=== PATIENT | male | born 1970 | race Two or more races ===

== ENCOUNTER → 2021-06-22 | Outpatient (CLI) | payer MEDICAID | END | disposition home or self-care (01) | LOC: Rad HDHVI 12:58 | PROVIDERS: ATTEND Internal Medicine Cardiovascular Disease | DX: I34.0 Nonrheumatic mitral (valve) insufficiency (principal); I35.0 Nonrheumatic aortic (valve) stenosis | CPT/HCPCS: 93306 ==

== ENCOUNTER 2025-01-25 11:35 | Inpatient (IN) | payer MEDICAID ==
[~2025-01-25] VITALS: Ht 172.7 cm; Wt 103.3 kg
--- NOTE | 2025-01-25 11:53 | ED.PDOC ---
History of Present Illness HPI Comments 54 year old male with a Hx of PVD, High Lipids, DM, HTN, and CKF was BIBA for the c/c of Generalized Weakness. Per EMS pts has been experiencing mechanical falls since missing his last 2 dialysis appointments. Pt notes that his last Dialysis treatment was this past Tuesday. Per EMS Pts Blood sugar ran 230. No other associated symptoms, modifiers, recent injuries or sick contacts present at this time. Chief Complaint: General Weakness Time Seen by MD: 11:49 Reviewed Notes: Nurses Notes, Residential Youth Counselor Notes, Medications, Allergies Information Source: Patient, Emergency Med Personnel Mode of Arrival: EMS Severity: Moderate Timing: Days Duration: Since onset, Days Prehospital treatment: None Past Medical History PAST MEDICAL HISTORY: CKF, DM, High Lipids, HTN Surgical History: Unknown Family History Family History: Unknown Social History Smoker: Non-Smoker Alcohol: Denies ETOH Use Drugs: Denies Drug Use Lives In: Home Constitutional: denies: chills, diaphoresis, fatigue, fever, malaise, sweats, weakness, others EENTM: denies: blurred vision, double vision, ear bleeding, ear discharge, ear drainage, ear pain, ear ringing, eye pain, eye redness, hearing loss, mouth pain, mouth swelling, nasal discharge, nose bleeding, nose congestion, nose pain, photophobia, tearing, throat pain, throat swelling, voice changes, others Respiratory: denies: cough, hemoptysis, orthopnea, SOB at rest, shortness of breath, SOB with excertion, stridor, wheezing, others Cardiovascular: denies: chest pain, dizzy spells, diaphoresis, Dyspnea on exertion, edema, irregular heart beat, left arm pain, lightheadedness, palpitations, PND, syncope, others Gastrointestinal: denies: abdomen distended, abdominal pain, blood streaked bowels, constipated, diarrhea, dysphagia, difficulty swallowing, hematemesis, melena, nausea, poor appetite, poor fluid intake, rectal bleeding, rectal pain, vomiting, others Genitourinary: denies: burning, dysuria, flank pain, frequency, hematuria, incontinence, penile discharge, penile sore, pain, testicle pain, testicle swelling, urgency, others Neurological: reports: weakness; denies: dizziness, fainting, headache, left sided numbness, left sided weakness, numbness, paresthesia, pre-existing deficit, right sided numbness, right sided weakness, seizure, speech problems, tingling, tremors, others Musculoskeletal: denies: back pain, gout, joint pain, joint swelling, muscle pain, muscle stiffness, neck pain, others Integumetry: denies: bruises, change in color, change in hair/nails, dryness, laceration, lesions, lumps, rash, wounds, others Allergic/Immunocompromised: denies: Difficulty Healing, Frequent Infections, Hives, Itching, others Hematologic/Lymphatic: denies: anemia, blood clots, easy bleeding, easy bruising, swollen glands, others Endocrine: denies: excessive hunger, excessive sweating, excessive thirst, excessive urination, flushing, intolerance to cold, intolerance to heat, unexplained weight gain, unexplained weight loss, others Psychiatric: denies: anxiety, bipolar disorder, depression, hopeless, panic disorder, schizophrenia, sleepless, suicidal, others All Other Systems: Reviewed and Negative Physical Exam General Appearance: Moderate Distress, Obese HEENT: Normal ENT Inspection, Pharynx Normal, TMs Normal Neck: Full Range of Motion, Non-Tender, Normal, Normal Inspection Respiratory: Chest Non-Tender, Lungs Clear, No Accessory Muscle Use, No Respiratory Distress, Normal Breath Sounds Cardiovascular: No Edema, No JVD, No Murmur, No Gallop, Normal Peripheral Pulses, Regular Rate/Rhythm Breast Exam: Deferred Gastrointestinal: No Organomegaly, Non Tender, No Pulsatile Mass, Normal Bowel Sounds, Soft Genitalia: Deferred Pelvic: Deferred Rectal: Deferred Extremities: No calf tenderness, Normal capillary refill, Non-tender, No pedal edema Musculoskeletal : Apperance: Normal Neurologic: Alert, flooring installer II-XII nml as Tested, No Motor Deficits, Normal Affect, Normal Mood, No Sensory Deficits Cerebellar Function: NOT DONE Reflexes: NOT DONE Skin: Dry, Normal Color, Warm, Wounds (Bilateral lower extremity) Peripheral Pulses: 3+ Radial (R), 3+ Radial (L) Lymphatic: No Adenopathy Was a procedure done? Was a procedure done?: No Differential Dx Considerations may include: Chronic kidney disease Electrolyte imbalance X-Ray, Labs, Meds, VS Vital Signs Date Time Temp Pulse Resp B/P (MAP) Pulse Ox O2 Delivery O2 Flow Rate FiO2 01/25/25 14:00 98.4 63 20 175/64 (101) 95 98.4 01/25/25 12:16 98.4 64 20 184/84 (117) 95 98.4 01/25/25 12:15 63 20 94 Room Air* 0 21 01/25/25 11:47 98.1 70 16 192/107 (135) 96 98.1 01/25/25 11:38 64 Lab Test 01/25/25 13:52 01/25/25 12:00 Range/Units Sodium Level 134 L 136-145 mmol/L Potassium Level 7.3 *H 3.5-5.1 mmol/L Chloride Level 97 L 98-107 mmol/L Carbon Dioxide Level 20 20-31 mmol/L Anion Gap 17 H 5-15 Blood Urea Nitrogen 99 *H 9-23 mg/dL Creatinine 13.60 *H 0.700-1.30 mg/dL Glomerular Filtration Rate Calc 4 >90 mL/min BUN/Creatinine Ratio 7.3 L 10.0-20.0 Serum Glucose 140 H 74-106 mg/dL Calcium Level 7.9 L 8.7-10.4 mg/dL Total Bilirubin 0.2 0.2-1.0 mg/dL Aspartate Amino Transferase (AST) 13 13-40 U/L Alanine Aminotransferase (ALT) < 9 7-40 U/L Alkaline Phosphatase 62 46-116 U/L Total Protein 6.7 5.7-8.2 g/dL Albumin 3.7 3.2-4.8 g/dL Hepatitis B Surface Antigen Pending Hepatitis B Surface Antibody Pending White Blood Count 9.4 4.4-10.8 10^3/uL Red Blood Count 3.34 L 4.5-5.90 10^6/uL Hemoglobin 9.7 L 13.5-17.5 g/dL Hematocrit 30.0 L 41.0-53.0 % Mean Corpuscular Volume 89.9 80.0-100.0 fL Mean Corpuscular Hemoglobin 28.9 28.0-32.0 pg Mean Corpuscular Hemoglobin Concent 32.2 32.0-36.0 g/dL Red Cell Distribution Width 15.2 H 11.8-14.3 % Platelet Count 225 140-450 10^3/uL Mean Platelet Volume 7.3 6.9-10.8 fL Neutrophils (%) (Auto) 80.1 H 37.0-80.0 % Lymphocytes (%) (Auto) 8.7 L 10.0-50.0 % Monocytes (%) (Auto) 8.1 0.0-12.0 % Eosinophils (%) (Auto) 2.7 0.0-7.0 % Basophils (%) (Auto) 0.4 0.0-2.0 % Neutrophils # (Auto) 7.5 1.6-8.6 10 ^3/uL Lymphocytes # (Auto) 0.8 0.4-5.4 10 ^3/uL Monocytes # (Auto) 0.8 0-1.3 10 ^3/uL Eosinophils # (Auto) 0.3 0-0.8 10 ^3/uL Basophils # (Auto) 0 0-0.2 10 ^3/uL Nucleated Red Blood Cells 0.1 % Lactic Acid Level 0.8 0.4-2.0 mmol/L PATIENT: NAYAN ARMSTRONG ACCT: [id number] UNIT: [id number] : 1970 LOC: ER ROOM / BED: / AGE / SEX: 54 / M ADM STATUS: REG ER SERVICE 1149 ORDERING PHYSICIAN: ANITA WEBB MD PROCEDURE(s): CXRP - CHEST PORTABLE REASON: sob ORDER NUMBER(s): [id number], ACCESSION NUMBER(s): [id number] EXAM: XY CHEST PORTABLE HISTORY: sob COMPARISON: None TECHNIQUE: Portable upright AP view of the chest was performed. FINDINGS: No no pneumothorax or consolidative infiltrates. There is interstitial prominence, greater centrally. The heart is enlarged. The aortic arch is calcific. The central pulmonary arteries may be ectatic. IMPRESSION: 1. Cardiomegaly with interstitial prominence suggestive of CHF. 2. Atherosclerotic vascular disease and possible pulmonary arterial hypertension. Patient alert. Chronic kidney disease. Bilateral lower extremity wounds. Blood pressure elevated. Potassium elevated. Hyperkalemia treatment. Nephrology consultation. He will need dialysis. Chest x-ray does show fluid. Gap elevated. Possible sepsis. Possible DKA. Explained to the patient. Continue to monitor. Time of 1ST Reevaluation: 12:20 Reevaluation 1ST: Unchanged Patient Education/Counseling: Diagnosis, Treatment, Need For Follow Up Family Education/Counseling: No Family Present SEPSIS Sepsis Screen Physician Orders Chest Portable (01/25/25 11:49) Sodium Chloride 0.9% (01/25/25 12:00) Blood Culture (01/25/25 11:49) *[facility] (01/25/25 11:50) Electrocardigram (01/25/25 11:38) Hepatitis B Surface Antibody (01/25/25 13:51) Hepatitis B Surface Antigen (01/25/25 13:51) Insulin R 10units Iv X One (01/25/25 14:30) Dextrose 50% 1amp=50ml (01/25/25 14:30) Albuterol 20mg Medneb X One (01/25/25 14:30) Sod Bicarb 50ml=1amp (01/25/25 14:30) Lasix 20mg Iv X One (01/25/25 14:30) Calcium Gluc 1 Amp Ivpb (01/25/25 14:30) Lokelma 10gm Po Tid X 48hrs (01/25/25 22:00) Vital Signs Date Time Temp Pulse Resp B/P (MAP) Pulse Ox O2 Delivery O2 Flow Rate FiO2 01/25/25 14:00 98.4 63 20 175/64 (101) 95 98.4 01/25/25 12:16 98.4 64 20 184/84 (117) 95 98.4 01/25/25 12:15 63 20 94 Room Air* 0 21 01/25/25 11:47 98.1 70 16 192/107 (135) 96 98.1 01/25/25 11:38 64 Laboratory Tests Test 01/25/25 12:00 Lactic Acid Level 0.8 mmol/L (0.4-2.0) White Blood Count 9.4 10^3/uL (4.4-10.8) Departure 1 Departure Time of Disposition: 14:22 Impression: Primary Impression: Hyperkalemia Additional Impressions: End stage renal disease on dialysis Uncontrolled diabetes mellitus Qualified Codes: E08.65 - Diabetes mellitus due to underlying condition with hyperglycemia Disposition: ADMITTED INPATIENT Admit to: Med Surg Condition: Guarded Critical Care Note Critical Care Time?: Yes (90 min-critical care time only) Critical care comment: Hyperkalemia nephrology consultation continue monitor Stability Stability form required: No Heart Score Heart Score: Heart Score Response (Comments) Value History N/A 0 EKG N/A 0 Age N/A 0 Risk Factors N/A 0 Troponin N/A 0 Total 0 I personally scribed for ANITA WEBB MD ([email or web address]) on 01/25/25 at 11:53. Electronically submitted by Lacho Montana ([email or web address]). I personally scribed for ANITA WEBB MD ([email or web address]) on 01/25/25 at 12:30. Electronically submitted by Lacho Montana ([email or web address]). ANITA WEBB MD Jan 25, 2025 11:53
[2025-01-25] MEDS: AZITHROMYCIN 500MG/ 250ML 250 ML IV ONE (12:00)
[2025-01-25] MEDS: PIPERACILLIN-TAZOB 3.375GM 100 ML IV ONE (12:00)
[2025-01-25] MEDS: SODIUM CHLORIDE 0.9% 1,000 ML IV ONE ×2 (12:00)
[2025-01-25 12:15] VITALS: PULSE 63; RESP 20; O2SAT 94
--- NOTE | 2025-01-25 12:17 | DVH ---
EXAM: XY CHEST PORTABLE HISTORY: sob COMPARISON: None TECHNIQUE: Portable upright AP view of the chest was performed. FINDINGS: No no pneumothorax or consolidative infiltrates. There is interstitial prominence, greater centrally . The heart is enlarged. The aortic arch is calcific. The central pulmonary arteries may be ectatic . IMPRESSION: 1. Cardiomegaly with interstitial prominence suggestive of CHF. 2. Atherosclerotic vascular disease and possible pulmonary arterial hypertension.
[2025-01-25 12:18] LABS: Hematocrit 30.0 % (41.0-53.0); Hemoglobin 9.7 g/dL (13.5-17.5); Mean Corpuscular Hemoglobin 28.9 pg (28.0-32.0); Mean Corpuscular Volume 89.9 fL (80.0-100.0); Nucleated Red Blood Cells % 0.1 %
[2025-01-25 14:11] LABS: Anion Gap 17 (5-15); BUN/Creatinine Ratio 7.3 (10.0-20.0)
[2025-01-25 14:15] LABS: Alanine Aminotransferase < 9 U/L (7-40); Albumin 3.7 g/dL (3.2-4.8); Alkaline Phosphatase 62 U/L (46-116); Bilirubin, Total 0.2 mg/dL (0.2-1.0); Calcium 7.9 mg/dL (8.7-10.4); Carbon Dioxide 20 mmol/L (20-31); Chloride 97 mmol/L (98-107); Glucose 140 mg/dL (74-106); Sodium 134 mmol/L (136-145); Total Protein 6.7 g/dL (5.7-8.2)
[2025-01-25 14:17] LABS: Blood Urea Nitrogen 99 mg/dL (9-23); Potassium 7.3 mmol/L (3.5-5.1)
[2025-01-25] MEDS: InsuLIN REG 1unit/0.01ml Soln (100units/ml) IV ONE (14:39)
[2025-01-25] MEDS: CALCIUM GLUC 1,000mg/50ml-NS 50 ML IV ONE (14:41)
[2025-01-25] MEDS: FUROSEMIDE 20 MG/2 ML VIAL IV ONE (14:41)
[2025-01-25] MEDS: ALBUTEROL SULF 2.5 MG/0.5ML(0.5%) NEB SOLN NEB ONE (14:47)
[2025-01-25 14:48] LABS: Hepatitis B Surface Antigen Negative (Negative)
--- NOTE | 2025-01-25 14:51 | DVHINCON2 ---
Date of service: Jan 25, [address] De León Reason for Consultation End-stage kidney disease, hyperkalemia History of Present Illness This is a 54-year-old male with history of end-stage kidney disease on hemodialysis secondary to diabetic nephropathy, hypotension presenting to the emergency room because of shortness of breath and generalized weakness. As per the history obtained from the patient his last dialysis was on Tuesday. He missed his dialysis on Tuesday and . Today morning he felt extremely weak and hence presented to the emergency room where he was noted to have a potassium of 7.3. Nephrology has been consulted for the same. Patient is extremely noncompliant with his dialysis treatments. Has excessive interdialytic weight gain. Patient seen and examined at bedside. Complaining of shortness of breath. He says he feels as though he is drowning. Past Medical History End-stage kidney disease Type 2 diabetes with its complications Hypertension Past Surgical History Dialysis access Social History Denies any active history of smoking, alcohol or drug abuse Allergies: Coded Allergies: NO KNOWN ALLERGIES (Unverified , 01/25/25) Current Medications Current Medications Medications (Trade) Dose Ordered Sig/Duane Route PRN Reason Start Time Stop Time Status Last Admin Zirconium Oxide (Lokelma) 10 gm TID PO 01/25/25 22:00 01/27/25 14:01 UNV Review of Systems 12 point review of system negative except as stated in the HPI Vital Signs Vital Signs Date Time Temp Pulse Resp B/P (MAP) Pulse Ox O2 Delivery O2 Flow Rate FiO2 01/25/25 14:00 98.4 63 20 175/64 (101) 95 98.4 01/25/25 12:15 Room Air* 0 21 Physical Exam Awake alert oriented x3 HEENT: Normocephalic Lungs: Diminished breath sounds at bases CVS: S1, S2 regular rate rhythm Abdomen: Soft, bowel sounds present 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 Extremities: Chronic skin changes to bilateral lower extremities Labs/Diagnostic Data Labs Test 01/25/25 13:52 01/25/25 12:00 Range/Units Sodium Level 134 L 136-145 mmol/L Potassium Level 7.3 *H 3.5-5.1 mmol/L Chloride Level 97 L 98-107 mmol/L Carbon Dioxide Level 20 20-31 mmol/L Anion Gap 17 H 5-15 Blood Urea Nitrogen 99 *H 9-23 mg/dL Creatinine 13.60 *H 0.700-1.30 mg/dL Glomerular Filtration Rate Calc 4 >90 mL/min BUN/Creatinine Ratio 7.3 L 10.0-20.0 Serum Glucose 140 H 74-106 mg/dL Calcium Level 7.9 L 8.7-10.4 mg/dL Total Bilirubin 0.2 0.2-1.0 mg/dL Aspartate Amino Transferase (AST) 13 13-40 U/L Alanine Aminotransferase (ALT) < 9 7-40 U/L Alkaline Phosphatase 62 46-116 U/L Total Protein 6.7 5.7-8.2 g/dL Albumin 3.7 3.2-4.8 g/dL White Blood Count 9.4 4.4-10.8 10^3/uL Red Blood Count 3.34 L 4.5-5.90 10^6/uL Hemoglobin 9.7 L 13.5-17.5 g/dL Hematocrit 30.0 L 41.0-53.0 % Mean Corpuscular Volume 89.9 80.0-100.0 fL Mean Corpuscular Hemoglobin 28.9 28.0-32.0 pg Mean Corpuscular Hemoglobin Concent 32.2 32.0-36.0 g/dL Red Cell Distribution Width 15.2 H 11.8-14.3 % Platelet Count 225 140-450 10^3/uL Mean Platelet Volume 7.3 6.9-10.8 fL Neutrophils (%) (Auto) 80.1 H 37.0-80.0 % Lymphocytes (%) (Auto) 8.7 L 10.0-50.0 % Monocytes (%) (Auto) 8.1 0.0-12.0 % Eosinophils (%) (Auto) 2.7 0.0-7.0 % Basophils (%) (Auto) 0.4 0.0-2.0 % Neutrophils # (Auto) 7.5 1.6-8.6 10 ^3/uL Lymphocytes # (Auto) 0.8 0.4-5.4 10 ^3/uL Monocytes # (Auto) 0.8 0-1.3 10 ^3/uL Eosinophils # (Auto) 0.3 0-0.8 10 ^3/uL Basophils # (Auto) 0 0-0.2 10 ^3/uL Nucleated Red Blood Cells 0.1 % Lactic Acid Level 0.8 0.4-2.0 mmol/L Assessment End-stage kidney disease on hemodialysis Hyperkalemia Noncompliance Anemia in Chronic kidney disease Hypertension Type 2 diabetes Plan/Recommendation Hemodialysis today with a one K bath Ultrafiltration of up to 4 L as tolerated Discussed with patient regarding compliance with outpatient dialysis treatments. Plan discussed with: Patient JOHNATHAN JOSEPH MD Jan 25, 2025 14:51
[2025-01-25] MEDS: DEXTROSE (50%) 50ML SYRG IV ONE (14:59)
[2025-01-25] MEDS: SODIUM BICARB 8.4% 50Meq/50ml SYR INJ IV ONE (14:59)
[2025-01-25] MEDS ORDERED: HYDROcodone-ACET 5/325MG TAB PO PRN (17:15)
[2025-01-25] MEDS ORDERED: NITROGLYCERIN 0.4 MG SL TAB SL PRN (17:15)
[2025-01-25] MEDS ORDERED: MORPHINE SULFATE INJ 2 MG/ml SYRG IV PRN (17:15)
[2025-01-25] MEDS ORDERED: ONDANSETRON HCL 4 MG/2 ML VIAL IV PRN (17:15)
[2025-01-25] MEDS ORDERED: DOCUSATE SOD 100 MG CAP PO PRN (17:15)
[2025-01-25] MEDS ORDERED: ACETAMINOPHEN 325 MG TAB PO PRN (17:15)
[2025-01-25] MEDS ORDERED: HYDR-4924 PO (17:19)
[2025-01-25] MEDS ORDERED: FURO40TA4 PO (17:19)
[2025-01-25] MEDS ORDERED: INSU1INJ19 SC (17:19)
[2025-01-25] MEDS ORDERED: METO-158 PO (17:19)
[2025-01-25] MEDS ORDERED: LAMO25TA27 PO (17:19)
[2025-01-25] MEDS ORDERED: FENO145T27 PO (17:19)
[2025-01-25] MEDS ORDERED: FAMO40TA7 PO (17:19)
--- NOTE | 2025-01-25 17:41 | DVHHP2 ---
History of Present Illness Reason for Visit: Generalized weakness History of Present Illness Ahsan Melchor is a 54-year-old male with past medical history of hypertension, ESRD on HD, anxiety, diabetes, and peripheral vascular disease, who came to the hospital for generalized weakness. Patient states he missed dialysis last week on Tuesday and . He became weak where his legs would not work today and he fell twice. He states the first time he fell he called EMS for help, but refused to go to the hospital. The second time he fell today he came to the hospital. While in the ER he was found to be hyperkalemic, nephrology was consulted, and dialysis started. Cardiovascular: HTN, hyperipidemia, Other (peripheral vascular disease) Psych: Anxiety Renal/: Chronic renal failure (on HD) Endocrine: Diabetes Past Surgical History: Cholecystectomy, Other Smoke: No ALCOHOL: none Drugs: None Lives: with Family Review of Systems Constitutional: No: Fever, Chills, Sweats, Weakness, Malaise, Other Eyes: No: Pain, Vision change, Conjunctivae inflammation, Eyelid inflammation, Other, Redness ENT: No: Ear pain, Ear discharge, Nose pain, Nose discharge, Nose congestion, Mouth pain, Mouth swelling, Throat pain, Throat swelling, Other Respiratory: No: Cough, Dry, Shortness of breath, SOB with excertion, Wheezing, Hemoptysis, Pleuritic Pain, Sputum, Wheezing, Other Cardiovascular: No: Chest Pain, Palpitations, Orthopnea, Paroxysmal Noc. Dyspnea, Edema, Lt Headedness, Other Gastrointestinal: No: Nausea, Vomiting, Abdominal Pain, Diarrhea, Constipation, Melena, Hematochezia, Other Genitourinary: No Dysuria, No Frequency, No Incontinence, No Hematuria, No Retention, No Other Musculoskeletal: No: other, neck pain, shoulder pain, arm pain, back pain, hand pain, leg pain, foot pain Skin: No: Rash, Lesions, Jaundice, Bruising, Other Neurological: No: Weakness, Numbness, Incoordination, Change in speech, Confusion, Seizures, Other Allergies: Coded Allergies: NO KNOWN ALLERGIES (Unverified , 01/25/25) Medications Current Medications Medications Dose Ordered Sig/Duane Route Start Time Stop Time Status Last Admin Dose Admin Sodium Chloride 10 ml Q8HR IV 01/25/25 22:00 UNV Acetaminophen/ Hydrocodone Bitart 1 tab Q4HP PRN PO 01/25/25 17:15 UNV Ondansetron HCl 4 mg Q4HP PRN IV 01/25/25 17:15 UNV Docusate Sodium 100 mg BIDPRN PRN PO 01/25/25 17:15 UNV Acetaminophen 650 mg Q6HP PRN PO 01/25/25 17:15 UNV Nitroglycerin 0.4 mg Q5MINP PRN SL 01/25/25 17:15 UNV Morphine Sulfate 2 mg Q30M PRN IV 01/25/25 17:15 UNV Clindamycin Phosphate 50 ml @ 50 mls/hr Q8HR IV 01/25/25 22:00 UNV Exam Vital Signs Vital Signs Date Time Temp Pulse Resp B/P (MAP) Pulse Ox O2 Delivery O2 Flow Rate FiO2 01/25/25 17:00 89 20 187/93 (124) 95 01/25/25 14:47 Room Air* 0 21 01/25/25 14:00 98.4 98.4 General Appearance: Alert, Oriented X3, Cooperative, mild distress HEENT: Atraumatic, PERRLA, Mucous membr. moist/pink Respiratory: Clear to auscultation, Normal air movement Cardiovascular: Regular rate, Normal S1, Normal S2 Abdominal: Normal bowel sounds, Soft, No tenderness Extremities: No clubbing, No cyanosis, No edema, Normal pulses Skin: No rashes, No breakdown, No significant lesion Neuro: Normal gait, Normal speech, Strength at 5/5 X4 ext Psych/Mental Status: Mental status NL, Mood NL Labs/Xrays Labs Test 01/25/25 13:52 01/25/25 12:00 Range/Units Sodium Level 134 L 136-145 mmol/L Potassium Level 7.3 *H 3.5-5.1 mmol/L Chloride Level 97 L 98-107 mmol/L Carbon Dioxide Level 20 20-31 mmol/L Anion Gap 17 H 5-15 Blood Urea Nitrogen 99 *H 9-23 mg/dL Creatinine 13.60 *H 0.700-1.30 mg/dL Glomerular Filtration Rate Calc 4 >90 mL/min BUN/Creatinine Ratio 7.3 L 10.0-20.0 Serum Glucose 140 H 74-106 mg/dL Calcium Level 7.9 L 8.7-10.4 mg/dL Total Bilirubin 0.2 0.2-1.0 mg/dL Aspartate Amino Transferase (AST) 13 13-40 U/L Alanine Aminotransferase (ALT) < 9 7-40 U/L Alkaline Phosphatase 62 46-116 U/L Total Protein 6.7 5.7-8.2 g/dL Albumin 3.7 3.2-4.8 g/dL Hepatitis B Surface Antigen Negative Negative Hepatitis B Surface Antibody Negative Negative White Blood Count 9.4 4.4-10.8 10^3/uL Red Blood Count 3.34 L 4.5-5.90 10^6/uL Hemoglobin 9.7 L 13.5-17.5 g/dL Hematocrit 30.0 L 41.0-53.0 % Mean Corpuscular Volume 89.9 80.0-100.0 fL Mean Corpuscular Hemoglobin 28.9 28.0-32.0 pg Mean Corpuscular Hemoglobin Concent 32.2 32.0-36.0 g/dL Red Cell Distribution Width 15.2 H 11.8-14.3 % Platelet Count 225 140-450 10^3/uL Mean Platelet Volume 7.3 6.9-10.8 fL Neutrophils (%) (Auto) 80.1 H 37.0-80.0 % Lymphocytes (%) (Auto) 8.7 L 10.0-50.0 % Monocytes (%) (Auto) 8.1 0.0-12.0 % Eosinophils (%) (Auto) 2.7 0.0-7.0 % Basophils (%) (Auto) 0.4 0.0-2.0 % Neutrophils # (Auto) 7.5 1.6-8.6 10 ^3/uL Lymphocytes # (Auto) 0.8 0.4-5.4 10 ^3/uL Monocytes # (Auto) 0.8 0-1.3 10 ^3/uL Eosinophils # (Auto) 0.3 0-0.8 10 ^3/uL Basophils # (Auto) 0 0-0.2 10 ^3/uL Nucleated Red Blood Cells 0.1 % Lactic Acid Level 0.8 0.4-2.0 mmol/L EXAM: XY CHEST PORTABLE FINDINGS: No no pneumothorax or consolidative infiltrates. There is interstitial prominence, greater centrally. The heart is enlarged. The aortic arch is calcific. The central pulmonary arteries may be ectatic. IMPRESSION: 1. Cardiomegaly with interstitial prominence suggestive of CHF. 2. Atherosclerotic vascular disease and possible pulmonary arterial hypertension. Assessment/Plan Assessment/Plan Assessment: Hyperkalemia, ESRD on HD, Cellulitis, Peripheral vascular disease, Hypertension, Diabetes, Hyperlipidemia, Plan: Admit to Tele, Nephrology consult, Manage/Monitor electrolytes closely, Wound care consult, Wound culture, IV antibiotics, Home medications reconciled, Plan discussed with: Patient My Orders Orders - SIM MANCILLA SKID WRAPPER Procedure Category Date Status Time *Dr. Delfina Boston -Octavio CONS 01/25/25 Transmitted Stacie 14:44 Admit ADMIT 01/25/25 Transmitted 17:03 Code Status CODE 01/25/25 Transmitted 17:03 Renal DIET 01/25/25 Transmitted Standard(2gna,3gk,Lopho) Dinner Sodium Chloride Lock PHA 01/25/25 Logged (Saline Lock Ns) 22:00 Hydrocodone-Acet PHA 01/25/25 Logged 5/325mg Tab (Pony 17:15 Ondansetron Hcl PHA 01/25/25 Logged (Zofran) 17:15 Docusate Sodium PHA 01/25/25 Logged Capsule (Colace 17:15 Fall Risk Precautions CANDI 01/25/[address] 17:03 Complete Blood Count LAB 01/26/25 Verified 04:00 Comprehensive LAB 01/26/25 Verified Metabolic Panel 04:00 Condition: Serious CANDI 01/25/25 In Process 17:03 Acetaminophen Tablet PHA 01/25/25 Logged (Tylenol Tablet) 17:15 Nitroglycerin PHA 01/25/25 Logged Sublingual (Ntrostat 17:15 Morphine Sulfate PHA 01/25/25 Logged Injection 17:15 Stat Ekg For Chest CANDI 01/25/25 In Process Pain 17:03 Notify Md Of Changes CANDI 01/25/25 In Process From Base 17:03 Torpedoman'S Mate For CANDI 01/25/25 In Process 24 Hours 17:03 Emergency Dysrhythmia CANDI 01/25/25 In Process Protocol 17:03 Rhythm Strips Once CANDI 01/25/25 In Process Every Shift 17:03 Oxygen By Nasal RT 01/25/25 Transmitted Cannula 17:03 * Wound Consult CONS 01/25/25 Transmitted Clindamycin 600mg Iv PHA 01/25/25 Logged (Cleocin Iv) 22:00 Wound Culture W/ Gs ZITA 01/25/25 Logged 17:03 Furosemide Tablet PHA 01/25/25 Transmitted (Lasix Tablet) 18:00 Metoprolol Tartrate PHA 01/25/25 Transmitted Tablet (Lopressor Ta 22:00 (Nf) Famotidine PHA 01/25/25 Transmitted 17:15 (Nf) Fenofibrate PHA 01/26/25 Transmitted 10:00 (Nf) Hydroxyzine Hcl PHA 01/25/25 Transmitted (Hydroxyzine Hydroc 17:15 (Nf) Insulin Glargine PHA 01/26/25 Transmitted (Basaglar Kwikpen) 10:00 (Nf) Lamotrigine PHA 01/26/25 Transmitted 10:00 Date of Service: Jan 25, 2025 Billing Provider: SIM MANCILLA Common Visit Codes: [id number] INP/OBS CARE (MOD) SIM MANCILLA Jan 25, 2025 17:41
[2025-01-25] MEDS ORDERED: FAMOTIDINE 20 MG TAB PO PRN (18:30)
[2025-01-25] MEDS ORDERED: hydrOXYzine 25 MG TAB or CAP PO PRN (18:30)
[2025-01-25] MEDS: FUROSEMIDE 40 MG TAB PO SCH (19:07)
[2025-01-25] MEDS: LABETALOL HCL 20 MG/4 ML VL IV ONE (19:11)
[2025-01-25 19:27] VITALS: PULSE 88; RESP 18; O2SAT 98
[2025-01-25 20:58] LABS: Chloride 99 mmol/L (98-107); Potassium 4.4 mmol/L (3.5-5.1); Sodium 139 mmol/L (136-145)
[2025-01-25 20:59] LABS: Anion Gap 13 (5-15); Carbon Dioxide 27 mmol/L (20-31)
[2025-01-25 21:01] LABS: Calcium 8.4 mg/dL (8.7-10.4)
[2025-01-25 21:04] LABS: BUN/Creatinine Ratio 6.0 (10.0-20.0)
[2025-01-25 21:08] LABS: Blood Urea Nitrogen 50 mg/dL (9-23); Glucose 136 mg/dL (74-106)
[2025-01-25] MEDS: CLINDAMYCIN 600MG IV 50 ML IV SCH (21:31)
[2025-01-25] MEDS: SODIUM CHLOR 0.9% PF (SALINE LOCK) 10ML VIAL/SYR IV SCH (21:32)
[2025-01-25] MEDS: METOPROLOL TARTRATE 50 MG TAB PO SCH (21:33)
[2025-01-25] MEDS ORDERED: SODIUM ZIRCONIUM CYCL 10 GM PAK PO SCH (22:00)
[2025-01-26] VITALS (9 sets, daily range): BP systolic 128–193; BP diastolic 57–95; PULSE 65–79; RESP 14–19; TEMP 97.2–98; O2SAT 90–99
[2025-01-26] MEDS: hydrALAZINE HCL 20 MG/ML VL IV PRN ×2 (01:30→23:12)
[2025-01-26] MEDS ORDERED: LOPE2CAP16 PO (04:08)
[2025-01-26 04:41] LABS: Hematocrit 28.0 % (41.0-53.0); Hemoglobin 9.3 g/dL (13.5-17.5); Mean Corpuscular Hemoglobin 29.2 pg (28.0-32.0); Mean Corpuscular Volume 87.8 fL (80.0-100.0); Nucleated Red Blood Cells % 0.0 %
[2025-01-26 04:48] LABS: Albumin 3.6 g/dL (3.2-4.8); Alkaline Phosphatase 55 U/L (46-116); Anion Gap 13 (5-15); BUN/Creatinine Ratio 5.8 (10.0-20.0); Carbon Dioxide 27 mmol/L (20-31); Chloride 99 mmol/L (98-107); Sodium 139 mmol/L (136-145); Total Protein 6.5 g/dL (5.7-8.2)
[2025-01-26 04:49] LABS: Bilirubin, Total 0.3 mg/dL (0.2-1.0)
[2025-01-26 04:50] LABS: Alanine Aminotransferase < 9 U/L (7-40); Blood Urea Nitrogen 55 mg/dL (9-23); Calcium 8.3 mg/dL (8.7-10.4); Glucose 147 mg/dL (74-106); Potassium 5.4 mmol/L (3.5-5.1)
[2025-01-26] MEDS: SODIUM CHL 0.9% 1000 ML BAG XX ONE (07:38)
[2025-01-26] MEDS ORDERED: VANCOMYCIN PER PHARMACY 0 MG IV SCH (08:00)
[2025-01-26] MEDS ORDERED: SODIUM CHL 0.9% 1000 ML BAG XX ONE (09:45)
--- NOTE | 2025-01-26 09:45 | DVHPN2 ---
Progress Note - Dictate Date Seen: Jan 26, 2025 Medical Necessity Reason Pt with a Central, PICC or Fol: No Subjective No acute issues overnight. Patient was dialyzed yesterday with ultrafiltration of 4.5 L Scheduled for dialysis again today. vital signs Vital Sign Date Time Temp Pulse Resp B/P (MAP) Pulse Ox O2 Delivery O2 Flow Rate FiO2 01/26/25 08:00 69 17 99 Nasal Cannula* 2 28 01/26/25 08:00 98.6 148/71 (96) 98.6 Total Intake and Output 01/25/25 01/25/25 01/26/25 15:00 23:00 07:00 Intake Total 50 ml Balance 50 ml medications Current Medications Medications Dose Ordered Sig/Duane Route Start Time Stop Time Status Last Admin Dose Admin Sodium Chloride 10 ml Q8HR IV 01/25/25 22:00 01/26/25 05:41 10 ML Acetaminophen/ Hydrocodone Bitart 1 tab Q4HP PRN PO 01/25/25 17:15 Ondansetron HCl 4 mg Q4HP PRN IV 01/25/25 17:15 Acetaminophen 650 mg Q6HP PRN PO 01/25/25 17:15 Clindamycin Phosphate 50 ml @ 50 mls/hr Q8HR IV 01/25/25 22:00 01/26/25 05:41 50 MLS/HR Furosemide 40 mg QID PO 01/25/25 18:00 01/26/25 05:40 40 MG Metoprolol Tartrate 50 mg BID PO 01/25/25 22:00 01/25/25 21:33 50 MG Patient Own Medication 1 tab DAILY PO 01/26/25 10:00 Hydroxyzine Pamoate 25 mg BIDP PRN PO 01/25/25 18:30 Insulin Glargine 17 units DAILY SC 01/26/25 10:00 Lamotrigine 100 mg DAILY PO 01/26/25 10:00 Vancomycin HCl 0 ml @ 0 mls/hr UD IV 01/26/25 08:00 UNV objective Awake alert oriented x3 HEENT: Normocephalic Lungs: Diminished breath sounds at bases CVS: S1, S2 regular rate rhythm Abdomen: Soft, bowel sounds present FOSTER PARENT: No focal deficits Extremities: Chronic skin changes to bilateral lower extremities laboratory and microbiology Laboratory Tests 01/26/25 03:42 Test 01/26/25 03:42 Range/Units Serum Glucose 147 H 74-106 mg/dL Problem List End-stage kidney disease on hemodialysis Hyperkalemia Noncompliance Anemia in Chronic kidney disease Hypertension Type 2 diabetes Assessment/Plan Hemodialysis today. Blood pressure has been more stable. Again discussed with the patient regarding compliance with outpatient dialysis treatments Plan discussed with: Patient JOHNATHAN JOSEPH MD Jan 26, 2025 09:45
[2025-01-26] MEDS ORDERED: INSULIN LANTUS (GLARGINE) 1 /0.01ml (100units/ml) SC SCH (10:00)
[2025-01-26] MEDS: FENOFIBRATE 145 MG PO SCH (10:00)
[2025-01-26] MEDS: lamoTRIgine 100 MG TAB PO SCH (10:00)
[2025-01-26] MEDS: VANCOMYCIN 1.5GM/300ML 300 ML IV ONE (10:15)
--- NOTE | 2025-01-26 12:51 | DVHPNRES ---
Progress Note Date Seen: Jan 26, 2025 Resident Creating Document: PARK KRAUS RESIDENT Medical Necessity Reason Pt with a Central, PICC or Fol: No Subjective Review of Systems This is a 54-year-old male with past medical history of hypertension, ESRD on hemodialysis, anxiety, type 2 diabetes mellitus, peripheral vascular disease presented to the ED with a chief complaint of generalized weakness. He states he missed dialysis last week on Tuesday and for last few days he felt weeks not able to walk properly and he fell twice without loss of consciousness or any trauma to the head or the back. in the BD patient was found to be hyperkalemic, nephrology was consulted, dialysis done with removal of 4.5 L ultrafiltration. Patient was seen and examined on the bedside. He is alert oriented x3. Complaint of bilateral leg swelling and discharges since last six-month. No other active complaint. Patient is scheduled for hemodialysis today. Constitutional: Weakness, No: Fever, Chills, Sweats, Malaise, Other Eyes: No: Pain, Vision change, Conjunctivae inflammation, Eyelid inflammation, Other, Redness ENT: No: Ear pain, Ear discharge, Nose pain, Nose discharge, Nose congestion, Mouth pain, Mouth swelling, Throat pain, Throat swelling, Other Respiratory: Shortness of breath, improving No: Cough, Dry,Wheezing, Hemoptysis, Pleuritic Pain, Sputum, Wheezing, Other Cardiovascular: No: Chest Pain, Palpitations, Orthopnea, Paroxysmal Noc. Dyspnea, Edema, Lt Headedness, Other Gastrointestinal: No: Nausea, Vomiting, Abdominal Pain, Diarrhea, Constipation, Melena, Hematochezia, Other Musculoskeletal: bilateral leg ulcer, No: other, neck pain, shoulder pain, arm pain, back pain, hand pain, leg pain, foot pain Neurological:; No: Weakness, Numbness, Incoordination, Change in speech, Confusion, Seizures Objective vital signs Vital Sign Date Time Temp Pulse Resp B/P (MAP) Pulse Ox O2 Delivery O2 Flow Rate FiO2 01/26/25 09:25 97.5 71 18 134/62 (86) 93 97.5 01/26/25 08:00 Nasal Cannula* 2 28 Total Intake and Output 01/25/25 01/25/25 01/26/25 15:00 23:00 07:00 Intake Total 50 ml Balance 50 ml medications Current Medications Medications Dose Ordered Sig/Duane Route Start Time Stop Time Status Last Admin Dose Admin Sodium Chloride 10 ml Q8HR IV 01/25/25 22:00 01/26/25 05:41 10 ML Acetaminophen/ Hydrocodone Bitart 1 tab Q4HP PRN PO 01/25/25 17:15 Ondansetron HCl 4 mg Q4HP PRN IV 01/25/25 17:15 Acetaminophen 650 mg Q6HP PRN PO 01/25/25 17:15 Clindamycin Phosphate 50 ml @ 50 mls/hr Q8HR IV 01/25/25 22:00 01/26/25 05:41 50 MLS/HR Furosemide 40 mg QID PO 01/25/25 18:00 01/26/25 05:40 40 MG Metoprolol Tartrate 50 mg BID PO 01/25/25 22:00 01/25/25 21:33 50 MG Patient Own Medication 1 tab DAILY PO 01/26/25 10:00 Hydroxyzine Pamoate 25 mg BIDP PRN PO 01/25/25 18:30 Insulin Glargine 17 units DAILY SC 01/26/25 10:00 Lamotrigine 100 mg DAILY PO 01/26/25 10:00 Vancomycin HCl 0 ml @ 0 mls/hr UD IV 01/26/25 08:00 Examination Physical examination: General Appearance: Alert, Oriented X3, Cooperative, No acute distress HEENT: Atraumatic, PERRLA, EOMI, Mucous membrane moist/pink Respiratory: Clear to auscultation, Normal air movement Cardiovascular: Regular rate, Normal S1, Normal S2, No murmurs, no chest wall tenderness Abdominal: Normal bowel sounds, Soft, No tenderness, No hepatospenomegaly, No masses Extremities: Bilateral reduced pulsation in both posterior tibial and dorsalis pedis artery, No clubbing, No cyanosis, No edema, No tenderness/swelling Skin: bilateral status dermatitis with superimposed infection in legs, No rashes, No significant lesion Neuro: Rt eye blindness due to diabetic nephropathy, Normal gait, Normal speech, Strength at 5/5 X4 ext, Normal tone, Sensation intact, Cranial nerves 3- 12 NL, Reflexes 2+ Psych/Mental Status: Mental status NL, Mood NL laboratory and microbiology Laboratory Tests 01/26/25 03:42 Test 01/26/25 03:42 Range/Units Serum Glucose 147 H 74-106 mg/dL Microbiology Date/Time Source Procedure Growth Status 01/25/25 12:00 Blood Blood Culture - Preliminary Resulted Labs and/or images reviewed: Labs reviewed by me, Image(s) reviewed by me Problem List/Assessment/Plan Problem List/Assessment/Plan Assessment and plan: # ESRD on hemodialysis 3 times a week # Patient is noncompliant with dialysis, missed 2 sessions of dialysis # Hyperkalemia due to missed dialysis # chronic normocytic anemia likely due to ESRD - Nephrology on board - Had 1 session of dialysis yesterday and 4.5L ultrafiltration removed - Epoetin rayna - EPBX 4000 units per protocol # Bilateral stasis dermatitis with superimposed cellulitis # Bacteremia likely due to cellulitis # Possible peripheral arterial disease # Diabetic polyneuropathy # Rule out DVT - Preliminary blood culture demonstrated Gram-positive cocci in chain, pairs and clusters - IV vancomycin as per pharmacy and IV clindamycin 600 mg Q 8 hours - ordered Doppler scan of the lower limb # Type 2 diabetes mellitus # Right eye blindness secondary to diabetic retinopathy - Mild sliding scale of insulin # Rule out CHF # Hypertensive heart disease - Echo on 2020 showed EF 45% - Continue Lasix 40 mg p.o. daily, metoprolol tartrate 50 mg p.o. b.i.d. - ordered echo # DVT prophylaxis - Heparin 5000 units b.i.d. Goal of care discussed with the patient for more than 25 minutes full code Plan discussed with Dr. Fraire Plan discussed with: Patient, Other My Orders My Orders Orders - PARK KRAUS RESIDENT Procedure Category Date Status Time Vancomycin Per PHA 01/26/25 In Process Pharmacy 08:00 Covid19 Antigen [facility] 01/26/25 Logged Rapid Influenza A&B LAB 01/26/25 Logged 07:46 Mrsa Screen [facility]ITA 01/26/25 Uncollected 07:46 Echo 2d Mode Cardiac US 01/26/25 Logged DOP 07:46 Bilat Lower Dvt US 01/26/25 Taken 10:33 Date of Service: Jan 26, 2025 Billing Provider: RON FRAIRE MD Common Visit Codes: [id number] INP/OBS CARE(HIGH) PARK KRAUS RESIDENT Jan 26, 2025 12:51 RON FRAIRE MD Jan 26, 2025 16:59
--- NOTE | 2025-01-26 13:34 | DVH ---
BILATERAL LOWER EXTREMITY VENOUS DOPPLER ULTRASOUND CLINICAL HISTORY: Swelling. Rule out DVT. TECHNIQUE: Grayscale ultrasound with compression, color Doppler flow imaging with pulsed duplex sonog blu of the bilateral lower extremity deep venous system from the common femoral veins through the p opliteal veins is performed. COMPARISON: None FINDINGS: Right common femoral vein: Negative. Right greater saphenous vein: Negative. Right deep femoral vein: Negative. Right femoral vein: Negative. Right popliteal vein: Negative. Left common femoral vein: Negative. Left greater saphenous vein: Negative. Left deep femoral vein: Negative. Left femoral vein: Negative. Left popliteal vein: Negative. Other: Visualized bilateral popliteal trifurcation and posterior tibial veins demonstrate color flow. Subcutaneous edema noted bilaterally. IMPRESSION: No sonographic evidence of deep venous thrombosis in either lower extremity at this time. Subcutaneous edema noted bilaterally. HS:Y
[2025-01-26] MEDS ORDERED: DEXTROSE (50%) 50ML SYRG IV PRN (13:45)
[2025-01-26] MEDS: ACCU-CHEK COMFORT CURVE STRIP VI SCH (17:00)
[2025-01-26] MEDS: InsuLIN REG 1unit/0.01ml Soln (100units/ml) SC SCH (17:00)
[2025-01-26] MEDS: EPOETIN ALFA-EPBX 4,000 UNIT/ML VIAL SC ONE (21:37)
[2025-01-26 22:27] LABS: COVID19 ANTIGEN SOFIA FIA NEGATIVE (NEGATIVE)
[2025-01-27] VITALS (8 sets, daily range): BP systolic 116–165; BP diastolic 51–91; PULSE 58–83; RESP 16–19; TEMP 97.3–99; O2SAT 90–100
[2025-01-27 05:59] LABS: Hematocrit 30.6 % (41.0-53.0); Hemoglobin 10.2 g/dL (13.5-17.5); Mean Corpuscular Hemoglobin 29.5 pg (28.0-32.0); Mean Corpuscular Volume 88.3 fL (80.0-100.0); Nucleated Red Blood Cells % 0.0 %
[2025-01-27 06:20] LABS: Anion Gap 13 (5-15); Carbon Dioxide 28 mmol/L (20-31); Sodium 139 mmol/L (136-145)
[2025-01-27 06:21] LABS: Calcium 8.8 mg/dL (8.7-10.4)
[2025-01-27 06:23] LABS: Chloride 98 mmol/L (98-107); Potassium 5.2 mmol/L (3.5-5.1)
[2025-01-27 06:26] LABS: BUN/Creatinine Ratio 5.2 (10.0-20.0)
[2025-01-27 06:27] LABS: Blood Urea Nitrogen 40 mg/dL (9-23); Glucose 135 mg/dL (74-106)
--- NOTE | 2025-01-27 09:52 | DVHPNRES ---
Progress Note Date Seen: Jan 27, 2025 Resident Creating Document: CHRISTA CARCAMO RESIDENT Has the PT tested + for MRSA If YES, has PT been informed?: No Medical Necessity Reason Pt with a Central, PICC or Fol: No Subjective Review of Systems This is a 54-year-old male with past medical history of hypertension, ESRD on hemodialysis, anxiety, type 2 diabetes mellitus, peripheral vascular disease presented to the ED with a chief complaint of generalized weakness. He states he missed dialysis last week on Tuesday and for last few days he felt weeks not able to walk properly and he fell twice without loss of consciousness or any trauma to the head or the back. in the ED patient was found to be hyperkalemic, nephrology was consulted, dialysis done with removal of 4.5 L ultrafiltration. Patient seen at bedside. He appears comfortable and alert*3, he states that he feels better than yesterday. He underwent hemodialysis yesterday. He has bilateral leg swelling, which was warm to touch, hyperpigmented. Objective vital signs Vital Sign Date Time Temp Pulse Resp B/P (MAP) Pulse Ox O2 Delivery O2 Flow Rate FiO2 01/27/25 09:00 98.6 73 16 165/75 (105) 99 98.6 01/26/25 20:00 Nasal Cannula* 2 28 Total Intake and Output 01/26/25 01/26/25 01/27/25 15:00 23:00 07:00 Intake Total 150 ml 650 ml Output Total 0 ml Balance 150 ml 650 ml medications Current Medications Medications Dose Ordered Sig/Duane Route Start Time Stop Time Status Last Admin Dose Admin Sodium Chloride 10 ml Q8HR IV 01/25/25 22:00 01/27/25 05:06 10 ML Acetaminophen/ Hydrocodone Bitart 1 tab Q4HP PRN PO 01/25/25 17:15 Ondansetron HCl 4 mg Q4HP PRN IV 01/25/25 17:15 Acetaminophen 650 mg Q6HP PRN PO 01/25/25 17:15 Clindamycin Phosphate 50 ml @ 50 mls/hr Q8HR IV 01/25/25 22:00 01/27/25 05:06 50 MLS/HR Furosemide 40 mg QID PO 01/25/25 18:00 01/27/25 05:37 40 MG Metoprolol Tartrate 50 mg BID PO 01/25/25 22:00 01/27/25 08:59 50 MG Patient Own Medication 1 tab DAILY PO 01/26/25 10:00 Hydroxyzine Pamoate 25 mg BIDP PRN PO 01/25/25 18:30 Lamotrigine 100 mg DAILY PO 01/26/25 10:00 01/27/25 08:59 100 MG Vancomycin HCl 0 ml @ 0 mls/hr UD IV 01/26/25 08:00 Diagnostic Test (Pha) 1 strip ACHS 01/26/25 17:00 01/27/25 06:02 1 STRIP Insulin Human Regular ACHS SC 01/26/25 17:00 Dextrose 50 ml UD PRN IV 01/26/25 13:45 Hydralazine HCl 10 mg Q6HP PRN IV 01/26/25 23:00 01/26/25 23:12 10 MG Examination General: Patient alert and oriented in person, place and time. Patient following commands. HEENT: Normocephalic, atraumatic, moist mucous membranes Respiratory/pulmonary: Clear lungs bilaterally, vesicular murmurs present in almost all lung de jesus, no associated crackles or wheezes. Cardiovascular: Normal heart sounds S1 and S2 with no associated murmurs Abdomen: Abdomen nondistended, there is no pain to palpation in any of the abdominal quadrants, no palpable masses. Extremities: There is bilateral edema, hyperpigmentation and warm to touch, no present discharge. Peripheral Pulses: 3+ Radial (R). 3+ Radial (L). 3+ Dorsalis pedis (R). 3+ Dorsalis pedis(L) Skin: No rashes or pruritus, there is no sacral edema present at this time. Neurological: Intact cranial nerves with no focal neurologic deficits laboratory and microbiology Laboratory Tests 01/27/25 05:15 Test 01/27/25 05:15 Range/Units Serum Glucose 135 H 74-106 mg/dL Microbiology Date/Time Source Procedure Growth Status 01/25/25 12:00 Blood Blood Culture - Preliminary Resulted 01/25/25 00:00 Leg Gram Stain - Final Resulted 01/25/25 00:00 Leg Wound Culture Pending Resulted Problem List/Assessment/Plan Problem List/Assessment/Plan # ESRD on hemodialysis 3 times a week # Patient is noncompliant with dialysis, missed 2 sessions of dialysis # Hyperkalemia due to missed dialysis # chronic normocytic anemia likely due to ESRD - Nephrology on board - Had 2 session of dialysisin 2 days - Epoetin rayna - EPBX 4000 units per protocol # Bilateral stasis dermatitis with superimposed cellulitis # Bacteremia likely due to cellulitis # Possible peripheral arterial disease # Diabetic polyneuropathy # Rule out DVT - Preliminary blood culture demonstrated Staph. Aureas - IV vancomycin as per pharmacy and IV clindamycin 600 mg Q 8 hours - ordered Doppler scan of the lower limb # Type 2 diabetes mellitus # Right eye blindness secondary to diabetic retinopathy - Mild sliding scale of insulin # Rule out CHF # Hypertensive heart disease - Echo on 2020 showed EF 45% - Continue Lasix 40 mg p.o. daily, metoprolol tartrate 50 mg p.o. b.i.d. - ordered echo # DVT prophylaxis - Heparin 5000 units b.i.d. Plan discussed with: Patient Dietary Evaluation Review Recommendations by RD: Dietary education by RD Comments: 1) Change diet from renal standard to 60g CCHO renal diet d/t uncontrolled HbA1c 2) Encourage optimal PO intake 3) Initiate Nephro-Reena @ 1 tb qd 4) Refer to outpatient RD/CD[facility] for diabetes education and weight management 5) Follow-up with nephrology 6) Continue to monitor I&O, labs, and skin integrity Expected Outcomes/Goals: 1) appetite and labs to improve 2) wound to improve 3) f/u in 3-5 days Date of Service: Jan 27, 2025 Billing Provider: RON FRAIRE MD Common Visit Codes: [id number] INP/OBS CARE(HIGH) CHRISTA CARCAMO RESIDENT Jan 27, 2025 09:51 RON FRAIRE MD Jan 27, 2025 21:18
--- NOTE | 2025-01-27 09:57 | DVHSR ---
APPROVED REPORT EXAM: Two-dimensional and M-mode echocardiogram with Doppler and color Doppler. Blood Pressure: 159/71 mmHg INDICATION CHF RISK FACTORS Obesity: Height: 5' 8", Weight: 231 DIMENSIONS LVDd4.8 (3.8-5.7cm)LA (2D)5.1 (1.9-4.0cm)Aortic Root3.3 (2.0-3.7cm) LVDs3.5 (2.5-4.0cm)LA (MM) (1.9-4.0cm)Aortic Cusp Exc1.8 (1.5-2.0cm) EF (%) 55.0 (55-70%)Rt. Atrium5.0 (1.9-4.0cm)Asc. Aorta cm IVSd1.4 (0.7-1.1cm)RV (D) (1.8-2.4cm) PWd1.3 (0.7-1.1cm) Mitral Valve MitralMitral Stenosis E wave0.90m/sMV Mean GR.mmHg A wave0.80m/sMV Peak GR.mmHg E/A ratio1.12D MVAcm2 Aortic Valve Aortic ValveAortic Stenosis V10.90m/Anthony Mean GR.5mmHg V21.50m/Anthony Peak GR.9mmHg LVOT Diameter2.2 (1.8-2.4cm)Doppler AVA2.28cm2 Pulmonic Valve V20.50m/s Tricuspid Valve TR Velocity3.20m/s [id number] Conclusion lvef 50-55% severe lvh aortic sclerosis mild to moderate tricuspid regurg limited study
[2025-01-27] MEDS ORDERED: GABA-1250 PO (10:15)
[2025-01-27] MEDS: GABAPENTIN 300 MG CAP PO SCH (14:47)
[2025-01-27] MEDS: VANCOMYCIN 1.5GM/300ML 300 ML IV ONE (16:52)
--- NOTE | 2025-01-27 20:08 | DVHPN2 ---
Progress Note - Dictate Date Seen: Jan 27, 2025 Has the PT tested + for MRSA If YES, has PT been informed?: No Medical Necessity Reason Pt with a Central, PICC or Fol: No Subjective No acute issues overnight. Underwent dialysis on Tuesday and Tuesday. Blood cultures with staph aureus. vital signs Vital Sign Date Time Temp Pulse Resp B/P (MAP) Pulse Ox O2 Delivery O2 Flow Rate FiO2 01/27/25 17:56 139/91 01/27/25 17:00 97.6 58 18 100 97.6 01/27/25 08:05 Nasal Cannula* 2 28 Total Intake and Output 01/26/25 01/26/25 01/27/25 15:00 23:00 07:00 Intake Total 150 ml 650 ml Output Total 0 ml Balance 150 ml 650 ml medications Current Medications Medications Dose Ordered Sig/Duane Route Start Time Stop Time Status Last Admin Dose Admin Sodium Chloride 10 ml Q8HR IV 01/25/25 22:00 01/27/25 14:47 10 ML Acetaminophen/ Hydrocodone Bitart 1 tab Q4HP PRN PO 01/25/25 17:15 Ondansetron HCl 4 mg Q4HP PRN IV 01/25/25 17:15 Acetaminophen 650 mg Q6HP PRN PO 01/25/25 17:15 Clindamycin Phosphate 50 ml @ 50 mls/hr Q8HR IV 01/25/25 22:00 01/27/25 14:47 50 MLS/HR Furosemide 40 mg QID PO 01/25/25 18:00 01/27/25 17:56 40 MG Metoprolol Tartrate 50 mg BID PO 01/25/25 22:00 01/27/25 08:59 50 MG Patient Own Medication 1 tab DAILY PO 01/26/25 10:00 Hydroxyzine Pamoate 25 mg BIDP PRN PO 01/25/25 18:30 Lamotrigine 100 mg DAILY PO 01/26/25 10:00 01/27/25 08:59 100 MG Vancomycin HCl 0 ml @ 0 mls/hr UD IV 01/26/25 08:00 Diagnostic Test (Pha) 1 strip ACHS 01/26/25 17:00 01/27/25 17:00 1 STRIP Insulin Human Regular ACHS SC 01/26/25 17:00 01/27/25 11:08 3 UNITS Dextrose 50 ml UD PRN IV 01/26/25 13:45 Hydralazine HCl 10 mg Q6HP PRN IV 01/26/25 23:00 01/26/25 23:12 10 MG Gabapentin 300 mg 5XD PO 01/27/25 14:00 01/27/25 17:56 300 MG objective Awake alert oriented x3 HEENT: Normocephalic Lungs: Diminished breath sounds at bases CVS: S1, S2 regular rate rhythm Abdomen: Soft, bowel sounds present [employer]: No focal deficits Extremities: Chronic skin changes to bilateral lower extremities laboratory and microbiology Laboratory Tests 01/27/25 05:15 Test 01/27/25 05:15 Range/Units Serum Glucose 135 H 74-106 mg/dL Problem List End-stage kidney disease on hemodialysis Bacteremia with Staph aureus Cellulitis bilateral lower extremity Hyperkalemia Noncompliance Anemia in Chronic kidney disease Hypertension Type 2 diabetes Assessment/Plan Hemodialysis on TTS schedule Blood pressure has been more stable. Again discussed with the patient regarding compliance with outpatient dialysis treatments On vancomycin and clindamycin Dietary Evaluation Review Recommendations by RD: Dietary education by RD Comments: 1) Change diet from renal standard to 60g CCHO renal diet d/t uncontrolled HbA1c 2) Encourage optimal PO intake 3) Initiate Nephro-Reena @ 1 tb qd 4) Refer to outpatient RD/[facility] for diabetes education and weight management 5) Follow-up with nephrology 6) Continue to monitor I&O, labs, and skin integrity Expected Outcomes/Goals: 1) appetite and labs to improve 2) wound to improve 3) f/u in 3-5 days Plan discussed with: Patient JOHNATHAN JOSEPH MD Jan 27, 2025 20:08
[2025-01-27] MEDS: SODIUM ZIRCONIUM CYCL 10 GM PAK PO ONE (21:35)
[2025-01-28] VITALS (9 sets, daily range): BP systolic 122–173; BP diastolic 65–92; PULSE 63–87; RESP 16–20; TEMP 97.4–98.7; O2SAT 91–100
[2025-01-28] MEDS ORDERED: VANCOMYCIN PER PHARMACY 0 MG IV SCH (06:45)
[2025-01-28 08:52] LABS: Hematocrit 30.1 % (41.0-53.0); Hemoglobin 10.0 g/dL (13.5-17.5); Mean Corpuscular Hemoglobin 29.5 pg (28.0-32.0); Mean Corpuscular Volume 88.8 fL (80.0-100.0); Nucleated Red Blood Cells % 0.0 %
[2025-01-28 09:04] LABS: Anion Gap 13 (5-15); Carbon Dioxide 25 mmol/L (20-31)
[2025-01-28 09:09] LABS: BUN/Creatinine Ratio 5.4 (10.0-20.0)
[2025-01-28 09:16] LABS: Blood Urea Nitrogen 50 mg/dL (9-23); Calcium 8.7 mg/dL (8.7-10.4); Chloride 96 mmol/L (98-107); Glucose 166 mg/dL (74-106); Potassium 5.2 mmol/L (3.5-5.1); Sodium 134 mmol/L (136-145)
[2025-01-28] MEDS: CARVEDILOL 3.125 MG TAB PO SCH (09:58)
--- NOTE | 2025-01-28 11:47 | ECG ---
[facility] Test Date: 2025-01-25 Test Time: 11:38:56 Pat Name: NAYAN ARMSTRONG Department: ED Room: 0215T A Gender: M Gluer And Wedger: maribel : 1970 Requested By: ANITA WEBB Order Number: [id number] Reading MD: Rafal Dickinson Measurements Intervals [place] Rate: 64 P: 34 OK: 153 QRS: 31 QRSD: 138 T: 66 QT: 466 QTc: 481 Interpretive Statements Sinus rhythm Nonspecific intraventricular conduction delay Electronically Signed On 01-31-2025 18:13:53 PDT by Rafal Dickinson Please click the below link to view image of tracing.
--- NOTE | 2025-01-28 15:13 | DVHPN2 ---
Progress Note - Dictate Date Seen: Jan 28, 2025 Has the PT tested + for MRSA If YES, has PT been informed?: No Medical Necessity Reason Pt with a Central, PICC or Fol: No Subjective Patient feels better vital signs Vital Sign Date Time Temp Pulse Resp B/P (MAP) Pulse Ox O2 Delivery O2 Flow Rate FiO2 01/28/25 13:59 150/85 01/28/25 13:00 97.4 66 20 95 97.4 01/28/25 08:20 Room Air* 0 21 Total Intake and Output 01/27/25 01/27/25 01/28/25 15:00 23:00 07:00 Intake Total 1090 ml 290 ml Output Total 50 ml Balance 1040 ml 290 ml medications Current Medications Medications Dose Ordered Sig/Duane Route Start Time Stop Time Status Last Admin Dose Admin Sodium Chloride 10 ml Q8HR IV 01/25/25 22:00 01/28/25 13:59 10 ML Acetaminophen/ Hydrocodone Bitart 1 tab Q4HP PRN PO 01/25/25 17:15 Ondansetron HCl 4 mg Q4HP PRN IV 01/25/25 17:15 Acetaminophen 650 mg Q6HP PRN PO 01/25/25 17:15 Clindamycin Phosphate 50 ml @ 50 mls/hr Q8HR IV 01/25/25 22:00 01/28/25 13:54 50 MLS/HR Furosemide 40 mg QID PO 01/25/25 18:00 01/28/25 12:13 40 MG Patient Own Medication 1 tab DAILY PO 01/26/25 10:00 Hydroxyzine Pamoate 25 mg BIDP PRN PO 01/25/25 18:30 Lamotrigine 100 mg DAILY PO 01/26/25 10:00 01/28/25 09:56 100 MG Vancomycin HCl 0 ml @ 0 mls/hr UD IV 01/26/25 08:00 Diagnostic Test (Pha) 1 strip ACHS 01/26/25 17:00 01/28/25 11:51 1 STRIP Insulin Human Regular ACHS SC 01/26/25 17:00 01/28/25 06:19 2 UNITS Dextrose 50 ml UD PRN IV 01/26/25 13:45 Gabapentin 300 mg 5XD PO 01/27/25 14:00 01/28/25 13:54 300 MG Hydralazine HCl 25 mg Q8HR PO 01/28/25 14:00 01/28/25 13:59 25 MG Carvedilol 6.25 mg Q12HR PO 01/28/25 10:00 01/28/25 09:58 6.25 MG objective HEENT: No evidence of JVD, no oral ulcers. Pulmonary: Lungs are clear on auscultation bilaterally Cardiovascular S1-S2, no S3 or S4 Abdomen: Bowel sounds positive, soft no rebound tenderness Skin: Chronic stasis in the lower extremity with multiple areas of excoriation of the skin Neurological: Alert, oriented, no focal weakness Dialysis access seems uncomplicated. laboratory and microbiology Laboratory Tests 01/28/25 13:34 01/28/25 08:33 Test 01/28/25 08:33 Range/Units Serum Glucose 166 H 74-106 mg/dL Assessment/Plan Assessment End-stage kidney disease on hemodialysis Bacteremia with Staph aureus Cellulitis bilateral lower extremity Hyperkalemia Noncompliance Anemia in Chronic kidney disease Hypertension Type 2 diabetes Assessment/Plan Hemodialysis on TTS schedule 2D echo does not mention any evidence of vegetation. If persistent blood cultures consider [facility] Consider Infectious Disease consultation Blood pressure has been more stable. Again discussed with the patient regarding compliance with outpatient dialysis treatments On vancomycin and clindamycin Patient could be provided vancomycin with dialysis He was advised about the importance of compliance with dialysis treatment, diet to prevent deterioration, disability, discomfort or even resulting from noncompliance Dietary Evaluation Review Recommendations by RD: Dietary education by RD Comments: 1) Change diet from renal standard to 60g CCHO renal diet d/t uncontrolled HbA1c 2) Encourage optimal PO intake 3) Initiate Nephro-Reena @ 1 tb qd 4) Refer to outpatient RD/CD[facility] for diabetes education and weight management 5) Follow-up with nephrology 6) Continue to monitor I&O, labs, and skin integrity Expected Outcomes/Goals: 1) appetite and labs to improve 2) wound to improve 3) f/u in 3-5 days Plan discussed with: Patient REINIER JACQUES MD Jan 28, 2025 15:13
[2025-01-28] MEDS: SODIUM ZIRCONIUM CYCL 10 GM PAK PO ONE (16:00)
--- NOTE | 2025-01-28 18:21 | DVHPNRES ---
Progress Note Date Seen: Jan 28, 2025 Resident Creating Document: PARK KRAUS RESIDENT Has the PT tested + for MRSA If YES, has PT been informed?: No Medical Necessity Reason Pt with a Central, PICC or Fol: No Subjective Review of Systems Patient was seen and examined on the bedside. He is alert oriented x3. mentioned feeling better and no other active complaint this time. Patient is scheduled for hemodialysis today. Objective vital signs Vital Sign Date Time Temp Pulse Resp B/P (MAP) Pulse Ox O2 Delivery O2 Flow Rate FiO2 01/28/25 18:06 140/72 01/28/25 16:57 98.7 87 16 91 98.7 01/28/25 08:20 Room Air* 0 21 Total Intake and Output 01/27/25 01/27/25 01/28/25 15:00 23:00 07:00 Intake Total 1090 ml 290 ml Output Total 50 ml Balance 1040 ml 290 ml medications Current Medications Medications Dose Ordered Sig/Duane Route Start Time Stop Time Status Last Admin Dose Admin Sodium Chloride 10 ml Q8HR IV 01/25/25 22:00 01/28/25 13:59 10 ML Acetaminophen/ Hydrocodone Bitart 1 tab Q4HP PRN PO 01/25/25 17:15 Ondansetron HCl 4 mg Q4HP PRN IV 01/25/25 17:15 Acetaminophen 650 mg Q6HP PRN PO 01/25/25 17:15 Clindamycin Phosphate 50 ml @ 50 mls/hr Q8HR IV 01/25/25 22:00 01/28/25 13:54 50 MLS/HR Furosemide 40 mg QID PO 01/25/25 18:00 01/28/25 18:06 40 MG Patient Own Medication 1 tab DAILY PO 01/26/25 10:00 Hydroxyzine Pamoate 25 mg BIDP PRN PO 01/25/25 18:30 Lamotrigine 100 mg DAILY PO 01/26/25 10:00 01/28/25 09:56 100 MG Vancomycin HCl 0 ml @ 0 mls/hr UD IV 01/26/25 08:00 Diagnostic Test (Pha) 1 strip ACHS 01/26/25 17:00 01/28/25 17:00 1 STRIP Insulin Human Regular ACHS SC 01/26/25 17:00 01/28/25 18:15 3 UNITS Dextrose 50 ml UD PRN IV 01/26/25 13:45 Gabapentin 300 mg 5XD PO 01/27/25 14:00 01/28/25 18:02 300 MG Hydralazine HCl 25 mg Q8HR PO 01/28/25 14:00 01/28/25 13:59 25 MG Carvedilol 6.25 mg Q12HR PO 01/28/25 10:00 01/28/25 09:58 6.25 MG Examination Physical examination: General Appearance: Alert, Oriented X3, Cooperative, No acute distress HEENT: Atraumatic, PERRLA, EOMI, Mucous membrane moist/pink Respiratory: Clear to auscultation, Normal air movement Cardiovascular: Regular rate, Normal S1, Normal S2, No murmurs, no chest wall tenderness Abdominal: Normal bowel sounds, Soft, No tenderness, No hepatospenomegaly, No masses Extremities: Bilateral reduced pulsation in both posterior tibial and dorsalis pedis artery, No clubbing, No cyanosis, No edema, No tenderness/swelling Skin: bilateral status dermatitis with superimposed infection in legs, No rashes, No significant lesion Neuro: Rt eye blindness due to diabetic nephropathy, Normal gait, Normal speech, Strength at 5/5 X4 ext, Normal tone, Sensation intact, Cranial nerves 3- 12 NL, Reflexes 2+ Psych/Mental Status: Mental status NL, Mood NL laboratory and microbiology Laboratory Tests 01/28/25 13:34 01/28/25 08:33 Test 01/28/25 08:33 Range/Units Serum Glucose 166 H 74-106 mg/dL Microbiology Date/Time Source Procedure Growth Status 01/27/25 16:14 Blood Blood Culture - Preliminary NO GROWTH AFTER 24 HOURS OF INCUBATION. Resulted 01/26/25 21:40 Nose MRSA Screen - Final Complete Labs and/or images reviewed: Labs reviewed by me, Image(s) reviewed by me Problem List/Assessment/Plan Problem List/Assessment/Plan Assessment and plan: # ESRD on hemodialysis 3 times a week # Patient is noncompliant with dialysis, missed 2 sessions of dialysis # Hyperkalemia due to missed dialysis # chronic normocytic anemia likely due to ESRD - Nephrology on board - Patient is scheduled for another hemodialysis today. - Epoetin rayna - EPBX 4000 units per protocol # Bilateral stasis dermatitis with superimposed cellulitis # Bacteremia likely due to cellulitis # Possible peripheral arterial disease # Diabetic polyneuropathy # Ruled out DVT - Preliminary blood culture demonstrated Gram-positive cocci in chain, pairs and clusters - New blood culture on 01/28/25 demonstrated no growth in 24 hours of incubation. - IV vancomycin as per pharmacy and IV clindamycin 600 mg Q 8 hours - Doppler scan of the lower limb excluded DvT # Type 2 diabetes mellitus # Right eye blindness secondary to diabetic retinopathy - Mild sliding scale of insulin # Rule out CHF # Hypertensive heart disease # Possible pulmonary hypertension - Echo on 2020 showed EF 45% - Continue Lasix 40 mg p.o. daily, metoprolol tartrate 50 mg p.o. b.i.d. - Echo showed lvef 50-55%, severe lvh, aortic sclerosis and mild to moderate tricuspid regurg and RVSP 50 mm hg # DVT prophylaxis - Heparin 5000 units b.i.d. Goal of care discussed with the patient for more than 25 minutes full code Plan discussed with Dr. Fraire Plan discussed with: Patient, Other My Orders My Orders Orders - PARK KRAUS Procedure Category Date Status Time Hydralazine Hcl PHA 01/28/25 In Process Tablet (Apresoline 14:00 Carvedilol Tablet PHA 01/28/25 In Process (Coreg Tablet) 10:00 Vancomycin,Random LAB 01/29/25 Verified 04:00 Creatinine LAB 01/29/25 Verified 04:00 Dietary Evaluation Review Recommendations by RD: Dietary education by RD Comments: 1) Change diet from renal standard to 60g [facility] renal diet d/t uncontrolled HbA1c 2) Encourage optimal PO intake 3) Initiate Nephro-Reena @ 1 tb qd 4) Refer to outpatient RD/[facility] for diabetes education and weight management 5) Follow-up with nephrology 6) Continue to monitor I&O, labs, and skin integrity Expected Outcomes/Goals: 1) appetite and labs to improve 2) wound to improve 3) f/u in 3-5 days Date of Service: Jan 28, 2025 Billing Provider: RON FRAIRE MD Common Visit Codes: 33633-[id number] INP/OBS CARE(HIGH) PARK KRAUS Jan 28, 2025 18:20 RON FRAIRE MD Jan 29, 2025 20:25
[2025-01-28] MEDS: HEPARIN SODIUM (PORCINE) 5000 UNITS/ML 1ML VIAL SC SCH (21:19)
[2025-01-29 01:00] VITALS: BP 169/79; PULSE 70; RESP 20; TEMP 98; O2SAT 96
[2025-01-29] MEDS: hydrALAZINE HCL 20 MG/ML VL IV ONE (01:50)
[2025-01-29 05:00] VITALS: BP 161/73; PULSE 72; RESP 19; TEMP 98.1; O2SAT 95
[2025-01-29 06:07] LABS: Hematocrit 28.8 % (41.0-53.0); Hemoglobin 9.5 g/dL (13.5-17.5); Mean Corpuscular Hemoglobin 29.6 pg (28.0-32.0); Mean Corpuscular Volume 89.8 fL (80.0-100.0); Nucleated Red Blood Cells % 0.0 %
[2025-01-29 06:21] LABS: Anion Gap 15 (5-15); Carbon Dioxide 22 mmol/L (20-31); Potassium 5.1 mmol/L (3.5-5.1)
[2025-01-29 06:25] LABS: Calcium 7.9 mg/dL (8.7-10.4); Chloride 95 mmol/L (98-107); Sodium 132 mmol/L (136-145)
[2025-01-29 06:27] LABS: BUN/Creatinine Ratio 5.0 (10.0-20.0); Blood Urea Nitrogen 53 mg/dL (9-23); Glucose 130 mg/dL (74-106)
[2025-01-29] MEDS ORDERED: SODIUM CHL 0.9% 1000 ML BAG XX ONE (07:00)
[2025-01-29 08:00] VITALS: PULSE 65
[2025-01-29 08:40] VITALS: BP 157/74; PULSE 68; RESP 20; TEMP 98; O2SAT 95
[2025-01-29 12:52] VITALS: BP 147/63; PULSE 76; RESP 20; TEMP 98; O2SAT 95
[2025-01-29 12:55] VITALS: BP 147/63; PULSE 76; RESP 20; TEMP 97.7; O2SAT 95
[2025-01-29] MEDS ORDERED: CARV3.1240 PO (13:49)
[2025-01-29] MEDS ORDERED: NIFE1TAB30 PO (13:49)
[2025-01-29] MEDS ORDERED: HYDR25TA87 PO (13:49)
--- NOTE | 2025-01-29 15:53 | DVHDSRES ---
Discharge Summary Date of Admission Resident Creating Document: PARK KRAUS RESIDENT Jan 25, 2025 at 17:03 Date of Discharge: Jan 29, 2025 Admitting Diagnosis Hyperkalemia secondary to ESRD Wounds: Bilaterally stasis dermatitis of a superficial wound infection Labs/Diagnostic Data: Laboratory Results Test 01/29/25 05:21 01/29/25 05:19 01/28/25 13:34 01/26/25 21:40 White Blood Count 7.3 10^3/uL (4.4-10.8) Red Blood Count 3.21 10^6/uL (4.5-5.90) Hemoglobin 9.5 g/dL (13.5-17.5) Hematocrit 28.8 % (41.0-53.0) Mean Corpuscular Volume 89.8 fL (80.0-100.0) Mean Corpuscular Hemoglobin 29.6 pg (28.0-32.0) Mean Corpuscular Hemoglobin Concent 33.0 g/dL (32.0-36.0) Red Cell Distribution Width 14.8 % (11.8-14.3) Platelet Count 211 10^3/uL (140-450) Mean Platelet Volume 6.7 fL (6.9-10.8) Neutrophils (%) (Auto) 79.7 % (37.0-80.0) Lymphocytes (%) (Auto) 7.0 % (10.0-50.0) Monocytes (%) (Auto) 7.8 % (0.0-12.0) Eosinophils (%) (Auto) 5.1 % (0.0-7.0) Basophils (%) (Auto) 0.4 % (0.0-2.0) Neutrophils # (Auto) 5.8 10 ^3/uL (1.6-8.6) Lymphocytes # (Auto) 0.5 10 ^3/uL (0.4-5.4) Monocytes # (Auto) 0.6 10 ^3/uL (0-1.3) Eosinophils # (Auto) 0.4 10 ^3/uL (0-0.8) Basophils # (Auto) 0 10 ^3/uL (0-0.2) Nucleated Red Blood Cells 0.0 % Sodium Level 132 mmol/L (136-145) Potassium Level 5.1 mmol/L (3.5-5.1) Chloride Level 95 mmol/L (98-107) Carbon Dioxide Level 22 mmol/L (20-31) Anion Gap 15 (5-15) Blood Urea Nitrogen 53 mg/dL (9-23) Creatinine 10.68 mg/dL (0.700-1.30) Glomerular Filtration Rate Calc 5 mL/min (>90) BUN/Creatinine Ratio 5.0 (10.0-20.0) Serum Glucose 130 mg/dL (74-106) Calcium Level 7.9 mg/dL (8.7-10.4) Random Vancomycin Level 18.7 ug/mL (5-10) POC Glucose 140 mg/dl (70-106) Influenza Type A Antigen Negative (Negative) Influenza Type B Antigen Negative (Negative) SARS-CoV-2 Antigen (Rapid) Negative (NEGATIVE) Test 01/26/25 03:42 01/25/25 13:52 01/25/25 12:00 Hemoglobin A1c 9.7 % A1C (<5.7) Total Bilirubin 0.3 mg/dL (0.2-1.0) Aspartate Amino Transferase (AST) 16 U/L (13-40) Alanine Aminotransferase (ALT) < 9 U/L (7-40) Alkaline Phosphatase 55 U/L (46-116) Total Protein 6.5 g/dL (5.7-8.2) Albumin 3.6 g/dL (3.2-4.8) Hepatitis B Surface Antigen Negative (Negative) Hepatitis B Surface Antibody Negative (Negative) Lactic Acid Level 0.8 mmol/L (0.4-2.0) Other Laboratory Tests 01/29/25 05:21 Brief Hx & Hospital Course: This is a 54-year-old male with past medical history of hypertension, ESRD on hemodialysis, anxiety, type 2 diabetes mellitus, peripheral vascular disease presented to the ED with a chief complaint of generalized weakness. He stated that he missed dialysis last week on Tuesday and and for last few days he felt weeks not able to walk properly and he fell twice without loss of consciousness or any trauma to the head or the back. In the ED patient was found to be hyperkalemic, nephrology was consulted, dialysis done with removal of 4.5 L ultrafiltration. Hospital course: Initially patient was presented with hyperkalemia with symptoms of volume overload and underwent dialysis with removal of 4.5 L. patient was also complaining of bilateral leg swelling with superficial wound infection and discharges for last few months. Blood culture demonstrated Staphylococcus aureus and Enterococcus faecalis and wound culture showed Staphylococcus aureus. Patient was treated with IV vancomycin as per pharmacy and IV clindamycin 600 mg Q 8 hours. Follow up blood culture was negative for any growth in 24 hours of incubation. Echo on 01/27/2025 showed EF 50-55%, severe LVH, [id number] tricuspid regurgitation and RVSP 50 mm Hg. Patient had few sessions of inpatient dialysis during the hospital stay. Nephrology was on board. Blood pressure was controlled with hydralazine 25 mg Q 8 hours, carvedilol 6.25 mg b.i.d. and nifedipine 60 mg p.o. daily. plan was discussed with the patient and questions were answered. Patient is being discharged to home with hydralazine 25 mg Q 8 hours, nifedipine 60 mg p.o. daily, carvedilol 6.25 mg b.i.d. and also recommended IV vancomycin as per pharmacy during dialysis for 10 days. Physical examination: General Appearance: Alert, Oriented X3, Cooperative, No acute distress HEENT: Atraumatic, PERRLA, EOMI, Mucous membrane moist/pink Respiratory: Clear to auscultation, Normal air movement Cardiovascular: Regular rate, Normal S1, Normal S2, No murmurs, no chest wall tenderness Abdominal: Normal bowel sounds, Soft, No tenderness, No hepatospenomegaly, No masses Extremities: Bilateral reduced pulsation in both posterior tibial and dorsalis pedis artery, No clubbing, No cyanosis, No edema, No tenderness/swelling Skin: bilateral status dermatitis with superimposed infection in legs, No rashes, No significant lesion Neuro: Rt eye blindness due to diabetic nephropathy, Normal gait, Normal speech, Strength at 5/5 X4 ext, Normal tone, Sensation intact, Cranial nerves 3- 12 NL, Reflexes 2+ Psych/Mental Status: Mental status NL, Mood NL Consults/Reason for consult Nephrology was consulted CVD Operations or Procedures BILATERAL LOWER EXTREMITY VENOUS DOPPLER ULTRASOUND CLINICAL HISTORY: Swelling. Rule out DVT. TECHNIQUE: Grayscale ultrasound with compression, color Doppler flow imaging with pulsed duplex sonography of the bilateral lower extremity deep venous system from the common femoral veins through the popliteal veins is performed. COMPARISON: None FINDINGS: Right common femoral vein: Negative. Right greater saphenous vein: Negative. Right deep femoral vein: Negative. Right femoral vein: Negative. Right popliteal vein: Negative. Left common femoral vein: Negative. Left greater saphenous vein: Negative. Left deep femoral vein: Negative. Left femoral vein: Negative. Left popliteal vein: Negative. Other: Visualized bilateral popliteal trifurcation and posterior tibial veins demonstrate color flow. Subcutaneous edema noted bilaterally. IMPRESSION: No sonographic evidence of deep venous thrombosis in either lower extremity at this time. Subcutaneous edema noted bilaterally. EXAM: XY CHEST PORTABLE HISTORY: sob COMPARISON: None TECHNIQUE: Portable upright AP view of the chest was performed. FINDINGS: No no pneumothorax or consolidative infiltrates. There is interstitial prominence, greater centrally. The heart is enlarged. The aortic arch is calcific. The central pulmonary arteries may be ectatic. IMPRESSION: 1. Cardiomegaly with interstitial prominence suggestive of CHF. 2. Atherosclerotic vascular disease and possible pulmonary arterial hypertension. EXAM: Two-dimensional and M-mode echocardiogram with Doppler and color Doppler. Blood Pressure: 159/71 mmHg INDICATION CHF RISK FACTORS Obesity: Height: 5' 8", Weight: 231 DIMENSIONS LVDd 4.8 (3.8-5.7cm) LA (2D) 5.1 (1.9-4.0cm) Aortic Root 3.3 (2.0- 3.7cm) LVDs 3.5 (2.5-4.0cm) LA (MM) (1.9-4.0cm) Aortic Cusp Exc 1.8 (1.5- 2.0cm) EF (%) 55.0 (55-70%) Rt. Atrium 5.0 (1.9-4.0cm) Asc. Aorta cm IVSd 1.4 (0.7-1.1cm) RV (D) (1.8-2.4cm) PWd 1.3 (0.7-1.1cm) Mitral Valve Mitral Mitral Stenosis E wave 0.90m/s MV Mean GR. mmHg A wave 0.80m/s MV Peak GR. mmHg E/A ratio 1.1 2D MVA cm2 Aortic Valve Aortic Valve Aortic Stenosis V1 0.90m/s AO Mean GR. 5mmHg V2 1.50m/s AO Peak GR. 9mmHg LVOT Diameter 2.2 (1.8-2.4cm) Doppler [place] 2.28cm2 Pulmonic Valve V2 0.50m/s Tricuspid Valve TR Velocity 3.20m/s RVSP 50mmHg Conclusion lvef 50-55% severe lvh aortic sclerosis mild to moderate tricuspid regurg limited study Condition at Discharge: Guarded Final Diagnosis/Problems List # ESRD on hemodialysis 3 times a week # Patient is noncompliant with dialysis, missed 2 sessions of dialysis # Hyperkalemia due to missed dialysis # chronic normocytic anemia likely due to ESRD # Bilateral stasis dermatitis with superimposed cellulitis # Bacteremia likely due to cellulitis # Possible peripheral arterial disease # Diabetic polyneuropathy # Ruled out DVT # Type 2 diabetes mellitus # Right eye blindness secondary to diabetic retinopathy # Possible chronic diastolic heart failure # Hypertensive heart disease # Possible pulmonary hypertension Discharge Disposition: Home Discharge Instruct/Medications Diet: Consistent carbohydrate, Renal Activity: No Restrictions, As Tolerated Follow Up/Referral: Follow up with DC clinic in 1 to 2 weeks Follow up with Nephrology in 1 to 2 weeks Continue hemodialysis as scheduled. Medications: As per EMR. Scheduled Carvedilol (Carvedilol), 1 TAB PO BID Fenofibrate (Fenofibrate), 1 TAB PO DAILY, (Reported) Furosemide (Furosemide), 1 TAB PO QID, (Reported) Gabapentin (Gabapentin), 300 MG PO 5XD, (Reported) Hydralazine HCl (Hydralazine HCl), 25 MG PO TID Insulin Glargine (Basaglar Kwikpen), 17 UNIT SC DAILY, (Reported) Lamotrigine (Lamotrigine), 100 MG PO DAILY, (Reported) Loperamide Hcl (Imodium), 2 MG PO PRN, (Reported) Metoprolol Tartrate (Metoprolol Tartrate), 50 MG PO BID, (Reported) Nifedipine (Nifedipine Er), 1 TAB PO DAILY Scheduled PRN Famotidine (Famotidine), 40 MG PO DAILYPRN PRN, (Reported) Hydroxyzine HCl (Hydroxyzine Hydrochloride), 25 MG PO BIDP PRN, (Reported) Discharge Statement: "Patient was advised to return to the ER or call 911 if any headaches, dizziness, shortness of breath, chest pain, abdominal pain, bleeding, fevers, or worsening of medical condition. Patient was counseled about treatment plan, medications, possible side effects, patientverbalized understanding. All questions were answered to the best of my ability. This discharge took greater then 30 minutes in planning, reviewing documentation, counseling the patient, and discussing with other team members." ASSESSMENT ASSESSMENT Assessment # ESRD on hemodialysis 3 times a week # Bacterimia likely due to cellulitis Date of Service: Jan 29, 2025 Billing Provider: RON FRAIRE MD Common Visit Codes: 83757-QIO/OBS DISCH DAY >30min PARK KRAUS RESIDENT Jan 29, 2025 15:53 RON FRAIRE MD Jan 29, 2025 20:29
[2025-01-29] MEDS ORDERED: EPOETIN ALFA-EPBX 4,000 UNIT/ML VIAL SC ONE (21:00)
== END 2025-01-29 14:50 | disposition home or self-care (01) | DRG 425 ==
LOC: EDSEX 11:35 → ER 11:35 → EDBD 11:35 → OVERFLOW 17:03 → TELE-CENTR 01-26 09:25 → CENTRAL 01-26 11:20 → TELE-CENTR 01-26 11:35
PROVIDERS: ADMIT Student in an Organized Health Care Education/Training Program; ATTEND Emergency Medicine
PROC: 5A1D70Z Performance of Urinary Filtration, Intermittent, Less than 6 Hours Per Day (ICD-10-PCS; principal; 2025-01-25)
PROC: 5A1D70Z Performance of Urinary Filtration, Intermittent, Less than 6 Hours Per Day (ICD-10-PCS; 2025-01-26)
PROC: 5A1D70Z Performance of Urinary Filtration, Intermittent, Less than 6 Hours Per Day (ICD-10-PCS; 2025-01-29)
DX: E87.5 Hyperkalemia (principal); I13.2 Hypertensive heart and chronic kidney disease with heart failure and with stage 5 chronic kidney disease, or end stage renal disease; I27.20 Pulmonary hypertension, unspecified; R78.81 Bacteremia; D63.1 Anemia in chronic kidney disease; E11.319 Type 2 diabetes mellitus with unspecified diabetic retinopathy without macular edema; N18.6 End stage renal disease; L03.115 Cellulitis of right lower limb; L03.116 Cellulitis of left lower limb; Z20.822 Contact with and (suspected) exposure to COVID-19; E11.22 Type 2 diabetes mellitus with diabetic chronic kidney disease; E11.42 Type 2 diabetes mellitus with diabetic polyneuropathy; I50.32 Chronic diastolic (congestive) heart failure; E11.51 Type 2 diabetes mellitus with diabetic peripheral angiopathy without gangrene; Z99.2 Dependence on renal dialysis; I07.1 Rheumatic tricuspid insufficiency; Z91.158 Patient's noncompliance with renal dialysis for other reason; E78.5 Hyperlipidemia, unspecified; I87.2 Venous insufficiency (chronic) (peripheral); F41.9 Anxiety disorder, unspecified; B95.7 Other staphylococcus as the cause of diseases classified elsewhere; H54.61 Unqualified visual loss, right eye, normal vision left eye; Z90.49 Acquired absence of other specified parts of digestive tract
CPT/HCPCS: 36415; 71045; 80048; 80053; 80202; 82565; 82962; 83036; 83605; 85025; 86706; 87040; 87077; 87081; 87186; 87205; 87340; 87426; 87804; 90935; 93005; 93306; 93970; 94640; 96365; 96375; 99291; G0378; J1642; J1815; J3490

== ENCOUNTER 2025-04-09 12:53 | Inpatient (IN) | payer MEDICAID ==
[~2025-04-09] VITALS: Ht 167.6 cm; Wt 94.7 kg
[~2025-04-09 12:53] MED LIST: CARV3.1240 PO; FAMO40TA7 PO; FENO145T27 PO; FURO40TA4 PO; GABA-1250 PO; HYDR-4924 PO; HYDR25TA87 PO; INSU1INJ19 SC; LAMO25TA27 PO; LOPE2CAP16 PO; METO-158 PO; NIFE1TAB30 PO
[2025-04-09 13:17] VITALS: PULSE 64; RESP 20; O2SAT 92
[2025-04-09 13:54] LABS: Hematocrit 28.9 % (41.0-53.0); Hemoglobin 9.5 g/dL (13.5-17.5); Mean Corpuscular Hemoglobin 28.6 pg (28.0-32.0); Mean Corpuscular Volume 87.0 fL (80.0-100.0); Nucleated Red Blood Cells % 0.1 %
[2025-04-09] MEDS: CLINDAMYCIN 600MG IV 50 ML IV ONE (13:55)
[2025-04-09 14:03] LABS: Chloride 99 mmol/L (98-107)
[2025-04-09 14:04] LABS: Anion Gap 14 (5-15); Carbon Dioxide 21 mmol/L (20-31)
[2025-04-09 14:09] VITALS: PULSE 64; RESP 20; O2SAT 92
[2025-04-09 14:09] LABS: BUN/Creatinine Ratio 5.7 (10.0-20.0)
[2025-04-09 14:11] LABS: Blood Urea Nitrogen 68 mg/dL (9-23); Calcium 7.6 mg/dL (8.7-10.4); Glucose 137 mg/dL (74-106); Sodium 134 mmol/L (136-145)
[2025-04-09 14:14] LABS: Potassium 7.6 mmol/L (3.5-5.1)
--- NOTE | 2025-04-09 14:20 | DVH ---
CHEST RADIOGRAPH Indication: weakness Technique: Single frontal view of the chest was obtained Comparison: XY CHEST PORTABLE on DOS: 01/25/25, XR CHEST 1 VIEW on DOS: 04/26/23 FINDINGS: Lines and Tubes: Internal jugular catheter in place at the cavoatrial junction. Lungs: No bilateral increased interstitial prominence suggesting congestive failure focal consolidati on. Pleura: No effusion. No pneumothorax. Cardiomediastinal contours: Mild cardiomegaly Bones: No acute osseous abnormality. IMPRESSION: 1. Findings consistent with congestive failure.
--- NOTE | 2025-04-09 14:55 | ED.PDOC ---
History of Present Illness HPI Comments 55-year-old male comes in with chief complaint of leg redness this morning. The patient states that he has been having some generalized weakness. He was supposed to have dialysis at approximately 4:00 a.m. this morning but states that he was too weak to go. The patient then rescheduled with states that he w as still 2 weeks we called 911 and the patient was transferred to our facility. The patient denies any chest pain or shortness a breath. There has been no nausea, vomiting but there has been some diarrhea. Upon arrival, the patient's blood pressure was 197/99. The patient does have a history of hypertension and states that typically it is under control. He has some redness to the bilateral legs that seem to be somewhat infected. Chief Complaint: General Weakness Time Seen by MD: 12:59 Reviewed Notes: Nurses Notes, Diesel Machinist Notes, Medications, Allergies (No aller gies to medications) Allergies: Coded Allergies: NO KNOWN ALLERGIES (Unverified , 01/25/25) Home Meds Active Scripts Carvedilol (Carvedilol) 3.125 Mg Tab, 1 TAB PO BID for 30 Days, #60 TAB 3 Refills Prov:PARK KRAUS RESIDENT 01/29/25 Nifedipine (Nifedipine Er) 60 Mg Tab, 1 TAB PO DAILY for 30 Days, #30 TAB 2 Refills Prov:PARK KRAUS RESIDENT 01/29/25 Hydralazine HCl (Hydralazine HCl) 25 Mg Tab, 25 MG PO TID for 30 Days, #90 TAB 2 Refills Prov:PARK KRAUS RESIDENT 01/29/25 Reported Medications Gabapentin (Gabapentin) 300 Mg Cap, 300 MG PO 5XD, #75 CAP 01/27/25 Loperamide Hcl (Imodium) 2 Mg Cp, 2 MG PO PRN, CAP 01/26/25 Hydroxyzine HCl (Hydroxyzine Hydrochloride) 25 Mg Tab, 25 MG PO BIDP PRN, TAB 01/25/25 Famotidine (Famotidine) 40 Mg Tab, 40 MG PO DAILYPRN PRN, TAB 01/25/25 Insulin Glargine (Basaglar Kwikpen) 100 Unit/Ml Inj, 17 UNIT SC DAILY, INJ 01/25/25 Metoprolol Tartrate (Metoprolol Tartrate) 50 Mg Tab, 50 MG PO BID, TAB 01/25/25 Lamotrigine (Lamotrigine) 25 Mg Tab, 100 MG PO DAILY, TAB 01/25/25 Furosemide (Furosemide) 40 Mg Tab, 1 TAB PO QID, #30 TAB 5 Refills 01/25/25 Fenofibrate (FENOFIBRATE) 145 Mg Tab, 1 TAB PO DAILY, #30 TAB 5 Refills 01/25/25 Information Source: Patient, Emergency Med Personnel Mode of Arrival: EMS Severity: Moderate Timing: Hours (Symptoms started this morning) Duration: Since onset Prehospital treatment: Accucheck, Lead Assembler, IVF Associated signs and symptoms Generalized weakness with redness to the legs and diarrhea Past Medical History PAST MEDICAL HISTORY: CKF, DM, High Lipids, HTN Past Medical History (Other): Right eye deficit Surgical History: Cholecystectomy Surgical History (Other): Left arm dialysis fistula Family History Family History: Family hx of DM, Family hx of Cancer, Family hx of heart yaniv, Family hx of HTN Social History Smoker: Quit Greater Than 1 Year Alcohol: Denies ETOH Use Drugs: Denies Drug Use Lives In: Home Constitutional: reports: weakness; denies: chills, diaphoresis, fatigue, fever, malaise, sweats, others EENTM: denies: blurred vision, double vision, ear bleeding, ear discharge, ear drainage, ear pain, ear ringing, eye pain, eye redness, hearing loss, mouth pain, mouth swelling, nasal discharge, nose bleeding, nose congestion, nose pain, photophobia, tearing, throat pain, throat swelling, voice changes, others Respiratory: denies: cough, hemoptysis, orthopnea, SOB at rest, shortness of breath, SOB with excertion, stridor, wheezing, others Cardiovascular: denies: chest pain, dizzy spells, diaphoresis, Dyspnea on exertion, edema, irregular heart beat, left arm pain, lightheadedness, palpitations, PND, syncope, others Gastrointestinal: reports: diarrhea; denies: abdomen distended, abdominal pain, blood streaked bowels, constipated, dysphagia, difficulty swallowing, hematemesis, melena, nausea, poor appetite, poor fluid intake, rectal bleeding, rectal pain, vomiting, others Genitourinary: denies: burning, dysuria, flank pain, frequency, hematuria, incontinence, penile discharge, penile sore, pain, testicle pain, testicle swelling, urgency, others Neurological: denies: dizziness, fainting, headache, left sided numbness, left sided weakness, numbness, paresthesia, pre-existing deficit, right sided numbness, right sided weakness, seizure, speech problems, tingling, tremors, weakness, others Musculoskeletal: denies: back pain, gout, joint pain, joint swelling, muscle pain, muscle stiffness, neck pain, others Integumetry: reports: others (Bilateral leg redness); denies: bruises, change in color, change in hair/nails, dryness, laceration, lesions, lumps, rash, wounds Allergic/Immunocompromised: denies: Difficulty Healing, Frequent Infections, Hives, Itching, others Hematologic/Lymphatic: denies: anemia, blood clots, easy bleeding, easy bruising, swollen glands, others Endocrine: denies: excessive hunger, excessive sweating, excessive thirst, excessive urination, flushing, intolerance to cold, intolerance to heat, unexplained weight gain, unexplained weight loss, others Psychiatric: denies: anxiety, bipolar disorder, depression, hopeless, panic disorder, schizophrenia, sleepless, suicidal, others Physical Exam General Appearance: Obese HEENT: Pale Conjuntivae (L), Pale Conjuntivae (R), Pharynx Normal, TMs Normal Neck: Full Range of Motion, Non-Tender, Normal, Normal Inspection Respiratory: Chest Non-Tender, Lungs Clear, No Accessory Muscle Use, No Respiratory Distress, Normal Breath Sounds Cardiovascular: No Edema, No JVD, No Murmur, No Gallop, Normal Peripheral Pulses, Regular Rate/Rhythm, Other (Tanner catheter to the right chest) Breast Exam: Deferred Gastrointestinal: No Organomegaly, Non Tender, No Pulsatile Mass, Normal Bowel Sounds, Soft Genitalia: Deferred Pelvic: Deferred Rectal: Deferred Extremities: Decreased range of motion, Inflammation, Normal capillary refill, Pedal edema Musculoskeletal : Apperance: Normal Neurologic: Alert, research asst II-XII nml as Tested, No Motor Deficits, Normal Affect, Normal Mood, No Sensory Deficits Cerebellar Function: Normal Reflexes: Normal Skin: Dry, Pallor, Warm Lymphatic: No Adenopathy Was a procedure done? Was a procedure done?: No EKG EKG : Pulse Rate (adult): 63 Hallett: Normal Cardiac Rhythm: NSR Block: None ST: Nonsp Differential Dx Considerations may include: Generalized weakness, hyperkalemia, metabolic acidosis, electrolyte imbalance, volume overload, congestive heart failure X-Ray, Labs, Meds, VS Vital Signs Date Time Temp Pulse Resp B/P (MAP) Pulse Ox O2 Delivery O2 Flow Rate FiO2 04/09/25 15:24 16 98 Nasal Cannula* 2 28 04/09/25 14:55 63 04/09/25 13:17 98.1 64 20 197/99 (131) 98 98.1 04/09/25 13:17 64 20 92 Room Air* 0 21 04/09/25 13:07 98.0 63 20 177/88 96 98.0 04/09/25 12:53 63 Lab Test 04/09/25 15:12 04/09/25 13:42 04/09/25 13:31 Range/Units POC Glucose 128 H 135 H 70-106 mg/dl White Blood Count 6.4 4.4-10.8 10^3/uL Red Blood Count 3.32 L 4.5-5.90 10^6/uL Hemoglobin 9.5 L 13.5-17.5 g/dL Hematocrit 28.9 L 41.0-53.0 % Mean Corpuscular Volume 87.0 80.0-100.0 fL Mean Corpuscular Hemoglobin 28.6 28.0-32.0 pg Mean Corpuscular Hemoglobin Concent 32.9 32.0-36.0 g/dL Red Cell Distribution Width 15.8 H 11.8-14.3 % Platelet Count 192 140-450 10^3/uL Mean Platelet Volume 6.9 6.9-10.8 fL Neutrophils (%) (Auto) 79.3 37.0-80.0 % Lymphocytes (%) (Auto) 9.4 L 10.0-50.0 % Monocytes (%) (Auto) 6.7 0.0-12.0 % Eosinophils (%) (Auto) 4.0 0.0-7.0 % Basophils (%) (Auto) 0.6 0.0-2.0 % Neutrophils # (Auto) 5.1 1.6-8.6 10 ^3/uL Lymphocytes # (Auto) 0.6 0.4-5.4 10 ^3/uL Monocytes # (Auto) 0.4 0-1.3 10 ^3/uL Eosinophils # (Auto) 0.3 0-0.8 10 ^3/uL Basophils # (Auto) 0 0-0.2 10 ^3/uL Nucleated Red Blood Cells 0.1 % Erythrocyte Sedimentation Rate 48 H 0-20 mm/hr Sodium Level 134 L 136-145 mmol/L Potassium Level 7.6 *H 3.5-5.1 mmol/L Chloride Level 99 98-107 mmol/L Carbon Dioxide Level 21 20-31 mmol/L Anion Gap 14 5-15 Blood Urea Nitrogen 68 H 9-23 mg/dL Creatinine 11.98 *H 0.700-1.30 mg/dL Glomerular Filtration Rate Calc 4 >90 mL/min BUN/Creatinine Ratio 5.7 L 10.0-20.0 Serum Glucose 137 H 74-106 mg/dL Calcium Level 7.6 L 8.7-10.4 mg/dL Current Medications Medications (Trade) Dose Ordered Sig/Duane Route Start Time Stop Time Status Last Admin Clindamycin Phosphate 50 ml @ 50 mls/hr ONCE ONCE IV 04/09/25 13:30 04/09/25 14:29 DC 04/09/25 13:55 Calcium Gluconate/ Sodium Chloride 50 ml @ 100 mls/hr ONCE ONCE IV 04/09/25 14:45 04/09/25 15:14 DC 04/09/25 15:16 Sodium Bicarbonate 50 ml ONCE ONCE IV 04/09/25 14:45 04/09/25 14:46 DC 04/09/25 15:16 Dextrose 50 ml ONCE ONCE IV 04/09/25 14:45 04/09/25 14:46 DC 04/09/25 15:17 Insulin Human Regular (InsuLIN R) 5 units ONCE ONCE IV 04/09/25 14:45 04/09/25 14:46 DC 04/09/25 15:18 Zirconium Oxide (Lokelma) 10 gm ONCE ONCE PO 04/09/25 15:15 04/09/25 15:32 DC 04/09/25 16:06 Carvedilol (Coreg Tablet) 3.125 mg ONCE ONCE PO 04/09/25 15:30 04/09/25 15:33 DC 04/09/25 16:04 PROCEDURE(s): CXRP - CHEST PORTABLE IMPRESSION: 1. Findings consistent with congestive failure. IV Hep-Lock was established. The patient's potassium came back at 7.6 We immediately consult with Nephrology. The patient was given sodium bicarbonate as well as insulin, dextrose and calcium chloride The patient's BUN is 68 and the creatinine is 11.98 The rest of the chemistry panel shows hyponatremia and an elevated ESR The patient is being admitted to the hospitalist at this time The patient understands and agrees with the management. Images Reviewed?: Images reviewed and evaluated by me Time of 1ST Reevaluation: 13:30 Reevaluation 1ST: Unchanged Time of 2ND Reevaluation: 16:27 Reevaluation 2ND: Improved Patient Education/Counseling: Diagnosis, Treatment, Prognosis Family Education/Counseling: No Family Present SEPSIS Sepsis Screen Date sepsis recognized/suspect: Apr 09, 2025 Time Sepsis recognized/suspect: 1316 Recent Procedure: No On Antibiotic Therapy: No Respiratory Rate >20: No Heart Rate >90: No Temp<36 C (96.8 F) or >38.3 C: No SBP <90 or MAP <65 mmHG: No New Acute Mental Status Change: No Is the patient on CPAP, BIPAP,: No Physician Orders Electrocardigram (04/09/25 12:56) Urinalysis (04/09/25 13:25) Heplock Iv (04/09/25 13:25) Lead Assembler (04/09/25 13:25) Blood Pressure (04/09/25 13:25) Pulse Oximetry (04/09/25 13:25) Chest Portable (04/09/25 13:25) Potassium (04/09/25 19:06) *Dr. Delfina Quinones (04/09/25 15:09) Vital Signs Date Time Temp Pulse Resp B/P (MAP) Pulse Ox O2 Delivery O2 Flow Rate FiO2 04/09/25 15:24 16 98 Nasal Cannula* 2 28 04/09/25 14:55 63 04/09/25 13:17 98.1 64 20 197/99 (131) 98 98.1 04/09/25 13:17 64 20 92 Room Air* 0 21 04/09/25 13:07 98.0 63 20 177/88 96 98.0 04/09/25 12:53 63 Laboratory Tests Test 04/09/25 13:42 White Blood Count 6.4 10^3/uL (4.4-10.8) Medications Medications Dose Ordered Sig/Duane Route Start Time Stop Time Status Last Admin Dose Admin Albuterol 20 mg STK-MED ONCE .ROUTE 04/09/25 15:20 04/09/25 15:16 DC 04/09/25 15:20 Calcium Gluconate/ Sodium Chloride 50 ml @ 100 mls/hr ONCE ONCE IV 04/09/25 14:45 04/09/25 15:14 DC 04/09/25 15:16 Carvedilol 3.125 mg ONCE ONCE PO 04/09/25 15:30 04/09/25 15:33 DC 04/09/25 16:04 Clindamycin Phosphate 50 ml @ 50 mls/hr ONCE ONCE IV 04/09/25 13:30 04/09/25 14:29 DC 04/09/25 13:55 Dextrose 50 ml ONCE ONCE IV 04/09/25 14:45 04/09/25 14:46 DC 04/09/25 15:17 Insulin Human Regular 5 units ONCE ONCE IV 04/09/25 14:45 04/09/25 14:46 DC 04/09/25 15:18 Sodium Bicarbonate 50 ml ONCE ONCE IV 04/09/25 14:45 04/09/25 14:46 DC 04/09/25 15:16 Zirconium Oxide 10 gm ONCE ONCE PO 04/09/25 15:15 04/09/25 15:32 DC 04/09/25 16:06 Departure 1 Departure Time of Disposition: 16:26 Impression: Primary Impression: End stage renal disease on dialysis Additional Impressions: Hyperkalemia Uncontrolled diabetes mellitus Qualified Codes: E13.65 - Other specified diabetes mellitus with hyperglycemia Disposition: ADMITTED INPATIENT Admit to: Tele Condition: Fair Critical Care Note Critical Care Time?: Yes (45 min-critical care time only) Stability Stability form required: Yes Unstable for transfer: Telemetry monitoring (Telemetry monitoring required), ED Physician Assesment (Clinical assesment) Heart Score Heart Score: Heart Score Response (Comments) Value History N/A 0 EKG N/A 0 Age N/A 0 Risk Factors N/A 0 Troponin N/A 0 Total 0 I personally scribed for IBAN GOFF MD ([email or web address]) on 04/09/25 at 15:06. Electronically submitted by Terese Montenegro ([email or web address]). IBAN GOFF MD Apr 09, 2025 14:55
[2025-04-09] MEDS: CALCIUM GLUC 1,000mg/50ml-NS 50 ML IV ONE ×3 (15:16→20:59)
[2025-04-09] MEDS: SODIUM BICARB 8.4% 50Meq/50ml SYR Vial IV ONE (15:16)
[2025-04-09] MEDS: DEXTROSE (50%) 50ML SYRG IV ONE ×3 (15:17→21:00)
[2025-04-09] MEDS: InsuLIN REG 1unit/0.01ml Soln (100units/ml) IV ONE ×3 (15:18→22:43)
[2025-04-09] MEDS: ALBUTEROL SULF 2.5 MG/0.5ML(0.5%) NEB SOLN ONE (15:20)
[2025-04-09] MEDS: SODIUM BICARB 8.4% 50Meq/50ml SYR INJ IV ONE ×2 (15:48→22:16)
[2025-04-09] MEDS: FUROSEMIDE 40 MG/4 ML VIAL IV ONE ×2 (15:48→22:17)
[2025-04-09] MEDS: ALBUTEROL SULF 2.5 MG/0.5ML(0.5%) NEB SOLN NEB ONE ×2 (15:49→20:09)
[2025-04-09] MEDS: FUROSEMIDE 20 MG/2 ML VIAL IV ONE (15:57)
[2025-04-09] MEDS: CARVEDILOL 3.125 MG TAB PO ONE (16:04)
[2025-04-09] MEDS: SODIUM ZIRCONIUM CYCL 10 GM PAK PO ONE ×2 (16:06→20:00)
[2025-04-09] MEDS: NIFEdipine 10 MG CAP PO ONE (17:08)
--- NOTE | 2025-04-09 18:00 | DVHHPRES ---
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 Patient was weak to the point that he could not walk and go to dialysis today. He is noncompliant with his antihypertensive medications as well. He denies having any chest pain, shortness of breaths, abdominal pain or any other complaints today. Past surgical history: Denies Smokin pack years, quit 5 years ago Alcohol: Occasional, quit 5 years ago Drugs: Occasional marijuana, last use was more than 1 year ago Code status: Full code PCP: None Home medications: Reconciled (lamotrigine?) Allergies: No known allergies The patient was seen and examined at bedside. He reports having weakness, denies any other complaints. Review of Systems Allergies: Coded Allergies: NO KNOWN ALLERGIES (Unverified , 01/25/25) Exam Vital Signs Vital Signs Date Time Temp Pulse Resp B/P (MAP) Pulse Ox O2 Delivery O2 Flow Rate FiO2 04/09/25 17:15 74 20 199/100 (133) 97 04/09/25 15:24 Nasal Cannula* 2 28 04/09/25 13:17 98.1 98.1 Exam Pt is lying on bed General Appearance: Alert, Oriented X3, Cooperative, Mild distress HEENT: Atraumatic, Mucous membranes moist/pink, right eye blindness, right ear deafness Respiratory: Clear to auscultation, Normal air movement, No added sounds Cardiovascular: Regular rate, Normal S1, Normal S2, No murmurs, bilateral crackles were noted Abdominal/ : Active bowel sounds, Soft, no tenderness, abdomen was distended with percussion dullness and fluid thrill present Extremities: No edema, Normal pulses, No tenderness/swelling Skin: Right-sided chest wall had tunneled catheter, surrounding area was red. Bilateral lower extremities had extremely dry scaly skin, with a 2x2 cm ulcer noted on the left extremity [id number]. Neuro: Normal speech, sensorimotor deficits none Psych/Mental Status: Mental status NL, Mood NL Nurse was there as ordnance technician during examination Labs/Xrays Labs Test 04/09/25 15:12 04/09/25 13:42 Range/Units POC Glucose 128 H 70-106 mg/dl White Blood Count 6.4 4.4-10.8 10^3/uL Red Blood Count 3.32 L 4.5-5.90 10^6/uL Hemoglobin 9.5 L 13.5-17.5 g/dL Hematocrit 28.9 L 41.0-53.0 % Mean Corpuscular Volume 87.0 80.0-100.0 fL Mean Corpuscular Hemoglobin 28.6 28.0-32.0 pg Mean Corpuscular Hemoglobin Concent 32.9 32.0-36.0 g/dL Red Cell Distribution Width 15.8 H 11.8-14.3 % Platelet Count 192 140-450 10^3/uL Mean Platelet Volume 6.9 6.9-10.8 fL Neutrophils (%) (Auto) 79.3 37.0-80.0 % Lymphocytes (%) (Auto) 9.4 L 10.0-50.0 % Monocytes (%) (Auto) 6.7 0.0-12.0 % Eosinophils (%) (Auto) 4.0 0.0-7.0 % Basophils (%) (Auto) 0.6 0.0-2.0 % Neutrophils # (Auto) 5.1 1.6-8.6 10 ^3/uL Lymphocytes # (Auto) 0.6 0.4-5.4 10 ^3/uL Monocytes # (Auto) 0.4 0-1.3 10 ^3/uL Eosinophils # (Auto) 0.3 0-0.8 10 ^3/uL Basophils # (Auto) 0 0-0.2 10 ^3/uL Nucleated Red Blood Cells 0.1 % Erythrocyte Sedimentation Rate 48 H 0-20 mm/hr Sodium Level 134 L 136-145 mmol/L Potassium Level 7.6 *H 3.5-5.1 mmol/L Chloride Level 99 98-107 mmol/L Carbon Dioxide Level 21 20-31 mmol/L Anion Gap 14 5-15 Blood Urea Nitrogen 68 H 9-23 mg/dL Creatinine 11.98 *H 0.700-1.30 mg/dL Glomerular Filtration Rate Calc 4 >90 mL/min BUN/Creatinine Ratio 5.7 L 10.0-20.0 Serum Glucose 137 H 74-106 mg/dL Calcium Level 7.6 L 8.7-10.4 mg/dL SEPSIS Sepsis Screen Date sepsis recognized/suspect: Apr 09, 2025 Time Sepsis recognized/suspect: 1316 Recent Procedure: No On Antibiotic Therapy: No Respiratory Rate >20: No Heart Rate >90: No Temp<36 C (96.8 F) or >38.3 C: No SBP <90 or MAP <65 mmHG: No New Acute Mental Status Change: No Is the patient on CPAP, BIPAP,: No Physician Orders Electrocardigram (04/09/25 12:56) Urinalysis (04/09/25 13:25) Heplock Iv (04/09/25:25) Parachute Panel Joiner (04/09/25:25) Blood Pressure (04/09/25:25) Pulse Oximetry (04/09/25:25) Chest Portable (04/09/25:25) Potassium (04/09/25 19:06) *Dr. Delfina Boston -Da Stacie (04/09/25 15:09) Admit (04/09/25 15:47) Allergies (04/09/25 15:47) Code Status (04/09/25 15:47) Complete Blood Count (04/10/25 04:00) Comprehensive Metabolic Panel (04/10/25 04:00) Npo (Nothing By Mouth) Diet (04/09/25 Dinner) Echo 2d Mode Cardiac Dop (04/09/25 15:47) Datacap Developer For 24 Hours (04/09/25 15:47) Notify Of Changes From Base (04/09/25 15:47) Head Without Contrast (04/09/25 17:23) B-Type Natriuretic Peptide (04/09/25 17:25) Basic Metabolic Panel (04/10/25 04:00) Drug Screen (04/09/25:25) Folate (Folic Acid) (04/09/25 17:25) Hemoglobin A1c (04/09/25 17:25) Lactic Acid W/ Reflex Order (04/09/25 17:25) Magnesium (04/09/25 17:25) PTPTT (04/09/25 17:25) Urinalysis (04/09/25:25) Vitamin B12 (04/09/25 17:25) Vitamin D, 25-Hydroxy (04/09/25 17:25) Vital Signs Date Time Temp Pulse Resp B/P (MAP) Pulse Ox O2 Delivery O2 Flow Rate FiO2 04/09/25 17:15 74 20 199/100 (133) 97 04/09/25 17:13 74 23 199/100 (133) 99 04/09/25 17:08 74 199/104 04/09/25 17:08 199/100 04/09/25 16:15 72 20 214/94 (134) 98 04/09/25 16:04 71 214/94 04/09/25 15:24 16 98 Nasal Cannula* 2 28 04/09/25 15:15 62 21 192/98 (129) 97 04/09/25 14:55 63 04/09/25 14:15 63 22 186/94 (124) 99 04/09/25 13:17 98.1 64 20 197/99 (131) 98 98.1 04/09/25 13:17 64 20 92 Room Air* 0 21 04/09/25 13:07 98.0 63 20 177/88 96 98.0 04/09/25 12:53 63 Laboratory Tests Test 04/09/25 13:42 White Blood Count 6.4 10^3/uL (4.4-10.8) Medications Medications Dose Ordered Sig/Duane Route Start Time Stop Time Status Last Admin Dose Admin Albuterol 20 mg STK-MED ONCE .ROUTE 04/09/25 15:20 04/09/25 15:16 DC 04/09/25 15:20 20 MG Calcium Gluconate/ Sodium Chloride 50 ml @ 100 mls/hr ONCE ONCE IV 04/09/25 14:45 04/09/25 15:14 DC 04/09/25 15:16 100 MLS/HR Carvedilol 3.125 mg ONCE ONCE PO 04/09/25 15:30 04/09/25 15:33 DC 04/09/25 16:04 3.125 MG Clindamycin Phosphate 50 ml @ 50 mls/hr ONCE ONCE IV 04/09/25 13:30 04/09/25 14:29 DC 04/09/25 13:55 50 MLS/HR Dextrose 50 ml ONCE ONCE IV 04/09/25 14:45 04/09/25 14:46 DC 04/09/25 15:17 50 ML Insulin Human Regular 5 units ONCE ONCE IV 04/09/25 14:45 04/09/25 14:46 DC 04/09/25 15:18 5 UNITS Nifedipine 30 mg ONCE ONCE PO 04/09/25 15:30 04/09/25 15:33 DC 04/09/25 17:08 30 MG Sodium Bicarbonate 50 ml ONCE ONCE IV 04/09/25 14:45 04/09/25 14:46 DC 04/09/25 15:16 50 ML Zirconium Oxide 10 gm ONCE ONCE PO 04/09/25 15:15 04/09/25 15:32 DC 04/09/25 16:06 10 GM Assessment/Plan Assessment/Plan Acute hypoxic respiratory failure Acute pulmonary edema due to volume overload Oxygen by nasal cannula 2 L Chest x-ray: Features of pulmonary edema Nephrology consulted for dialysis Hypertensive urgency Nifedipine Carvedilol Hyperkalemia Managed with hyperkalemia protocol: Lokelma, insulin, dextrose, calcium gluconate Cellulitis of both lower extremities Questionable Tunneled catheter infection IV clindamycin Q 8 Diabetes mellitus Mild insulin sliding scale HbA1c ordered, pending results GI prophylaxis: Famotidine DVT prophylaxis: SCDs Diet: Renal Goals of care discussed with the patient for more than 27 minutes: Full code status Case discussed with , patient and RN Plan discussed with: Patient, Other (RN) My Orders Orders - LEA MARRERO RESIDENT Procedure Category Date Status Time Admit ADMIT 04/09/25 Transmitted 15:47 Allergies CANDI 04/09/25 In Process 15:47 Code Status CODE 04/09/25 Transmitted 15:47 Complete Blood Count LAB 04/10/25 Verified 04:00 Comprehensive LAB 04/10/25 Verified Metabolic Panel 04:00 Npo (Nothing By DIET 04/09/25 Transmitted Mouth) Diet Dinner Echo 2d Mode Cardiac US 04/09/25 Logged DOP 15:47 Datacap Developer For CANDI 04/09/25 In Process 24 Hours 15:47 Notify Of Changes CANDI 04/09/25 In Process From Base 15:[address] 04/09/25 Logged 17:23 B-Type Natriuretic LAB 04/09/25 In Process Peptide 17:25 Basic Metabolic Panel LAB 04/10/25 Verified 04:00 Drug Screen LAB 04/09/25 Logged 17:25 Folate (Folic Acid) LAB 04/09/25 In Process 17:25 Hemoglobin A1c LAB 04/09/25 In Process 17:25 Lactic Acid W/ Reflex LAB 04/09/25 Logged Order 17:25 Magnesium LAB 04/09/25 In Process 17:25 PTPTT LAB 04/09/25 In Process 17:25 Urinalysis LAB 04/09/25 Logged 17:25 Vitamin B12 LAB 04/09/25 In Process 17:25 Vitamin D, 25-Hydroxy LAB 04/09/25 In Process 17:25 Date of Service: Apr 09, 2025 Billing Provider: RON FRAIRE MD Common Visit Codes: [id number] INP/OBS CARE (HIGH) Secondary Visit Codes: [id number] CARE PLAN 30 MINUTES LEA MARRERO RESIDENT Apr 09, 2025 18:00 SAM DILLON RESIDENT Apr 12, 2025 07:05 RON FRAIRE MD Apr 16, 2025 16:28
[2025-04-09 18:15] LABS: INR 1.06 (0.9-1.15); Partial Thromboplastin Time 32.1 SEC (24.5-34.5); Prothrombin Time 11.2 sec (9.3-11.8)
--- NOTE | 2025-04-09 18:58 | DVH ---
CLINICAL HISTORY: BL leg weakness TECHNIQUE: Helical scanning was performed of the head from the skull base to the vertex. Multiplanar reconstructions were performed. This exam was performed according to our departmental dose optimizat ion program. Up-to-date CT equipment and radiation dose reduction techniques are utilized as appropri ate. CTDI 68.7 DLP 1351 COMPARISON: None FINDINGS: There is no evidence for acute intracranial hemorrhage, acute ischemic changes, mass, mass effect, or extra-axial fluid collection. There is no hydrocephalus or midline shift. There is no effacement of the cerebral sulci and basal subarachnoid cisterns. The berg-white matter differentiation is well sanna ntained. The imaged paranasal sinuses demonstrate minimal scattered mucoperiosteal thickening. There has been bilateral cataract extraction. IMPRESSION: NO ACUTE INTRACRANIAL ABNORMALITY SEEN.
[2025-04-09 19:30] VITALS: PULSE 72; RESP 18; O2SAT 92
[2025-04-09] MEDS ORDERED: DEXTROSE (50%) 50ML SYRG IV PRN (20:00)
[2025-04-09] MEDS ORDERED: hydrOXYzine 25 MG TAB or CAP PO PRN (21:30)
[2025-04-09] MEDS: CLINDAMYCIN 600MG IV 50 ML IV SCH (22:19)
[2025-04-09] MEDS: CARVEDILOL 3.125 MG TAB PO SCH (22:20)
[2025-04-09] MEDS: ACCU-CHEK COMFORT CURVE STRIP VI SCH (22:48)
[2025-04-09] MEDS: InsuLIN REG 1unit/0.01ml Soln (100units/ml) SC SCH (23:00)
[2025-04-09 23:30] VITALS: PULSE 75; RESP 14; O2SAT 98
[2025-04-10 02:48] LABS: Triglycerides 104.0 mg/dL (< 150)
[2025-04-10 02:49] LABS: Magnesium 2.5 mg/dL (1.6-2.6)
[2025-04-10 02:50] LABS: Cholesterol 112.0 mg/dL (< 200); HDL Cholesterol 29.0 mg/dL (40-59)
[2025-04-10] MEDS: FUROSEMIDE 40 MG TAB PO SCH (06:25)
[2025-04-10 06:40] LABS: Hematocrit 26.5 % (41.0-53.0); Hemoglobin 9.0 g/dL (13.5-17.5); Mean Corpuscular Hemoglobin 29.3 pg (28.0-32.0); Mean Corpuscular Volume 86.3 fL (80.0-100.0); Nucleated Red Blood Cells % 0.0 %
[2025-04-10 06:57] LABS: Albumin 3.5 g/dL (3.2-4.8); Alkaline Phosphatase 63 U/L (46-116); Anion Gap 19 (5-15); BUN/Creatinine Ratio 5.9 (10.0-20.0); Bilirubin, Total 0.3 mg/dL (0.2-1.0); Carbon Dioxide 20 mmol/L (20-31); Total Protein 6.8 g/dL (5.7-8.2)
[2025-04-10 06:58] LABS: Alanine Aminotransferase < 9 U/L (7-40); Blood Urea Nitrogen 74 mg/dL (9-23); Calcium 7.8 mg/dL (8.7-10.4); Chloride 97 mmol/L (98-107); Glucose 118 mg/dL (74-106); Sodium 136 mmol/L (136-145)
[2025-04-10 07:02] LABS: Potassium 6.6 mmol/L (3.5-5.1)
[2025-04-10 08:00] VITALS: PULSE 65; RESP 14; O2SAT 97
[2025-04-10] MEDS: GABAPENTIN 300 MG CAP PO SCH (08:42)
[2025-04-10 10:08] VITALS: PULSE 64; RESP 16; O2SAT 97
[2025-04-10] MEDS: ALBUTEROL SULF 2.5 MG/0.5ML(0.5%) NEB SOLN NEB ONE (10:08)
[2025-04-10 10:18] VITALS: PULSE 65; RESP 16; O2SAT 100
[2025-04-10] MEDS: DEXTROSE (50%) 50ML SYRG IV ONE (12:49)
[2025-04-10] MEDS: SODIUM ZIRCONIUM CYCL 10 GM PAK PO ONE (12:49)
[2025-04-10] MEDS: SODIUM BICARB 8.4% 50Meq/50ml SYR INJ IV ONE (12:49)
[2025-04-10] MEDS: InsuLIN REG 1unit/0.01ml Soln (100units/ml) IV ONE (12:50)
[2025-04-10] MEDS: CALCIUM GLUC 1,000mg/50ml-NS 50 ML IV ONE (12:52)
[2025-04-10] MEDS: FUROSEMIDE 20 MG/2 ML VIAL IV ONE (12:55)
[2025-04-10] MEDS: INSULIN LANTUS (GLARGINE) 1 /0.01ml (100units/ml) SC SCH (13:12)
--- NOTE | 2025-04-10 13:15 | DVHINCON2 ---
DATE OF CONSULTATION: 04/10/2025 CONSULTING PHYSICIAN: Dr. Mendez. REASON FOR CONSULTATION: Management of dialysis. HISTORY OF PRESENT ILLNESS: The patient is a 55-year-old gentleman who is a chronic dialysis patient who has also a history of diabetes, hypertension, and neuropathy. Apparently, he is also blind in his right eye. He is hard of hearing. He missed dialysis treatments, stating he cannot walk, so now he ended up in the hospital and his potassium is high, so he is being admitted and I being consulted to give him dialysis. REVIEW OF SYSTEMS: Otherwise unremarkable. PAST MEDICAL HISTORY: Significant for longstanding hypertension, diabetes, end-stage renal disease, anemia, hyperparathyroidism, and heart disease. SOCIAL HISTORY: He smoked cigarettes over 60 years. He denies drinking alcohol. He also occasionally uses marijuana. FAMILY HISTORY: Negative for chronic conditions. MEDICATIONS: Here in the hospital, he is on nifedipine, insulin, famotidine, furosemide, hydralazine, gabapentin, carvedilol and hydroxyzine. PHYSICAL EXAMINATION: VITAL SIGNS: Blood pressure is 123/69, heart rate 65, respirations 14, temperature 98. GENERAL: The patient is an adult gentleman who appears to be chronically ill, in no acute distress. Alert and oriented x 2. HEENT: Unremarkable. NECK: No jugular venous distention. No palpable thyroid or lymphadenopathy. LUNGS: Show diminished air entry at the bases. CARDIOVASCULAR: Shows 1/6 systolic murmur, S4 gallop. ABDOMEN: Soft, nontender, no organomegaly. EXTREMITIES: Show no clubbing, cyanosis or edema. NEUROLOGIC: Nonfocal. LABORATORY FINDINGS: Potassium 6.6, bicarbonate 20, creatinine 12, sodium 136, hemoglobin 9. ASSESSMENT AND PLAN: * End-stage renal disease. * Hyperkalemia. * Uremia due to noncompliance with dialysis. * Uncontrolled hypertension. * Anemia of renal disease. * Diabetes mellitus. The patient will have dialysis as soon as possible. I have notified the dialysis police shift commander to send a dialysis nurse to the Emergency Room and provide this patient with dialysis with a low potassium bath. In the meantime, he should receive medical treatment including potassium binders such as Lokelma or Veltassa and dextrose, insulin and albuterol nebulization. He could be discharged after dialysis. Thank you for the consult. MD KALEB Paulino/NUSRAT TID: [id number] RECEIPT: [id number]
[2025-04-10] MEDS: FAMOTIDINE 20 MG TAB PO SCH (13:28)
[2025-04-10] MEDS: lamoTRIgine 100 MG TAB PO SCH (13:33)
--- NOTE | 2025-04-10 15:53 | ECG ---
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
[2025-04-10] MEDS: SODIUM CHL 0.9% 1000 ML BAG XX ONE (18:00)
[2025-04-10 19:30] VITALS: PULSE 77; RESP 14; O2SAT 98
--- NOTE | 2025-04-10 19:40 | DVHPNRES ---
Progress Note Date Seen: Apr 10, 2025 Resident Creating Document: LEA MARRERO RESIDENT Medical Necessity Reason Pt with a Central, PICC or Fol: No Subjective Review of Systems Ahsan Melchor a 55-year-old male with past medical history of ESRD on TTS dialysis, produces no to minimal urine, diabetes mellitus with diabetic neuropathy, hypertension, right eye blindness and right ear deafness presented to the ER after two missed dialysis sessions with the chief complaints of feeling generalized weakness, especially bilateral lower extremities. Patient was weak to the point that he could not walk and go to dialysis today. He is noncompliant with his antihypertensive medications as well. He denies having any chest pain, shortness of breaths, abdominal pain or any other complaints today. Past surgical history: Denies Smokin pack years, quit 5 years ago Alcohol: Occasional liquid 5 years ago Drugs: Occasional marijuana, last use was more than 1 year ago Code status: Full code PCP: None Home medications: Reconciled (lamotrigine?) Allergies: No known allergies The patient was seen and examined at bedside. The patient reports improvement in his symptoms. Scheduled for dialysis on 04/10/2025. He denies any chest pain, shortness of breath, fever, abdominal pain or any other complaints today. Objective vital signs Vital Sign Date Time Temp Pulse Resp B/P (MAP) Pulse Ox O2 Delivery O2 Flow Rate FiO2 04/10/25 18:51 145/65 04/10/25 18:30 80 04/10/25 18:00 12 95 04/10/25 17:00 98.2 98.2 04/10/25 10:08 Nasal Cannula 4.0 04/10/25 10:08 36 Total Intake and Output 04/09/25 04/09/25 04/10/25 14:59 22:59 06:59 Intake Total 50 ml 50 ml Balance 50 ml 50 ml medications Current Medications Medications Dose Ordered Sig/Duane Route Start Time Stop Time Status Last Admin Dose Admin Carvedilol 3.125 mg BID PO 04/09/25 22:00 04/09/25 22:20 3.125 MG Furosemide 40 mg QID PO 04/10/25 06:00 04/10/25 18:51 40 MG Gabapentin 300 mg DAILY PO 04/09/25 22:00 04/10/25 13:28 300 MG Hydralazine HCl 25 mg TID PO 04/09/25 22:00 04/10/25 18:51 25 MG Famotidine 40 mg DAILY PO 04/10/25 10:00 04/10/25 13:28 40 MG Patient Own Medication 1 tab HS PO 04/10/25 22:00 Hydroxyzine Pamoate 25 mg BIDP PRN PO 04/09/25 21:30 Insulin Glargine 17 units DAILY SC 04/10/25 10:00 Lamotrigine 100 mg DAILY PO 04/10/25 10:00 04/10/25 13:33 100 MG Nifedipine 60 mg DAILY PO 04/10/25 10:00 Diagnostic Test (Pha) 1 strip ACHS 04/09/25 22:00 04/10/25 12:30 1 STRIP Insulin Human Regular ACHS SC 04/09/25 22:00 Clindamycin Phosphate 50 ml @ 50 mls/hr Q8HR IV 04/09/25 22:00 04/10/25 06:21 50 MLS/HR Examination Pt is lying on bed General Appearance: Alert, Oriented X3, Cooperative, Mild distress HEENT: Atraumatic, Mucous membranes moist/pink, right eye blindness, right ear deafness Respiratory: Clear to auscultation, Normal air movement, No added sounds Cardiovascular: Regular rate, Normal S1, Normal S2, No murmurs, bilateral crackles were noted Abdominal/ : Active bowel sounds, Soft, no tenderness, abdomen was distended with percussion dullness and fluid thrill present Extremities: No edema, Normal pulses, No tenderness/swelling Skin: Right-sided chest wall had tunneled catheter, surrounding area was red. Bilateral lower extremities had extremely dry scaly skin, with a 2x2 cm ulcer noted on the left extremity [id number]. Neuro: Normal speech, sensorimotor deficits none Psych/Mental Status: Mental status NL, Mood NL Nurse was there as horse wrangler during examination laboratory and microbiology Laboratory Tests 04/10/25 05:54 Test 04/10/25 05:54 Range/Units Serum Glucose 118 H 74-106 mg/dL Labs and/or images reviewed: Labs reviewed by me, Image(s) reviewed by me Problem List/Assessment/Plan Problem List/Assessment/Plan Acute hypoxic respiratory failure Acute pulmonary edema due to volume overload Oxygen by nasal cannula 2 L Chest x-ray: Features of pulmonary edema Nephrology consulted, advised to maintain hyperkalemia protocol as needed. Scheduled for dialysis on 04/11/2025 Hypertensive urgency Nifedipine Carvedilol Hyperkalemia Managed with hyperkalemia protocol: Lokelma, insulin, dextrose, calcium gluconate Cellulitis of both lower extremities Questionable catheter infection Infection surrounding tunneled catheter on the right side of the chest. IV clindamycin Q 8 Blood culture from the catheter sent, pending results Diabetes mellitus Mild insulin sliding scale HbA1c ordered, pending results GI prophylaxis: Famotidine DVT prophylaxis: SCDs Diet: Renal Goals of care discussed with the patient for more than 27 minutes: Full code status Case discussed with , patient and RN Plan discussed with: Patient, Other (RN) My Orders My Orders Orders - LEA MARRERO RESIDENT Procedure Category Date Status Time Clindamycin 600mg Iv PHA 04/09/25 In Process (Cleocin Iv) 22:00 Sequential CANDI 04/09/25 In Process Compression Device 21:14 Blood Culture ZITA 04/10/25 In Process 14:43 Date of Service: Apr 10, 2025 Billing Provider: RON FRAIRE MD Common Visit Codes: [id number] INP/OBS CARE(HIGH) LEA MARRERO RESIDENT Apr 10, 2025 19:40 SAM DILLON RESIDENT Apr 12, 2025 07:10 RON FRAIRE MD Apr 17, 2025 15:38
[2025-04-10 21:33] VITALS: BP 174/91; PULSE 82; RESP 16; O2SAT 96
[2025-04-11] VITALS (9 sets, daily range): BP systolic 114–161; BP diastolic 60–80; PULSE 64–89; RESP 18–20; TEMP 98–98.9; O2SAT 93–99
[2025-04-11 09:50] LABS: Hematocrit 29.5 % (41.0-53.0); Hemoglobin 9.7 g/dL (13.5-17.5); Mean Corpuscular Hemoglobin 28.8 pg (28.0-32.0); Mean Corpuscular Volume 87.3 fL (80.0-100.0); Nucleated Red Blood Cells % 0.1 %
[2025-04-11 09:59] LABS: Anion Gap 13 (5-15); Carbon Dioxide 27 mmol/L (20-31); Chloride 99 mmol/L (98-107); Sodium 139 mmol/L (136-145)
[2025-04-11 10:05] LABS: BUN/Creatinine Ratio 4.7 (10.0-20.0)
[2025-04-11 10:16] LABS: Blood Urea Nitrogen 44 mg/dL (9-23); Calcium 8.0 mg/dL (8.7-10.4); Glucose 134 mg/dL (74-106)
[2025-04-11 10:17] LABS: Potassium 5.7 mmol/L (3.5-5.1)
--- NOTE | 2025-04-11 15:46 | DVHPN2 ---
Progress Note - Dictate Date Seen: Apr 11, 2025 Medical Necessity Reason Pt with a Central, PICC or Fol: No Subjective No new complaints vital signs Vital Sign Date Time Temp Pulse Resp B/P (MAP) Pulse Ox O2 Delivery O2 Flow Rate FiO2 04/11/25 13:00 98.0 70 18 133/73 (93) 98 98.0 04/11/25 10:30 Room Air 0.0 04/11/25 10:30 21 Total Intake and Output 04/10/25 04/10/25 04/11/25 15:00 23:00 07:00 Intake Total 50 ml 220 ml Balance 50 ml 220 ml medications Current Medications Medications Dose Ordered Sig/Duane Route Start Time Stop Time Status Last Admin Dose Admin Carvedilol 3.125 mg BID PO 04/09/25 22:00 04/11/25 09:53 3.125 MG Furosemide 40 mg QID PO 04/10/25 06:00 04/11/25 12:39 40 MG Gabapentin 300 mg DAILY PO 04/09/25 22:00 04/11/25 09:53 300 MG Hydralazine HCl 25 mg TID PO 04/09/25 22:00 04/11/25 05:03 25 MG Famotidine 40 mg DAILY PO 04/10/25 10:00 04/11/25 09:54 40 MG Patient Own Medication 1 tab HS PO 04/10/25 22:00 Hydroxyzine Pamoate 25 mg BIDP PRN PO 04/09/25 21:30 Insulin Glargine 17 units DAILY SC 04/10/25 10:00 Lamotrigine 100 mg DAILY PO 04/10/25 10:00 04/11/25 09:53 100 MG Nifedipine 60 mg DAILY PO 04/10/25 10:00 04/11/25 09:54 60 MG Diagnostic Test (Pha) 1 strip ACHS 04/09/25 22:00 04/11/25 11:30 1 STRIP Insulin Human Regular ACHS SC 04/09/25 22:00 Clindamycin Phosphate 50 ml @ 50 mls/hr Q8HR IV 04/09/25 22:00 04/11/25 05:02 50 MLS/HR Zirconium Oxide 10 gm DAILY PO 04/12/25 10:00 objective GENERAL: The patient is an adult gentleman who appears to be chronically ill, in no acute distress. Alert and oriented x 2. HEENT: Unremarkable. NECK: No jugular venous distention. No palpable thyroid or lymphadenopathy. LUNGS: Show diminished air entry at the bases. CARDIOVASCULAR: Shows 1/6 systolic murmur, S4 gallop. ABDOMEN: Soft, nontender, no organomegaly. EXTREMITIES: Show no clubbing, cyanosis or edema. NEUROLOGIC: Nonfocal. laboratory and microbiology Laboratory Tests 04/11/25 09:03 Test 04/11/25 09:03 Range/Units Serum Glucose 134 H 74-106 mg/dL Assessment/Plan ASSESSMENT AND PLAN: * End-stage renal disease. * Hyperkalemia, treated medically and with dialysis * Uremia due to noncompliance with dialysis. * Uncontrolled hypertension. * Anemia of renal disease. * Diabetes mellitus. Continue HD on [facility] daily UF goal 3 L Plan discussed with: Patient KAMARI CHAPPELL MD Apr 11, 2025 15:46
--- NOTE | 2025-04-11 21:31 | DVHPNRES ---
Progress Note Date Seen: Apr 11, 2025 Resident Creating Document: LEA MARRERO RESIDENT Medical Necessity Reason Pt with a Central, PICC or Fol: No Subjective Review of Systems Ahsan Melchor a 55-year-old male with past medical history of ESRD on TTS dialysis, produces no to minimal urine, diabetes mellitus with diabetic neuropathy, hypertension, right eye blindness and right ear deafness presented to the ER after two missed dialysis sessions with the chief complaints of feeling generalized weakness, especially bilateral lower extremities. Patient was weak to the point that he could not walk and go to dialysis today. He is noncompliant with his antihypertensive medications as well. He denies having any chest pain, shortness of breaths, abdominal pain or any other complaints today. Past surgical history: Denies Smokin pack years, quit 5 years ago Alcohol: Occasional liquid 5 years ago Drugs: Occasional marijuana, last use was more than 1 year ago Code status: Full code PCP: None Home medications: Reconciled (lamotrigine?) Allergies: No known allergies The patient was seen and examined at bedside. The patient reports generalized weakness.He denies any chest pain, shortness of breath, fever, abdominal pain or any other complaints today. Objective vital signs Vital Sign Date Time Temp Pulse Resp B/P (MAP) Pulse Ox O2 Delivery O2 Flow Rate FiO2 04/11/25 21:00 98.3 72 19 114/60 (78) 99 98.3 04/11/25 10:30 Room Air 0.0 04/11/25 10:30 21 Total Intake and Output 04/10/25 04/10/25 04/11/25 15:00 23:00 07:00 Intake Total 50 ml 220 ml Balance 50 ml 220 ml medications Current Medications Medications Dose Ordered Sig/Duane Route Start Time Stop Time Status Last Admin Dose Admin Carvedilol 3.125 mg BID PO 04/09/25 22:00 04/11/25 09:53 3.125 MG Furosemide 40 mg QID PO 04/10/25 06:00 04/11/25 17:30 40 MG Gabapentin 300 mg DAILY PO 04/09/25 22:00 04/11/25 09:53 300 MG Hydralazine HCl 25 mg TID PO 04/09/25 22:00 04/11/25 16:00 25 MG Famotidine 40 mg DAILY PO 04/10/25 10:00 04/11/25 09:54 40 MG Patient Own Medication 1 tab HS PO 04/10/25 22:00 Hydroxyzine Pamoate 25 mg BIDP PRN PO 04/09/25 21:30 Insulin Glargine 17 units DAILY SC 04/10/25 10:00 Lamotrigine 100 mg DAILY PO 04/10/25 10:00 04/11/25 09:53 100 MG Nifedipine 60 mg DAILY PO 04/10/25 10:00 04/11/25 09:54 60 MG Diagnostic Test (Pha) 1 strip ACHS 04/09/25 22:00 04/11/25 16:38 1 STRIP Insulin Human Regular ACHS SC 04/09/25 22:00 Clindamycin Phosphate 50 ml @ 50 mls/hr Q8HR IV 04/09/25 22:00 04/11/25 05:02 50 MLS/HR Zirconium Oxide 10 gm DAILY PO 04/12/25 10:00 Examination Pt is lying on bed General Appearance: Alert, Oriented X3, Cooperative, Mild distress HEENT: Atraumatic, Mucous membranes moist/pink, right eye blindness, right ear deafness Respiratory: Clear to auscultation, Normal air movement, No added sounds Cardiovascular: Regular rate, Normal S1, Normal S2, No murmurs, bilateral crackles were noted Abdominal/ : Active bowel sounds, Soft, no tenderness, abdomen was distended with percussion dullness and fluid thrill present Extremities: No edema, Normal pulses, No tenderness/swelling Skin: Right-sided chest wall had tunneled catheter, surrounding area was red. Bilateral lower extremities had extremely dry scaly skin, with a 2x2 cm ulcer noted on the left extremity [id number]. 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 Resulted Problem List/Assessment/Plan Problem List/Assessment/Plan Acute hypoxic respiratory failure Acute pulmonary edema due to volume overload Oxygen by nasal cannula 2 L Chest x-ray: Features of pulmonary edema Nephrology consulted, advised to maintain hyperkalemia protocol as needed. Maintain MWF, Hypertensive urgency Nifedipine Carvedilol Hyperkalemia Managed with hyperkalemia protocol: Lokelma, insulin, dextrose, calcium gluconate Cellulitis of both lower extremities Infection surrounding tunneled catheter on the right side of the chest. IV clindamycin Q 8 Blood culture from the catheter sent, pending results Diabetes mellitus Insulin sliding scale HbA1c 11.5 GI prophylaxis: Famotidine DVT prophylaxis: SCDs Diet: Renal Goals of care discussed with the patient for more than 27 minutes: Full code status Case discussed with , patient and RN Plan discussed with: Patient, Other (RN) Plan discussed with: Patient, Other (RN) Date of Service: Apr 11, 2025 Billing Provider: RON FRAIRE MD Common Visit Codes: [id number] INP/OBS CARE(HIGH) LEA MARRERO RESIDENT Apr 11, 2025 21:31 SAM DILLON RESIDENT Apr 12, 2025 11:22 RON FRAIRE MD Apr 17, 2025 15:39
[2025-04-12] VITALS (95 sets, daily range): BP systolic 84–172; BP diastolic 39–74; PULSE 57–110; RESP 0–26; TEMP 65.3–101.5; O2SAT 83–100
[2025-04-12] MEDS ORDERED: ACCU-CHEK COMFORT CURVE STRIP VI PRN (03:00)
[2025-04-12] MEDS: ETOMIDATE (2MG/ML) 20ML VIAL IV ONE (03:04)
[2025-04-12] MEDS: ROCURONIUM 10MG/ML 10ML VIAL IV ONE (03:05)
[2025-04-12] MEDS: fentaNYL Drip 2500mCg/250mlNS 250 ML IV ONE (03:31)
[2025-04-12] MEDS: NOREPINEPHRINE 8 MG/250ML KIT 250 ML IV ONE (03:33)
[2025-04-12] MEDS: fentaNYL Drip 2500mCg/250mlNS 250 ML IV SCH (03:35)
--- NOTE | 2025-04-12 03:39 | DVH ---
CHEST RADIOGRAPH Indication: S/P CODE BLUE INTUBATION Technique: 1 view Comparison: XY CHEST PORTABLE on DOS: 04/09/25, XY CHEST PORTABLE on DOS: 01/25/25, XR CHEST 1 VIEW on D OS: 04/26/23 FINDINGS: Lines and Tubes: Endotracheal tube terminates 3.3 cm above the hayde. Unchanged tunneled right IJ ca theter. Overlying defibrillator pads. Lungs/Pleura: The left costophrenic angle is excluded. Similar degree of bilateral interstitial opaci ties and mild basilar airspace disease. No evidence of acute consolidation, or pleural abnormality. Cardiomediastinum: Unremarkable. Other: No acute osseous abnormality. IMPRESSION: 1. Adequately positioned endotracheal tube. 2. No significant change in cardiopulmonary findings from 3 days prior, compatible with heart failure .
[2025-04-12] MEDS: NOREPINEPHRINE 8 MG/250ML KIT 250 ML IV SCH (03:40)
[2025-04-12] MEDS: InsuLIN REG 1unit/0.01ml Soln (100units/ml) IV ONE (03:45)
[2025-04-12 04:00] LABS: Hematocrit 30.7 % (41.0-53.0); Hemoglobin 9.7 g/dL (13.5-17.5); Mean Corpuscular Hemoglobin 28.5 pg (28.0-32.0); Mean Corpuscular Volume 90.0 fL (80.0-100.0); Nucleated Red Blood Cells % 0.4 %
[2025-04-12] MEDS: PROPOFOL 100 ML IV SCH (04:00)
[2025-04-12 04:03] LABS: INR 1.17 (0.9-1.15); Partial Thromboplastin Time 25.4 SEC (24.5-34.5); Prothrombin Time 12.2 sec (9.3-11.8)
[2025-04-12] MEDS: ALBUTEROL SULF 2.5 MG/0.5ML(0.5%) NEB SOLN NEB ONE (04:10)
--- NOTE | 2025-04-12 04:13 | RESUS ---
ANGELA DUBON ASSESSSMENT History of Events History of Events: Pt admitted on 04/09/25 for acute pulmonary edema causing acture hypoxic respiratory failure. Staff alerted to pt being asystole on tele monitor. Upon checking on patient, no palpable pulses. Compressions started and ANGELA DUBON called. Initial Information Date: Apr 12, 2025 Time: 02:39 Location of Arrest: [place] Witnessed: No CPR started initial time: 02:40 CPR started by whom: Hospital Staff Pre-Hospital Care: Pre-Code Care (inpatient) Type of arrest: Cardiac, Respiratory, Adult, Unwitnessed Spontaneous Respirations: No Pulse Present: No Monitoring: ECG, Telemetry Crash Cart Opened and Supplies: Yes Airway Ventilation Breathing at Onset: Assisted Oxygen Delivery Method: Ambu-Bag Artificial Ventilation: Bag/Mask Intubation Time: 03:06 Intubation Size: 8.0 cuffed Intubated by: RT Magdalena Intubation Attempts: 2 Intubated orally: Yes Intubated Nasaly: No Tube secured at: 26 (cm @ lip) Cricoid pressure done: Yes CO2 indicator used: Yes Confirmation: Auscultation, Exhaled CO2, Chest X-ray Suctioning (Oral/Tracheal): Yes Comments: 1st attempt @ 0254 by RT Magdalena; color change without breath sounds; tube removed. Circulation Circulation #1: Time: 02:39 Pulse Rate (adult): 0 Blood Pressure Systolic: 0 Blood Pressure Diastolic: 0 Temperature (Fahrenheit): 94.7 (F; rectal) Circulation Comment: Asystole Circulation #2: Time: 02:41 Pulse Rate (adult): 0 Blood Pressure Systolic: 0 Blood Pressure Diastolic: 0 Circulation Comment: Asystole Circulation #3: Time: 02:43 Pulse Rate (adult): 0 Blood Pressure Systolic: 0 Blood Pressure Diastolic: 0 Circulation Comment: Asystole Circulation #4: Time: 02:45 Pulse Rate (adult): 32 Blood Pressure Systolic: 0 Blood Pressure Diastolic: 0 Circulation Comment: Weakened pulse and then pulses lost; compressions resumed. Circulation #5: Time: 02:47 Pulse Rate (adult): 82 Blood Pressure Systolic: 145 Blood Pressure Diastolic: 47 Circulation Comment: ROSC Circulation #6: Time: 03:00 Pulse Rate (adult): 52 Blood Pressure Systolic: 122 Blood Pressure Diastolic: 56 Circulation #7: Time: 03:04 Pulse Rate (adult): 0 Blood Pressure Systolic: 0 Blood Pressure Diastolic: 0 Circulation Comment: Pt heart rate in 20s and no palpable pulses; compressions resumed and CODE BLUE called Circulation #8: Time: 03:06 Pulse Rate (adult): 109 Blood Pressure Systolic: 212 Blood Pressure Diastolic: 88 Circulation Comment: Sinus tach Procedure - IV Procedure - IV : IV start time: 03:00 IV Side: Left IV Location: Wrist IV Catheter Type: Saline Lock IV Placed: In Hospital IV Placed by Isrrael Gilliland RN IV Gauge: 20 IV Line Care: Saline Flush Procedure - Intraosseous Time of intraosseous: 02:42 Site of Intraosseous: Tibia eusebia-medial (Lt proximal tibia) Intraosseous inserted by: Isrrael Gilliland RN Number of attempts for Intraos: 1 Comment: Pt's had 20g IV to RFA that would not flush; discontinued; IO needed for emergency medicine Medications & Response Medications and Responses #1: Medication Time: 02:43 ADULT Medications Given ADULT: Epinephrine 1 mg Route of Administration: IO Heart Rate: 0 EKG Rhythm: Asystole Blood Pressure Systolic: 0 Blood Pressure Diastolic: 0 Respiratory Rate: 0 Medications and Responses #2: Medication Time: 02:46 ADULT Medications Given ADULT: Sodium Bacarbinate 50 meq, Calcium Chloride 10 mL Route of Administration: IO Heart Rate: 0 EKG Rhythm: Asystole Blood Pressure Systolic: 0 Blood Pressure Diastolic: 0 Respiratory Rate: 0 Medications and Responses #3: Medication Time: 02:58 ADULT Medications Given ADULT: Atropine 1 mg Route of Administration: IO Heart Rate: 52 EKG Rhythm: Sinus Bradycardia Blood Pressure Systolic: 122 Blood Pressure Diastolic: 56 Medications and Responses #4: Medication Time: 03:04 ADULT Medications Given ADULT: Epinephrine 1 mg Route of Administration: IV Heart Rate: 0 EKG Rhythm: Asystole Blood Pressure Systolic: 0 Blood Pressure Diastolic: 0 Respiratory Rate: 0 Medications and Responses #5: Medication Time: 03:06 ADULT Medications Given ADULT: Sodium Bacarbinate 50 meq Route of Administration: IV Heart Rate: 112 Nurses Notes Edwige Coma Scale Eye Opening: None (1) [place] Coma Scale Verbal: None (1) [place] Coma Scale Motor: None (1) Glascow Total: 3 Pupil Reaction: Sluggish Bedside Blood Glucose: 134 EKG Rhythm: Atrial Fibrillation (Afib with HR 75 @ 0252) Nurses Notes - Comment: 0301 - XR at bedside 0302 - Etomidate 25 given 0303 - Freddie 100 given Time Code Ended Time Code Ended: 03:06 Post Arrest Status: Ventilated Outcome of code: Successful Family notified: Yes Attending called: Yes Code Team Present: CHRISTINA Leonard; Lucille - Resident; Kimmy Shah, RN - ICU Charge; Vickie Malhotra, MICHELLE - Firmware Manager; Saloni Gonsalez RN - [place] Charge; Rigo O, RN - ER Charge; Gabi Dinh RN; Yamilex Post RN - Primary RN; Elana Gilman, RN; Eloina Malhotra, RN; Amy Mejia, RN; Verónica Gardner, RN; Loree Gilman, RN; Emily Gardner, RT; Kaylee Meng, ERT Post Resuscitation Neurologica Pupil Size: 3 ROSC Time of ROSC: 03:06 (Initial ROSC @ 0247) Vickie Stokes Apr 12, 2025 04:13
[2025-04-12 04:17] LABS: Base Excess -2.9 mmol/L (-2.0-3.0)
[2025-04-12 04:18] LABS: Albumin 3.7 g/dL (3.2-4.8); Alkaline Phosphatase 68 U/L (46-116); Anion Gap 17 (5-15); BUN/Creatinine Ratio 3.8 (10.0-20.0); Carbon Dioxide 24 mmol/L (20-31); Chloride 99 mmol/L (98-107); Potassium 4.5 mmol/L (3.5-5.1); Sodium 140 mmol/L (136-145); Total Protein 7.2 g/dL (5.7-8.2)
[2025-04-12 04:19] LABS: Bilirubin, Total 0.5 mg/dL (0.2-1.0)
[2025-04-12 04:20] LABS: Alanine Aminotransferase 46 U/L (7-40); Blood Urea Nitrogen 39 mg/dL (9-23); Calcium 8.6 mg/dL (8.7-10.4); Glucose 138 mg/dL (74-106); Magnesium 2.6 mg/dL (1.6-2.6)
[2025-04-12] MEDS: DEXTROSE (50%) 50ML SYRG IV ONE (04:26)
[2025-04-12] MEDS: FUROSEMIDE 20 MG/2 ML VIAL IV ONE (04:27)
[2025-04-12] MEDS: SODIUM BICARB 8.4% 50Meq/50ml SYR INJ IV ONE (04:27)
[2025-04-12] MEDS: PIPERACILLIN-TAZOB 2.25GM 50 ML IV SCH (06:13)
[2025-04-12] MEDS: SODIUM CHL 0.9% 1000 ML BAG XX ONE (07:00)
--- NOTE | 2025-04-12 08:21 | ECG ---
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
[2025-04-12] MEDS: MIDAZOLAM DRIP 50 mg/50mL 50 ML IV ONE (09:40)
[2025-04-12] MEDS: MIDAZOLAM DRIP 50 mg/50mL 50 ML IV SCH (09:40)
[2025-04-12] MEDS ORDERED: SODIUM ZIRCONIUM CYCL 10 GM PAK PO SCH (10:00)
[2025-04-12] MEDS ORDERED: PIPERACILLIN-TAZOB 2.25GM 50 ML IV SCH (10:00)
--- NOTE | 2025-04-12 10:13 | DVHPNRES ---
Progress Note Date Seen: Apr 12, 2025 Resident Creating Document: SAM DILLON RESIDENT Medical Necessity Reason Pt with a Central, PICC or Fol: Yes The following are medically ne: Central Line, Araiza Catheter Subjective Review of Systems Ahsan Melchor is a 55-year-old male patient who presents to ED with chief complaint of generalized weakness especially bilateral lower limbs, which were triggered after missing two last two dialysis session ( and 09 of April). Patient also was not taking his home medication. In ER he was found to be hypertensive and hyperkalemic, prompting IV treatment in ordering urgent hemodialysis session. Denies dyspnea, chest pain or any other associated Past medical history: Hypertension, diabetes, ESRD on 3 times a week dialysis (Tuesday, and Tuesday, [facility]), HFpEF (LVEF 50-55%) with last echocardiogram on 01/2025 which also showed LVH and aortic sclerosis peripheral neuropathy, diabetic retinopathy, noncompliance with recent admission due to hyperkalemia associated with bacteremia probably secondary to cellulitis 01/2025 Past surgical history: Failed AV fistula in left forearm Family history: Noncontributory Social history: Lives in [place] with mother (next of kin). Ex tobacco abuse (60 pack years) quit five years ago. Occasional ethanol use. Occasional marijuana use. Denies current tobacco, alcohol and other drug abuse Allergies: Denies Home medications: Reconciled (lamotrigine?) The patient was seen and examined at bedside. Currently ICU status on sedation due to mechanical ventilation, on IV vasopressors, requiring hemodialysis. Patient presented cardiac arrest due to asystole with previous rhythm on telemetry which showed to high-degree AV block (second-degree AV block Mobitz two and posterior third-degree block), required emergent total of 8 minutes of CPR (two epinephrine, two bicarbonate, one atropine in one calcium gluconate), endotracheal intubation, and an IO access. Currently has right IJ central line Objective vital signs Vital Sign Date Time Temp Pulse Resp B/P (MAP) Pulse Ox O2 Delivery O2 Flow Rate FiO2 04/12/25 08:45 98.4 74 15 132/49 (76) 100 209.1 04/12/25 08:13 90 04/12/25 08:00 Mechanical Ventilator+ 2 Total Intake and Output 04/11/25 04/11/25 04/12/25 15:00 23:00 07:00 Intake Total 83.75 ml Balance 83.75 ml medications Current Medications Medications Dose Ordered Sig/Duane Route Start Time Stop Time Status Last Admin Dose Admin Carvedilol 3.125 mg BID PO 04/09/25 22:00 Hold 04/11/25 22:27 3.125 MG Gabapentin 300 mg DAILY PO 04/09/25 22:00 04/11/25 09:53 300 MG Hydralazine HCl 25 mg TID PO 04/09/25 22:00 Hold 04/11/25 22:26 25 MG Famotidine 40 mg DAILY PO 04/10/25 10:00 04/11/25 09:54 40 MG Patient Own Medication 1 tab HS PO 04/10/25 22:00 Hydroxyzine Pamoate 25 mg BIDP PRN PO 04/09/25 21:30 Insulin Glargine 17 units DAILY SC 04/10/25 10:00 Lamotrigine 100 mg DAILY PO 04/10/25 10:00 04/11/25 09:53 100 MG Nifedipine 60 mg DAILY PO 04/10/25 10:00 Hold 04/11/25 09:54 60 MG Diagnostic Test (Pha) 1 strip ACHS 04/09/25 22:00 04/12/25 06:29 1 STRIP Insulin Human Regular ACHS SC 04/09/25 22:00 04/12/25 06:29 3 UNITS Clindamycin Phosphate 50 ml @ 50 mls/hr Q8HR IV 04/09/25 22:00 04/11/25 22:24 50 MLS/HR Zirconium Oxide 10 gm DAILY PO 04/12/25 10:00 Diagnostic Test (Pha) 1 strip PERCODEBLUE PRN 04/12/25 03:00 04/13/25 02:59 Norepinephrine Bitartrate 250 ml @ 3.75 mls/hr Q24H IV 04/12/25 04:00 04/12/25 03:40 3.75 MLS/HR Propofol 100 ml @ 3.114 mls/ hr Q24H IV 04/12/25 04:00 Fentanyl Citrate 250 ml @ 2.5 mls/hr Q24H IV 04/12/25 04:00 04/12/25 03:35 2.5 MLS/HR Piperacillin Sod/ Tazobactam Sod 50 ml @ 12.5 mls/hr Q12HR IV 04/12/25 04:46 04/12/25 06:13 12.5 MLS/HR Furosemide 40 mg BIDD IV 04/12/25 18:00 UNV Examination Patient lying in bed, under sedoanalgesia due to mechanical ventilation General: RASS -1, afebrile, mucosae are moist Cardiovascular: Normal S1 and S2. No murmurs, gallops or rubs Respiratory: Mechanically assisted ventilation, equal bilateral airway entree. Clear lung sounds on auscultation Abdomen: Soft, nontender, no organomegaly, normal bowel sounds MSK/skin: Mobilization of limbs cannot be evaluated. Skin is dry and warm, bilateral lower limb erythema with non secreting ulcers ochre dermatitis. Has IO access in left tibia, non functioning, Tanner catheter in right subclavian area with mild erythema in puncture site. Neurological: Orientation cannot be assessed. No apparent motor no sensitive deficits. Pupils are isocoric and reactive laboratory and microbiology Laboratory Tests 04/12/25 03:30 Test 04/12/25 03:30 Range/Units Serum Glucose 138 H 74-106 mg/dL Microbiology Date/Time Source Procedure Growth Status 04/10/25 15:00 Blood Blood Culture - Preliminary NO GROWTH AFTER 24 HOURS OF INCUBATION. Resulted Problem List/Assessment/Plan Problem List/Assessment/Plan Cardiac arrest secondary during asystole - status post ROSC High-degree AV block (second-degree AV block Mobitz 2 and third-degree AV block) Sustained monomorphic Ventricular tachycardia (post epinephrine) NSTEMI - Rule out ACS Acute hypoxic respiratory failure Acute pulmonary edema due to volume overload Cardiorenal syndrome type 3 Acute con chronic diastolic CHF (HFpEF, LVEF 50-55%) Pulmonary hypertension (RVSP 55 mmHg) Hypertensive urgency Patient had a total down time 5 minutes (received 2 epinephrine, bicarbonate, 1 calcium and 1 atropine). He did present Vtach post epinephrine Currently patient is on sedation, due to mechanical assisted ventilation (VCV VT 550, RR 16 PEEP 8 FIO2 70%) Nephrology consulted, advised to maintain hyperkalemia protocol as needed. Currently on IV furosemide 40 mg b.i.d. Completed echocardiogram: Mild LVH, mild LV diastolic dysfunction, LVEF 65%, moderate dilated RV, RA and LA, moderate degree pulmonary hypertension (RVSP 55 mm Hg) Discontinue antihypertensive medication (Nifedipine, hydralazine hand Carvedilol) due to possible septic shock. Cardiology on board: Recommend evaluating neurological function before ruling out ischemia. Metabolic encephalopathy secondary to sepsis Sedation Rule out anoxic brain injury Pending head CT Currently on the sedation Severe Hyperkalemia - Resolved ESRD on hemodialysis 3 times a week (Tuesday, and Tuesday) Managed with hyperkalemia protocol: Lokelma, insulin, dextrose, calcium gluconate Nephrology on board: Continue with hemodialysis session. Septic shock probably secondary to cellulitis versus questionable catheter infection Cellulitis of both lower extremities Questionable catheter infection Infection surrounding tunneled catheter on the right side of the chest. Currently under empiric IV antibiotic (Zosyn and clindamycin) Blood culture from the catheter sent, pending results Patient required IV vasopressors for less than for 24 hours Diabetes mellitus -uncontrolled (hemoglobin A1c 11.8%) Diabetic retinopathy and peripheral neuropathy Hypertension Mild insulin sliding scale Discontinue home medication for antihypertensive due to requiring IV vasopressors. Noncompliance Patient does not take his antihypertensive medication and he is noncompliant with his hemodialysis session. Risk of nonadherence to treatment has been extensively discussed, including . Goals of care discussed with the patient for more than 27 minutes: Full code status Case discussed with , nan (next of kin at this time as Kimmy) and RN: Patient currently ICU status, on sedation, mechanical assisted ventilation, IV vasopressors, empiric IV antibiotic, and requiring hemodialysis session. Cardiology on board. Pending be neurological evaluation to decide whether to rule out ischemia. Patient has poor prognosis Critical care time spent including discussion with nursing and family, excluding procedures: 78 minutes Plan discussed with: Patient, Other (Cousins x2 (HILARIO Simpsony) and nurses) My Orders My Orders Orders - SAM DILLON RESIDENT Procedure Category Date Status Time Sodium Zirconium PHA 04/12/25 In Process Cyclosilicate 10:00 Code Status CODE 04/12/25 Transmitted 06:42 Blood Culture ZITA 04/12/25 In Process 08:17 Chest Xray 1 View XY 04/13/25 Logged 05:00 Chest Xray 1 View XY 04/14/25 Logged 05:00 Chest Xray 1 View XY 04/15/25 Logged 05:00 Chest Xray 1 View XY 04/16/25 Logged 05:00 Chest Xray 1 View XY 04/17/25 Logged 05:00 Chest Xray 1 View XY 04/18/25 Logged 05:00 Chest Xray 1 View XY 04/19/25 Logged 05:00 Chest Xray 1 View XY 04/20/25 Logged 05:00 Chest Xray 1 View XY 04/21/25 Logged 05:00 Chest Xray 1 View XY 04/22/25 Logged 05:00 Furosemide Injection PHA 04/12/25 Logged (Lasix Injection) 18:00 Troponin-I Hs LAB 04/12/25 Logged 09:45 Electrocardigram EKG 04/12/25 Logged 09:45 * Cardiology Consult CONS 04/12/25 Transmitted 09:49 Date of Service: Apr 12, 2025 Billing Provider: RON FRAIRE MD Common Visit Codes: [id number] CARE 30-74 MIN (crit care time 90 minutes) SAM DILLON RESIDENT Apr 12, 2025 10:13 RON FRAIRE MD Apr 17, 2025 15:40
--- NOTE | 2025-04-12 11:54 | DVHINCON2 ---
Date Seen: Apr 12, 2025 Referring Physician MD Fany resident Reason for Consultation High-degree AV block with cardiac arrest, evaluate for ischemia History of Present Illness This is a 55-year-old male patient who presents to the emergency room with chief complaint of generalized weakness. At the time of assessment, the patient is chemically sedated and mechanically ventilated. Medical history obtained from medical records as well as bedside RN. Initial twelve lead electrocardiogram done in the emergency room found in patient's hard chart and reveals normal sinus rhythm with nonspecific ST segment changes to lateral leads. No troponin levels were drawn at time of admission. Cardiology has now been consulted for high-degree AV block, cardiac arrest and status CPR. After reviewing security sales manager, the patient was noted to go into a second degree type 2, followed by complete heart block early this morning (0239am), subsequently, the patient was asystole and a code blue was called. CPR was initiated immediately, the patient was endotracheally intubated, and return of spontaneous circulation was achieved after 27 minutes (director housekeeping code she reports code began at 2:39 a.m. and ended at 3:06 a.m.). A twelve lead electrocardiogram was done by bedside RN at time of assessment (0955am on 04/12/25), and now reveals a normal sinus rhythm with a left ventricular hypertrophy and nonspecific ST segment changes to inferolateral leads. Troponin levels drawn today, initial troponin level of 26ng/L. Significant past medical history includes congestive heart failure, hypertension, end-stage renal disease on hemodialysis, type 2 diabetes mellitus, diabetic retinopathy, and medical noncompliance. It is unknown if the patient sees a patient case coordinator in the outpatient setting given that the patient is currently chemically sedated and no family is at bedside. Past Medical History Past medical history reviewed. No other significant than mentioned above. Past Surgical History Unable to obtain Family History: Diabetes mellitus grandmother Hypertension grandmother Family History Family history reviewed. Social History History of tobacco use and marijuana use per previous provider notes Unable to ask the patient as he is chemically sedated Allergies: Coded Allergies: NO KNOWN ALLERGIES (Unverified , 01/25/25) Home Meds Active Scripts Carvedilol (Carvedilol) 3.125 Mg Tab, 1 TAB PO BID for 30 Days, #60 TAB 3 Refills Prov:PARK KRAUS RESIDENT 01/29/25 Nifedipine (Nifedipine Er) 60 Mg Tab, 1 TAB PO DAILY for 30 Days, #30 TAB 2 Refills Prov:PARK KRAUS RESIDENT 01/29/25 Hydralazine HCl (Hydralazine HCl) 25 Mg Tab, 25 MG PO TID for 30 Days, #90 TAB 2 Refills Prov:PARK KRAUS RESIDENT 01/29/25 Reported Medications Gabapentin (Gabapentin) 300 Mg Cap, 300 MG PO 5XD, #75 CAP 01/27/25 Loperamide Hcl (Imodium) 2 Mg Cp, 2 MG PO PRN, CAP 01/26/25 Hydroxyzine HCl (Hydroxyzine Hydrochloride) 25 Mg Tab, 25 MG PO BIDP PRN, TAB 01/25/25 Famotidine (Famotidine) 40 Mg Tab, 40 MG PO DAILYPRN PRN, TAB 01/25/25 Insulin Glargine (Basaglar Kwikpen) 100 Unit/Ml Inj, 17 UNIT SC DAILY, INJ 01/25/25 Metoprolol Tartrate (Metoprolol Tartrate) 50 Mg Tab, 50 MG PO BID, TAB 01/25/25 Lamotrigine (Lamotrigine) 25 Mg Tab, 100 MG PO DAILY, TAB 01/25/25 Furosemide (Furosemide) 40 Mg Tab, 1 TAB PO QID, #30 TAB 5 Refills 01/25/25 Fenofibrate (FENOFIBRATE) 145 Mg Tab, 1 TAB PO DAILY, #30 TAB 5 Refills 01/25/25 Home Meds Home medications reviewed. Current Medications Current Medications Medications (Trade) Dose Ordered Sig/Duane Route PRN Reason Start Time Stop Time Status Last Admin Zirconium Oxide (Lokelma) 10 gm DAILY PO 04/12/25 10:00 Diagnostic Test (Pha) (Accu-Chek Comfort Curve T) 1 strip PERCODEBLUE PRN Code Medication 04/12/25 03:00 04/13/25 02:59 Piperacillin Sod/ Tazobactam Sod 50 ml @ 12.5 mls/hr Q12HR IV 04/12/25 10:00 04/12/25 04:38 DC Norepinephrine Bitartrate 250 ml @ 3.75 mls/hr Q24H IV 04/12/25 04:00 04/12/25 03:40 Propofol 100 ml @ 3.114 mls/ hr Q24H IV 04/12/25 04:00 Fentanyl Citrate 250 ml @ 2.5 mls/hr Q24H IV 04/12/25 04:00 04/12/25 03:35 Piperacillin Sod/ Tazobactam Sod 50 ml @ 12.5 mls/hr Q12HR IV 04/12/25 04:46 04/12/25 06:13 Furosemide (Lasix Injection) 40 mg BIDD IV 04/12/25 18:00 Midazolam HCl 50 ml @ 1 mls/hr Q24H IV 04/12/25 10:15 04/12/25 09:40 Review of Systems Constitutional: Generalized weakness Ears, Nose, & Throat: No symptom reported Eyes: No symptom reported Neurological: No symptoms reported Pulmonary/Respiratory: No symptoms reported Cardiovascular: No symptom reported Gastrointestinal: No symptom reported Genitourinary: No symptom reported Musculoskeletal: No symptom reported Skin: No symptom reported Psychiatric: No symptom reported Endocrine: No symptom reported Hematologic/Lymphatic: No symptom reported Vital Signs Vital Signs Date Time Temp Pulse Resp B/P (MAP) Pulse Ox O2 Delivery O2 Flow Rate FiO2 04/12/25 11:35 148/65 04/12/25 10:15 98.1 75 18 100 208.6 04/12/25 10:00 Mechanical Ventilator+ 90 90 04/12/25 08:00 2 Physical Exam General Appearance: Calm, relaxed Obese Pulmonary/Respiratory: Clear, bilateral breaths sounds. Mechanically ventilated Cardiovascular/Chest: Regular rate and rhythm. Peripheral Pulses: 2+ Radial (R). 2+ Radial (L). Abdominal Exam: Normal bowel sounds. Ankle Exam: Negative ankle edema Lower extremities: Negative lower extremity edema Neuro/Mental Status: Chemically sedated. Sluggish pupils bilaterally Thoughts/Psych: Deferred Appearance: No acute distress. Skin Exam: Hyperpigmentation to bilateral lower extremities, left lower extremity IO in place Labs/Diagnostic Data Labs Test 04/12/25 11:30 04/12/25 06:25 04/12/25 04:03 04/12/25 03:30 Range/Units POC Glucose 169 H 70-106 mg/dl Blood Gas Specimen Type Arterial Blood Gas Sample Site Right radial Blood Gas Patient Temperature 37.0 Arterial Blood Date Drawn [id number] Arterial Blood pH 7.347 L 7.350-7.450 Arterial Blood Partial Pressure CO2 42.1 35.0-48.0 mmHg Arterial Blood Partial Pressure O2 143.5 H 83.0-108.0 mmHg Arterial Blood HCO3 22.6 21.0-28.0 mmol/L Arterial Blood Oxygen Saturation 98.1 H 94.0-98.0 % Arterial Blood Base Excess -2.9 L -2.0-3.0 mmol/L Arterial Blood Oxyhemoglobin 97.6 94.0-98.0 % Arterial Blood Carboxyhemoglobin 0.1 L 0.5-1.5 % Arterial Blood Methemoglobin 0.4 0.0-1.5 % Husam Test Modified Blood Gas Total Hemoglobin 9.30 L 13.5-17.5 g/dL Blood Gas Set Respiration Rate 18.0 Blood Gas Modality Vent - ac FiO2 % 100.0 Blood Gas Tidal Volume 550.0 Blood Gas PEEP or CPAP 8.0 White Blood Count 6.8 4.4-10.8 10^3/uL Red Blood Count 3.41 L 4.5-5.90 10^6/uL Hemoglobin 9.7 L 13.5-17.5 g/dL Hematocrit 30.7 L 41.0-53.0 % Mean Corpuscular Volume 90.0 80.0-100.0 fL Mean Corpuscular Hemoglobin 28.5 28.0-32.0 pg Mean Corpuscular Hemoglobin Concent 31.7 L 32.0-36.0 g/dL Red Cell Distribution Width 16.0 H 11.8-14.3 % Platelet Count 204 140-450 10^3/uL Mean Platelet Volume 7.3 6.9-10.8 fL Neutrophils (%) (Auto) 78.7 37.0-80.0 % Lymphocytes (%) (Auto) 14.4 10.0-50.0 % Monocytes (%) (Auto) 5.0 0.0-12.0 % Eosinophils (%) (Auto) 1.5 0.0-7.0 % Basophils (%) (Auto) 0.4 0.0-2.0 % Neutrophils # (Auto) 5.3 1.6-8.6 10 ^3/uL Lymphocytes # (Auto) 1.0 0.4-5.4 10 ^3/uL Monocytes # (Auto) 0.3 0-1.3 10 ^3/uL Eosinophils # (Auto) 0.1 0-0.8 10 ^3/uL Basophils # (Auto) 0 0-0.2 10 ^3/uL Nucleated Red Blood Cells 0.4 % Prothrombin Time 12.2 H 9.3-11.8 sec Prothrombin Time INR 1.17 H 0.9-1.15 Activated Partial Thromboplast Time 25.4 24.5-34.5 SEC Sodium Level 140 136-145 mmol/L Potassium Level 4.5 3.5-5.1 mmol/L Chloride Level 99 98-107 mmol/L Carbon Dioxide Level 24 20-31 mmol/L Anion Gap 17 H 5-15 Blood Urea Nitrogen 39 H 9-23 mg/dL Creatinine 10.18 *H 0.700-1.30 mg/dL Glomerular Filtration Rate Calc 5 >90 mL/min BUN/Creatinine Ratio 3.8 L 10.0-20.0 Serum Glucose 138 H 74-106 mg/dL Calcium Level 8.6 L 8.7-10.4 mg/dL Magnesium Level 2.6 1.6-2.6 mg/dL Total Bilirubin 0.5 0.2-1.0 mg/dL Aspartate Amino Transferase (AST) 95 H 13-40 U/L Alanine Aminotransferase (ALT) 46 H 7-40 U/L Alkaline Phosphatase 68 46-116 U/L Total Protein 7.2 5.7-8.2 g/dL Albumin 3.7 3.2-4.8 g/dL Test 04/10/25 05:55 04/09/25 17:41 04/09/25 13:42 Range/Units Hepatitis B Surface Antigen Negative Negative Lactic Acid Level 0.8 0.4-2.0 mmol/L Vitamin B12 Level 547 211-911 pg/mL Vitamin D 25-Hydroxy 37.2 30.0-100 ng/mL Erythrocyte Sedimentation Rate 48 H 0-20 mm/hr Hemoglobin A1c 11.5 H <5.7 % A1C Phosphorus Level 13.4 H 2.4-5.1 mg/dL B-Type Natriuretic Peptide 625.00 0-100 pg/mL Triglycerides Level 104 < 150 mg/dL Cholesterol Level 112 < 200 mg/dL LDL Cholesterol 70 < 100 mg/dL HDL Cholesterol 29 L 40-59 mg/dL Folic Acid 17.58 >5.38 ng/mL Thyroid Stimulating Hormone (TSH) 2.59 0.55-4.78 uIU/mL Microbiology Date/Time Source Procedure Growth Status 9/17/25 15:00 Blood Blood Culture - Preliminary NO GROWTH AFTER 24 HOURS OF INCUBATION. Resulted Assessment Cardiopulmonary arrest status post CPR with return of spontaneous circulation High-degree atrioventricular block, complete heart block Ventricular tachycardia NSTEMI, rule out coronary artery disease Rule out structural heart disease Acute hypoxic respiratory failure Hypertension Hyperkalemia, resolved ESRD on hemodialysis Type 2 diabetes mellitus, uncontrolled (Hbg A1c 11.5%) Medical noncompliance Plan/Recommendation We will continue with the following plan/recommendations (Dr. Chase): Case discussed with . The patient went into a high-degree atrioventricular block (second degree type 2, which progressed to complete heart block), followed by asystole prompting immediate CPR. Return of spontaneous circulation has been achieved. The patient may benefit from ischemic workup. Downtime according to resuscitative document reveals approximately 27 minutes. At this time, we will need to rule out any neurological deficit. Head CT pending. In the meantime, continue with vasopressor therapy for hemodynamic sup port. We will proceed with obtaining a transthoracic echocardiogram to evaluate cardiac function. Continue with close cardiac surveillance and notify cardiology team immediately for any ECG changes. Thank you for allowing us to care for this patient. Please call with any questions or concerns. Critical care time spent: 44 minutes This medical document was created using an electronic medical record system with voice recognition software and computerized dictation system. Although this document has been carefully reviewed, there might still be some phonetic and typographical errors. Occasional wrong-word or ``sound-alike substitutions may have occurred due to the inherent limitations of voice recognition software. These areas are purely typographical due to imperfections of the software programs and do not reflect any compromise in the patient's medical care. Ple ase read the chart carefully and recognize, using context, where these substitutions have occurred. Plan discussed with: Other (Bedside RN) NYHA Physical activity limitations: NA Date of Service: Apr 12, 2025 Billing Provider: KARINA RIVAS Cardiology Common Codes: [id number] INP/OBS CARE (High) Cardiology Consultation Codes: [id number] CONSULT <45MIN KARINA RIVAS Apr 12, 2025 11:54
--- NOTE | 2025-04-12 13:24 | DVHPN2 ---
Progress Note - Dictate Date Seen: Apr 12, 2025 Has the PT tested + for MRSA If YES, has PT been informed?: No Medical Necessity Reason Pt with a Central, PICC or Fol: No Subjective Sedated On mechanical ventilation vital signs Vital Sign Date Time Temp Pulse Resp B/P (MAP) Pulse Ox O2 Delivery O2 Flow Rate FiO2 04/12/25 13:15 99.3 76 19 151/71 (97) 100 210.7 04/12/25 12:33 90 04/12/25 12:00 Mechanical Ventilator+ 04/12/25 08:00 2 Total Intake and Output 04/11/25 04/11/25 04/12/25 15:00 23:00 07:00 Intake Total 110.00 ml Balance 110.00 ml medications Current Medications Medications Dose Ordered Sig/Duane Route Start Time Stop Time Status Last Admin Dose Admin Carvedilol 3.125 mg BID PO 04/09/25 22:00 Hold 04/11/25 22:27 3.125 MG Hydralazine HCl 25 mg TID PO 04/09/25 22:00 Hold 04/11/25 22:26 25 MG Patient Own Medication 1 tab HS PO 04/10/25 22:00 Hydroxyzine Pamoate 25 mg BIDP PRN PO 04/09/25 21:30 Insulin Glargine 17 units DAILY SC 04/10/25 10:00 Nifedipine 60 mg DAILY PO 04/10/25 10:00 Hold 04/11/25 09:54 60 MG Diagnostic Test (Pha) 1 strip ACHS 04/09/25 22:00 04/12/25 11:30 1 STRIP Insulin Human Regular ACHS SC 04/09/25 22:00 04/12/25 06:29 3 UNITS Clindamycin Phosphate 50 ml @ 50 mls/hr Q8HR IV 04/09/25 22:00 04/11/25 22:24 50 MLS/HR Diagnostic Test (Pha) 1 strip PERCODEBLUE PRN 04/12/25 03:00 04/13/25 02:59 Norepinephrine Bitartrate 250 ml @ 3.75 mls/hr Q24H IV 04/12/25 04:00 04/12/25 03:40 3.75 MLS/HR Propofol 100 ml @ 3.114 mls/ hr Q24H IV 04/12/25 04:00 Fentanyl Citrate 250 ml @ 2.5 mls/hr Q24H IV 04/12/25 04:00 04/12/25 03:35 2.5 MLS/HR Piperacillin Sod/ Tazobactam Sod 50 ml @ 12.5 mls/hr Q12HR IV 04/12/25 04:46 04/12/25 06:13 12.5 MLS/HR Furosemide 40 mg BIDD IV 04/12/25 18:00 Midazolam HCl 50 ml @ 1 mls/hr Q24H IV 04/12/25 10:15 04/12/25 09:40 4 MLS/HR Famotidine 40 mg DAILY GT 04/12/25 12:00 UNV Gabapentin 300 mg DAILY GT 04/12/25 12:00 UNV Lamotrigine 100 mg DAILY GT 04/12/25 12:00 UNV Zirconium Oxide 10 gm DAILY GT 04/12/25 12:00 UNV objective GENERAL: The patient is an adult gentleman who appears to be chronically ill, On ventilator HEENT: Unremarkable. NECK: No jugular venous distention. No palpable thyroid or lymphadenopathy. LUNGS: Show diminished air entry at the bases. CARDIOVASCULAR: Shows 1/6 systolic murmur, S4 gallop. ABDOMEN: Soft, nontender, no organomegaly. EXTREMITIES: Show no clubbing, cyanosis or edema. NEUROLOGIC: Nonfocal. laboratory and microbiology Laboratory Tests 04/12/25 03:30 Test 04/12/25 03:30 Range/Units Serum Glucose 138 H 74-106 mg/dL Assessment/Plan ASSESSMENT AND PLAN: * End-stage renal disease. * Hyperkalemia, treated medically and with dialysis * Uremia due to noncompliance with dialysis. * Uncontrolled hypertension. * Anemia of renal disease. * Diabetes mellitus. * Respiratory failure HO today and continue on MWF Lokelma daily UF goal 3 L Empiric IV antibiotics Plan discussed with: KAMARI Walter MD Apr 12, 2025 13:24
--- NOTE | 2025-04-12 16:22 | DVH ---
CHEST RADIOGRAPH Indication: VERIFY CENTRAL LINE PLACEMENT AND OGT PLACEMENT. Technique: Single frontal view of the chest was obtained COMPARISON: XY CHEST PORTABLE on DOS: 04/12/25, XY CHEST PORTABLE on DOS: 04/09/25, XY CHEST PORTABLE o n DOS: 01/25/25, XR CHEST 1 VIEW on DOS: 04/26/23 FINDINGS: Lines and Tubes: Endotracheal tube 4.9 cm above the hayde. Right-sided central double-lumen line end s in the superior vena cava. NG tube coursing in the stomach but not appreciated distally. Lungs: Interstitial infiltrates both lung de jesus, right greater than left. Pleura: No effusion. No pneumothorax. Cardiomediastinal contours: Unremarkable Bones: Unremarkable IMPRESSION: 1. Right-sided central line in the superior vena cava. 2. Endotracheal tube 4.9 cm above the hayde. 3. NG tube in the stomach. 4. Interstitial infiltrates in both lung de jesus, right greater than left.
[2025-04-12] MEDS: ACETAMINOPHEN 650 MG RECT SUPP PR PRN (16:51)
[2025-04-12] MEDS: GABAPENTIN 300 MG CAP GT SCH (16:55)
[2025-04-12] MEDS: FAMOTIDINE 20 MG TAB GT SCH (16:55)
[2025-04-12] MEDS: SODIUM ZIRCONIUM CYCL 10 GM PAK GT SCH (16:57)
[2025-04-12 17:08] LABS: Base Excess 6.0 mmol/L (-2.0-3.0)
[2025-04-12 17:36] LABS: Base Excess 4.1 mmol/L (-2.0-3.0)
[2025-04-12] MEDS: lamoTRIgine 100 MG TAB GT SCH (18:26)
[2025-04-12] MEDS: FUROSEMIDE 40 MG/4 ML VIAL IV SCH (18:27)
[2025-04-12 19:15] LABS: Base Excess 4.3 mmol/L (-2.0-3.0)
[2025-04-12] MEDS: EPOETIN ALFA-EPBX 4,000 UNIT/ML VIAL SC ONE (20:51)
--- NOTE | 2025-04-12 21:40 | DVHSR ---
APPROVED REPORT EXAM: Two-dimensional and M-mode echocardiogram with Doppler and color Doppler. INDICATION Heart Failure RISK FACTORS Height: 5'6", Weight: 228 DIMENSIONS LVDd5.1 (3.8-5.7cm)LA (2D)4.4 (1.9-4.0cm)Aortic Root3.0 (2.0-3.7cm) LVDs2.9 (2.5-4.0cm)LA (MM) (1.9-4.0cm)Aortic Cusp Exc1.8 (1.5-2.0cm) EF (%) 73.0 (55-70%)Rt. Atrium4.8 (1.9-4.0cm)Asc. Aorta3.1 cm IVSd1.3 (0.7-1.1cm)RV (D)4.2 (1.8-2.4cm) PWd1.4 (0.7-1.1cm) Mitral Valve MitralMitral Stenosis E wave0.85m/sMV Mean GR.mmHg A wave1.16m/sMV Peak GR.mmHg E/A ratio0.72D MVAcm2 DECEL [id number] 1/2 Timems Aortic Valve Aortic ValveAortic Stenosis V11.10m/Anthony Mean GR.11mmHg V22.13m/Anthony Peak GR.18mmHg LVOT Diameter2.3 (1.8-2.4cm)Doppler AVA2.14cm2 Pulmonic Valve V21.22m/s Tricuspid Valve TR Velocity3.17m/s [id number] Other Information Quality : Technically LimitedRhythm : Technically limited study due to on vent. Conclusion MILD LVH AND MILD LV DIASTOLIC DYSFUNCTION LV EF IS 65% MODERATELY DILATED RV,RA AND LA AORTIC SCLEROSIS BUT NO STENOSIS NORMAL MV,TV AND PV NO EFFUSION MODERATE DEGREE PULMONARY HYPERTENSION RVSP IS 55 MM OF HG AND IS HIGH
--- NOTE | 2025-04-12 22:44 | DVHINCON2 ---
Date Seen: Apr 12, 2025 Referring Physician MD Fany resident Reason for Consultation High-degree AV block with cardiac arrest, evaluate for ischemia History of Present Illness This is a 55-year-old male with a past medical history of congestive heart failure, hypertension, end-stage renal disease on hemodialysis, type 2 diabetes mellitus, diabetic retinopathy, and medical noncompliance who presents to the ED with a complaint of generalized weakness. At the time of assessment, the patient is chemically sedated and mechanically ventilated. Medical history was obtained from medical records as well as bedside RN. Initial twelve lead electrocardiogram done in the ED found in patient's hard chart and reveals normal sinus rhythm with nonspecific ST segment changes to lateral leads. No troponin levels were drawn at time of admission. Cardiology has now been consulted for high-degree AV block, cardiac arrest and status CPR. After reviewing cardiac exercise specialist, the patient was noted to go into a second degree type 2, followed by complete heart block early this morning (0239am), subsequently, the patient was asystole and a code blue was called. CPR was initiated immediately, the patient was endotracheally intubated, and return of spontaneous circulation was achieved after 27 minutes (laborer cook house code she reports code began at 2:39 a.m. and ended at 3:06 a.m.). A twelve lead electrocardiogram was done by bedside RN at time of assessment (0955am on 04/12/25), and now reveals a normal sinus rhythm with a left ventricular hypertrophy and nonspecific ST segment changes to inferolateral leads. Troponin levels drawn today, initial troponin level of 26ng/L. It is unknown if the patient sees a ship laborer in the outpatient setting given that the patient is currently chemically sedated and no family is present at bedside. Past Medical History Past medical history reviewed. No other significant than mentioned above. Past Surgical History Unable to obtain Family History: Diabetes mellitus grandmother Hypertension grandmother Allergies: Coded Allergies: NO KNOWN ALLERGIES (Unverified , 01/25/25) Home Meds Active Scripts Carvedilol (Carvedilol) 3.125 Mg Tab, 1 TAB PO BID for 30 Days, #60 TAB 3 Refills Prov:PARK KRAUS RESIDENT 01/29/25 Nifedipine (Nifedipine Er) 60 Mg Tab, 1 TAB PO DAILY for 30 Days, #30 TAB 2 Refills Prov:PARK KRAUS RESIDENT 01/29/25 Hydralazine HCl (Hydralazine HCl) 25 Mg Tab, 25 MG PO TID for 30 Days, #90 TAB 2 Refills Prov:NAYANAPARK RESIDENT 01/29/25 Reported Medications Gabapentin (Gabapentin) 300 Mg Cap, 300 MG PO 5XD, #75 CAP 01/27/25 Loperamide Hcl (Imodium) 2 Mg Cp, 2 MG PO PRN, CAP 01/26/25 Hydroxyzine HCl (Hydroxyzine Hydrochloride) 25 Mg Tab, 25 MG PO BIDP PRN, TAB 01/25/25 Famotidine (Famotidine) 40 Mg Tab, 40 MG PO DAILYPRN PRN, TAB 01/25/25 Insulin Glargine (Basaglar Kwikpen) 100 Unit/Ml Inj, 17 UNIT SC DAILY, INJ 01/25/25 Metoprolol Tartrate (Metoprolol Tartrate) 50 Mg Tab, 50 MG PO BID, TAB 01/25/25 Lamotrigine (Lamotrigine) 25 Mg Tab, 100 MG PO DAILY, TAB 01/25/25 Furosemide (Furosemide) 40 Mg Tab, 1 TAB PO QID, #30 TAB 5 Refills 01/25/25 Fenofibrate (FENOFIBRATE) 145 Mg Tab, 1 TAB PO DAILY, #30 TAB 5 Refills 01/25/25 Current Medications Current Medications Medications (Trade) Dose Ordered Sig/Duane Route PRN Reason Start Time Stop Time Status Last Admin Zirconium Oxide (Lokelma) 10 gm DAILY PO 04/12/25 10:00 04/12/25 11:56 DC Diagnostic Test (Pha) (Accu-Chek Comfort Curve T) 1 strip PERCODEBLUE PRN Code Medication 04/12/25 03:00 04/13/25 02:59 Piperacillin Sod/ Tazobactam Sod 50 ml @ 12.5 mls/hr Q12HR IV 04/12/25 10:00 04/12/25 04:38 DC Norepinephrine Bitartrate 250 ml @ 3.75 mls/hr Q24H IV 04/12/25 04:00 04/12/25 03:40 Propofol 100 ml @ 3.114 mls/ hr Q24H IV 04/12/25 04:00 Fentanyl Citrate 250 ml @ 2.5 mls/hr Q24H IV 04/12/25 04:00 04/12/25 03:35 Piperacillin Sod/ Tazobactam Sod 50 ml @ 12.5 mls/hr Q12HR IV 04/12/25 04:46 04/12/25 06:13 Furosemide (Lasix Injection) 40 mg BIDD IV 04/12/25 18:00 Midazolam HCl 50 ml @ 1 mls/hr Q24H IV 04/12/25 10:15 04/12/25 09:40 Famotidine (Pepcid Tablet) 40 mg DAILY GT 04/12/25 12:00 UNV Gabapentin (Neurontin Capsule) 300 mg DAILY GT 04/12/25 12:00 UNV Lamotrigine (LaMICtal TABLET) 100 mg DAILY GT 04/12/25 12:00 UNV Zirconium Oxide (Lokelma) 10 gm DAILY GT 04/12/25 12:00 UNV Review of Systems Constitutional: Generalized weakness Ears, Nose, & Throat: No symptom reported Eyes: No symptom reported Neurological: No symptoms reported Pulmonary/Respiratory: No symptoms reported Cardiovascular: No symptom reported Gastrointestinal: No symptom reported Genitourinary: No symptom reported Musculoskeletal: No symptom reported Skin: No symptom reported Psychiatric: No symptom reported Endocrine: No symptom reported Hematologic/Lymphatic: No symptom reported Vital Signs Vital Signs Date Time Temp Pulse Resp B/P (MAP) Pulse Ox O2 Delivery O2 Flow Rate FiO2 04/12/25 12:33 78 26 162/71 (101) 100 90 04/12/25 12:15 98.4 209.1 04/12/25 12:00 Mechanical Ventilator+ 04/12/25 08:00 2 Physical Exam GENERAL: Ill appearing, intubated on ventilator. Chemically sedated. Sluggish pupils bilaterally. Obese. EYES: PERRL, EOMI. Anicteric. HENT: Moist mucous membranes. LUNGS: Clear to auscultation bilaterally. CARDIOVASCULAR: Regular rate and rhythm. ABDOMEN: Soft, nontender and nondistended. EXTREMITIES: No edema. SKIN: Hyperpigmentation to bilateral lower extremities, left lower extremity IO in place. Labs/Diagnostic Data Labs Test 04/12/25 12:02 04/12/25 11:30 04/12/25 04:03 04/12/25 03:30 Range/Units POC Glucose 106 70-106 mg/dl Troponin I High Sensitivity 165 *H </=54 ng/L Blood Gas Specimen Type Arterial Blood Gas Sample Site Right radial Blood Gas Patient Temperature 37.0 Arterial Blood Date Drawn [id number] Arterial Blood pH 7.347 L 7.350-7.450 Arterial Blood Partial Pressure CO2 42.1 35.0-48.0 mmHg Arterial Blood Partial Pressure O2 143.5 H 83.0-108.0 mmHg Arterial Blood HCO3 22.6 21.0-28.0 mmol/L Arterial Blood Oxygen Saturation 98.1 H 94.0-98.0 % Arterial Blood Base Excess -2.9 L -2.0-3.0 mmol/L Arterial Blood Oxyhemoglobin 97.6 94.0-98.0 % Arterial Blood Carboxyhemoglobin 0.1 L 0.5-1.5 % Arterial Blood Methemoglobin 0.4 0.0-1.5 % Husam Test Modified Blood Gas Total Hemoglobin 9.30 L 13.5-17.5 g/dL Blood Gas Set Respiration Rate 18.0 Blood Gas Modality Vent - ac FiO2 % 100.0 Blood Gas Tidal Volume 550.0 Blood Gas PEEP or CPAP 8.0 White Blood Count 6.8 4.4-10.8 10^3/uL Red Blood Count 3.41 L 4.5-5.90 10^6/uL Hemoglobin 9.7 L 13.5-17.5 g/dL Hematocrit 30.7 L 41.0-53.0 % Mean Corpuscular Volume 90.0 80.0-100.0 fL Mean Corpuscular Hemoglobin 28.5 28.0-32.0 pg Mean Corpuscular Hemoglobin Concent 31.7 L 32.0-36.0 g/dL Red Cell Distribution Width 16.0 H 11.8-14.3 % Platelet Count 204 140-450 10^3/uL Mean Platelet Volume 7.3 6.9-10.8 fL Neutrophils (%) (Auto) 78.7 37.0-80.0 % Lymphocytes (%) (Auto) 14.4 10.0-50.0 % Monocytes (%) (Auto) 5.0 0.0-12.0 % Eosinophils (%) (Auto) 1.5 0.0-7.0 % Basophils (%) (Auto) 0.4 0.0-2.0 % Neutrophils # (Auto) 5.3 1.6-8.6 10 ^3/uL Lymphocytes # (Auto) 1.0 0.4-5.4 10 ^3/uL Monocytes # (Auto) 0.3 0-1.3 10 ^3/uL Eosinophils # (Auto) 0.1 0-0.8 10 ^3/uL Basophils # (Auto) 0 0-0.2 10 ^3/uL Nucleated Red Blood Cells 0.4 % Prothrombin Time 12.2 H 9.3-11.8 sec Prothrombin Time INR 1.17 H 0.9-1.15 Activated Partial Thromboplast Time 25.4 24.5-34.5 SEC Sodium Level 140 136-145 mmol/L Potassium Level 4.5 3.5-5.1 mmol/L Chloride Level 99 98-107 mmol/L Carbon Dioxide Level 24 20-31 mmol/L Anion Gap 17 H 5-15 Blood Urea Nitrogen 39 H 9-23 mg/dL Creatinine 10.18 *H 0.700-1.30 mg/dL Glomerular Filtration Rate Calc 5 >90 mL/min BUN/Creatinine Ratio 3.8 L 10.0-20.0 Serum Glucose 138 H 74-106 mg/dL Calcium Level 8.6 L 8.7-10.4 mg/dL Magnesium Level 2.6 1.6-2.6 mg/dL Total Bilirubin 0.5 0.2-1.0 mg/dL Aspartate Amino Transferase (AST) 95 H 13-40 U/L Alanine Aminotransferase (ALT) 46 H 7-40 U/L Alkaline Phosphatase 68 46-116 U/L Total Protein 7.2 5.7-8.2 g/dL Albumin 3.7 3.2-4.8 g/dL Test 04/10/25 05:55 04/09/25 17:41 04/09/25 13:42 Range/Units Hepatitis B Surface Antigen Negative Negative Lactic Acid Level 0.8 0.4-2.0 mmol/L Vitamin B12 Level 547 211-911 pg/mL Vitamin D 25-Hydroxy 37.2 30.0-100 ng/mL Erythrocyte Sedimentation Rate 48 H 0-20 mm/hr Hemoglobin A1c 11.5 H <5.7 % A1C Phosphorus Level 13.4 H 2.4-5.1 mg/dL B-Type Natriuretic Peptide 625.00 0-100 pg/mL Triglycerides Level 104 < 150 mg/dL Cholesterol Level 112 < 200 mg/dL LDL Cholesterol 70 < 100 mg/dL HDL Cholesterol 29 L 40-59 mg/dL Folic Acid 17.58 >5.38 ng/mL Thyroid Stimulating Hormone (TSH) 2.59 0.55-4.78 uIU/mL Microbiology Date/Time Source Procedure Growth Status 04/10/25 15:00 Blood Blood Culture - Preliminary NO GROWTH AFTER 24 HOURS OF INCUBATION. Resulted Assessment Cardiopulmonary arrest status post CPR with return of spontaneous circulation. High-degree atrioventricular block, complete heart block. Ventricular tachycardia. NSTEMI, rule out coronary artery disease. Rule out structural heart disease. Acute hypoxic respiratory failure. Hypertension. Hyperkalemia, resolved. ESRD on hemodialysis. Type 2 diabetes mellitus, uncontrolled (Hbg A1c 11.5%). Medical noncompliance. Plan/Recommendation I agree with your ongoing assessment and care of plan. Patient has been seen by Magdalene Arzate NP on my behalf, her and I discussed the plan with the patient. Patient's case was discussed with me. The patient went into a high-degree atrioventricular block (second degree type 2, which progressed to complete heart block), followed by asystole prompting im mediate CPR. Return of spontaneous circulation has been achieved. The patient may benefit from ischemic workup. Downtime according to resuscitative document reveals approximately 27 minutes. At this time, we will need to rule out any neurological deficit. Head CT pending. In the meantime, continue with vasopressor therapy for hemodynamic support. We will proceed with obtaining a transthoracic echocardiogram to evaluate cardiac function. Continue with close cardiac surveillance and notify cardiology team immediately for any ECG changes. Additional plan as per the hospital course. Plan discussed with: Other NYHA Physical activity limitations: NA Date of Service: Apr 12, 2025 Billing Provider: INA ARRIOLA MD Cardiology Common Codes: [id number] INP/OBS CARE (High) Cardiology Consultation Codes: [id number] CONSULT <60MIN INA ARRIOLA MD Apr 12, 2025 13:00
--- NOTE | 2025-04-12 22:55 | DVHNC2 ---
Central Line Recorder of insertion practice: Admissions Manager Rn Occupation of private advisor: Other (Resident) Indication: Hypotension, Inability to obtain IV Room prepared for procedure: Yes Admissions Manager Rn performed hand hygien: Yes Maximal sterile barrier precau: Mask/Eye shield, Sterile gown, Cap, Sterlie gloves, Large sterlie drape Skin Preparation: Chlorhexidine gluconate Skin preparation completely dr: Yes Insertion site: Right, Internal jugular, Line secured Central line catheter type: [id number] dialysis Number of lumens: 3 Central line exchanged over a: No Antiseptic ointment applied to: Yes Post Assessment: Chest X-Ray, Proper placement, No Pneumothorax Informed consent obtained: Yes Risks/benefits/alt described: Yes Notes Procedure was completed under ultrasound guidance. Supervised by Dr. Fraire. Date of Service: Apr 12, 2025 Billing Provider: RON FRAIRE MD Common Visit Codes: PROCEDURE ONLY Procedure Codes: [id number] NON-TUNNEL CV CATH LEA MARRERO Apr 12, 2025 22:54 RON FRAIRE MD Apr 17, 2025 15:40
[2025-04-13] VITALS (107 sets, daily range): BP systolic 83–140; BP diastolic 43–63; PULSE 62–76; RESP 13–22; TEMP 97.5–99.5; O2SAT 96–100
[2025-04-13 05:55] LABS: Hemoglobin 7.9 g/dL (13.5-17.5)
[2025-04-13 05:57] LABS: Hematocrit 23.7 % (41.0-53.0); Mean Corpuscular Hemoglobin 29.2 pg (28.0-32.0); Mean Corpuscular Volume 87.5 fL (80.0-100.0); Nucleated Red Blood Cells % 0.1 %
[2025-04-13 06:09] LABS: Alanine Aminotransferase 30 U/L (7-40); Alkaline Phosphatase 54 U/L (46-116); Anion Gap 12 (5-15); BUN/Creatinine Ratio 4.3 (10.0-20.0); Carbon Dioxide 30 mmol/L (20-31); Chloride 99 mmol/L (98-107); Magnesium 2.1 mg/dL (1.6-2.6); Potassium 3.8 mmol/L (3.5-5.1); Sodium 141 mmol/L (136-145); Total Protein 6.2 g/dL (5.7-8.2)
[2025-04-13 06:10] LABS: Bilirubin, Total 0.5 mg/dL (0.2-1.0)
[2025-04-13] MEDS: DEXTROSE 50% SYRINGE 50 ML IV ONE (06:16)
[2025-04-13 06:24] LABS: Albumin 3.2 g/dL (3.2-4.8); Blood Urea Nitrogen 34 mg/dL (9-23); Calcium 7.6 mg/dL (8.7-10.4); Glucose 55 mg/dL (74-106)
--- NOTE | 2025-04-13 06:45 | DVH ---
CHEST RADIOGRAPH Indication: ET intubation Technique: Single frontal view of the chest was obtained COMPARISON: XY CHEST PORTABLE on DOS: 04/12/25, XY CHEST PORTABLE on DOS: 04/12/25, XY CHEST PORTABLE o n DOS: 04/09/25, XY CHEST PORTABLE on DOS: 01/25/25, XR CHEST 1 VIEW on DOS: 04/26/23 FINDINGS: Lines and Tubes: Unchanged. Lungs: Probable small bilateral pleural effusions. Left costophrenic sulcus excluded from the image. Mild diffuse increased prominence of the pulmonary vasculature. No pneumothorax. Cardiomediastinal contours: Cardiomegaly. Bones: Unremarkable IMPRESSION: 1. Cardiomegaly, diffuse increased prominence of the pulmonary vasculature and small bilateral pleura l effusions. 2. Lines and tubes unchanged.
[2025-04-13 08:01] LABS: Base Excess 1.3 mmol/L (-2.0-3.0)
--- NOTE | 2025-04-13 09:36 | DVH ---
CLINICAL HISTORY: S/P CPR TECHNIQUE: Helical scanning was performed of the head from the skull base to the vertex. Multiplanar reconstructions were performed. This exam was performed according to our departmental dose optimizat ion program. Up-to-date CT equipment and radiation dose reduction techniques are utilized as appropri ate. CTDI 64 DLP 1161 COMPARISON: CT HEAD WITHOUT CONTRAST on DOS: 04/09/25 FINDINGS: There is no evidence for acute intracranial hemorrhage, acute ischemic changes, mass, mass effect, or extra-axial fluid collection. There is no hydrocephalus or midline shift. There is no effacement of the cerebral sulci and basal subarachnoid cisterns. The berg-white matter differentiation is well sanna ntained. There are partially imaged endotracheal and nasogastric tubes. There is mild bilateral sphenoid sinus mucosal thickening. IMPRESSION: NO ACUTE INTRACRANIAL ABNORMALITY SEEN.
--- NOTE | 2025-04-13 10:03 | DVHPN2 ---
Progress Note - Dictate Date Seen: Apr 13, 2025 Has the PT tested + for MRSA If YES, has PT been informed?: No Medical Necessity Reason Pt with a Central, PICC or Fol: Yes The following are medically ne: Central Line, Araiza Catheter Subjective Sedated On mechanical ventilation vital signs Vital Sign Date Time Temp Pulse Resp B/P (MAP) Pulse Ox O2 Delivery O2 Flow Rate FiO2 04/13/25 09:00 103/54 (70) 04/13/25 08:45 99.0 67 19 98 210.2 04/13/25 08:12 40 04/13/25 08:00 Mechanical Ventilator+ 04/12/25 08:00 2 Total Intake and Output 04/12/25 04/12/25 04/13/25 15:00 23:00 07:00 Intake Total 180.50 ml 526 ml 335 ml Output Total 0 ml 0 ml Balance 180.50 ml 526 ml 335 ml medications Current Medications Medications Dose Ordered Sig/Duane Route Start Time Stop Time Status Last Admin Dose Admin Carvedilol 3.125 mg BID PO 04/09/25 22:00 Hold 04/11/25 22:27 3.125 MG Hydralazine HCl 25 mg TID PO 04/09/25 22:00 Hold 04/11/25 22:26 25 MG Patient Own Medication 1 tab HS PO 04/10/25 22:00 Insulin Glargine 17 units DAILY SC 04/10/25 10:00 Nifedipine 60 mg DAILY PO 04/10/25 10:00 Hold 04/11/25 09:54 60 MG Diagnostic Test (Pha) 1 strip ACHS 04/09/25 22:00 04/13/25 06:22 1 STRIP Insulin Human Regular ACHS SC 04/09/25 22:00 04/12/25 06:29 3 UNITS Clindamycin Phosphate 50 ml @ 50 mls/hr Q8HR IV 04/09/25 22:00 04/13/25 05:46 50 MLS/HR Norepinephrine Bitartrate 250 ml @ 3.75 mls/hr Q24H IV 04/12/25 04:00 04/12/25 03:40 3.75 MLS/HR Propofol 100 ml @ 3.114 mls/ hr Q24H IV 04/12/25 04:00 Fentanyl Citrate 250 ml @ 2.5 mls/hr Q24H IV 04/12/25 04:00 04/12/25 18:34 20 MLS/HR Piperacillin Sod/ Tazobactam Sod 50 ml @ 12.5 mls/hr Q12HR IV 04/12/25 04:46 04/12/25 22:13 12.5 MLS/HR Furosemide 40 mg BIDD IV 04/12/25 18:00 04/13/25 05:46 40 MG Midazolam HCl 50 ml @ 1 mls/hr Q24H IV 04/12/25 10:15 04/12/25 16:50 2 MLS/HR Famotidine 20 mg MWF@1600 GT 04/12/25 16:00 04/12/25 16:55 20 MG Gabapentin 300 mg DAILY GT 04/12/25 12:00 Hold 04/12/25 16:55 300 MG Lamotrigine 100 mg DAILY GT 04/12/25 12:00 Hold 04/12/25 18:26 100 MG Zirconium Oxide 10 gm DAILY GT 04/12/25 12:00 04/12/25 16:57 10 GM Acetaminophen 650 mg Q6HP PRN [place] 04/12/25 16:00 04/12/25 16:51 650 MG Enteral Nutritional Formula 1,000 ml 30ML/HR GT 04/12/25 18:45 objective GENERAL: The patient is an adult gentleman who appears to be chronically ill, On ventilator HEENT: Unremarkable. NECK: No jugular venous distention. No palpable thyroid or lymphadenopathy. LUNGS: Show diminished air entry at the bases. CARDIOVASCULAR: Shows 1/6 systolic murmur, S4 gallop. ABDOMEN: Soft, nontender, no organomegaly. EXTREMITIES: Show no clubbing, cyanosis or edema. NEUROLOGIC: Nonfocal. laboratory and microbiology Laboratory Tests 04/13/25 04:33 Test 04/13/25 04:33 Range/Units Serum Glucose 55 L 74-106 mg/dL Assessment/Plan ASSESSMENT AND PLAN: * End-stage renal disease. Was dialyzed yesterday * Hyperkalemia, treated medically and with dialysis * Uremia due to noncompliance with dialysis. * Uncontrolled hypertension. * Anemia of renal disease. * Diabetes mellitus. * Respiratory failure * s/p code blue HD to continue on MWF Lokelma daily UF goal 3 L Empiric IV antibiotics Cardiology follow up Plan discussed with: KAMARI Walter MD Apr 13, 2025 10:03
--- NOTE | 2025-04-13 10:36 | DVHPN2 ---
Subjective Patient intubated and sedated Reviewed: Care Plan, H&P, Labs Changes from previous H/P or p: No Changes General: Per HPI Objective Vitals Vital Signs Date Time Temp Pulse Resp B/P (MAP) Pulse Ox O2 Delivery O2 Flow Rate FiO2 04/13/25 10:01 65 20 95/46 (62) 99 40 04/13/25 08:45 99.0 210.2 04/13/25 08:00 Mechanical Ventilator+ 04/12/25 08:00 2 Intake/Output Intake and Output 04/13/25 07:00 Intake Total 1041.50 ml Output Total 0 ml Balance 1041.50 ml Intake Oral 60 ml IV Total 731.50 ml Tube Feeding 250 ml Output Urine Total 0 ml General Appearance: Other (Intubated and sedated) HEENT: Atraumatic, PERRLA Lungs: Clear to auscultation, Normal air movement, Other (Mechanical ventilation) Cardiovascular: Normal S1, Normal S2 Abdomen: Normal bowel sounds, Soft, No tenderness, No hepatospenomegaly Musculoskeletal: Other (Unable to assess) Skin: Dry, Intact Psych/Mental Status: Other (Unable to assess) Medications Current Medications Medications Dose Ordered Sig/Duane Route Start Time Stop Time Status Last Admin Dose Admin Carvedilol 3.125 mg BID PO 04/09/25 22:00 Hold 04/11/25 22:27 3.125 MG Hydralazine HCl 25 mg TID PO 04/09/25 22:00 Hold 04/11/25 22:26 25 MG Patient Own Medication 1 tab HS PO 04/10/25 22:00 Insulin Glargine 17 units DAILY SC 04/10/25 10:00 Nifedipine 60 mg DAILY PO 04/10/25 10:00 Hold 04/11/25 09:54 60 MG Diagnostic Test (Pha) 1 strip ACHS 04/09/25 22:00 04/13/25 06:22 1 STRIP Insulin Human Regular ACHS SC 04/09/25 22:00 04/12/25 06:29 3 UNITS Clindamycin Phosphate 50 ml @ 50 mls/hr Q8HR IV 04/09/25 22:00 04/13/25 05:46 50 MLS/HR Norepinephrine Bitartrate 250 ml @ 3.75 mls/hr Q24H IV 04/12/25 04:00 04/12/25 03:40 3.75 MLS/HR Propofol 100 ml @ 3.114 mls/ hr Q24H IV 04/12/25 04:00 Fentanyl Citrate 250 ml @ 2.5 mls/hr Q24H IV 04/12/25 04:00 04/12/25 18:34 20 MLS/HR Piperacillin Sod/ Tazobactam Sod 50 ml @ 12.5 mls/hr Q12HR IV 04/12/25 04:46 04/13/25 10:08 12.5 MLS/HR Furosemide 40 mg BIDD IV 04/12/25 18:00 04/13/25 05:46 40 MG Midazolam HCl 50 ml @ 1 mls/hr Q24H IV 04/12/25 10:15 04/12/25 16:50 2 MLS/HR Famotidine 20 mg MWF@1600 GT 04/12/25 16:00 04/12/25 16:55 20 MG Gabapentin 300 mg DAILY GT 04/12/25 12:00 Hold 04/12/25 16:55 300 MG Lamotrigine 100 mg DAILY GT 04/12/25 12:00 Hold 04/12/25 18:26 100 MG Zirconium Oxide 10 gm DAILY GT 04/12/25 12:00 04/13/25 10:08 10 GM Acetaminophen 650 mg Q6HP PRN [place] 04/12/25 16:00 04/12/25 16:51 650 MG Enteral Nutritional Formula 1,000 ml 30ML/HR GT 04/12/25 18:45 Laboratory Results Laboratory Tests 04/13/25 04:33 Chemistry Test 04/13/25 04:33 Albumin 3.2 g/dL (3.2-4.8) Calcium Level 7.6 mg/dL (8.7-10.4) L Magnesium Level 2.1 mg/dL (1.6-2.6) Phosphorus Level 8.6 mg/dL (2.4-5.1) H Total Protein 6.2 g/dL (5.7-8.2) LFT Test 04/13/25 04:33 Alanine Aminotransferase (ALT) 30 U/L (7-40) Alkaline Phosphatase 54 U/L (46-116) Aspartate Amino Transferase (AST) 39 U/L (13-40) Total Bilirubin 0.5 mg/dL (0.2-1.0) Blood Gas Results Test 04/12/25 16:12 04/12/25 17:20 04/12/25 19:01 04/13/25 07:29 Arterial Blood pH 7.441 (7.350-7.450) 7.441 (7.350-7.450) 7.437 (7.350-7.450) 7.389 (7.350-7.450) FiO2 % 90.0 40.0 70.0 40.0 Microbiology Microbiology Date/Time Source Procedure Growth Status 04/12/25 08:46 Blood Blood Culture - Preliminary NO GROWTH AFTER 24 HOURS OF INCUBATION. Resulted 04/12/25 03:35 Trachea Gram Stain Pending Resulted 04/12/25 03:35 Trachea Respiratory Culture - Preliminary Resulted Labs and/or images reviewed: Labs reviewed by me, Image(s) reviewed by me Assessment/Plan Assessment/Plan Impression: -status post cardiopulmonary arrest secondary to third-degree heart block -acute hypoxic respiratory failure now on mechanical ventilation -? Pneumonia, Gram-negative rods growing on sputum culture -ESRD with hemodialysis -obesity -diabetes mellitus -hypoglycemia -depression -anemia of chronic disease Plan: -continue to weaned sedation, CPAP trial once appropriate -continue to monitor bedside EKG. Stop weaning if patient has signs of AV block, bradycardia -D10 infusion x2 150 mL -start IV antibiotic therapy with cefepime -continue tube feeding -repeat labs, chest x-ray, ABG in a.m. -plan of care discussed with patient's family who was bedside. All questions answered. -repeat CT scan of the head negative for any acute pathology. Critical care time spent with patient discussing and formulating plan of care: 40 minutes. This does not include time spent performing procedures. This medical document was created using an electronic medical record system with [email or web address] dictation system. Although this document has been carefully reviewed, there may still be some phonetic and typographical errors. These areas are purely typographical due to imperfections of the software programs, and do not reflect any compromise in the patient's medical care. Plan discussed with: Patient, Other (RN) My Orders Orders - SRIDEVI RUSSO NP Procedure Category Date Status Time Stool Occult Blood LAB 04/13/25 Uncollected 10:20 Date of Service: Apr 13, 2025 Billing Provider: SALBINO,LAUREANO PIPE BENDER Common Visit Codes: [id number] CARE 30-74 MIN SRIDEVI RUSSO PIPE BENDER Apr 13, 2025 10:36
[2025-04-13] MEDS ORDERED: FLORASTOR (S. BOULARDII) 250 MG CAP PO SCH (10:42)
[2025-04-13] MEDS ORDERED: CEFEPIME 2GM/50ML NS 50 ML IV ONE (11:00)
[2025-04-13] MEDS ORDERED: CEFEPIME 1GM/50ML 50 ML IV ONE (11:00)
[2025-04-13] MEDS: FLORASTOR (S. BOULARDII) 250 MG CAP GT SCH (12:20)
[2025-04-13] MEDS: CEFEPIME 1GM/50ML 50 ML IV ONE (12:20)
--- NOTE | 2025-04-13 20:17 | DVHPN2 ---
Progress Note - Dictate Date Seen: Apr 13, 2025 Has the PT tested + for MRSA If YES, has PT been informed?: No Medical Necessity Reason Pt with a Central, PICC or Fol: Yes The following are medically ne: Central Line, Araiza Catheter Subjective Patient was seen and evaluated in follow-up in the ICU. Patient is intubated and sedated on ventilator.40% FiO2. HGB 7.9, HCT 23.7. Chest x-ray shows cardiomegaly, diffuse increased prominence of the pulmonary vasculature and small bilateral pleural effusions. CT brain is unremarkable. vital signs Vital Sign Date Time Temp Pulse Resp B/P (MAP) Pulse Ox O2 Delivery O2 Flow Rate FiO2 04/13/25 19:15 99.1 70 18 115/55 (75) 100 210.4 04/13/25 18:00 Mechanical Ventilator+ 40 40 04/12/25 08:00 2 Total Intake and Output 04/12/25 04/12/25 04/13/25 15:00 23:00 07:00 Intake Total 180.50 ml 526 ml 335 ml Output Total 0 ml 0 ml Balance 180.50 ml 526 ml 335 ml medications Current Medications Medications Dose Ordered Sig/Duane Route Start Time Stop Time Status Last Admin Dose Admin Carvedilol 3.125 mg BID PO 04/09/25 22:00 Hold 04/11/25 22:27 3.125 MG Hydralazine HCl 25 mg TID PO 04/09/25 22:00 Hold 04/11/25 22:26 25 MG Patient Own Medication 1 tab HS PO 04/10/25 22:00 Insulin Glargine 17 units DAILY SC 04/10/25 10:00 Nifedipine 60 mg DAILY PO 04/10/25 10:00 Hold 04/11/25 09:54 60 MG Diagnostic Test (Pha) 1 strip ACHS 04/09/25 22:00 04/13/25 17:00 1 STRIP Insulin Human Regular ACHS SC 04/09/25 22:00 04/12/25 06:29 3 UNITS Norepinephrine Bitartrate 250 ml @ 3.75 mls/hr Q24H IV 04/12/25 04:00 04/12/25 03:40 3.75 MLS/HR Propofol 100 ml @ 3.114 mls/ hr Q24H IV 04/12/25 04:00 Fentanyl Citrate 250 ml @ 2.5 mls/hr Q24H IV 04/12/25 04:00 04/12/25 18:34 20 MLS/HR Furosemide 40 mg BIDD IV 04/12/25 18:00 04/13/25 05:46 40 MG Midazolam HCl 50 ml @ 1 mls/hr Q24H IV 04/12/25 10:15 04/12/25 16:50 2 MLS/HR Famotidine 20 mg MWF@1600 GT 04/12/25 16:00 04/12/25 16:55 20 MG Gabapentin 300 mg DAILY GT 04/12/25 12:00 Hold 04/12/25 16:55 300 MG Lamotrigine 100 mg DAILY GT 04/12/25 12:00 Hold 04/12/25 18:26 100 MG Zirconium Oxide 10 gm DAILY GT 04/12/25 12:00 04/13/25 10:08 10 GM Acetaminophen 650 mg Q6HP PRN [place] 04/12/25 16:00 04/12/25 16:51 650 MG Enteral Nutritional Formula 1,000 ml 30ML/HR GT 04/12/25 18:45 Cefepime HCl 50 ml @ 12.5 mls/hr DAILY IV 04/14/25 10:00 Saccharomyces Boulardii 250 mg DAILY GT 04/13/25 12:15 04/13/25 12:20 250 MG objective GENERAL: Ill appearing, intubated on ventilator. Chemically sedated. Sluggish pupils bilaterally. Obese. EYES: PERRL, EOMI. Anicteric. HENT: Moist mucous membranes. LUNGS: Clear to auscultation bilaterally. CARDIOVASCULAR: Regular rate and rhythm. ABDOMEN: Soft, nontender and nondistended. EXTREMITIES: No edema. SKIN: Hyperpigmentation to bilateral lower extremities, left lower extremity IO in place. laboratory and microbiology Laboratory Tests 04/13/25 04:33 Test 04/13/25 04:33 Range/Units Serum Glucose 55 L 74-106 mg/dL Problem List Cardiopulmonary arrest status post CPR with return of spontaneous circulation. High-degree atrioventricular block, complete heart block. Ventricular tachycardia. NSTEMI, rule out coronary artery disease. Rule out structural heart disease. Acute hypoxic respiratory failure. Hypertension. Hyperkalemia, resolved. ESRD on hemodialysis. Type 2 diabetes mellitus, uncontrolled (Hbg A1c 11.5%). Medical noncompliance. Assessment/Plan Continued all current supportive medical care. Diuretics with Lasix. IV antibiotics as ordered. Vasopressors for hemodynamic support. Additional plan as per the hospital course. Critical care time of 45 minutes provided to include time spent evaluation of patient at bedside, when appropriate patient/family education for diagnosis, treatment plan, review of pertinent medical information and discussion of care with specialty providers and PCP. Mechanical ventilator parameters, treatment and adjustments have personally been reviewed by me and treatment plan by pillar worker has also been reviewed. Dietary Evaluation Review Comments: 1) Change TF formulary from Glucerna 1.2 to Nepro @ 30 goal rate as tolerated d/t ESRD. Flush with 150 mL free H2O Q6H. TF regimen will provide 1296 kcals, 58g Pro, and 1123 mL free H2O (including flushes) per 24 hrs. TF regimen will meet ~86% estimated energy needs and ~61% estimated protein needs. 2) Advance to 60g CCHO renal diet when medically feasible, pending ST approval 3) Refer to outpatient RD/CDCES for diabetes education/weight management 4) Follow-up with cardiology, pulmonology, and nephrology 5) Continue to monitor I&O, labs, and skin integrity Expected Outcomes/Goals: 1) TF regimen to meet at least 75% estimated daily needs 2) labs to improve 3) diet to advance 4) f/u in 2-3 days Plan discussed with: INA Engle MD Apr 13, 2025 19:25
--- NOTE | 2025-04-13 23:23 | DVHPN2 ---
[facility] DOS: 04/13/2025 Patient seen and examined at bedside. Intubated on mechanical ventilator. Overnight events reviewed. HPI: A 55-year-old male with past medical history of ESRD on TTS dialysis, produces no to minimal urine, diabetes mellitus with diabetic neuropathy, and hypertension, who presented to the ER on 04/09/25 after two missed dialysis sessions with c/o generalized weakness, especially bilateral lower extremities. Patient was weak to the point that he could not walk and go to dialysis on day of presentation. He reported being noncompliant with his antihypertensive medications as well. He denied any chest pain, shortness of breath, abdominal pain or any other complaints. Patient was admitted for further care. Pulmonary consultation is requested for evaluation and management of acute hypoxic respiratory failure requiring mechanical ventilator. Past Medical History: ESRD on TTS dialysis, produces no to minimal urine. Diabetes mellitus with diabetic neuropathy, hypertension. 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 Allergies: No known drug allergies. Family History: No family history of premature CAD. No family history of lung disorders. Social History: Smokin pack years, quit 5 years ago Alcohol: Occasional, quit 5 years ago Drugs: Occasional marijuana, last use was more than 1 year ago Reviewed: Care Plan, H&P, Labs Changes from previous H/P or p: No Changes General: Per HPI Objective Vitals Vital Signs Date Time Temp Pulse Resp B/P (MAP) Pulse Ox O2 Delivery O2 Flow Rate FiO2 04/13/25 22:00 75 04/13/25 22:00 18 98 Mechanical Ventilator+ 35 35 04/13/25 21:59 121/53 (75) 04/13/25 21:30 99.1 210.4 04/12/25 08:00 2 Intake/Output Intake and Output 04/13/25 07:00 Intake Total 1041.50 ml Output Total 0 ml Balance 1041.50 ml Intake Oral 60 ml IV Total 731.50 ml Tube Feeding 250 ml Output Urine Total 0 ml General Appearance: Other (Intubated and sedated) HEENT: Atraumatic, PERRLA Lungs: Clear to auscultation, Normal air movement, Other (Mechanical ventilation) Cardiovascular: Normal S1, Normal S2 Abdomen: Normal bowel sounds, Soft, No tenderness, No hepatospenomegaly Musculoskeletal: Other (Unable to assess) Skin: Dry, Intact Psych/Mental Status: Other (Unable to assess) Medications Current Medications Medications Dose Ordered Sig/Duane Route Start Time Stop Time Status Last Admin Dose Admin Carvedilol 3.125 mg BID PO 04/09/25 22:00 Hold 04/11/25 22:27 3.125 MG Hydralazine HCl 25 mg TID PO 04/09/25 22:00 Hold 04/11/25 22:26 25 MG Patient Own Medication 1 tab HS PO 04/10/25 22:00 Insulin Glargine 17 units DAILY SC 04/10/25 10:00 Nifedipine 60 mg DAILY PO 04/10/25 10:00 Hold 04/11/25 09:54 60 MG Diagnostic Test (Pha) 1 strip ACHS 04/09/25 22:00 04/13/25 22:03 1 STRIP Insulin Human Regular ACHS SC 04/09/25 22:00 04/12/25 06:29 3 UNITS Norepinephrine Bitartrate 250 ml @ 3.75 mls/hr Q24H IV 04/12/25 04:00 04/12/25 03:40 3.75 MLS/HR Propofol 100 ml @ 3.114 mls/ hr Q24H IV 04/12/25 04:00 Fentanyl Citrate 250 ml @ 2.5 mls/hr Q24H IV 04/12/25 04:00 04/12/25 18:34 20 MLS/HR Furosemide 40 mg BIDD IV 04/12/25 18:00 04/13/25 05:46 40 MG Midazolam HCl 50 ml @ 1 mls/hr Q24H IV 04/12/25 10:15 04/12/25 16:50 2 MLS/HR Famotidine 20 mg MWF@1600 GT 04/12/25 16:00 04/12/25 16:55 20 MG Gabapentin 300 mg DAILY GT 04/12/25 12:00 Hold 04/12/25 16:55 300 MG Lamotrigine 100 mg DAILY GT 04/12/25 12:00 Hold 04/12/25 18:26 100 MG Zirconium Oxide 10 gm DAILY GT 04/12/25 12:00 04/13/25 10:08 10 GM Acetaminophen 650 mg Q6HP PRN [place] 04/12/25 16:00 04/12/25 16:51 650 MG Enteral Nutritional Formula 1,000 ml 30ML/HR GT 04/12/25 18:45 Cefepime HCl 50 ml @ 12.5 mls/hr DAILY IV 04/14/25 10:00 Saccharomyces Boulardii 250 mg DAILY GT 04/13/25 12:15 04/13/25 12:20 250 MG Laboratory Results Laboratory Tests 04/13/25 04:33 Chemistry Test 04/13/25 04:33 Albumin 3.2 g/dL (3.2-4.8) Calcium Level 7.6 mg/dL (8.7-10.4) L Magnesium Level 2.1 mg/dL (1.6-2.6) Phosphorus Level 8.6 mg/dL (2.4-5.1) H Total Protein 6.2 g/dL (5.7-8.2) LFT Test 04/13/25 04:33 Alanine Aminotransferase (ALT) 30 U/L (7-40) Alkaline Phosphatase 54 U/L (46-116) Aspartate Amino Transferase (AST) 39 U/L (13-40) Total Bilirubin 0.5 mg/dL (0.2-1.0) Blood Gas Results Test 04/13/25 07:29 Arterial Blood pH 7.389 (7.350-7.450) FiO2 % 40.0 Microbiology Microbiology Date/Time Source Procedure Growth Status 04/12/25 08:46 Blood Blood Culture - Preliminary NO GROWTH AFTER 24 HOURS OF INCUBATION. Resulted 04/12/25 04:00 Nose MRSA Screen - Final Complete Assessment/Plan Assessment/Plan Impression: Acute hypoxic respiratory failure On mechanical ventilator Pneumonia due to GNR DM type II Anemia Shock, resolved End-stage renal disease, on hemodialysis Hx of nicotine dependence Obesity, BMI 35.6 Plan: s/p intubation on mechanical ventilator. ABG reviewed, compensated. On AC mode; RR 18, VT 500, PEEP 8, FiO2 40% Titrate FIO2 to keep O2 saturation above 90%. VAP bundle. Daily ABG and CXR while intubated Off Versed Taper Fentanyl CT head shows no evidence of intracranial hemorrhage or stroke. Continue antibiotics. Follow up cultures. Blood cx show no growth for 24 hours Sputum cx show normal oropharyngeal andreina; moderate growth of GNRs. Pressors as necessary for hemodynamic support Titrate to keep mean arterial pressure greater than 65 mmHg. Off pressors since 04/12/2025 HD per Nephrology - 3 L removed on 04/12/2025 Monitor renal function Monitor electrolytes. Supplement as necessary. Monitor ins and outs. Maintain euvolemia. Monitor hemoglobin - currently 7.9 g/dL Transfuse if less than 7.0 g/dL. Follow up FOBT. GI prophylaxis. DVT prophylaxis. Prognosis: Poor given patient's multiple co-morbidities. Condition: Critical Rest of plan per hospitalist and other consultants. A total of 35 minutes of critical care time was spent reviewing the patient record, examining the patient, making a diagnostic and therapeutic plan, discussing this plan with the medical personnel, following up on diagnostic studies and following the patient for clinical stability excluding any and all procedures. At least 50% of this time was spent in direct, [id number] contact. Thank you, Dr. Soares, for allowing me to participate in this patient's care. Further recommendations will depend on the patient's clinical course. Please do not hesitate to contact me if you have any questions or concerns. This medical document was created using an electronic medical record system with [employer] dictation system. Although these documentations are being carefully reviewed, there may still be some phonetic and typographical changes. The errors are purely typographical, due to imperfection on the software program, and do not reflect any compromise in the patient's medical care. Plan discussed with: Other (MICHELLE Gresham) Date of Service: Apr 13, 2025 Billing Provider: NATY GARVIN MD Common Visit Codes: [id number] INP/OBS CARE(HIGH), [id number] CARE 30-74 MIN NATY GARVIN MD Apr 13, 2025 23:23
[2025-04-14] VITALS (115 sets, daily range): BP systolic 117–161; BP diastolic 46–69; PULSE 68–82; RESP 9–22; TEMP 97.5–99.7; O2SAT 90–100
[2025-04-14 04:55] LABS: Nucleated Red Blood Cells % 0.0 %
[2025-04-14 04:58] LABS: Hematocrit 23.7 % (41.0-53.0); Hemoglobin 8.2 g/dL (13.5-17.5); Mean Corpuscular Hemoglobin 30.0 pg (28.0-32.0); Mean Corpuscular Volume 86.8 fL (80.0-100.0)
[2025-04-14 05:04] LABS: Potassium 3.8 mmol/L (3.5-5.1); Sodium 139 mmol/L (136-145)
[2025-04-14 05:05] LABS: Anion Gap 14 (5-15); Carbon Dioxide 29 mmol/L (20-31)
[2025-04-14 05:10] LABS: BUN/Creatinine Ratio 4.4 (10.0-20.0); Glucose 105 mg/dL (74-106)
[2025-04-14 05:21] LABS: Blood Urea Nitrogen 41 mg/dL (9-23); Calcium 7.6 mg/dL (8.7-10.4); Chloride 96 mmol/L (98-107)
--- NOTE | 2025-04-14 06:40 | DVH ---
CHEST RADIOGRAPH Indication: pna Technique: Single frontal view of the chest was obtained Comparison: XY CHEST XRAY 1 VIEW on DOS: 04/13/25, XY CHEST PORTABLE on DOS: 04/12/25, XY CHEST PORTABL E on DOS: 04/12/25 IMPRESSION: Heart is enlarged. Support lines and tubes appear unchanged in satisfactory position. The lungs jimmie ear relatively clear with mild pulmonary vascular congestion. No focal airspace opacity, effusion, o r pneumothorax.
[2025-04-14 06:56] LABS: Base Excess 1.9 mmol/L (-2.0-3.0)
--- NOTE | 2025-04-14 08:51 | DVHPN2 ---
Subjective Patient intubated and sedated Reviewed: Care Plan, H&P, Labs Changes from previous H/P or p: No Changes General: Per HPI Objective Vitals Vital Signs Date Time Temp Pulse Resp B/P (MAP) Pulse Ox O2 Delivery O2 Flow Rate FiO2 04/14/25 08:15 99.1 77 19 142/55 (84) 99 210.4 04/14/25 07:58 Mechanical Ventilator+ 35 35 04/12/25 08:00 2 Intake/Output Intake and Output 04/14/25 07:00 Intake Total 1111.0 ml Output Total 0 ml Balance 1111.0 ml Intake Oral 60 ml IV Total 467.0 ml Tube Feeding 584 ml Output Urine Total 0 ml General Appearance: Other (Encephalopathic) HEENT: Atraumatic, PERRLA Lungs: Clear to auscultation, Normal air movement, Other Cardiovascular: Normal S1, Normal S2 Abdomen: Normal bowel sounds, Soft, No tenderness, No hepatospenomegaly Musculoskeletal: Other Skin: Dry, Intact Psych/Mental Status: Other Medications Current Medications Medications Dose Ordered Sig/Duane Route Start Time Stop Time Status Last Admin Dose Admin Carvedilol 3.125 mg BID PO 04/09/25 22:00 Hold 04/11/25 22:27 3.125 MG Hydralazine HCl 25 mg TID PO 04/09/25 22:00 Hold 04/11/25 22:26 25 MG Patient Own Medication 1 tab HS PO 04/10/25 22:00 Insulin Glargine 17 units DAILY SC 04/10/25 10:00 Nifedipine 60 mg DAILY PO 04/10/25 10:00 Hold 04/11/25 09:54 60 MG Diagnostic Test (Pha) 1 strip ACHS 04/09/25 22:00 04/14/25 06:06 1 STRIP Insulin Human Regular ACHS SC 04/09/25 22:00 04/12/25 06:29 3 UNITS Norepinephrine Bitartrate 250 ml @ 3.75 mls/hr Q24H IV 04/12/25 04:00 04/12/25 03:40 3.75 MLS/HR Propofol 100 ml @ 3.114 mls/ hr Q24H IV 04/12/25 04:00 Fentanyl Citrate 250 ml @ 2.5 mls/hr Q24H IV 04/12/25 04:00 04/14/25 06:30 15 MLS/HR Furosemide 40 mg BIDD IV 04/12/25 18:00 04/14/25 05:46 40 MG Midazolam HCl 50 ml @ 1 mls/hr Q24H IV 04/12/25 10:15 04/12/25 16:50 2 MLS/HR Famotidine 20 mg MWF@1600 GT 04/12/25 16:00 04/12/25 16:55 20 MG Gabapentin 300 mg DAILY GT 04/12/25 12:00 Hold 04/12/25 16:55 300 MG Lamotrigine 100 mg DAILY GT 04/12/25 12:00 Hold 04/12/25 18:26 100 MG Zirconium Oxide 10 gm DAILY GT 04/12/25 12:00 04/13/25 10:08 10 GM Acetaminophen 650 mg Q6HP PRN [place] 04/12/25 16:00 04/12/25 16:51 650 MG Enteral Nutritional Formula 1,000 ml 30ML/HR GT 04/12/25 18:45 Cefepime HCl 50 ml @ 12.5 mls/hr DAILY IV 04/14/25 10:00 Saccharomyces Boulardii 250 mg DAILY GT 04/13/25 12:15 04/13/25 12:20 250 MG Laboratory Results Laboratory Tests 04/14/25 04:36 Chemistry Test 04/14/25 04:36 Calcium Level 7.6 mg/dL (8.7-10.4) L Blood Gas Results Test 04/14/25 06:40 Arterial Blood pH 7.363 (7.350-7.450) FiO2 % 35.0 Microbiology Microbiology Date/Time Source Procedure Growth Status 04/12/25 08:46 Blood Blood Culture - Preliminary NO GROWTH AFTER 24 HOURS OF INCUBATION. Resulted 04/12/25 04:00 Nose MRSA Screen - Final Complete Labs and/or images reviewed: Labs reviewed by me, Image(s) reviewed by me Assessment/Plan Assessment/Plan Impression: -status post cardiopulmonary arrest secondary to third-degree heart block -acute hypoxic respiratory failure now on mechanical ventilation -? Pneumonia, Gram-negative rods growing on sputum culture -ESRD with hemodialysis -obesity -diabetes mellitus -hypoglycemia -depression -anemia of chronic disease Plan: Events: No signs of bradycardia overnight. Discussed CT results with the patient's family. Continue to weaned off sedation as tolerated -continue to weaned sedation, CPAP trial once appropriate -continue to monitor bedside EKG. Stop weaning if patient has signs of AV block, bradycardia -continue antibiotics with cefepime -continue tube feeding -repeat labs, chest x-ray, ABG in a.m. Critical care time spent with patient discussing and formulating plan of care: 40 minutes. This does not include time spent performing procedures. This medical document was created using an electronic medical record system with [employer] dictation system. Although this document has been carefully reviewed, there may still be some phonetic and typographical errors. These areas are purely typographical due to imperfections of the software programs, and do not reflect any compromise in the patient's medical care. Plan discussed with: Patient, Other (RN) My Orders Orders - SRIDEVI RUSSO NP Procedure Category Date Status Time Stool Occult Blood LAB 04/13/25 Uncollected 10:20 Cefepime 1gm/50ml PHA 04/14/25 In Process (Maxipime 1gm/50ml) 10:00 Chest Portable XY 04/14/25 Resulted 04:00 Florastor (S. PHA 04/13/25 In Process Boulardii) (Florastor) 12:15 Apply Z-Guard CANDI 04/13/25 In Process 11:30 Apply: CANDI 04/13/25 In Process 11:30 Cpap/Sed Vacation Med ORDERS 04/14/25 Transmitted Weaning 07:32 Cpap Trial For Am ORDERS 04/14/25 Transmitted 07:32 Complete Blood Count LAB 04/15/25 Verified 04:00 Comprehensive LAB 04/15/25 Verified Metabolic Panel 04:00 Date of Service: Apr 14, 2025 Billing Provider: SRIDEVI RUSSO NP Common Visit Codes: [id number] CARE 30-74 MIN SRIDEVI RUSSO NP Apr 14, 2025 08:51
--- NOTE | 2025-04-14 09:46 | ECG ---
[facility] Test Date: 2025-04-12 Test Time: 09:55:29 Pat Name: NAYAN ARMSTRONG Department: Respiratoy Room: 0265 A Gender: M [employer] [facility] Consultant: Pepito LUNA : 1970 Requested By: RON FRAIRE Order Number: [id number] Reading MD: Rafal Dickinson Measurements Intervals [place] Rate: 77 P: 41 RI: 133 QRS: 38 QRSD: 83 T: 160 QT: 400 QTc: 453 Interpretive Statements Sinus rhythm Probable LVH with secondary repol abnrm Consider inferior lateral ischemia Electronically Signed On 04-15-2025 18:23:09 PDT by Rafal Dickinson Please click the below link to view image of tracing.
[2025-04-14] MEDS: CEFEPIME 1GM/50ML 50 ML IV SCH (10:26)
--- NOTE | 2025-04-14 13:59 | DVHPN2 ---
Progress Note - Dictate Date Seen: Apr 14, 2025 Has the PT tested + for MRSA If YES, has PT been informed?: No Medical Necessity Reason Pt with a Central, PICC or Fol: Yes The following are medically ne: Central Line, Araiza Catheter Subjective Patient is intubated and sedated. He coded on Tuesday due to third-degree AV block Most recent dialysis was Tuesday vital signs Vital Sign Date Time Temp Pulse Resp B/P (MAP) Pulse Ox O2 Delivery O2 Flow Rate FiO2 04/14/25 13:13 78 20 148/53 (84) 99 35 04/14/25 13:00 98.4 209.1 04/14/25 11:51 Mechanical Ventilator+ 04/12/25 08:00 2 Total Intake and Output 04/13/25 04/13/25 04/14/25 15:00 23:00 07:00 Intake Total 199.5 ml 422.5 ml 496.5 ml Output Total 0 ml 0 ml Balance 199.5 ml 422.5 ml 496.5 ml medications Current Medications Medications Dose Ordered Sig/Duane Route Start Time Stop Time Status Last Admin Dose Admin Patient Own Medication 1 tab HS PO 04/10/25 22:00 Insulin Glargine 17 units DAILY SC 04/10/25 10:00 Diagnostic Test (Pha) 1 strip ACHS 04/09/25 22:00 04/14/25 11:46 1 STRIP Insulin Human Regular ACHS SC 04/09/25 22:00 04/12/25 06:29 3 UNITS Norepinephrine Bitartrate 250 ml @ 3.75 mls/hr Q24H IV 04/12/25 04:00 04/12/25 03:40 3.75 MLS/HR Propofol 100 ml @ 3.114 mls/ hr Q24H IV 04/12/25 04:00 Fentanyl Citrate 250 ml @ 2.5 mls/hr Q24H IV 04/12/25 04:00 04/14/25 06:30 15 MLS/HR Furosemide 40 mg BIDD IV 04/12/25 18:00 04/14/25 05:46 40 MG Midazolam HCl 50 ml @ 1 mls/hr Q24H IV 04/12/25 10:15 04/12/25 16:50 2 MLS/HR Lamotrigine 100 mg DAILY GT 04/12/25 12:00 Hold 04/12/25 18:26 100 MG Zirconium Oxide 10 gm DAILY GT 04/12/25 12:00 04/14/25 10:26 10 GM Acetaminophen 650 mg Q6HP PRN [place] 04/12/25 16:00 04/12/25 16:51 650 MG Enteral Nutritional Formula 1,000 ml 30ML/HR GT 04/12/25 18:45 Cefepime HCl 50 ml @ 12.5 mls/hr DAILY IV 04/14/25 10:00 04/14/25 10:26 12.5 MLS/HR Saccharomyces Boulardii 250 mg DAILY GT 04/13/25 12:15 04/14/25 10:27 250 MG Pantoprazole Sodium 40 mg BID IV 04/14/25 22:00 objective HEENT: ET tube in Pulmonary: Lungs are clear on auscultation bilaterally Cardiovascular S1-S2, no S3 or S4 Abdomen: Bowel sounds positive, soft no rebound tenderness Skin: No rash Neurological: Sedated laboratory and microbiology Laboratory Tests 04/14/25 04:36 Test 04/14/25 04:36 Range/Units Serum Glucose 105 74-106 mg/dL Assessment/Plan Assessment End-stage renal disease. Was dialyzed yesterday Hyperkalemia, treated medically and with dialysis Uremia due to noncompliance with dialysis. Uncontrolled hypertension. Anemia of renal disease. Diabetes mellitus. Respiratory failure s/p cardiac arrest Plan HD to continue on MWF Lokelma daily UF goal 3 L Empiric IV antibiotics Cardiology follow up for possible pacemaker placement Stephan with dialysis Thank you very much for allowing us to participate in the care of this patient please contact if you have any questions. Dietary Evaluation Review Comments: 1) Change TF formulary from Glucerna 1.2 to Nepro @ 30 goal rate as tolerated d/t ESRD. Flush with 150 mL free H2O Q6H. TF regimen will provide 1296 kcals, 58g Pro, and 1123 mL free H2O (including flushes) per 24 hrs. TF regimen will meet ~86% estimated energy needs and ~61% estimated protein needs. 2) Advance to 60g CCHO renal diet when medically feasible, pending ST approval 3) Refer to outpatient RD/CDCES for diabetes education/weight management 4) Follow-up with cardiology, pulmonology, and nephrology 5) Continue to monitor I&O, labs, and skin integrity Expected Outcomes/Goals: 1) TF regimen to meet at least 75% estimated daily needs 2) labs to improve 3) diet to advance 4) f/u in 2-3 days Plan discussed with: Patient REINIER JACQUES MD Apr 14, 2025 13:59
--- NOTE | 2025-04-14 15:44 | DVH ---
Exam: CT CT AB PEL WO CON-NO ORAL OR IV History: abdominal distension Comparison Study: None TECHNIQUE: Multidetector CT of the abdomen was performed from lung bases to pubic symphysis. Imaging was performed without IV contrast. Axial, coronal and sagittal multiplanar reformats were obtained fr om the axial data set by the technologist. Radiation Dose Information: CT Dose: CTDI volume is 9.12 mGy. Dose-length product is 593.45 mGy*cm FINDINGS: Evaluation of solid organs is limited due to lack of intravenous contrast use. Findings: Lung Bases: Mild bibasilar infiltrates and/or atelectasis is seen. Heart size is mildly enlarged. No pleural or pericardial effusion. Liver: The liver is normal in size. No focal lesions. Gallbladder and Biliary Tree: Patient is status post cholecystectomy. Spleen: Unremarkable Pancreas: The pancreas is grossly normal in appearance. Adrenal Glands: Unremarkable Kidneys: Kidneys are grossly normal without calculi or hydronephrosis. Bladder: Grossly unremarkable for degree of distention. Bowel: Bowel is not obstructed. Diverticulosis is seen. The appendix is normal. Ascites: Absent Lymphadenopathy: No mesenteric, retroperitoneal or periportal lymphadenopathy. Abdominal Wall and Mesentery: Unremarkable. Vasculature: The visualized abdominal aorta is normal in size and caliber. Evaluation of abdominal a nd pelvic vessels is limited due to lack of intravenous contrast. Pelvic Organs: Unremarkable Musculoskeletal: No aggressive focal bony lesions, acute fractures or dislocation. Soft tissues: Unremarkable IMPRESSION: 1. Mild bibasilar infiltrates /atelectasis. 2. Colonic diverticulosis. 3. Radiation optimization: All CT scans at this facility use at least one of these dose optimization techniques: automated exposure control mA and/or kV adjustment per patient size (includes targeted e xams where dose is matched to clinical indication) or iterative reconstruction.
[2025-04-14] MEDS: Glucerna 1.2 Cal 1Liter BOTTLE GT SCH (18:25)
[2025-04-14] MEDS: PANTOPRAZOLE 40 MG/10 ML VIAL INJ IV SCH (22:17)
--- NOTE | 2025-04-14 23:21 | DVHPN2 ---
Progress Note - Dictate Date Seen: Apr 14, 2025 Has the PT tested + for MRSA If YES, has PT been informed?: No Medical Necessity Reason Pt with a Central, PICC or Fol: Yes The following are medically ne: Central Line, Araiza Catheter Subjective Patient was seen and evaluated in follow up in the ICU. Patient is intubated and sedated on ventilator. 35% FiO2. HGB 8.2, HCT 23.7, CL 96, BUN 41,APPLIED STATISTICIAN 9.37, CA 7.6. Chest x-ray is unchanged. vital signs Vital Sign Date Time Temp Pulse Resp B/P (MAP) Pulse Ox O2 Delivery O2 Flow Rate FiO2 04/14/25 13:13 78 20 148/53 (84) 99 35 04/14/25 13:00 98.4 209.1 04/14/25 11:51 Mechanical Ventilator+ 04/12/25 08:00 2 Total Intake and Output 04/13/25 04/13/25 04/14/25 15:00 23:00 07:00 Intake Total 199.5 ml 422.5 ml 496.5 ml Output Total 0 ml 0 ml Balance 199.5 ml 422.5 ml 496.5 ml medications Current Medications Medications Dose Ordered Sig/Duane Route Start Time Stop Time Status Last Admin Dose Admin Patient Own Medication 1 tab HS PO 04/10/25 22:00 Insulin Glargine 17 units DAILY SC 04/10/25 10:00 Diagnostic Test (Pha) 1 strip ACHS 04/09/25 22:00 04/14/25 11:46 1 STRIP Insulin Human Regular ACHS SC 04/09/25 22:00 04/12/25 06:29 3 UNITS Norepinephrine Bitartrate 250 ml @ 3.75 mls/hr Q24H IV 04/12/25 04:00 04/12/25 03:40 3.75 MLS/HR Propofol 100 ml @ 3.114 mls/ hr Q24H IV 04/12/25 04:00 Fentanyl Citrate 250 ml @ 2.5 mls/hr Q24H IV 04/12/25 04:00 04/14/25 06:30 15 MLS/HR Furosemide 40 mg BIDD IV 04/12/25 18:00 04/14/25 05:46 40 MG Midazolam HCl 50 ml @ 1 mls/hr Q24H IV 04/12/25 10:15 04/12/25 16:50 2 MLS/HR Lamotrigine 100 mg DAILY GT 04/12/25 12:00 Hold 04/12/25 18:26 100 MG Zirconium Oxide 10 gm DAILY GT 04/12/25 12:00 04/14/25 10:26 10 GM Acetaminophen 650 mg Q6HP PRN [place] 04/12/25 16:00 04/12/25 16:51 650 MG Enteral Nutritional Formula 1,000 ml 30ML/HR GT 04/12/25 18:45 Cefepime HCl 50 ml @ 12.5 mls/hr DAILY IV 04/14/25 10:00 04/14/25 10:26 12.5 MLS/HR Saccharomyces Boulardii 250 mg DAILY GT 04/13/25 12:15 04/14/25 10:27 250 MG Pantoprazole Sodium 40 mg BID IV 04/14/25 22:00 objective GENERAL: Ill appearing, intubated on ventilator. Chemically sedated. Sluggish pupils bilaterally. Obese. EYES: PERRL, EOMI. Anicteric. HENT: Moist mucous membranes. LUNGS: Clear to auscultation bilaterally. CARDIOVASCULAR: Regular rate and rhythm. ABDOMEN: Soft, nontender and nondistended. EXTREMITIES: No edema. SKIN: Hyperpigmentation to bilateral lower extremities, left lower extremity IO in place. laboratory and microbiology Laboratory Tests 04/14/25 04:36 Test 04/14/25 04:36 Range/Units Serum Glucose 105 74-106 mg/dL Problem List Cardiopulmonary arrest status post CPR with return of spontaneous circulation. High-degree atrioventricular block, complete heart block. Ventricular tachycardia. NSTEMI, rule out coronary artery disease. Rule out structural heart disease. Acute hypoxic respiratory failure. Hypertension. Hyperkalemia, resolved. ESRD on hemodialysis. Type 2 diabetes mellitus, uncontrolled (Hbg A1c 11.5%). Medical noncompliance. Assessment/Plan Continued all current supportive medical care. GI prophylactics. Diuretics with Lasix. IV antibiotics as ordered. Additional plan as per the hospital course. Critical care time of 45 minutes provided to include time spent evaluation of patient at bedside, when appropriate patient/family education for diagnosis, treatment plan, review of pertinent medical information and discussion of care with specialty providers and PCP. Mechanical ventilator parameters, treatment and adjustments have personally been reviewed by me and treatment plan by bundle collector has also been reviewed. Dietary Evaluation Review Comments: 1) Change TF formulary from Glucerna 1.2 to Nepro @ 30 goal rate as tolerated d/t ESRD. Flush with 150 mL free H2O Q6H. TF regimen will provide 1296 kcals, 58g Pro, and 1123 mL free H2O (including flushes) per 24 hrs. TF regimen will meet ~86% estimated energy needs and ~61% estimated protein needs. 2) Advance to 60g CCHO renal diet when medically feasible, pending ST approval 3) Refer to outpatient RD/CDCES for diabetes education/weight management 4) Follow-up with cardiology, pulmonology, and nephrology 5) Continue to monitor I&O, labs, and skin integrity Expected Outcomes/Goals: 1) TF regimen to meet at least 75% estimated daily needs 2) labs to improve 3) diet to advance 4) f/u in 2-3 days Plan discussed with: INA Engle MD Apr 14, 2025 14:00
[2025-04-15] VITALS (106 sets, daily range): BP systolic 111–234; BP diastolic 48–105; PULSE 62–95; RESP 11–30; TEMP 97.7–98.9; O2SAT 95–100
--- NOTE | 2025-04-15 03:07 | DVH ---
CHEST RADIOGRAPH Indication: ET intubation Technique: Single frontal view of the chest was obtained COMPARISON: XY CHEST PORTABLE on DOS: 04/14/25, XY CHEST XRAY 1 VIEW on DOS: 04/13/25, XY CHEST PORTABL E on DOS: 04/12/25, XY CHEST PORTABLE on DOS: 04/12/25, XY CHEST PORTABLE on DOS: 04/09/25 FINDINGS: Lines and Tubes: Slight interval advancement of endotracheal tube such that the tip now projects appr oximately 4.8 cm above the level of the hayde. Remaining lines and tubes unchanged. Lungs: Minor right basilar pulmonary airspace disease. The lungs are otherwise clear. Pleura: No effusion. No pneumothorax. Cardiomediastinal contours: Cardiomegaly. Bones: Unremarkable IMPRESSION: 1. Interval advancement of endotracheal tube such that the tip now projects approximately 4.8 cm abov e the level of the hayde. Remaining lines and tubes unchanged. 2. Minor right basilar pulmonary airspace disease and cardiomegaly.
[2025-04-15 05:49] LABS: Hemoglobin 8.1 g/dL (13.5-17.5); Nucleated Red Blood Cells % 0.1 %
[2025-04-15 05:53] LABS: Hematocrit 24.4 % (41.0-53.0); Mean Corpuscular Hemoglobin 29.1 pg (28.0-32.0); Mean Corpuscular Volume 87.4 fL (80.0-100.0)
[2025-04-15 06:06] LABS: Alanine Aminotransferase 22 U/L (7-40); Alkaline Phosphatase 63 U/L (46-116); Anion Gap 17 (5-15); BUN/Creatinine Ratio 4.3 (10.0-20.0); Carbon Dioxide 25 mmol/L (20-31); Potassium 3.9 mmol/L (3.5-5.1); Sodium 138 mmol/L (136-145)
[2025-04-15 06:07] LABS: Total Protein 6.8 g/dL (5.7-8.2)
[2025-04-15 06:08] LABS: Albumin 3.4 g/dL (3.2-4.8); Bilirubin, Total 0.4 mg/dL (0.2-1.0)
[2025-04-15 06:11] LABS: Iron 21.0 ug/dL (65-175); Total Iron Binding Capacity 184.0 ug/dL (250-425)
[2025-04-15 06:15] LABS: Blood Urea Nitrogen 46 mg/dL (9-23); Calcium 7.7 mg/dL (8.7-10.4); Chloride 96 mmol/L (98-107); Glucose 61 mg/dL (74-106)
[2025-04-15] MEDS ORDERED: DEXTROSE (50%) 50ML SYRG IV PRN (06:45)
[2025-04-15] MEDS: DEXTROSE 10% 1,000 ML IV SCH ×2 (06:56→09:35)
[2025-04-15 07:24] LABS: Base Excess -2.4 mmol/L (-2.0-3.0)
--- NOTE | 2025-04-15 08:33 | DVHPN2 ---
[facility] CENTER DOS: 04/14/2025 Patient seen and examined at bedside. Intubated on mechanical ventilator. Overnight events reviewed. HPI: A 55-year-old male with past medical history of ESRD on TTS dialysis, produces no to minimal urine, diabetes mellitus with diabetic neuropathy, and hypertension, who presented to the ER on 04/09/25 after two missed dialysis sessions with c/o generalized weakness, especially bilateral lower extremities. Patient was weak to the point that he could not walk and go to dialysis on day of presentation. He reported being noncompliant with his antihypertensive medications as well. He denied any chest pain, shortness of breath, abdominal pain or any other complaints. Patient was admitted for further care. Pulmonary consultation is requested for evaluation and management of acute hypoxic respiratory failure requiring mechanical ventilator. Past Medical History: ESRD on TTS dialysis, produces no to minimal urine. Diabetes mellitus with diabetic neuropathy, hypertension. 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 Allergies: No known drug allergies. Family History: No family history of premature CAD. No family history of lung disorders. Social History: Smokin pack years, quit 5 years ago Alcohol: Occasional, quit 5 years ago Drugs: Occasional marijuana, last use was more than 1 year ago Reviewed: Care Plan, H&P, Labs Changes from previous H/P or p: No Changes General: Per HPI Objective Vitals Vital Signs Date Time Temp Pulse Resp B/P (MAP) Pulse Ox O2 Delivery O2 Flow Rate FiO2 04/15/25 06:55 77 21 155/57 (89) 98 30 04/15/25 06:00 Mechanical Ventilator+ 04/15/25 04:00 98.9 98.9 Intake/Output Intake and Output 04/15/25 07:00 Intake Total 647.00 ml Output Total 0 ml Balance 647.00 ml Intake Oral 110 ml IV Total 440.00 ml Tube Feeding 97 ml Output Urine Total 0 ml # Bowel Movements 2 General Appearance: Other (Encephalopathic) HEENT: Atraumatic, PERRLA Lungs: Other (On mechanical ventilator. Decreased air entry, transmitted breath sounds bilaterally) Cardiovascular: Normal S1, Normal S2 Abdomen: Normal bowel sounds, Soft, No tenderness, No hepatospenomegaly Musculoskeletal: Other Skin: Dry, Intact Psych/Mental Status: Other Medications Current Medications Medications Dose Ordered Sig/Duane Route Start Time Stop Time Status Last Admin Dose Admin Patient Own Medication 1 tab HS PO 04/10/25 22:00 Insulin Glargine 17 units DAILY SC 04/10/25 10:00 Diagnostic Test (Pha) 1 strip ACHS 04/09/25 22:00 04/15/25 06:28 1 STRIP Insulin Human Regular ACHS SC 04/09/25 22:00 04/12/25 06:29 3 UNITS Norepinephrine Bitartrate 250 ml @ 3.75 mls/hr Q24H IV 04/12/25 04:00 04/12/25 03:40 3.75 MLS/HR Propofol 100 ml @ 3.114 mls/ hr Q24H IV 04/12/25 04:00 Fentanyl Citrate 250 ml @ 2.5 mls/hr Q24H IV 04/12/25 04:00 04/14/25 06:30 15 MLS/HR Furosemide 40 mg BIDD IV 04/12/25 18:00 04/14/25 05:46 40 MG Midazolam HCl 50 ml @ 1 mls/hr Q24H IV 04/12/25 10:15 04/12/25 16:50 2 MLS/HR Lamotrigine 100 mg DAILY GT 04/12/25 12:00 Hold 04/12/25 18:26 100 MG Zirconium Oxide 10 gm DAILY GT 04/12/25 12:00 04/14/25 10:26 10 GM Acetaminophen 650 mg Q6HP PRN [place] 04/12/25 16:00 04/12/25 16:51 650 MG Enteral Nutritional Formula 1,000 ml 30ML/HR GT 04/12/25 18:45 04/14/25 18:25 1,000 ML Saccharomyces Boulardii 250 mg DAILY GT 04/13/25 12:15 04/14/25 10:27 250 MG Pantoprazole Sodium 40 mg BID IV 04/14/25 22:00 04/14/25 22:17 40 MG Cefepime HCl 50 ml @ 12.5 mls/hr POSTDI IV 04/15/25 22:00 Dextrose 50 ml ONCE PRN IV 04/15/25 06:45 Dextrose 1,000 ml @ 75 mls/hr [id number] IV 04/15/25 06:45 04/15/25 06:56 75 MLS/HR Hydralazine HCl 10 mg TID PO 04/15/25 14:00 Laboratory Results Laboratory Tests 04/15/25 05:16 Chemistry Test 04/15/25 05:16 Albumin 3.4 g/dL (3.2-4.8) Calcium Level 7.7 mg/dL (8.7-10.4) L Total Protein 6.8 g/dL (5.7-8.2) LFT Test 04/15/25 05:16 Alanine Aminotransferase (ALT) 22 U/L (7-40) Alkaline Phosphatase 63 U/L (46-116) Aspartate Amino Transferase (AST) 34 U/L (13-40) Total Bilirubin 0.4 mg/dL (0.2-1.0) Blood Gas Results Test 04/15/25 07:17 Arterial Blood pH 7.327 (7.350-7.450) FiO2 % 30.0 Microbiology Microbiology Date/Time Source Procedure Growth Status 04/12/25 08:46 Blood Blood Culture - Preliminary NO GROWTH AFTER 48 HOURS OF INCUBATION. Resulted 04/12/25 04:00 Nose MRSA Screen - Final Complete Assessment/Plan Assessment/Plan Impression: Acute hypoxic respiratory failure On mechanical ventilator Pneumonia due to GNR DM type II Anemia Shock, resolved End-stage renal disease, on hemodialysis Hx of nicotine dependence Obesity, BMI 35.6 Events: Remains on vent support On AC mode; RR 18, VT 500, PEEP 8, FiO2 35% Improved FIO2 requirements ABG reviewed, compensated. CXR reviewed, lungs appear relatively clear with mild pulmonary vascular congestion. No focal airspace opacity, effusion, or pneumothorax. Continue antibiotics Blood pressure control. Monitor hemoglobin - currently 8.2 g/dL Transfuse if less than 7.0 g/dL. FOBT positive Taper sedation Plan for CPAP trial. Labs and imaging reviewed. Rest of plan as noted below. Plan: s/p intubation on mechanical ventilator. On AC mode; RR 18, VT 500, PEEP 8, FiO2 35% Titrate FIO2 to keep O2 saturation above 90%. VAP bundle. Daily ABG and CXR while intubated CT head shows no evidence of intracranial hemorrhage or stroke. Continue antibiotics. Follow up cultures. Blood cx show no growth for 48 hours Sputum cx show normal oropharyngeal andreina; moderate growth of GNRs. Pressors as necessary for hemodynamic support Titrate to keep mean arterial pressure greater than 65 mmHg. Off pressors since 04/12/2025 HD per Nephrology - 3 L removed on 04/12/2025 Monitor renal function Monitor electrolytes. Supplement as necessary. Monitor ins and outs. Maintain euvolemia. Monitor hemoglobin - currently 8.2 g/dL Transfuse if less than 7.0 g/dL. FOBT positive GI prophylaxis. DVT prophylaxis. Prognosis: Poor given patient's multiple co-morbidities. Condition: Critical Rest of plan per hospitalist and other consultants. A total of 35 minutes of critical care time was spent reviewing the patient record, examining the patient, making a diagnostic and therapeutic plan, discussing this plan with the medical personnel, following up on diagnostic studies and following the patient for clinical stability excluding any and all procedures. At least 50% of this time was spent in direct, [id number] contact. Thank you, Dr. Soares, for allowing me to participate in this patient's care. Further recommendations will depend on the patient's clinical course. Please do not hesitate to contact me if you have any questions or concerns. This medical document was created using an electronic medical record system with [employer] computerized dictation system. Although these documentations are being carefully reviewed, there may still be some phonetic and typographical changes. The errors are purely typographical, due to imperfection on the software program, and do not reflect any compromise in the patient's medical care. Plan discussed with: Other (RN) Date of Service: Apr 14, 2025 Billing Provider: NATY GARVIN MD Common Visit Codes: [id number] INP/OBS CARE(HIGH), [id number] CARE 30-74 MIN NATY GARVIN MD Apr 15, 2025 08:33
[2025-04-15] MEDS: SODIUM CHL 0.9% 1000 ML BAG XX ONE (10:33)
--- NOTE | 2025-04-15 11:53 | MEDREC ---
[facility] Intervention Section I [facility] Intervention: Deescalate AB based on CS (May consider de-escalating cefepime based on susceptibilities if/when clinically appropriate.) CORRINA IRBY [facility] RESIDENT Apr 15, 2025 11:53
[2025-04-15] MEDS: InsuLIN REG 1unit/0.01ml Soln (100units/ml) SC SCH (12:00)
[2025-04-15] MEDS: ACCU-CHEK COMFORT CURVE STRIP VI SCH (12:00)
--- NOTE | 2025-04-15 13:06 | DVHPN2 ---
Progress Note - Dictate Date Seen: Apr 15, 2025 Has the PT tested + for MRSA If YES, has PT been informed?: No Medical Necessity Reason Pt with a Central, PICC or Fol: Yes The following are medically ne: Central Line, Araiza Catheter Subjective No acute events overnight vital signs Vital Sign Date Time Temp Pulse Resp B/P (MAP) Pulse Ox O2 Delivery O2 Flow Rate FiO2 04/15/25 12:45 64 18 111/48 (69) 100 04/15/25 12:00 30 04/15/25 12:00 Mechanical Ventilator+ 04/15/25 12:00 98.2 98.2 Total Intake and Output 04/14/25 04/14/25 04/15/25 15:00 23:00 07:00 Intake Total 95.00 ml 150 ml 484.5 ml Output Total 0 ml 0 ml Balance 95.00 ml 150 ml 484.5 ml medications Current Medications Medications Dose Ordered Sig/Duane Route Start Time Stop Time Status Last Admin Dose Admin Patient Own Medication 1 tab HS PO 04/10/25 22:00 Insulin Glargine 17 units DAILY SC 04/10/25 10:00 Norepinephrine Bitartrate 250 ml @ 3.75 mls/hr Q24H IV 04/12/25 04:00 04/12/25 03:40 3.75 MLS/HR Propofol 100 ml @ 3.114 mls/ hr Q24H IV 04/12/25 04:00 Fentanyl Citrate 250 ml @ 2.5 mls/hr Q24H IV 04/12/25 04:00 04/14/25 06:30 15 MLS/HR Midazolam HCl 50 ml @ 1 mls/hr Q24H IV 04/12/25 10:15 04/12/25 16:50 2 MLS/HR Lamotrigine 100 mg DAILY GT 04/12/25 12:00 Hold 04/12/25 18:26 100 MG Acetaminophen 650 mg Q6HP PRN [place] 04/12/25 16:00 04/12/25 16:51 650 MG Enteral Nutritional Formula 1,000 ml 30ML/HR GT 04/12/25 18:45 04/14/25 18:25 1,000 ML Saccharomyces Boulardii 250 mg DAILY GT 04/13/25 12:15 04/14/25 10:27 250 MG Pantoprazole Sodium 40 mg BID IV 04/14/25 22:00 04/15/25 10:16 40 MG Cefepime HCl 50 ml @ 12.5 mls/hr POSTDI IV 04/15/25 22:00 Dextrose 50 ml ONCE PRN IV 04/15/25 06:45 Hydralazine HCl 10 mg TID PO 04/15/25 14:00 Dextrose 1,000 ml @ 30 mls/hr Q24H IV 04/15/25 09:15 04/15/25 09:35 30 MLS/HR Diagnostic Test (Pha) 1 strip Q6HR 04/15/25 12:00 04/15/25 12:00 1 STRIP Insulin Human Regular Q6HR SC 04/15/25 12:00 Zirconium Oxide 10 gm EOD GT 04/16/25 10:00 UNV objective HEENT: ET tube in Pulmonary: Lungs are clear on auscultation bilaterally Cardiovascular S1-S2, no S3 or S4 Abdomen: Bowel sounds positive, soft no rebound tenderness Skin: No rash Neurological: Sedated laboratory and microbiology Laboratory Tests 04/15/25 05:16 Test 04/15/25 05:16 Range/Units Serum Glucose 61 L 74-106 mg/dL Assessment/Plan Assessment End-stage renal disease on hemodialysis Tuesday Hyperkalemia managed with dialysis and kelwa Uremia due to noncompliance with dialysis. Hypertension Anemia of renal disease. Diabetes mellitus. Respiratory failure s/p cardiac arrest Plan HD to continue on MWF Lokelma on non dialysis days Discontinue furosemide, patient is currently anuric UF goal 3 L Empiric IV antibiotics Cardiology follow up for possible pacemaker placement Stephan with dialysis Thank you very much for allowing us to participate in the care of this patient please contact if you have any questions. Dietary Evaluation Review Comments: 1) Change TF formulary from Glucerna 1.2 to Nepro @ 30 goal rate as tolerated d/t ESRD. Flush with 150 mL free H2O Q6H. TF regimen will provide 1296 kcals, 58g Pro, and 1123 mL free H2O (including flushes) per 24 hrs. TF regimen will meet ~86% estimated energy needs and ~61% estimated protein needs. 2) Advance to 60g CCHO renal diet when medically feasible, pending ST approval 3) Refer to outpatient RD/CDCES for diabetes education/weight management 4) Follow-up with cardiology, pulmonology, and nephrology 5) Continue to monitor I&O, labs, and skin integrity Expected Outcomes/Goals: 1) TF regimen to meet at least 75% estimated daily needs 2) labs to improve 3) diet to advance 4) f/u in 2-3 days Plan discussed with: Patient REINIER JACQUES MD Apr 15, 2025 13:06
[2025-04-15] MEDS: EPOETIN ALFA-EPBX 4,000 UNIT/ML VIAL SC ONE (13:23)
--- NOTE | 2025-04-15 15:08 | DVHPNRES ---
Progress Note Date Seen: Apr 15, 2025 Resident Creating Document: WHITNEY LAYTON RESIDENT Has the PT tested + for MRSA If YES, has PT been informed?: No Medical Necessity Reason Pt with a Central, PICC or Fol: Yes The following are medically ne: Central Line, Araiza Catheter Subjective Review of Systems Critically ill 55 year old male with ESRD on chronic hemodialysis, type 2 diabetes mellitus, hypertension, obesity, anemia of CKD, prior cardiac arrest, and AV block. Patient remains intubated and sedated on mechanical ventilation in the ICU. * Today: Patient underwent hemodialysis. Attempted sedation wean with Precedex, but poorly tolerated with agitation, tachycardia, and hypertensive crisis (BP peaked 191/82). Returned to AC/VC ventilation with sedation resumed. Hydralazine PO 25 mg TID initiated; PRN labetalol available. * Ventilation: AC/VC mode, FiO? 3035%, PEEP 8, tidal volume 500, RR 18. CPAP trial scheduled for tomorrow AM. * Glycemia: Glucose fluctuated 13700 mg/dL, on sliding scale insulin. Insulin glargine and regular insulin used; Dextrose IV given for glucose <60. * Antibiotics: Cefepime IV continued for respiratory culture-proven Enterobacter cloacae pneumonia (sensitive to cefepime, resistant to ampicillin/cefazolin). * Nutrition: Tube feeding (Glucerna 1.2 at 30 mL/hr) ongoing; supplemented with probiotics. * Labs: Creatinine 10.8 (ESRD baseline), BUN 46, Ca 7.7 (low), Hgb 8.1 (anemia of CKD), ferritin 639 (iron overload vs inflammation), Fe 21 with saturation 11% (iron deficiency). Positive stool occult blood. * Imaging: CT abdomen/pelvis showed mild bibasilar infiltrates/atelectasis, colonic diverticulosis, no acute abdominal pathology. Echo: EF 65%, mild LVH, mild diastolic dysfunction, moderately dilated RV/RA/LA, moderate pulmonary hypertension (RVSP 55 mmHg). * Microbiology: Respiratory culture grew Enterobacter cloacae; sensitive to cefepime, levofloxacin, carbapenems; resistant to ampicillin, cefazolin. Blood cultures negative. MRSA screen negative. * Events: Continued epoetin rayna with dialysis; protonix BID for GI prophylaxis; occult GI bleeding suspected. Brief Gist of Todays Progress * HD completed, tolerated. * Precedex sedation trial attempted, failed due to HTN/tachycardia. Sedation restarted. * Hypertensive urgency treated with Hydralazine PO, improved. * Cefepime continued per sensitivity for Enterobacter pneumonia. * Positive FOBT ? risk of GI bleed in setting of anemia. * Ongoing nutrition via tube feeds; protonix for GI prophylaxis. * CPAP trial scheduled for tomorrow. Objective vital signs Vital Sign Date Time Temp Pulse Resp B/P (MAP) Pulse Ox O2 Delivery O2 Flow Rate FiO2 04/15/25 14:24 178/64 04/15/25 14:15 78 14 98 04/15/25 14:00 30 04/15/25 14:00 Mechanical Ventilator+ 04/15/25 12:00 98.2 98.2 Total Intake and Output 04/14/25 04/14/25 04/15/25 15:00 23:00 07:00 Intake Total 95.00 ml 150 ml 484.5 ml Output Total 0 ml 0 ml Balance 95.00 ml 150 ml 484.5 ml medications Current Medications Medications Dose Ordered Sig/Duane Route Start Time Stop Time Status Last Admin Dose Admin Patient Own Medication 1 tab HS PO 04/10/25 22:00 Insulin Glargine 17 units DAILY SC 04/10/25 10:00 Norepinephrine Bitartrate 250 ml @ 3.75 mls/hr Q24H IV 04/12/25 04:00 04/12/25 03:40 3.75 MLS/HR Propofol 100 ml @ 3.114 mls/ hr Q24H IV 04/12/25 04:00 Fentanyl Citrate 250 ml @ 2.5 mls/hr Q24H IV 04/12/25 04:00 04/14/25 06:30 15 MLS/HR Midazolam HCl 50 ml @ 1 mls/hr Q24H IV 04/12/25 10:15 04/12/25 16:50 2 MLS/HR Lamotrigine 100 mg DAILY GT 04/12/25 12:00 Hold 04/12/25 18:26 100 MG Acetaminophen 650 mg Q6HP PRN DE 04/12/25 16:00 04/12/25 16:51 650 MG Enteral Nutritional Formula 1,000 ml 30ML/HR GT 04/12/25 18:45 04/14/25 18:25 1,000 ML Saccharomyces Boulardii 250 mg DAILY GT 04/13/25 12:15 04/15/25 10:00 250 MG Pantoprazole Sodium 40 mg BID IV 04/14/25 22:00 04/15/25 10:16 40 MG Cefepime HCl 50 ml @ 12.5 mls/hr POSTDI IV 04/15/25 22:00 Dextrose 50 ml ONCE PRN IV 04/15/25 06:45 Hydralazine HCl 10 mg TID PO 04/15/25 14:00 04/15/25 14:24 10 MG Dextrose 1,000 ml @ 30 mls/hr Q24H IV 04/15/25 09:15 04/15/25 09:35 30 MLS/HR Diagnostic Test (Pha) 1 strip Q6HR 04/15/25 12:00 04/15/25 12:00 1 STRIP Insulin Human Regular Q6HR SC 04/15/25 12:00 Zirconium Oxide 10 gm EOD PRN GT 04/16/25 10:00 Examination Vitals: BP 059830/7882, [place] [address], Temp 98.4F, SpO? 9698% (FiO? 30%). * General: Intubated, sedated, critically ill. * CV: Regular rhythm, no murmurs. * Resp: Ventilated, bilateral breath sounds; mild bibasilar changes on imaging. * Abdomen: Soft, non-tender, no organomegaly. * Skin: Warm, intact, no rash. * Neuro: Sedated, unable to assess higher function. laboratory and microbiology Laboratory Tests 04/15/25 05:16 Test 04/15/25 05:16 Range/Units Serum Glucose 61 L 74-106 mg/dL Microbiology Date/Time Source Procedure Growth Status 04/12/25 08:46 Blood Blood Culture - Preliminary NO GROWTH AFTER 72 HOURS OF INCUBATION. Resulted 04/12/25 04:00 Nose MRSA Screen - Final Complete Problem List/Assessment/Plan Problem List/Assessment/Plan Assessment & Diagnoses 1. Acute hypoxic respiratory failure requiring invasive mechanical ventilation * On AC/VC mode, failed wean ? CPAP trial planned. 2. Severe sepsis due to gram-negative pneumonia (Enterobacter cloacae) with septic encephalopathy * Positive culture, cefepime sensitive. 3. Status post cardiopulmonary arrest with ROSC due to AV block / ventricular tachycardia * Ongoing risk, cardiology evaluating for pacing. 4. Hypertensive urgency during sedation wean * Managed with Hydralazine PO TID, labetalol PRN. 5. End-stage renal disease (ESRD) on chronic hemodialysis (MWF) * Cr 10.8, GFR 5. 6. Anemia of CKD with possible GI blood loss * Hgb 8.1, positive FOBT, on epoetin, iron deficiency noted. 7. Type 2 diabetes mellitus with variable glycemia (HbA1c 11.5%, uncontrolled) * Glucose 22369, on SSI and glargine. 8. Moderate pulmonary hypertension (RVSP 55 mmHg) on echo. 9. Electrolyte disturbances: hypocalcemia (Ca 7.7), mild hypomagnesemia. 10. Obesity (BMI 35.6) contributing to hypoventilation risk. System-Randle Plan Neuro/Sedation * Continue Precedex, target RASS ?2 to ?3. * Daily sedation holiday if tolerated. Cardiovascular * Hydralazine PO 25 mg TID, labetalol IV PRN SBP >180. * Continuous cardiac monitoring. * Cardiology follow-up Respiratory * Maintain AC/VC settings, FiO? 30%, PEEP 8. * CPAP trial tomorrow AM. * Daily CXR, ABG. * VAP bundle. Renal/Electrolytes * HD MWF schedule. * Lokelma for hyperkalemia on non-dialysis days. * Replete calcium and magnesium as needed. * Avoid nephrotoxins. Infectious Disease * Continue cefepime IV per sensitivity for Enterobacter cloacae. * Monitor WBC, repeat cultures if febrile. Hematology * Continue epoetin with dialysis. * Transfuse PRBC if Hgb <7. * Monitor stool for GI bleeding; Endocrine * Continue SSI, glargine adjusted for renal status. * Maintain glucose 444502. GI/Nutrition * Tube feeds with Glucerna 1.2 at 30 mL/hr. * Protonix IV BID for GI prophylaxis and possible occult bleed. * Bowel regimen with stool softeners. Prophylaxis * DVT: Heparin SQ q8h. * GI: Protonix B * VAP: Oral care, HOB elevated. Case discussed in detail with the attending physician, including the clinical presentation, diagnostic workup, and comprehensive management plan. The patient was present for the discussion and demonstrated understanding of his condition and the proposed plan Plan discussed with: Other (RN) My Orders My Orders Orders - WHITNEY LAYTON RESIDENT Procedure Category Date Status Time Complete Blood Count LAB 04/16/25 Verified 04:00 Comprehensive LAB 04/16/25 Verified Metabolic Panel 04:00 Cpap Trial For Am ORDERS 04/15/25 Verified 15:01 Dietary Evaluation Review Comments: 1) Change TF formulary from Glucerna 1.2 to Nepro @ 30 goal rate as tolerated d/t ESRD. Flush with 150 mL free H2O Q6H. TF regimen will provide 1296 kcals, 58g Pro, and 1123 mL free H2O (including flushes) per 24 hrs. TF regimen will meet ~86% estimated energy needs and ~61% estimated protein needs. 2) Advance to 60g CCHO renal diet when medically feasible, pending ST approval 3) Refer to outpatient RD/CDCES for diabetes education/weight management 4) Follow-up with cardiology, pulmonology, and nephrology 5) Continue to monitor I&O, labs, and skin integrity Expected Outcomes/Goals: 1) TF regimen to meet at least 75% estimated daily needs 2) labs to improve 3) diet to advance 4) f/u in 2-3 days Date of Service: Apr 15, 2025 Billing Provider: RON FRAIRE MD Common Visit Codes: [id number] CARE 30-74 MIN (crit care time 45 minutes) WHITNEY LAYTON RESIDENT Apr 15, 2025 15:08 RON FRAIRE MD Apr 17, 2025 15:41
[2025-04-15] MEDS: hydrALAZINE HCL 20 MG/ML VL IV ONE (18:45)
[2025-04-15] MEDS: DEXMEDETOMIDINE HCL IN D5W 100 ML IV SCH (18:57)
[2025-04-15] MEDS: hydrALAZINE HCL 20 MG/ML VL ONE (18:57)
[2025-04-15] MEDS ORDERED: CEFEPIME 1GM/50ML 50 ML IV SCH (22:00)
[2025-04-16] VITALS (103 sets, daily range): BP systolic 146–223; BP diastolic 56–95; PULSE 63–97; RESP 10–25; TEMP 98.2–99.4; O2SAT 71–100
--- NOTE | 2025-04-16 00:01 | DVHPN2 ---
Progress Note - Dictate Date Seen: Apr 15, 2025 Has the PT tested + for MRSA If YES, has PT been informed?: No Medical Necessity Reason Pt with a Central, PICC or Fol: Yes The following are medically ne: Central Line, Araiza Catheter Subjective Patient was seen and evaluated in follow up in the ICU. Patient is intubated and sedated on ventilator. 30% FiO2. Patient is hypertensive. CPAP trial scheduled for tomorrow.HGB 8.1, HCT 24.4, BUN 46, Inventory Worker 10.81. CT abd/pel shows mild bibasilar infiltrates /atelectasis and colonic diverticulosis. vital signs Vital Sign Date Time Temp Pulse Resp B/P (MAP) Pulse Ox O2 Delivery O2 Flow Rate FiO2 04/15/25 23:15 83 14 183/68 (106) 97 04/15/25 22:46 30 04/15/25 22:00 Mechanical Ventilator+ 04/15/25 16:15 97.7 97.7 Total Intake and Output 04/14/25 04/14/25 04/15/25 15:00 23:00 07:00 Intake Total 95.00 ml 150 ml 484.5 ml Output Total 0 ml 0 ml Balance 95.00 ml 150 ml 484.5 ml medications Current Medications Medications Dose Ordered Sig/Duane Route Start Time Stop Time Status Last Admin Dose Admin Patient Own Medication 1 tab HS PO 04/10/25 22:00 Insulin Glargine 17 units DAILY SC 04/10/25 10:00 Norepinephrine Bitartrate 250 ml @ 3.75 mls/hr Q24H IV 04/12/25 04:00 04/12/25 03:40 3.75 MLS/HR Propofol 100 ml @ 3.114 mls/ hr Q24H IV 04/12/25 04:00 Fentanyl Citrate 250 ml @ 2.5 mls/hr Q24H IV 04/12/25 04:00 04/15/25 20:52 7.5 MLS/HR Midazolam HCl 50 ml @ 1 mls/hr Q24H IV 04/12/25 10:15 04/12/25 16:50 2 MLS/HR Lamotrigine 100 mg DAILY GT 04/12/25 12:00 Hold 04/12/25 18:26 100 MG Acetaminophen 650 mg Q6HP PRN [place] 04/12/25 16:00 04/12/25 16:51 650 MG Enteral Nutritional Formula 1,000 ml 30ML/HR GT 04/12/25 18:45 04/14/25 18:25 1,000 ML Saccharomyces Rachanadii 250 mg DAILY GT 04/13/25 12:15 04/15/25 10:00 250 MG Pantoprazole Sodium 40 mg BID IV 04/14/25 22:00 04/15/25 22:10 40 MG Cefepime HCl 50 ml @ 12.5 mls/hr POSTDI IV 04/15/25 22:00 Dextrose 50 ml ONCE PRN IV 04/15/25 06:45 Hydralazine HCl 10 mg TID PO 04/15/25 14:00 Hold 04/15/25 14:24 10 MG Dextrose 1,000 ml @ 30 mls/hr Q24H IV 04/15/25 09:15 04/15/25 09:35 30 MLS/HR Diagnostic Test (Pha) 1 strip Q6HR 04/15/25 12:00 04/15/25 17:22 1 STRIP Insulin Human Regular Q6HR SC 04/15/25 12:00 Zirconium Oxide 10 gm EOD PRN GT 04/16/25 10:00 Hydralazine HCl 25 mg Q8HR NG 04/15/25 22:00 04/15/25 22:10 25 MG objective GENERAL: Ill appearing, intubated on ventilator. Chemically sedated. Sluggish pupils bilaterally. Obese. EYES: PERRL, EOMI. Anicteric. HENT: Moist mucous membranes. LUNGS: Clear to auscultation bilaterally. CARDIOVASCULAR: Regular rate and rhythm. ABDOMEN: Soft, nontender and nondistended. EXTREMITIES: No edema. SKIN: Hyperpigmentation to bilateral lower extremities, left lower extremity IO in place. laboratory and microbiology Laboratory Tests 04/15/25 05:16 Test 04/15/25 05:16 Range/Units Serum Glucose 61 L 74-106 mg/dL Problem List Cardiopulmonary arrest status post CPR with return of spontaneous circulation. High-degree atrioventricular block, complete heart block. Ventricular tachycardia. NSTEMI, rule out coronary artery disease. Rule out structural heart disease. Acute hypoxic respiratory failure. Hypertension. Hyperkalemia, resolved. ESRD on hemodialysis. Type 2 diabetes mellitus, uncontrolled (Hbg A1c 11.5%). Medical noncompliance. Assessment/Plan Continued all current supportive medical care. GI prophylactics. Diuretics with Lasix. IV antibiotics as ordered. Additional plan as per the hospital course. Critical care time of 45 minutes provided to include time spent evaluation of patient at bedside, when appropriate patient/family education for diagnosis, treatment plan, review of pertinent medical information and discussion of care with specialty providers and PCP. Mechanical ventilator parameters, treatment and adjustments have personally been reviewed by me and treatment plan by ice maker has also been reviewed. Dietary Evaluation Review Comments: 1) Change TF formulary from Glucerna 1.2 to Nepro @ 30 goal rate as tolerated d/t ESRD. Flush with 150 mL free H2O Q6H. TF regimen will provide 1296 kcals, 58g Pro, and 1123 mL free H2O (including flushes) per 24 hrs. TF regimen will meet ~86% estimated energy needs and ~61% estimated protein needs. 2) Advance to 60g CCHO renal diet when medically feasible, pending ST approval 3) Refer to outpatient RD/[facility] for diabetes education/weight management 4) Follow-up with cardiology, pulmonology, and nephrology 5) Continue to monitor I&O, labs, and skin integrity Expected Outcomes/Goals: 1) TF regimen to meet at least 75% estimated daily needs 2) labs to improve 3) diet to advance 4) f/u in 2-3 days Plan discussed with: INA Engle MD Apr 16, 2025 00:01
[2025-04-16 05:06] LABS: Hematocrit 26.2 % (41.0-53.0); Hemoglobin 8.7 g/dL (13.5-17.5); Mean Corpuscular Hemoglobin 29.0 pg (28.0-32.0); Mean Corpuscular Volume 86.9 fL (80.0-100.0); Nucleated Red Blood Cells % 0.0 %
--- NOTE | 2025-04-16 05:09 | DVH ---
CHEST RADIOGRAPH Indication: ET intubation Technique: Single frontal view of the chest was obtained COMPARISON: XY CHEST XRAY 1 VIEW on DOS: 04/15/25, XY CHEST PORTABLE on DOS: 04/14/25, XY CHEST XRAY 1 VIEW on DOS: 04/13/25, XY CHEST PORTABLE on DOS: 04/12/25, XY CHEST PORTABLE on DOS: 04/12/25 FINDINGS: Lines and Tubes: Slight interval retraction of endotracheal tube such that the tip now projects appro ximately 5.6 cm above the level of the hayde. Remaining lines and tubes unchanged. Lungs: Progressive interval clearance of right basilar pulmonary airspace disease. Pleura: No effusion. No pneumothorax. Cardiomediastinal contours: Cardiomegaly. Bones: Unremarkable IMPRESSION: 1. Interval retraction of endotracheal tube with the tip now projecting approximately 5.6 cm above th e level of the hayde. Remaining lines and tubes unchanged. 2. Progressive interval clearance of right basilar pulmonary airspace disease.
[2025-04-16 05:28] LABS: Alanine Aminotransferase 19 U/L (7-40); Albumin 3.6 g/dL (3.2-4.8); Alkaline Phosphatase 68 U/L (46-116); Anion Gap 13 (5-15); BUN/Creatinine Ratio 4.1 (10.0-20.0); Bilirubin, Total 0.5 mg/dL (0.2-1.0); Carbon Dioxide 27 mmol/L (20-31); Potassium 3.8 mmol/L (3.5-5.1); Sodium 137 mmol/L (136-145); Total Protein 7.2 g/dL (5.7-8.2)
[2025-04-16 05:32] LABS: Blood Urea Nitrogen 31 mg/dL (9-23); Calcium 8.3 mg/dL (8.7-10.4); Chloride 97 mmol/L (98-107); Glucose 141 mg/dL (74-106)
[2025-04-16 06:14] LABS: Base Excess -0.5 mmol/L (-2.0-3.0)
[2025-04-16] MEDS ORDERED: SODIUM ZIRCONIUM CYCL 10 GM PAK GT PRN (10:00)
--- NOTE | 2025-04-16 12:51 | DVHPN2 ---
Progress Note - Dictate Date Seen: Apr 16, 2025 Has the PT tested + for MRSA If YES, has PT been informed?: No Medical Necessity Reason Pt with a Central, PICC or Fol: Yes The following are medically ne: Central Line, Araiza Catheter Subjective RN at bedside, patient overnight had elevated blood pressure which improves with sedation vital signs Vital Sign Date Time Temp Pulse Resp B/P (MAP) Pulse Ox O2 Delivery O2 Flow Rate FiO2 04/16/25 12:30 64 12 172/71 (104) 98 04/16/25 12:00 30 04/16/25 12:00 Mechanical Ventilator+ 04/16/25 06:00 98.4 98.4 Total Intake and Output 04/15/25 04/15/25 04/16/25 15:00 23:00 07:00 Intake Total 372.5 ml 339.525 ml 324.335 ml Output Total 0 ml 140 ml Balance 372.5 ml 339.525 ml 184.335 ml medications Current Medications Medications Dose Ordered Sig/Duane Route Start Time Stop Time Status Last Admin Dose Admin Patient Own Medication 1 tab HS PO 04/10/25 22:00 Insulin Glargine 17 units DAILY SC 04/10/25 10:00 Norepinephrine Bitartrate 250 ml @ 3.75 mls/hr Q24H IV 04/12/25 04:00 04/12/25 03:40 3.75 MLS/HR Propofol 100 ml @ 3.114 mls/ hr Q24H IV 04/12/25 04:00 Fentanyl Citrate 250 ml @ 2.5 mls/hr Q24H IV 04/12/25 04:00 04/15/25 20:52 7.5 MLS/HR Midazolam HCl 50 ml @ 1 mls/hr Q24H IV 04/12/25 10:15 04/12/25 16:50 2 MLS/HR Lamotrigine 100 mg DAILY GT 04/12/25 12:00 Hold 04/12/25 18:26 100 MG Acetaminophen 650 mg Q6HP PRN GA 04/12/25 16:00 04/12/25 16:51 650 MG Enteral Nutritional Formula 1,000 ml 30ML/HR GT 04/12/25 18:45 04/14/25 18:25 1,000 ML Saccharomyces Boulardii 250 mg DAILY GT 04/13/25 12:15 04/15/25 10:00 250 MG Pantoprazole Sodium 40 mg BID IV 04/14/25 22:00 04/16/25 12:05 40 MG Cefepime HCl 50 ml @ 12.5 mls/hr POSTDI IV 04/15/25 22:00 Dextrose 50 ml ONCE PRN IV 04/15/25 06:45 Hydralazine HCl 10 mg TID PO 04/15/25 14:00 Hold 04/15/25 14:24 10 MG Dextrose 1,000 ml @ 30 mls/hr Q24H IV 04/15/25 09:15 04/16/25 11:30 30 MLS/HR Diagnostic Test (Pha) 1 strip Q6HR 04/15/25 12:00 04/16/25 12:09 1 STRIP Insulin Human Regular Q6HR SC 04/15/25 12:00 04/16/25 12:17 3 UNITS Zirconium Oxide 10 gm EOD PRN GT 04/16/25 10:00 Hydralazine HCl 50 mg Q8HR NG 04/16/25 06:00 04/16/25 06:02 50 MG Isosorbide Dinitrate 10 mg TID@06,12,18 PO 04/16/25 12:00 objective HEENT: ET tube in Pulmonary: Lungs are clear on auscultation bilaterally Cardiovascular S1-S2, no S3 or S4 Abdomen: Bowel sounds positive, soft no rebound tenderness Skin: No rash Neurological: Sedated laboratory and microbiology Laboratory Tests 04/16/25 04:52 Test 04/16/25 04:52 Range/Units Serum Glucose 141 H 74-106 mg/dL Assessment/Plan Assessment End-stage renal disease on hemodialysis Tuesday Hyperkalemia managed with dialysis and Lokelma Uremia due to noncompliance with dialysis. Hypertension Anemia of renal disease. Diabetes mellitus. Respiratory failure s/p cardiac arrest Plan HD to continue on MWF Increase hydralazine to 100 mg t.i.d., clonidine 0.1 mg t.i.d. p.r.n. SBP more than 180, Resume carvedilol which he gets at home 3.125 mg twice a day Nicardipine drip p.r.n. if blood pressure gets out of control in the 200s. Lokelma on non dialysis days Empiric IV antibiotics Cardiology follow up for possible pacemaker placement Stephan with dialysis Possible extubation today Thank you very much for allowing us to participate in the care of this patient please contact if you have any questions. Dietary Evaluation Review Comments: 1) Change TF formulary from Glucerna 1.2 to Nepro @ 30 goal rate as tolerated d/t ESRD. Flush with 150 mL free H2O Q6H. TF regimen will provide 1296 kcals, 58g Pro, and 1123 mL free H2O (including flushes) per 24 hrs. TF regimen will meet ~86% estimated energy needs and ~61% estimated protein needs. 2) Advance to 60g CCHO renal diet when medically feasible, pending ST approval 3) Refer to outpatient RD/[facility] for diabetes education/weight management 4) Follow-up with cardiology, pulmonology, and nephrology 5) Continue to monitor I&O, labs, and skin integrity Expected Outcomes/Goals: 1) TF regimen to meet at least 75% estimated daily needs 2) labs to improve 3) diet to advance 4) f/u in 2-3 days Plan discussed with: Patient REINIER JACQUES MD Apr 16, 2025 12:51
[2025-04-16 13:33] LABS: Base Excess -1.0 mmol/L (-2.0-3.0)
[2025-04-16] MEDS ORDERED: hydrALAZINE HCL 20 MG/ML VL IV SCH (14:00)
--- NOTE | 2025-04-16 15:53 | DVHPNRES ---
Progress Note Date Seen: Apr 16, 2025 Resident Creating Document: WHITNEY LAYTON RESIDENT Has the PT tested + for MRSA If YES, has PT been informed?: No Medical Necessity Reason Pt with a Central, PICC or Fol: Yes The following are medically ne: Central Line, Araiza Catheter Subjective Review of Systems * Today: Patient was successfully extubated after tolerating spontaneous breathing trials. Post-extubation vitals are stable: SpO? 93% on room air, RR 17, HR 84, BP 186/71. Lungs clear, good air exchange. * Patient is awake, following commands, denies chest pain or acute distress. * Hypertensive urgency noted post-extubation, for which patient was started on Hydralazine 50 mg PO TID, Isosorbide 10 mg TID, and Nicardipine IV drip at 2 mg/hr. Goal BP: maintain SBP >150 mmHg due to cerebral perfusion concerns post- ROSC. * Hemodialysis completed yesterday; electrolytes stable today. * Cefepime continued for Enterobacter cloacae pneumonia, per sensitivities. * Tube feeds paused laura-extubation, plan to resume nutrition as tolerated PO/enteral. Objective vital signs Vital Sign Date Time Temp Pulse Resp B/P (MAP) Pulse Ox O2 Delivery O2 Flow Rate FiO2 04/16/25 14:53 214/95 04/16/25 14:15 72 11 94 04/16/25 14:06 Mask 8.0 04/16/25 14:06 30 30 04/16/25 06:00 98.4 98.4 Total Intake and Output 04/15/25 04/15/25 04/16/25 15:00 23:00 07:00 Intake Total 372.5 ml 339.525 ml 324.335 ml Output Total 0 ml 140 ml Balance 372.5 ml 339.525 ml 184.335 ml medications Current Medications Medications Dose Ordered Sig/Duane Route Start Time Stop Time Status Last Admin Dose Admin Patient Own Medication 1 tab HS PO 04/10/25 22:00 Insulin Glargine 17 units DAILY SC 04/10/25 10:00 Norepinephrine Bitartrate 250 ml @ 3.75 mls/hr Q24H IV 04/12/25 04:00 04/12/25 03:40 3.75 MLS/HR Propofol 100 ml @ 3.114 mls/ hr Q24H IV 04/12/25 04:00 Fentanyl Citrate 250 ml @ 2.5 mls/hr Q24H IV 04/12/25 04:00 04/15/25 20:52 7.5 MLS/HR Midazolam HCl 50 ml @ 1 mls/hr Q24H IV 04/12/25 10:15 04/12/25 16:50 2 MLS/HR Lamotrigine 100 mg DAILY GT 04/12/25 12:00 Hold 04/12/25 18:26 100 MG Acetaminophen 650 mg Q6HP PRN OK 04/12/25 16:00 04/12/25 16:51 650 MG Enteral Nutritional Formula 1,000 ml 30ML/HR GT 04/12/25 18:45 04/14/25 18:25 1,000 ML Saccharomyces Boulardii 250 mg DAILY GT 04/13/25 12:15 04/15/25 10:00 250 MG Pantoprazole Sodium 40 mg BID IV 04/14/25 22:00 04/16/25 12:05 40 MG Cefepime HCl 50 ml @ 12.5 mls/hr POSTDI IV 04/15/25 22:00 Dextrose 50 ml ONCE PRN IV 04/15/25 06:45 Hydralazine HCl 10 mg TID PO 04/15/25 14:00 Hold 04/15/25 14:24 10 MG Dextrose 1,000 ml @ 30 mls/hr Q24H IV 04/15/25 09:15 04/16/25 11:30 30 MLS/HR Diagnostic Test (Pha) 1 strip Q6HR 04/15/25 12:00 04/16/25 12:09 1 STRIP Insulin Human Regular Q6HR SC 04/15/25 12:00 04/16/25 12:17 3 UNITS Zirconium Oxide 10 gm EOD PRN GT 04/16/25 10:00 Hydralazine HCl 50 mg Q8HR NG 04/16/25 06:00 04/16/25 06:02 50 MG Isosorbide Dinitrate 10 mg TID@06,12,18 PO 04/16/25 12:00 Carvedilol 3.125 mg Q12HR PO 04/16/25 22:00 Hydralazine HCl 10 mg Q4HPRN IV 04/16/25 14:00 Nicardipine/ Sodium Chloride 200 ml @ 50 mls/hr Q4H IV 04/16/25 14:00 04/16/25 14:53 50 MLS/HR Examination * General: Awake, post-extubation, hemodynamically stable. * HEENT: Pupils reactive, ETT removed, no stridor. * Cardiac: Regular rhythm, no murmurs, hypertensive. * Respiratory: Breath sounds bilaterally equal, no wheezing, mild bibasilar rales. * Abdomen: Soft, non-tender, bowel sounds present. * Extremities: Trace edema, peripheral pulses intact. * Neuro: Alert, oriented, no focal deficit. * Skin: No erythema, IO site clean. laboratory and microbiology Laboratory Tests 04/16/25 04:52 Test 04/16/25 04:52 Range/Units Serum Glucose 141 H 74-106 mg/dL Microbiology Date/Time Source Procedure Growth Status 04/12/25 08:46 Blood Blood Culture - Preliminary NO GROWTH AFTER 72 HOURS OF INCUBATION. Resulted 04/12/25 04:00 Nose MRSA Screen - Final Complete Problem List/Assessment/Plan Problem List/Assessment/Plan Assessment & Diagnoses 1. Acute hypoxic respiratory failure requiring invasive mechanical ventilation * On AC/VC mode, failed wean ? CPAP trial planned. 2. Severe sepsis due to gram-negative pneumonia (Enterobacter cloacae) with septic encephalopathy * Positive culture, cefepime sensitive. 3. Status post cardiopulmonary arrest with ROSC due to AV block / ventricular tachycardia * Ongoing risk, cardiology evaluating for pacing. 4. Hypertensive urgency during sedation wean * Managed with Hydralazine PO TID, labetalol PRN. 5. End-stage renal disease (ESRD) on chronic hemodialysis (MWF) * Cr 10.8, GFR 5. 6. Anemia of CKD with possible GI blood loss * Hgb 8.1, positive FOBT, on epoetin, iron deficiency noted. 7. Type 2 diabetes mellitus with variable glycemia (HbA1c 11.5%, uncontrolled) * Glucose 70275, on SSI and glargine. 8. Moderate pulmonary hypertension (RVSP 55 mmHg) on echo. 9. Electrolyte disturbances: hypocalcemia (Ca 7.7), mild hypomagnesemia. 10. Obesity (BMI 35.6) contributing to hypoventilation risk. System-Randle Plan Neuro * Continue neuro checks q2h. * Monitor mentation for post-hypoxic encephalopathy. Cardiovascular * Continue Hydralazine PO 50 mg TID, Isosorbide 10 mg TID, Nicardipine drip titrated (goal SBP >150). * Continuous telemetry. * Cardiology f/u for pacing strategy and long-term hypertension control. Respiratory * Monitor post-extubation O? sats, RR, ABG in AM. * Incentive spirometry and pulmonary hygiene. * Maintain aspiration precautions. Renal/Electrolytes * HD MWF; strict I/O, daily weights. * Lokelma PRN for K? >5.5. * Monitor Ca/Mg and replete as needed. Infectious Disease * Continue cefepime IV for Enterobacter pneumonia. * Repeat cultures PRN if febrile. Hematology * Continue epoetin with HD. * PRBC transfusion if Hgb <7. * Monitor GI losses; GI consult for positive FOBT. Endocrine * Continue SSI and basal insulin. * Dextrose PRN if BG <70. * Target glucose 416128 mg/dL. GI/Nutrition * PO diet as tolerated. * Protonix IV BID for GI prophylaxis and occult bleed coverage. * Bowel regimen. Prophylaxis * DVT: Heparin SQ q8h. * GI: PPI IV BID. * Pulmonary: HOB elevation, IS, pulmonary toilet. Case discussed in detail with the attending physician, including the clinical presentation, diagnostic workup, and comprehensive management plan. The patient was present for the discussion and demonstrated understanding of his condition and the proposed plan Plan discussed with: Other (RN, Brother) My Orders My Orders Orders - WHITNEY LAYTON RESIDENT Procedure Category Date Status Time Nicardipine 20 Mg/200 PHA 04/16/25 In Process Ml (Cardene Iv) 14:00 Complete Blood Count LAB 04/17/25 Verified 04:00 Comprehensive LAB 04/17/25 Verified Metabolic Panel 04:00 Dietary Evaluation Review Comments: 1) Change TF formulary from Glucerna 1.2 to Nepro @ 30 goal rate as tolerated d/t ESRD. Flush with 150 mL free H2O Q6H. TF regimen will provide 1296 kcals, 58g Pro, and 1123 mL free H2O (including flushes) per 24 hrs. TF regimen will meet ~86% estimated energy needs and ~61% estimated protein needs. 2) Advance to 60g CCHO renal diet when medically feasible, pending ST approval 3) Refer to outpatient RD/CDCES for diabetes education/weight management 4) Follow-up with cardiology, pulmonology, and nephrology 5) Continue to monitor I&O, labs, and skin integrity Expected Outcomes/Goals: 1) TF regimen to meet at least 75% estimated daily needs 2) labs to improve 3) diet to advance 4) f/u in 2-3 days Date of Service: Apr 16, 2025 Billing Provider: RON FRAIRE MD Common Visit Codes: [id number] CARE 30-74 MIN (crit care time 80 minutes) WHITNEY LAYTON RESIDENT Apr 16, 2025 15:53 RON FRAIRE MD Apr 17, 2025 15:41
[2025-04-16] MEDS: ISOSORBIDE DINITRATE 10 MG TAB PO SCH (18:00)
[2025-04-16] MEDS: CARVEDILOL 3.125 MG TAB PO SCH (22:00)
--- NOTE | 2025-04-16 22:49 | DVHPN2 ---
[facility] DOS: 04/16/2025 Patient seen and examined at bedside. Intubated on mechanical ventilator. Overnight events reviewed. HPI: A 55-year-old male with past medical history of ESRD on TTS dialysis, produces no to minimal urine, diabetes mellitus with diabetic neuropathy, and hypertension, who presented to the ER on 04/09/25 after two missed dialysis sessions with c/o generalized weakness, especially bilateral lower extremities. Patient was weak to the point that he could not walk and go to dialysis on day of presentation. He reported being noncompliant with his antihypertensive medications as well. He denied any chest pain, shortness of breath, abdominal pain or any other complaints. Patient was admitted for further care. Pulmonary consultation is requested for evaluation and management of acute hypoxic respiratory failure requiring mechanical ventilator. Past Medical History: ESRD on TTS dialysis, produces no to minimal urine. Diabetes mellitus with diabetic neuropathy, hypertension. 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 Allergies: No known drug allergies. Family History: No family history of premature CAD. No family history of lung disorders. Social History: Smokin pack years, quit 5 years ago Alcohol: Occasional, quit 5 years ago Drugs: Occasional marijuana, last use was more than 1 year ago Reviewed: Care Plan, H&P, Labs Changes from previous H/P or p: No Changes General: Per HPI Objective Vitals Vital Signs Date Time Temp Pulse Resp B/P (MAP) Pulse Ox O2 Delivery O2 Flow Rate FiO2 04/16/25 20:03 96 Nasal Cannula* 3 32 04/16/25 18:30 89 14 166/70 (102) 04/16/25 17:15 98.2 98.2 Intake/Output Intake and Output 04/16/25 07:00 Intake Total 1036.360 ml Output Total 140 ml Balance 896.360 ml IV Total 1036.360 ml Output Urine Total 0 ml Gastric Drainage Total 140 ml # Bowel Movements 2 General Appearance: Other (Encephalopathic) HEENT: Atraumatic, PERRLA Lungs: Other (On mechanical ventilator. Decreased air entry, transmitted breath sounds bilaterally) Cardiovascular: Normal S1, Normal S2 Abdomen: Normal bowel sounds, Soft, No tenderness, No hepatospenomegaly Musculoskeletal: Other Skin: Dry, Intact Psych/Mental Status: Other Medications Current Medications Medications Dose Ordered Sig/Duane Route Start Time Stop Time Status Last Admin Dose Admin Patient Own Medication 1 tab HS PO 04/10/25 22:00 Insulin Glargine 17 units DAILY SC 04/10/25 10:00 Norepinephrine Bitartrate 250 ml @ 3.75 mls/hr Q24H IV 04/12/25 04:00 04/12/25 03:40 3.75 MLS/HR Propofol 100 ml @ 3.114 mls/ hr Q24H IV 04/12/25 04:00 Fentanyl Citrate 250 ml @ 2.5 mls/hr Q24H IV 04/12/25 04:00 04/15/25 20:52 7.5 MLS/HR Midazolam HCl 50 ml @ 1 mls/hr Q24H IV 04/12/25 10:15 04/12/25 16:50 2 MLS/HR Lamotrigine 100 mg DAILY GT 04/12/25 12:00 Hold 04/12/25 18:26 100 MG Acetaminophen 650 mg Q6HP PRN SC 04/12/25 16:00 04/12/25 16:51 650 MG Enteral Nutritional Formula 1,000 ml 30ML/HR GT 04/12/25 18:45 04/14/25 18:25 1,000 ML Saccharomyces Boulardii 250 mg DAILY GT 04/13/25 12:15 04/15/25 10:00 250 MG Pantoprazole Sodium 40 mg BID IV 04/14/25 22:00 04/16/25 12:05 40 MG Cefepime HCl 50 ml @ 12.5 mls/hr POSTDI IV 04/15/25 22:00 Dextrose 50 ml ONCE PRN IV 04/15/25 06:45 Dextrose 1,000 ml @ 30 mls/hr Q24H IV 04/15/25 09:15 04/16/25 11:30 30 MLS/HR Diagnostic Test (Pha) 1 strip Q6HR 04/15/25 12:00 04/16/25 18:17 1 STRIP Insulin Human Regular Q6HR SC 04/15/25 12:00 04/16/25 18:30 3 UNITS Zirconium Oxide 10 gm EOD PRN GT 04/16/25 10:00 Hydralazine HCl 50 mg Q8HR NG 04/16/25 06:00 04/16/25 06:02 50 MG Isosorbide Dinitrate 10 mg TID@06,12,18 PO 04/16/25 12:00 Carvedilol 3.125 mg Q12HR PO 04/16/25 22:00 Nicardipine/ Sodium Chloride 200 ml @ 50 mls/hr Q4H IV 04/16/25 14:00 04/16/25 18:18 50 MLS/HR Laboratory Results Laboratory Tests 04/16/25 04:52 Chemistry Test 04/16/25 04:52 Albumin 3.6 g/dL (3.2-4.8) Calcium Level 8.3 mg/dL (8.7-10.4) L Total Protein 7.2 g/dL (5.7-8.2) LFT Test 04/16/25 04:52 Alanine Aminotransferase (ALT) 19 U/L (7-40) Alkaline Phosphatase 68 U/L (46-116) Aspartate Amino Transferase (AST) 29 U/L (13-40) Total Bilirubin 0.5 mg/dL (0.2-1.0) Blood Gas Results Test 04/16/25 06:10 04/16/25 13:27 Arterial Blood pH 7.390 (7.350-7.450) 7.387 (7.350-7.450) FiO2 % 30.0 30.0 Microbiology Microbiology Date/Time Source Procedure Growth Status 04/12/25 08:46 Blood Blood Culture - Preliminary NO GROWTH AFTER 72 HOURS OF INCUBATION. Resulted 04/12/25 04:00 Nose MRSA Screen - Final Complete Assessment/Plan Assessment/Plan Impression: Acute hypoxic respiratory failure On mechanical ventilator, s/p extubation Pneumonia due to GNR DM type II Anemia Shock, resolved End-stage renal disease, on hemodialysis Hx of nicotine dependence Obesity, BMI 35.6 Events: Patient assessed on vent support On AC mode; RR 18, VT 500, PEEP 5, FiO2 30% ABG reviewed, compensated. Continue antibiotics Blood pressure control. On nicardipine drip. Monitor hemoglobin - currently 8.7 g/dL Transfuse if less than 7.0 g/dL. FOBT positive Protonix BID for GI ppx Accu-Cheks, ISS. Patient tolerated CPAP, weaning parameters reviewed, and pt underwent successful extubation. He was placed on 10 LPM simple mask Continue head of bed elevation Aspiration precautions HD per Nephrology F/u Nephrology recommendations Labs and imaging reviewed. Rest of plan as noted below. Plan: S/p extubation On supplemental oxygen Titrate to keep O2 sats above 90%. CT head shows no evidence of intracranial hemorrhage or stroke. Continue antibiotics. Follow up cultures. Blood cx show no growth for 72 hours Sputum cx show normal oropharyngeal andreina; moderate growth of GNRs. Pressors as necessary for hemodynamic support Titrate to keep mean arterial pressure greater than 65 mmHg. Off pressors since 04/12/2025 HD per Nephrology - 3 L removed on 04/12/2025 Monitor renal function Monitor electrolytes. Supplement as necessary. Monitor ins and outs. Maintain euvolemia. Monitor hemoglobin Transfuse if less than 7.0 g/dL. FOBT positive GI prophylaxis. DVT prophylaxis. Prognosis: Poor given patient's multiple co-morbidities. Condition: Critical Rest of plan per hospitalist and other consultants. A total of 35 minutes of critical care time was spent reviewing the patient record, examining the patient, making a diagnostic and therapeutic plan, discussing this plan with the medical personnel, following up on diagnostic studies and following the patient for clinical stability excluding any and all procedures. At least 50% of this time was spent in direct, [id number] contact. Thank you, Dr. Soares, for allowing me to participate in this patient's care. Further recommendations will depend on the patient's clinical course. Please do not hesitate to contact me if you have any questions or concerns. This medical document was created using an electronic medical record system with [employer] dictation system. Although these documentations are being carefully reviewed, there may still be some phonetic and typographical changes. The errors are purely typographical, due to imperfection on the software program, and do not reflect any compromise in the patient's medical care. Plan discussed with: Other (MICHELLE Christiansen) My Orders Orders - NATY GARVIN MD Procedure Category Date Status Time Ventilator Orders RT 04/16/25 Transmitted 04:24 Abg W/ Co-Ox RT 04/16/25 Logged 06:00 Date of Service: Apr 16, 2025 Billing Provider: NATY GARVIN MD Common Visit Codes: [id number] INP/OBS CARE(HIGH), [id number] CARE 30-74 MIN NATY GARVIN MD Apr 16, 2025 22:49
--- NOTE | 2025-04-16 23:59 | DVHPN2 ---
Progress Note - Dictate Date Seen: Apr 16, 2025 Has the PT tested + for MRSA If YES, has PT been informed?: No Medical Necessity Reason Pt with a Central, PICC or Fol: Yes The following are medically ne: Central Line, Araiza Catheter Subjective Patient was seen and evaluated in follow up in the ICU. Patient was successfully extubated after tolerating spontaneous breathing trials. Patient now on 3 LPM NC. Patient is awake, following commands. BP became elevated after extubation. HGB 8.7, HCT 26.2, BUN 31, Recruitment Intern 7.55. vital signs Vital Sign Date Time Temp Pulse Resp B/P (MAP) Pulse Ox O2 Delivery O2 Flow Rate FiO2 04/16/25 20:03 96 Nasal Cannula* 3 32 04/16/25 20:00 88 11 04/16/25 18:30 166/70 (102) 04/16/25 17:15 98.2 98.2 Total Intake and Output 04/15/25 04/15/25 04/16/25 15:00 23:00 07:00 Intake Total 372.5 ml 339.525 ml 324.335 ml Output Total 0 ml 140 ml Balance 372.5 ml 339.525 ml 184.335 ml medications Current Medications Medications Dose Ordered Sig/Duane Route Start Time Stop Time Status Last Admin Dose Admin Patient Own Medication 1 tab HS PO 04/10/25 22:00 Insulin Glargine 17 units DAILY SC 04/10/25 10:00 Norepinephrine Bitartrate 250 ml @ 3.75 mls/hr Q24H IV 04/12/25 04:00 04/12/25 03:40 3.75 MLS/HR Propofol 100 ml @ 3.114 mls/ hr Q24H IV 04/12/25 04:00 Fentanyl Citrate 250 ml @ 2.5 mls/hr Q24H IV 04/12/25 04:00 04/15/25 20:52 7.5 MLS/HR Midazolam HCl 50 ml @ 1 mls/hr Q24H IV 04/12/25 10:15 04/12/25 16:50 2 MLS/HR Lamotrigine 100 mg DAILY GT 04/12/25 12:00 Hold 04/12/25 18:26 100 MG Acetaminophen 650 mg Q6HP PRN [place] 04/12/25 16:00 04/12/25 16:51 650 MG Enteral Nutritional Formula 1,000 ml 30ML/HR GT 04/12/25 18:45 04/14/25 18:25 1,000 ML Saccharomyces Boulardii 250 mg DAILY GT 04/13/25 12:15 04/15/25 10:00 250 MG Pantoprazole Sodium 40 mg BID IV 04/14/25 22:00 04/16/25 12:05 40 MG Cefepime HCl 50 ml @ 12.5 mls/hr POSTDI IV 04/15/25 22:00 Dextrose 50 ml ONCE PRN IV 04/15/25 06:45 Dextrose 1,000 ml @ 30 mls/hr Q24H IV 04/15/25 09:15 04/16/25 11:30 30 MLS/HR Diagnostic Test (Pha) 1 strip Q6HR 04/15/25 12:00 04/16/25 18:17 1 STRIP Insulin Human Regular Q6HR SC 04/15/25 12:00 04/16/25 18:30 3 UNITS Zirconium Oxide 10 gm EOD PRN GT 04/16/25 10:00 Hydralazine HCl 50 mg Q8HR NG 04/16/25 06:00 04/16/25 06:02 50 MG Isosorbide Dinitrate 10 mg TID@06,12,18 PO 04/16/25 12:00 Carvedilol 3.125 mg Q12HR PO 04/16/25 22:00 Nicardipine/ Sodium Chloride 200 ml @ 50 mls/hr Q4H IV 04/16/25 14:00 04/16/25 18:18 50 MLS/HR objective GENERAL: Alert and oriented x 3. No acute distress. Obese. EYES: PERRL, EOMI. Anicteric. HENT: Moist mucous membranes. LUNGS: Clear to auscultation bilaterally. CARDIOVASCULAR: Regular rate and rhythm. ABDOMEN: Soft, nontender and nondistended. EXTREMITIES: No edema. SKIN: Hyperpigmentation to bilateral lower extremities. laboratory and microbiology Laboratory Tests 04/16/25 04:52 Test 04/16/25 04:52 Range/Units Serum Glucose 141 H 74-106 mg/dL Problem List Cardiopulmonary arrest status post CPR with return of spontaneous circulation. High-degree atrioventricular block, complete heart block. Ventricular tachycardia. NSTEMI, rule out coronary artery disease. Rule out structural heart disease. Acute hypoxic respiratory failure. Hypertension. Hyperkalemia, resolved. ESRD on hemodialysis. Type 2 diabetes mellitus, uncontrolled (Hbg A1c 11.5%). Medical noncompliance. Assessment/Plan Continued all current supportive medical care. Coreg, Hydralazine. IV antibiotics as ordered. Nicardipine drip. Vasopressors for hemodynamic support. GI prophylactics. Additional plan as per the hospital course. Critical care time of 45 minutes provided to include time spent evaluation of patient at bedside, when appropriate patient/family education for diagnosis, treatment plan, review of pertinent medical information and discussion of care with specialty providers and PCP. Dietary Evaluation Review Comments: 1) Change TF formulary from Glucerna 1.2 to Nepro @ 30 goal rate as tolerated d/t ESRD. Flush with 150 mL free H2O Q6H. TF regimen will provide 1296 kcals, 58g Pro, and 1123 mL free H2O (including flushes) per 24 hrs. TF regimen will meet ~86% estimated energy needs and ~61% estimated protein needs. 2) Advance to 60g CCHO renal diet when medically feasible, pending ST approval 3) Refer to outpatient RD/CDCES for diabetes education/weight management 4) Follow-up with cardiology, pulmonology, and nephrology 5) Continue to monitor I&O, labs, and skin integrity Expected Outcomes/Goals: 1) TF regimen to meet at least 75% estimated daily needs 2) labs to improve 3) diet to advance 4) f/u in 2-3 days Plan discussed with: Patient INA ARRIOLA MD Apr 16, 2025 23:59
[2025-04-17] VITALS (98 sets, daily range): BP systolic 78–231; BP diastolic 33–198; PULSE 88–103; RESP 10–24; TEMP 99–100.1; O2SAT 87–99
[2025-04-17 05:14] LABS: Hematocrit 26.0 % (41.0-53.0); Hemoglobin 8.7 g/dL (13.5-17.5); Mean Corpuscular Hemoglobin 28.9 pg (28.0-32.0); Mean Corpuscular Volume 87.0 fL (80.0-100.0); Nucleated Red Blood Cells % 0.3 %
[2025-04-17 05:30] LABS: Alanine Aminotransferase 16 U/L (7-40); Albumin 3.5 g/dL (3.2-4.8); Alkaline Phosphatase 71 U/L (46-116); Anion Gap 15 (5-15); BUN/Creatinine Ratio 4.0 (10.0-20.0); Carbon Dioxide 25 mmol/L (20-31); Potassium 3.7 mmol/L (3.5-5.1); Sodium 136 mmol/L (136-145); Total Protein 7.0 g/dL (5.7-8.2)
[2025-04-17 05:31] LABS: Bilirubin, Total 0.4 mg/dL (0.2-1.0); Blood Urea Nitrogen 37 mg/dL (9-23); Chloride 96 mmol/L (98-107); Glucose 136 mg/dL (74-106)
--- NOTE | 2025-04-17 05:35 | DVH ---
CHEST RADIOGRAPH Indication: ET intubation Technique: Single frontal view of the chest was obtained COMPARISON: XY CHEST XRAY 1 VIEW on DOS: 04/16/25, XY CHEST XRAY 1 VIEW on DOS: 04/15/25, XY CHEST PORT ABLE on DOS: 04/14/25, XY CHEST XRAY 1 VIEW on DOS: 04/13/25, XY CHEST PORTABLE on DOS: 04/12/25 FINDINGS: Lines and Tubes: Status post interval extubation and removal of enteric catheter. Remaining lines and tubes unchanged. Lungs: Mild diffuse increased prominence of the pulmonary vasculature. No evidence of focal consolida tion. Pleura: No effusion. No pneumothorax. Cardiomediastinal contours: Cardiomegaly. Bones: Unremarkable IMPRESSION: 1. Status post interval extubation and removal of enteric catheter. Remaining lines and tubes unchang ed. 2. Mild diffuse increased prominence of the pulmonary vasculature. 3. Cardiomegaly.
[2025-04-17 05:39] LABS: Calcium 8.2 mg/dL (8.7-10.4)
[2025-04-17] MEDS: HALOPERIDOL LACTATE 5 MG/ML INJ VIAL IM ONE (10:23)
[2025-04-17] MEDS: SODIUM CHL 0.9% 1000 ML BAG XX ONE (12:55)
[2025-04-17] MEDS: PANTOPRAZOLE 40 MG/10 ML VIAL INJ IV SCH (13:00)
[2025-04-17] MEDS ORDERED: CALC667C PO (15:46)
[2025-04-17] MEDS ORDERED: SERT150C PO (15:46)
[2025-04-17] MEDS ORDERED: TENA20TA PO (15:46)
[2025-04-17] MEDS ORDERED: CLON0.1D13 TD (15:46)
[2025-04-17] MEDS ORDERED: ARIP2TAB48 PO (15:46)
[2025-04-17] MEDS ORDERED: ERGO400T PO (15:46)
--- NOTE | 2025-04-17 16:40 | DVHPNRES ---
Progress Note Date Seen: Apr 17, 2025 Resident Creating Document: WHITNEY LAYTON RESIDENT Has the PT tested + for MRSA If YES, has PT been informed?: No Medical Necessity Reason Pt with a Central, PICC or Fol: Yes The following are medically ne: Central Line, Araiza Catheter Subjective Review of Systems * Today: Patient remains status post-extubation and is currently stable on 3L NC O?, SpO? 98%, RR 15, pulse 92, BP 160/63, sinus rhythm. * Patient demonstrates active psychosis post-extubationhallucinations, insomnia, and agitation but non-combative. Family reports patient still intermittently follows commands. Tele-psychiatry consult ordered. * Speech and swallow evaluation requested to assess safety for PO intake. * Protonix converted from PO 40 mg BID to IV 40 mg BID for GI prophylaxis. * Patient had 2 bowel movements yesterday, no abdominal pain. * Labs: BUN 37 (?), Cr 9.14 (?, ESRD baseline), Hgb 8.7 (?, anemia of CKD),, platelets 255 (normal). * Imaging: Chest X-ray shows cardiomegaly with mild diffuse pulmonary vascular congestion. * Patient hemodynamically stable but requires BP optimization. Brief Gist of Todays Progress * Post-extubation: stable on NC O?, SpO? 98%. * Active psychosis ? tele-psychiatry consult ordered. * Converted Protonix to IV due to uncertain PO tolerance. * Speech/swallow eval placed. * Hemodialysis schedule maintained, BUN/Cr remain elevated. * Anemia stable (Hgb 8.7); * Chest X-ray shows cardiomegaly and pulmonary vascular congestion; * General: Awake, restless, hallucinating, no acute distress. * HEENT: No headache, follows commands intermittently. * CV: Denies chest pain; stable pulse. * Resp: No shortness of breath on NC O?. * GI: 2 bowel movements yesterday, no pain. * : ESRD on HD. * Neuro: Actively psychotic, non-combative, intermittent orientation. * Skin: Warm, intact, no rashes. Objective vital signs Vital Sign Date Time Temp Pulse Resp B/P (MAP) Pulse Ox O2 Delivery O2 Flow Rate FiO2 04/17/25 15:15 169/70 04/17/25 14:10 96 15 96 04/17/25 14:00 Nasal Cannula* 3 32 04/17/25 12:01 99.4 99.4 Total Intake and Output 04/16/25 04/16/25 04/17/25 15:00 23:00 07:00 Intake Total 398.766 ml 690 ml 560 ml Output Total 0 ml 0 ml Balance 398.766 ml 690 ml 560 ml medications Current Medications Medications Dose Ordered Sig/Duane Route Start Time Stop Time Status Last Admin Dose Admin Patient Own Medication 1 tab HS PO 04/10/25 22:00 Insulin Glargine 17 units DAILY SC 04/10/25 10:00 04/17/25 10:25 17 UNITS Lamotrigine 100 mg DAILY GT 04/12/25 12:00 Hold 04/12/25 18:26 100 MG Acetaminophen 650 mg Q6HP PRN [place] 04/12/25 16:00 04/12/25 16:51 650 MG Enteral Nutritional Formula 1,000 ml 30ML/HR GT 04/12/25 18:45 04/14/25 18:25 1,000 ML Saccharomyces Boulardii 250 mg DAILY GT 04/13/25 12:15 04/15/25 10:00 250 MG Cefepime HCl 50 ml @ 12.5 mls/hr POSTDI IV 04/15/25 22:00 Dextrose 50 ml ONCE PRN IV 04/15/25 06:45 Dextrose 1,000 ml @ 30 mls/hr Q24H IV 04/15/25 09:15 04/17/25 15:15 30 MLS/HR Diagnostic Test (Pha) 1 strip Q6HR 04/15/25 12:00 04/17/25 12:55 1 STRIP Insulin Human Regular Q6HR SC 04/15/25 12:00 04/17/25 12:55 2 UNITS Zirconium Oxide 10 gm EOD PRN GT 04/16/25 10:00 Hydralazine HCl 50 mg Q8HR NG 04/16/25 06:00 04/16/25 06:02 50 MG Isosorbide Dinitrate 10 mg TID@06,12,18 PO 04/16/25 12:00 Carvedilol 3.125 mg Q12HR PO 04/16/25 22:00 Nicardipine/ Sodium Chloride 200 ml @ 50 mls/hr Q4H IV 04/16/25 14:00 04/17/25 15:15 50 MLS/HR Pantoprazole Sodium 40 mg DAILY IV 04/17/25 13:00 Examination Vitals: BP 160/63, HR 92, RR 15, Temp 98.2F, SpO? 98% on 3L NC. * General: Awake, alert, psychotic but non-combative. * HEENT: NC O? in place, pupils reactive. * Cardiac: Regular, S1/S2, no murmurs, cardiomegaly on imaging. * Resp: Breath sounds symmetric, mild bibasilar rales. * Abdomen: Soft, non-tender, normoactive bowel sounds. * Extremities: No cyanosis, trace edema. * Neuro: Alert but psychotic, intermittent command following. * Skin: Intact, warm. laboratory and microbiology Laboratory Tests 04/17/25 04:41 Test 04/17/25 04:41 Range/Units Serum Glucose 136 H 74-106 mg/dL Microbiology Date/Time Source Procedure Growth Status 04/12/25 08:46 Blood Blood Culture - Final NO GROWTH AFTER 5 DAYS OF INCUBATION. Complete 04/12/25 04:00 Nose MRSA Screen - Final Complete Problem List/Assessment/Plan Problem List/Assessment/Plan . Assessment & Diagnoses Acute hypoxic respiratory failure, post-extubation, stable * Rule in: required intubation, now extubated, stable O? sats. Psychosis with hallucinations, insomnia, underlying schizophrenia and bipolar disorder (CC) * Tele-psych consult ordered. Hypertension, currently controlled (160/63) post-extubation * On multidrug regimen with Hydralazine, Isosorbide, Nicardipine. ESRD on chronic hemodialysis (MWF) * BUN 37, Cr 9.14. HFpEF * CXR + echo: mild diastolic dysfunction, moderate atrial/ventricular dilation. Type 2 diabetes mellitus, uncontrolled (HbA1c 11.5%) * Glucose controlled with insulin regimen. Positive occult GI bleed (previously) ? risk for ongoing anemia. Obesity (BMI 35.6) Status post cardiopulmonary arrest with ROSC due to AV block/ventricular tachycardia Sepsis due to Enterobacter cloacae pneumonia with septic encephalopathy, improving ([facility] [place]) * Sensitive to cefepime, continued. Moderate pulmonary hypertension (RVSP 55 mmHg) per echo. System-Randle Plan System-Randle Treatment Plan Neuro/Psych * Tele-psych consult for active psychosis. * Restart/reconcile home psychiatric meds once available from family. * Avoid benzodiazepines unless agitation worsens. Cardiovascular * Continue Hydralazine, Isosorbide, Nicardipine drip titrated as needed. * Goal SBP >150 for cerebral perfusion but avoid >180. * Monitor with telemetry. Respiratory * Post-extubation monitoring. * O? via NC, wean as tolerated. * Incentive spirometry, pulmonary hygiene. Renal/Electrolytes * Continue HD MWF. * Daily BMP, replete Ca/Mg. * Lokelma for hyperkalemia PRN. Hematology * Epoetin with dialysis. * Monitor H/H daily. * Transfuse PRBC if Hgb <7. * Evaluate leukopenia (repeat CBC, consider infectious vs hematologic cause). Infectious Disease * Continue cefepime IV for Enterobacter cloacae pneumonia. Endocrine * SSI + basal insulin. * Target BG [id number]. GI/Nutrition * Protonix IV . * Speech & swallow eval prior to PO. * Resume tube feeds if fails swallow eval. * GI consult for prior positive FOBT. Prophylaxis * DVT: lovenox SQ. * GI: PPI BID. * Pulmonary: IS, HOB elevation. The duration of time spent in direct critical care management of this patient, including evaluation, review of clinical data, coordination of care, and decision-making, was 45 minutes. Case discussed in detail with the attending physician, including the clinical presentation, diagnostic workup, and comprehensive management plan. The patient was present for the discussion and demonstrated understanding of his condition and the proposed plan Plan discussed with: Patient My Orders My Orders Orders - WHITNEY LAYTON RESIDENT Procedure Category Date Status Time Pantoprazole PHA 04/17/25 In Process (Protonix) 13:00 *Tele Psych Consult CONS 04/17/25 Transmitted 12:53 * Swallow Request ST 04/17/25 Transmitted 12:53 St Eval Swallow Funct ST 04/17/25 Logged 45min 12:53 Dietary Evaluation Review Comments: 1) Change TF formulary from Glucerna 1.2 to Nepro @ 30 goal rate as tolerated d/t ESRD. Flush with 150 mL free H2O Q6H. TF regimen will provide 1296 kcals, 58g Pro, and 1123 mL free H2O (including flushes) per 24 hrs. TF regimen will meet ~86% estimated energy needs and ~61% estimated protein needs. 2) Advance to 60g CCHO renal diet when medically feasible, pending ST approval 3) Refer to outpatient RD/CDCES for diabetes education/weight management 4) Follow-up with cardiology, pulmonology, and nephrology 5) Continue to monitor I&O, labs, and skin integrity Expected Outcomes/Goals: 1) TF regimen to meet at least 75% estimated daily needs 2) labs to improve 3) diet to advance 4) f/u in 2-3 days Date of Service: Apr 17, 2025 Billing Provider: RON FRAIRE MD Common Visit Codes: [id number] INP/OBS CARE(HIGH) WHITNEY LAYTON RESIDENT Apr 17, 2025 16:40 RON FRAIRE MD Apr 24, 2025 22:41
--- NOTE | 2025-04-17 17:03 | DVHPN2 ---
Progress Note - Dictate Date Seen: Apr 17, 2025 Has the PT tested + for MRSA If YES, has PT been informed?: No Medical Necessity Reason Pt with a Central, PICC or Fol: Yes The following are medically ne: Central Line, Araiza Catheter Subjective Patient's family is at bedside and the mom. Patient was extubated blood pressure has required on and off nicardipine drip. 3 L UF today achieved with no problems. Patient has had some hallucinations. vital signs Vital Sign Date Time Temp Pulse Resp B/P (MAP) Pulse Ox O2 Delivery O2 Flow Rate FiO2 04/17/25 16:15 177/66 04/17/25 16:00 13 95 Nasal Cannula* 3 32 04/17/25 14:10 96 04/17/25 12:01 99.4 99.4 Total Intake and Output 04/16/25 04/16/25 04/17/25 15:00 23:00 07:00 Intake Total 398.766 ml 690 ml 560 ml Output Total 0 ml 0 ml Balance 398.766 ml 690 ml 560 ml medications Current Medications Medications Dose Ordered Sig/Duane Route Start Time Stop Time Status Last Admin Dose Admin Patient Own Medication 1 tab HS PO 04/10/25 22:00 Insulin Glargine 17 units DAILY SC 04/10/25 10:00 04/17/25 10:25 17 UNITS Lamotrigine 100 mg DAILY GT 04/12/25 12:00 Hold 04/12/25 18:26 100 MG Acetaminophen 650 mg Q6HP PRN [place] 04/12/25 16:00 04/12/25 16:51 650 MG Enteral Nutritional Formula 1,000 ml 30ML/HR GT 04/12/25 18:45 04/14/25 18:25 1,000 ML Saccharomyces Boulardii 250 mg DAILY GT 04/13/25 12:15 04/15/25 10:00 250 MG Cefepime HCl 50 ml @ 12.5 mls/hr POSTDI IV 04/15/25 22:00 Dextrose 50 ml ONCE PRN IV 04/15/25 06:45 Dextrose 1,000 ml @ 30 mls/hr Q24H IV 04/15/25 09:15 04/17/25 15:15 30 MLS/HR Diagnostic Test (Pha) 1 strip Q6HR 04/15/25 12:00 04/17/25 12:55 1 STRIP Insulin Human Regular Q6HR SC 04/15/25 12:00 04/17/25 12:55 2 UNITS Zirconium Oxide 10 gm EOD PRN GT 04/16/25 10:00 Isosorbide Dinitrate 10 mg TID@06,12,18 PO 04/16/25 12:00 Carvedilol 3.125 mg Q12HR PO 04/16/25 22:00 Nicardipine/ Sodium Chloride 200 ml @ 50 mls/hr Q4H IV 04/16/25 14:00 04/17/25 15:15 50 MLS/HR Pantoprazole Sodium 40 mg DAILY IV 04/17/25 13:00 Hydralazine HCl 50 mg Q8HR NG 04/17/25 17:00 UNV Nifedipine 60 mg QPM PO 04/17/25 18:00 UNV Clonidine HCl 0.1 mg Q7D TD 04/17/25 17:00 UNV objective HEENT: No oral lesions noticed Pulmonary: Lungs are clear on auscultation bilaterally Cardiovascular S1-S2, no S3 or S4 Abdomen: Bowel sounds positive, soft no rebound tenderness Skin: No rash Neurological: Alert and oriented no focal weakness laboratory and microbiology Laboratory Tests 04/17/25 04:41 Test 04/17/25 04:41 Range/Units Serum Glucose 136 H 74-106 mg/dL Assessment/Plan Assessment End-stage renal disease on hemodialysis Tuesday Hyperkalemia managed with dialysis and Lokelma Uremia managed with dialysis Accelerated hypertension Anemia of renal disease. Diabetes mellitus. Respiratory failure s/p cardiac arrest Plan HD to continue on MWF, today 3 L UF achieved Apply clonidine patch today. The patient states that he voids for gets putting it on. Resume carvedilol which he gets at home 3.125 mg twice a day Nifedipine 60 mg q.h.s. Resume antipsychotic meds Lokelma on non dialysis days Empiric IV antibiotics Cardiology consult appreciated Stephan with dialysis Plan of care discussed with the RN at bedside Thank you very much for allowing us to participate in the care of this patient please contact if you have any questions. Dietary Evaluation Review Comments: 1) Change TF formulary from Glucerna 1.2 to Nepro @ 30 goal rate as tolerated d/t ESRD. Flush with 150 mL free H2O Q6H. TF regimen will provide 1296 kcals, 58g Pro, and 1123 mL free H2O (including flushes) per 24 hrs. TF regimen will meet ~86% estimated energy needs and ~61% estimated protein needs. 2) Advance to 60g CCHO renal diet when medically feasible, pending ST approval 3) Refer to outpatient RD/CDCES for diabetes education/weight management 4) Follow-up with cardiology, pulmonology, and nephrology 5) Continue to monitor I&O, labs, and skin integrity Expected Outcomes/Goals: 1) TF regimen to meet at least 75% estimated daily needs 2) labs to improve 3) diet to advance 4) f/u in 2-3 days Plan discussed with: Patient REINIER JACQUES MD Apr 17, 2025 17:03
[2025-04-17] MEDS: cloNIDine 0.1 mg/24hr 7 DAY PATCH TD SCH (18:13)
[2025-04-17] MEDS: EPOETIN ALFA-EPBX 4,000 UNIT/ML VIAL SC ONE (21:47)
--- NOTE | 2025-04-17 22:07 | DVHPN2 ---
Progress Note - Dictate Date Seen: Apr 17, 2025 Has the PT tested + for MRSA If YES, has PT been informed?: No Medical Necessity Reason Pt with a Central, PICC or Fol: Yes The following are medically ne: Central Line, Araiza Catheter Subjective Patient was seen and evaluated in follow up in the ICU. Patient is on 3 LPM NC. Patient passed swallow eval. HGB 8.7, HCT 26, BUN 37, SENIOR GL ACCOUNTANT 9.14, CA 8.2. Chest x- ray shows mild diffuse increased prominence of the pulmonary vasculature and cardiomegaly. vital signs Vital Sign Date Time Temp Pulse Resp B/P (MAP) Pulse Ox O2 Delivery O2 Flow Rate FiO2 04/17/25 14:00 12 98 Nasal Cannula* 3 32 04/17/25 11:00 91 168/68 (101) 04/17/25 08:00 99.1 99.1 Total Intake and Output 04/16/25 04/16/25 04/17/25 15:00 23:00 07:00 Intake Total 398.766 ml 690 ml 560 ml Output Total 0 ml 0 ml Balance 398.766 ml 690 ml 560 ml medications Current Medications Medications Dose Ordered Sig/Duane Route Start Time Stop Time Status Last Admin Dose Admin Patient Own Medication 1 tab HS PO 04/10/25 22:00 Insulin Glargine 17 units DAILY SC 04/10/25 10:00 04/17/25 10:25 17 UNITS Lamotrigine 100 mg DAILY GT 04/12/25 12:00 Hold 04/12/25 18:26 100 MG Acetaminophen 650 mg Q6HP PRN [place] 04/12/25 16:00 04/12/25 16:51 650 MG Enteral Nutritional Formula 1,000 ml 30ML/HR GT 04/12/25 18:45 04/14/25 18:25 1,000 ML Saccharomyces Boulardii 250 mg DAILY GT 04/13/25 12:15 04/15/25 10:00 250 MG Cefepime HCl 50 ml @ 12.5 mls/hr POSTDI IV 04/15/25 22:00 Dextrose 50 ml ONCE PRN IV 04/15/25 06:45 Dextrose 1,000 ml @ 30 mls/hr Q24H IV 04/15/25 09:15 04/16/25 11:30 30 MLS/HR Diagnostic Test (Pha) 1 strip Q6HR 04/15/25 12:00 04/17/25 12:55 1 STRIP Insulin Human Regular Q6HR SC 04/15/25 12:00 04/17/25 12:55 2 UNITS Zirconium Oxide 10 gm EOD PRN GT 04/16/25 10:00 Hydralazine HCl 50 mg Q8HR NG 04/16/25 06:00 04/16/25 06:02 50 MG Isosorbide Dinitrate 10 mg TID@06,12,18 PO 04/16/25 12:00 Carvedilol 3.125 mg Q12HR PO 04/16/25 22:00 Nicardipine/ Sodium Chloride 200 ml @ 50 mls/hr Q4H IV 04/16/25 14:00 04/17/25 07:53 50 MLS/HR Pantoprazole Sodium 40 mg DAILY IV 04/17/25 13:00 objective GENERAL: Alert and oriented x 3. No acute distress. Obese. EYES: PERRL, EOMI. Anicteric. HENT: Moist mucous membranes. LUNGS: Clear to auscultation bilaterally. CARDIOVASCULAR: Regular rate and rhythm. ABDOMEN: Soft, nontender and nondistended. EXTREMITIES: No edema. SKIN: Hyperpigmentation to bilateral lower extremities. laboratory and microbiology Laboratory Tests 04/17/25 04:41 Test 04/17/25 04:41 Range/Units Serum Glucose 136 H 74-106 mg/dL Problem List Cardiopulmonary arrest status post CPR with return of spontaneous circulation. High-degree atrioventricular block, complete heart block. Ventricular tachycardia. NSTEMI, rule out coronary artery disease. Rule out structural heart disease. Acute hypoxic respiratory failure. Hypertension. Hyperkalemia, resolved. ESRD on hemodialysis. Type 2 diabetes mellitus, uncontrolled (Hbg A1c 11.5%). Medical noncompliance. Assessment/Plan Continued all current supportive medical care. Nicardipine drip. IV antibiotics as ordered. Additional plan as per the hospital course. Critical care time of 45 minutes provided to include time spent evaluation of patient at bedside, when appropriate patient/family education for diagnosis, treatment plan, review of pertinent medical information and discussion of care with specialty providers and PCP. Dietary Evaluation Review Comments: 1) Change TF formulary from Glucerna 1.2 to Nepro @ 30 goal rate as tolerated d/t ESRD. Flush with 150 mL free H2O Q6H. TF regimen will provide 1296 kcals, 58g Pro, and 1123 mL free H2O (including flushes) per 24 hrs. TF regimen will meet ~86% estimated energy needs and ~61% estimated protein needs. 2) Advance to 60g CCHO renal diet when medically feasible, pending ST approval 3) Refer to outpatient RD/CDCES for diabetes education/weight management 4) Follow-up with cardiology, pulmonology, and nephrology 5) Continue to monitor I&O, labs, and skin integrity Expected Outcomes/Goals: 1) TF regimen to meet at least 75% estimated daily needs 2) labs to improve 3) diet to advance 4) f/u in 2-3 days Plan discussed with: Patient INA ARRIOLA MD Apr 17, 2025 14:35
--- NOTE | 2025-04-17 23:47 | DVHPN2 ---
[facility] DOS: 04/17/2025 Patient seen and examined at bedside. On supplemental oxygen Overnight events reviewed. HPI: A 55-year-old male with past medical history of ESRD on TTS dialysis, produces no to minimal urine, diabetes mellitus with diabetic neuropathy, and hypertension, who presented to the ER on 04/09/25 after two missed dialysis sessions with c/o generalized weakness, especially bilateral lower extremities. Patient was weak to the point that he could not walk and go to dialysis on day of presentation. He reported being noncompliant with his antihypertensive medications as well. He denied any chest pain, shortness of breath, abdominal pain or any other complaints. Patient was admitted for further care. Pulmonary consultation is requested for evaluation and management of acute hypoxic respiratory failure requiring mechanical ventilator. Past Medical History: ESRD on TTS dialysis, produces no to minimal urine. Diabetes mellitus with diabetic neuropathy, hypertension. 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 Allergies: No known drug allergies. Family History: No family history of premature CAD. No family history of lung disorders. Social History: Smokin pack years, quit 5 years ago Alcohol: Occasional, quit 5 years ago Drugs: Occasional marijuana, last use was more than 1 year ago Reviewed: Care Plan, H&P, Labs Changes from previous H/P or p: No Changes General: Per HPI Objective Vitals Vital Signs Date Time Temp Pulse Resp B/P (MAP) Pulse Ox O2 Delivery O2 Flow Rate FiO2 04/17/25 22:51 97 159/61 04/17/25 20:00 20 98 Nasal Cannula* 3 32 04/17/25 15:30 99.0 99.0 Intake/Output Intake and Output 04/17/25 07:00 Intake Total 1648.766 ml Output Total 0 ml Balance 1648.766 ml IV Total 1648.766 ml Output Urine Total 0 ml General Appearance: Alert, Oriented X3, Cooperative HEENT: Atraumatic, PERRLA Lungs: Clear to auscultation, Other (Decreased air entry bilaterally) Cardiovascular: Normal S1, Normal S2 Abdomen: Normal bowel sounds, Soft, No tenderness, No hepatospenomegaly Musculoskeletal: Normal sensory function, Normal motor function Extremities: No clubbing, No cyanosis, No edema Neuro: Normal speech, Strength at 5/5 X4 ext, Cranial nerves 3-12 NL Skin: Dry, Intact, Warm Psych/Mental Status: Mental status NL, Mood NL Medications Current Medications Medications Dose Ordered Sig/Duane Route Start Time Stop Time Status Last Admin Dose Admin Patient Own Medication 1 tab HS PO 04/10/25 22:00 Insulin Glargine 17 units DAILY SC 04/10/25 10:00 04/17/25 10:25 17 UNITS Lamotrigine 100 mg DAILY GT 04/12/25 12:00 Hold 04/12/25 18:26 100 MG Acetaminophen 650 mg Q6HP PRN [place] 04/12/25 16:00 04/12/25 16:51 650 MG Enteral Nutritional Formula 1,000 ml 30ML/HR GT 04/12/25 18:45 04/14/25 18:25 1,000 ML Saccharomyces Boulardii 250 mg DAILY GT 04/13/25 12:15 04/15/25 10:00 250 MG Cefepime HCl 50 ml @ 12.5 mls/hr POSTDI IV 04/15/25 22:00 Dextrose 50 ml ONCE PRN IV 04/15/25 06:45 Dextrose 1,000 ml @ 30 mls/hr Q24H IV 04/15/25 09:15 04/17/25 15:15 30 MLS/HR Diagnostic Test (Pha) 1 strip Q6HR 04/15/25 12:00 04/17/25 23:34 1 STRIP Insulin Human Regular Q6HR SC 04/15/25 12:00 04/17/25 23:37 2 UNITS Zirconium Oxide 10 gm EOD PRN GT 04/16/25 10:00 Isosorbide Dinitrate 10 mg TID@06,12,18 PO 04/16/25 12:00 04/17/25 18:14 10 MG Carvedilol 3.125 mg Q12HR PO 04/16/25 22:00 04/17/25 21:51 3.125 MG Nicardipine/ Sodium Chloride 200 ml @ 50 mls/hr Q4H IV 04/16/25 14:00 04/17/25 18:14 50 MLS/HR Pantoprazole Sodium 40 mg DAILY IV 04/17/25 13:00 Hydralazine HCl 50 mg Q8HR NG 04/17/25 17:00 Nifedipine 60 mg QPM PO 04/17/25 18:00 04/17/25 18:14 60 MG Clonidine HCl 0.1 mg Q7D TD 04/17/25 17:00 04/17/25 18:13 0.1 MG Patient Own Medication 2 mg DAILY PO 04/18/25 10:00 Sertraline HCl 150 mg DAILY PO 04/18/25 10:00 Laboratory Results Laboratory Tests 04/17/25 04:41 Chemistry Test 04/17/25 04:41 Albumin 3.5 g/dL (3.2-4.8) Calcium Level 8.2 mg/dL (8.7-10.4) L Total Protein 7.0 g/dL (5.7-8.2) LFT Test 04/17/25 04:41 Alanine Aminotransferase (ALT) 16 U/L (7-40) Alkaline Phosphatase 71 U/L (46-116) Aspartate Amino Transferase (AST) 21 U/L (13-40) Total Bilirubin 0.4 mg/dL (0.2-1.0) Microbiology Microbiology Date/Time Source Procedure Growth Status 04/12/25 08:46 Blood Blood Culture - Final NO GROWTH AFTER 5 DAYS OF INCUBATION. Complete 04/12/25 04:00 Nose MRSA Screen - Final Complete Assessment/Plan Assessment/Plan Impression: Acute hypoxic respiratory failure Pneumonia due to GNR DM type II Anemia Shock, resolved End-stage renal disease, on hemodialysis Hx of nicotine dependence Obesity, BMI 35.6 Events: Remains on supplemental oxygen Improving oxygen requirements On 2 LPM NC Taper O2 as tolerated Patient passed swallow eval. HGB 8.7, HCT 26, BUN 37, PACKAGE CLERK 9.14, CA 8.2. Chest x-ray shows mild diffuse increased prominence of the pulmonary vasculature and cardiomegaly. Continue bronchodilators Continue antibiotics Incentive spirometry Blood pressure control - Off nicardipine drip at 1845 hours Monitor hemoglobin - stable at 8.7 g/dL Transfuse if less than 7.0 g/dL. Protonix BID for GI ppx Accu-Cheks, ISS. Continue head of bed elevation Aspiration precautions HD per Nephrology - 3 liters removed F/u Nephrology recommendations Labs and imaging reviewed. Rest of plan as noted below. Plan: S/p extubation on 04/16/25 On supplemental oxygen Titrate to keep O2 sats above 92%. CT head shows no evidence of intracranial hemorrhage or stroke. Continue antibiotics. Follow up cultures. Blood cx show no growth x5 days Sputum cx with normal oropharyngeal andreina; moderate growth of GNRs. Pressors as necessary for hemodynamic support Titrate to keep mean arterial pressure greater than 65 mmHg. Off pressors since 04/12/2025 HD per Nephrology Monitor renal function Monitor electrolytes. Supplement as necessary. Monitor ins and outs. Maintain euvolemia. Monitor hemoglobin Transfuse if less than 7.0 g/dL. Pt with FOBT positive GI prophylaxis. DVT prophylaxis. Prognosis: Poor given patient's multiple co-morbidities. Condition: Critical Rest of plan per hospitalist and other consultants. A total of 35 minutes of critical care time was spent reviewing the patient record, examining the patient, making a diagnostic and therapeutic plan, discussing this plan with the medical personnel, following up on diagnostic studies and following the patient for clinical stability excluding any and all procedures. At least 50% of this time was spent in direct, [id number] contact. Thank you, Dr. Soares, for allowing me to participate in this patient's care. Further recommendations will depend on the patient's clinical course. Please do not hesitate to contact me if you have any questions or concerns. This medical document was created using an electronic medical record system with [employer] computerized dictation system. Although these documentations are being carefully reviewed, there may still be some phonetic and typographical changes. The errors are purely typographical, due to imperfection on the software program, and do not reflect any compromise in the patient's medical care. Plan discussed with: Patient, Other (MICHELLE Henry) Date of Service: Apr 17, 2025 Billing Provider: NATY GARVIN MD Common Visit Codes: [id number] INP/OBS CARE(HIGH), [id number] CARE 30-74 MIN NATY GARVIN MD Apr 17, 2025 23:47
[2025-04-18] VITALS (56 sets, daily range): BP systolic 89–183; BP diastolic 50–85; PULSE 8–99; RESP 10–24; TEMP 97.9–99.7; O2SAT 88–98
[2025-04-18 04:57] LABS: Hematocrit 24.9 % (41.0-53.0); Hemoglobin 8.4 g/dL (13.5-17.5); Mean Corpuscular Hemoglobin 29.0 pg (28.0-32.0); Mean Corpuscular Volume 86.2 fL (80.0-100.0); Nucleated Red Blood Cells % 0.1 %
[2025-04-18 05:05] LABS: Alanine Aminotransferase 15 U/L (7-40); Alkaline Phosphatase 62 U/L (46-116); Anion Gap 11 (5-15); BUN/Creatinine Ratio 3.5 (10.0-20.0); Blood Urea Nitrogen 23 mg/dL (9-23); Calcium 8.3 mg/dL (8.7-10.4); Carbon Dioxide 29 mmol/L (20-31); Chloride 99 mmol/L (98-107); Glucose 137 mg/dL (74-106); Potassium 3.5 mmol/L (3.5-5.1); Sodium 139 mmol/L (136-145); Total Protein 6.8 g/dL (5.7-8.2)
[2025-04-18 05:06] LABS: Albumin 3.4 g/dL (3.2-4.8); Bilirubin, Total 0.4 mg/dL (0.2-1.0)
--- NOTE | 2025-04-18 05:15 | DVH ---
CHEST RADIOGRAPH Indication: ET intubation Technique: Single frontal view of the chest was obtained COMPARISON: XY CHEST XRAY 1 VIEW on DOS: 04/17/25, XY CHEST XRAY 1 VIEW on DOS: 04/16/25, XY CHEST XRAY 1 VIEW on DOS: 04/15/25, XY CHEST PORTABLE on DOS: 04/14/25, XY CHEST XRAY 1 VIEW on DOS: 04/13/25 FINDINGS: Lines and Tubes: Tunneled right central venous catheter and right central venous catheter in satisfac tory position. Lungs: Diffuse pulmonary vascular congestion. Unchanged cardiomegaly. Pleura: No effusion. No pneumothorax. Cardiomediastinal contours: Cardiomegaly, unchanged. Bones: Unremarkable IMPRESSION: No significant interval change.
[2025-04-18] MEDS ORDERED: CARVEDILOL 3.125 MG TAB PO SCH (08:00)
--- NOTE | 2025-04-18 09:30 | DVH ---
CLINICAL HISTORY: Leg pain TECHNIQUE: Color and duplex doppler imagine of the bilateral lower extremity veins was performed. Ves raymon compression and augmentation if possible was also performed. COMPARISON: US BILAT LOWER DVT on DOS: 01/26/25 FINDINGS: Right Lower Extremity: Right common femoral vein: Normal compressibility and flow. Right superficial femoral vein: Normal compressibility and flow. Right popliteal vein: Normal compressibility and flow. Proximal calf veins demonstrate flow. Left Lower Extremity: Left common femoral vein: Normal compressibility and flow. Left superficial femoral vein: Normal compressibility and flow. Left popliteal vein: Normal compressibility and flow. Proximal calf veins demonstrate flow. IMPRESSION: NO SONOGRAPHIC EVIDENCE FOR DEEP VENOUS THROMBOSIS IN THE BILATERAL LOWER EXTREMITY VEINS.
[2025-04-18] MEDS: ARIPIPRAZOLE 2 MG PO SCH (10:00)
[2025-04-18] MEDS ORDERED: SERTRALINE HCL 50 MG TAB PO SCH (10:00)
[2025-04-18] MEDS: HEPARIN SODIUM (PORCINE) 5000 UNITS/ML 1ML VIAL SC SCH (10:13)
--- NOTE | 2025-04-18 13:24 | DVHPNRES ---
Progress Note Date Seen: Apr 18, 2025 Resident Creating Document: WHITNEY LAYTON RESIDENT Has the PT tested + for MRSA If YES, has PT been informed?: No Medical Necessity Reason Pt with a Central, PICC or Fol: Yes The following are medically ne: Central Line, Araiza Catheter Subjective Review of Systems Brief Gist of Todays Progress * Stable post-extubation on NC O2. * Downgraded from ICU to telemetry. * Psychosis improved after haloperidol; paranoia persists. Aripiprazole resumed. * Oral feeds restarted. * Hemodialysis to continue MWF schedule. * Vitals stable, labs consistent with ESRD and CKD anemia. * Tele-psych consult pending for further psychiatric stabilization. Review of Systems * General: Awake, alert, no acute distress. * HEENT: No sore throat, vision intact. * CV: No chest pain or palpitations. * Resp: No shortness of breath, stable on NC. * GI: No abdominal pain; oral intake tolerated. * : Anuric, ESRD on dialysis. * Neuro/Psych: Psychosis improving, mild paranoia, follows simple commands. * Skin: Warm, intact, no rashes. Objective vital signs Vital Sign Date Time Temp Pulse Resp B/P (MAP) Pulse Ox O2 Delivery O2 Flow Rate FiO2 04/18/25 12:00 99.2 82 13 104/61 (75) 96 99.2 04/18/25 12:00 Nasal Cannula* 1 24 Total Intake and Output 04/17/25 04/17/25 04/18/25 15:00 23:00 07:00 Intake Total 640 ml 440 ml 915 ml Balance 640 ml 440 ml 915 ml medications Current Medications Medications Dose Ordered Sig/Duane Route Start Time Stop Time Status Last Admin Dose Admin Patient Own Medication 1 tab HS PO 04/10/25 22:00 Insulin Glargine 17 units DAILY SC 04/10/25 10:00 04/18/25 10:13 17 UNITS Lamotrigine 100 mg DAILY GT 04/12/25 12:00 Hold 04/12/25 18:26 100 MG Acetaminophen 650 mg Q6HP PRN AR 04/12/25 16:00 04/12/25 16:51 650 MG Enteral Nutritional Formula 1,000 ml 30ML/HR GT 04/12/25 18:45 04/14/25 18:25 1,000 ML Saccharomyces Boulardii 250 mg DAILY GT 04/13/25 12:15 04/18/25 10:01 250 MG Cefepime HCl 50 ml @ 12.5 mls/hr POSTDI IV 04/15/25 22:00 Dextrose 50 ml ONCE PRN IV 04/15/25 06:45 Diagnostic Test (Pha) 1 strip Q6HR 04/15/25 12:00 04/18/25 11:55 1 STRIP Insulin Human Regular Q6HR SC 04/15/25 12:00 04/18/25 11:55 3 UNITS Zirconium Oxide 10 gm EOD PRN GT 04/16/25 10:00 Isosorbide Dinitrate 10 mg TID@06,12,18 PO 04/16/25 12:00 04/17/25 18:14 10 MG Nicardipine/ Sodium Chloride 200 ml @ 50 mls/hr Q4H IV 04/16/25 14:00 04/18/25 06:19 75 MLS/HR Pantoprazole Sodium 40 mg DAILY IV 04/17/25 13:00 04/18/25 10:01 40 MG Hydralazine HCl 50 mg Q8HR NG 04/17/25 17:00 04/17/25 23:50 50 MG Nifedipine 60 mg QPM PO 04/17/25 18:00 04/17/25 18:14 60 MG Clonidine HCl 0.1 mg Q7D TD 04/17/25 17:00 04/17/25 18:13 0.1 MG Patient Own Medication 2 mg DAILY PO 04/18/25 10:00 Heparin Sodium (Porcine) 5,000 units Q12HR SC 04/18/25 10:00 04/18/25 10:13 5,000 UNITS Examination Vitals: BP 139/72, HR 8892, RR 15, SpO? 97% NC, Temp 98.2F. * General: Stable, awake, mild paranoia. * HEENT: Normocephalic, mucous membranes moist. * Cardiac: Regular rate and rhythm, no murmurs. * Respiratory: Clear breath sounds bilaterally, no distress. * Abdomen: Soft, non-tender, active bowel sounds. * Extremities: No cyanosis, mild pedal edema. * Neuro: Alert, follows commands, some paranoia. * Skin: Warm, intact. laboratory and microbiology Laboratory Tests 04/18/25 04:24 Test 04/18/25 04:24 Range/Units Serum Glucose 137 H 74-106 mg/dL Microbiology Date/Time Source Procedure Growth Status 04/12/25 08:46 Blood Blood Culture - Final NO GROWTH AFTER 5 DAYS OF INCUBATION. Complete 04/12/25 04:00 Nose MRSA Screen - Final Complete Problem List/Assessment/Plan Problem List/Assessment/Plan . Assessment & Diagnoses Acute hypoxic respiratory failure, post-extubation, stable * Rule in: required intubation, now extubated, stable O? sats. Psychosis with hallucinations, insomnia, underlying schizophrenia and bipolar disorder (CC) * Tele-psych consult ordered. Hypertension, currently controlled (160/63) post-extubation * On multidrug regimen with Hydralazine, Isosorbide, Nicardipine. ESRD on chronic hemodialysis (MWF) * BUN 37, Cr 9.14. HFpEF * CXR + echo: mild diastolic dysfunction, moderate atrial/ventricular dilation. Type 2 diabetes mellitus, uncontrolled (HbA1c 11.5%) * Glucose controlled with insulin regimen. Positive occult GI bleed (previously) ? risk for ongoing anemia. Obesity (BMI 35.6) Status post cardiopulmonary arrest with ROSC due to AV block/ventricular tachycardia Sepsis due to Enterobacter cloacae pneumonia with septic encephalopathy, improving ([facility] * Sensitive to cefepime, continued. Moderate pulmonary hypertension (RVSP 55 mmHg) per echo. System-Randle Plan System-Randle Plan Neuro/Psych * Continue haloperidol PRN for breakthrough agitation. * Resume home aripiprazole. * Tele-psych consult pending. * Sleep hygiene and reassurance. Cardiovascular * Continue antihypertensive regimen: nifedipine ER 60 mg daily, hydralazine 50 mg q8h, isosorbide dinitrate TID, clonidine 0.1 mg Q7D. * Maintain BP <140/90. Respiratory * Wean NC O? as tolerated. * Incentive spirometry and pulmonary hygiene. Renal * Continue HD on MWF schedule. * Strict I/O and daily weights. * Avoid nephrotoxic agents. Hematology * Continue epoetin with HD. * Transfuse if Hgb <7. * Monitor CBC daily. Infectious Disease * Continue cefepime for Enterobacter pneumonia. * Monitor for recurrence of fever or WBC changes. Endocrine * Continue insulin regimen with SSI. * Monitor glucose q6h. GI/Nutrition * Protonix 40 mg po * Oral feeds as tolerated, speech/swallow eval to guide diet. * Continue probiotics. Prophylaxis * DVT: Heparin SQ q12h. * GI: PPI BID. * Pulmonary: IS, HOB elevation. The duration of time spent in direct critical care management of this patient, including evaluation, review of clinical data, coordination of care, and decision-making, was 45 minutes. Case discussed in detail with the attending physician, including the clinical presentation, diagnostic workup, and comprehensive management plan. The patient was present for the discussion and demonstrated understanding of his condition and the proposed plan Plan discussed with: Patient My Orders My Orders Orders - WHITNEY LAYTON RESIDENT Procedure Category Date Status Time (Nf) Aripiprazole PHA 04/18/25 In Process 10:00 Mechanical Soft Diet DIET 04/17/25 Transmitted Dinner Bilat Lower Dvt US 04/18/25 Resulted 07:45 Heparin Sodium PHA 04/18/25 In Process (Porcine) 10:00 Pt Request For Service PT 04/18/25 Logged 07:53 Transfer Orders XFER 04/18/25 Transmitted 13:02 Dietary Evaluation Review Comments: 1) Change TF formulary from Glucerna 1.2 to Nepro @ 30 goal rate as tolerated d/t ESRD. Flush with 150 mL free H2O Q6H. TF regimen will provide 1296 kcals, 58g Pro, and 1123 mL free H2O (including flushes) per 24 hrs. TF regimen will meet ~86% estimated energy needs and ~61% estimated protein needs. 2) Advance to 60g CCHO renal diet when medically feasible, pending ST approval 3) Refer to outpatient RD/CDCES for diabetes education/weight management 4) Follow-up with cardiology, pulmonology, and nephrology 5) Continue to monitor I&O, labs, and skin integrity Expected Outcomes/Goals: 1) TF regimen to meet at least 75% estimated daily needs 2) labs to improve 3) diet to advance 4) f/u in 2-3 days Date of Service: Apr 18, 2025 Billing Provider: RON FRAIRE MD Common Visit Codes: [id number] INP/OBS CARE(HIGH) WHITNEY LAYTON RESIDENT Apr 18, 2025 13:24 RON FRAIRE MD Apr 24, 2025 22:48
--- NOTE | 2025-04-18 15:14 | DVHPN2 ---
Progress Note - Dictate Date Seen: Apr 18, 2025 Has the PT tested + for MRSA If YES, has PT been informed?: No Medical Necessity Reason Pt with a Central, PICC or Fol: Yes The following are medically ne: Central Line, Araiza Catheter Subjective Patient has had some paranoia. Patient has not seen Psychiatry in a while. Denies any shortness of breath. vital signs Vital Sign Date Time Temp Pulse Resp B/P (MAP) Pulse Ox O2 Delivery O2 Flow Rate FiO2 04/18/25 14:00 81 04/18/25 14:00 18 98 Nasal Cannula* 3 32 04/18/25 13:26 120/56 04/18/25 12:00 99.2 99.2 Total Intake and Output 04/17/25 04/17/25 04/18/25 15:00 23:00 07:00 Intake Total 640 ml 440 ml 915 ml Balance 640 ml 440 ml 915 ml medications Current Medications Medications Dose Ordered Sig/Duane Route Start Time Stop Time Status Last Admin Dose Admin Patient Own Medication 1 tab HS PO 04/10/25 22:00 Insulin Glargine 17 units DAILY SC 04/10/25 10:00 04/18/25 10:13 17 UNITS Lamotrigine 100 mg DAILY GT 04/12/25 12:00 Hold 04/12/25 18:26 100 MG Acetaminophen 650 mg Q6HP PRN AR 04/12/25 16:00 04/12/25 16:51 650 MG Enteral Nutritional Formula 1,000 ml 30ML/HR GT 04/12/25 18:45 04/14/25 18:25 1,000 ML Saccharomyces Boulardii 250 mg DAILY GT 04/13/25 12:15 04/18/25 10:01 250 MG Cefepime HCl 50 ml @ 12.5 mls/hr POSTDI IV 04/15/25 22:00 Dextrose 50 ml ONCE PRN IV 04/15/25 06:45 Diagnostic Test (Pha) 1 strip Q6HR 04/15/25 12:00 04/18/25 11:55 1 STRIP Insulin Human Regular Q6HR SC 04/15/25 12:00 04/18/25 11:55 3 UNITS Zirconium Oxide 10 gm EOD PRN GT 04/16/25 10:00 Isosorbide Dinitrate 10 mg TID@06,12,18 PO 04/16/25 12:00 04/17/25 18:14 10 MG Pantoprazole Sodium 40 mg DAILY IV 04/17/25 13:00 04/18/25 10:01 40 MG Nifedipine 60 mg QPM PO 04/17/25 18:00 04/17/25 18:14 60 MG Clonidine HCl 0.1 mg Q7D TD 04/17/25 17:00 04/17/25 18:13 0.1 MG Patient Own Medication 2 mg DAILY PO 04/18/25 10:00 Heparin Sodium (Porcine) 5,000 units Q12HR SC 04/18/25 10:00 04/18/25 10:13 5,000 UNITS Hydralazine HCl 50 mg Q8HR PO 04/18/25 22:00 UNV objective HEENT: No oral lesions noticed Pulmonary: Lungs are clear on auscultation bilaterally Cardiovascular S1-S2, no S3 or S4 Abdomen: Bowel sounds positive, soft no rebound tenderness Skin: No rash Neurological: Alert and oriented no focal weakness Psych: Anxious appearing patient laboratory and microbiology Laboratory Tests 04/18/25 04:24 Test 04/18/25 04:24 Range/Units Serum Glucose 137 H 74-106 mg/dL Assessment/Plan Assessment End-stage renal disease on hemodialysis Tuesday Hyperkalemia managed with dialysis and Lokelma Uremia managed with dialysis Accelerated hypertension Paranoia Anemia of renal disease. Diabetes mellitus. Respiratory failure s/p cardiac arrest Plan HD to continue on MWF Consult psychiatry Continue clonidine patch Continue carvedilol which he gets at home 3.125 mg twice a day Nifedipine 60 mg q.h.s. Resume antipsychotic meds Lokelma on non dialysis days Empiric IV antibiotics Cardiology consult appreciated Stephan with dialysis Plan of care discussed with the RN at bedside Okay to downgrade from the ICU Thank you very much for allowing us to participate in the care of this patient please contact if you have any questions. Dietary Evaluation Review Comments: 1) Change TF formulary from Glucerna 1.2 to Nepro @ 30 goal rate as tolerated d/t ESRD. Flush with 150 mL free H2O Q6H. TF regimen will provide 1296 kcals, 58g Pro, and 1123 mL free H2O (including flushes) per 24 hrs. TF regimen will meet ~86% estimated energy needs and ~61% estimated protein needs. 2) [facility] diet when medically feasible, pending ST approval 3) Refer to outpatient RD/[facility] for diabetes education/weight management 4) Follow-up with cardiology, pulmonology, and nephrology 5) Continue to monitor I&O, labs, and skin integrity Expected Outcomes/Goals: 1) TF regimen to meet at least 75% estimated daily needs 2) labs to improve 3) diet to advance 4) f/u in 2-3 days Plan discussed with: Patient REINIER JACQUES MD Apr 18, 2025 15:14
--- NOTE | 2025-04-18 23:10 | DVHPN2 ---
[facility] DOS: 04/18/2025 Patient seen and examined at bedside. On supplemental oxygen Overnight events reviewed. HPI: A 55-year-old male with past medical history of ESRD on TTS dialysis, produces no to minimal urine, diabetes mellitus with diabetic neuropathy, and hypertension, who presented to the ER on 04/09/25 after two missed dialysis sessions with c/o generalized weakness, especially bilateral lower extremities. Patient was weak to the point that he could not walk and go to dialysis on day of presentation. He reported being noncompliant with his antihypertensive medications as well. He denied any chest pain, shortness of breath, abdominal pain or any other complaints. Patient was admitted for further care. Pulmonary consultation is requested for evaluation and management of acute hypoxic respiratory failure requiring mechanical ventilator. Past Medical History: ESRD on TTS dialysis, produces no to minimal urine. Diabetes mellitus with diabetic neuropathy, hypertension. 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 Allergies: No known drug allergies. Family History: No family history of premature CAD. No family history of lung disorders. Social History: Smokin pack years, quit 5 years ago Alcohol: Occasional, quit 5 years ago Drugs: Occasional marijuana, last use was more than 1 year ago Reviewed: Care Plan, H&P, Labs Changes from previous H/P or p: No Changes General: Per HPI Objective Vitals Vital Signs Date Time Temp Pulse Resp B/P (MAP) Pulse Ox O2 Delivery O2 Flow Rate FiO2 04/18/25 21:38 139/72 04/18/25 21:00 97.9 81 16 97 97.9 04/18/25 14:00 Nasal Cannula* 3 32 Intake/Output Intake and Output 04/18/25 07:00 Intake Total 1994 ml Balance 1995 ml Intake Oral 100 ml IV Total 1895 ml # Bowel Movements 1 General Appearance: Alert, Oriented X3, Cooperative HEENT: Atraumatic, PERRLA Lungs: Clear to auscultation, Other (Decreased air entry bilaterally) Cardiovascular: Normal S1, Normal S2 Abdomen: Normal bowel sounds, Soft, No tenderness, No hepatospenomegaly Musculoskeletal: Normal sensory function, Normal motor function Extremities: No clubbing, No cyanosis, No edema Neuro: Normal speech, Strength at 5/5 X4 ext, Cranial nerves 3-12 NL Skin: Dry, Intact, Warm Psych/Mental Status: Mental status NL, Mood NL Medications Current Medications Medications Dose Ordered Sig/Duane Route Start Time Stop Time Status Last Admin Dose Admin Patient Own Medication 1 tab HS PO 04/10/25 22:00 Insulin Glargine 17 units DAILY SC 04/10/25 10:00 04/18/25 10:13 17 UNITS Lamotrigine 100 mg DAILY GT 04/12/25 12:00 Hold 04/12/25 18:26 100 MG Acetaminophen 650 mg Q6HP PRN UT 04/12/25 16:00 04/12/25 16:51 650 MG Enteral Nutritional Formula 1,000 ml 30ML/HR GT 04/12/25 18:45 04/14/25 18:25 1,000 ML Saccharomyces Boulardii 250 mg DAILY GT 04/13/25 12:15 04/18/25 10:01 250 MG Cefepime HCl 50 ml @ 12.5 mls/hr POSTDI IV 04/15/25 22:00 Dextrose 50 ml ONCE PRN IV 04/15/25 06:45 Diagnostic Test (Pha) 1 strip Q6HR 04/15/25 12:00 04/18/25 18:11 1 STRIP Insulin Human Regular Q6HR SC 04/15/25 12:00 04/18/25 18:15 2 UNITS Zirconium Oxide 10 gm EOD PRN GT 04/16/25 10:00 Isosorbide Dinitrate 10 mg TID@06,12,18 PO 04/16/25 12:00 04/17/25 18:14 10 MG Nifedipine 60 mg QPM PO 04/17/25 18:00 04/17/25 18:14 60 MG Clonidine HCl 0.1 mg Q7D TD 04/17/25 17:00 04/17/25 18:13 0.1 MG Patient Own Medication 2 mg DAILY PO 04/18/25 10:00 Heparin Sodium (Porcine) 5,000 units Q12HR SC 04/18/25 10:00 04/18/25 21:44 5,000 UNITS Hydralazine HCl 50 mg Q8HR PO 04/18/25 22:00 Pantoprazole Sodium 40 mg DAILY@0600 PO 04/19/25 06:00 Laboratory Results Laboratory Tests 04/18/25 04:24 Chemistry Test 04/18/25 04:24 Albumin 3.4 g/dL (3.2-4.8) Calcium Level 8.3 mg/dL (8.7-10.4) L Total Protein 6.8 g/dL (5.7-8.2) LFT Test 04/18/25 04:24 Alanine Aminotransferase (ALT) 15 U/L (7-40) Alkaline Phosphatase 62 U/L (46-116) Aspartate Amino Transferase (AST) 19 U/L (13-40) Total Bilirubin 0.4 mg/dL (0.2-1.0) Microbiology Microbiology Date/Time Source Procedure Growth Status 04/12/25 08:46 Blood Blood Culture - Final NO GROWTH AFTER 5 DAYS OF INCUBATION. Complete 04/12/25 04:00 Nose MRSA Screen - Final Complete Assessment/Plan Assessment/Plan Impression: Acute hypoxic respiratory failure Pneumonia due to GNR DM type II Anemia Shock, resolved End-stage renal disease, on hemodialysis Hx of nicotine dependence Obesity, BMI 35.6 Events: Remains on supplemental oxygen On 3 LPM NC Taper O2 as tolerated Chest x-ray shows diffuse pulmonary vascular congestion. Unchanged cardiomegaly. . Mild paranoia - f/u Psych recommendations Continue bronchodilators PRN Continue antibiotics Incentive spirometry Blood pressure control - Off nicardipine drip Monitor hemoglobin - stable at 8.4 g/dL Transfuse if less than 7.0 g/dL. Protonix BID for GI ppx Heparin SC for DVT ppx Accu-Cheks, ISS. Head of bed elevation Aspiration precautions HD per Nephrology F/u Nephrology recommendations Labs and imaging reviewed. Rest of plan as noted below. Plan: S/p extubation on 04/16/25 On supplemental oxygen Titrate to keep O2 sats above 92%. CT head shows no evidence of intracranial hemorrhage or stroke. Continue antibiotics. Follow up cultures. Blood cx show no growth x5 days Sputum cx with normal oropharyngeal andreina; moderate growth of GNRs. Pressors as necessary for hemodynamic support Titrate to keep mean arterial pressure greater than 65 mmHg. Off pressors since 04/12/2025 HD per Nephrology Monitor renal function Monitor electrolytes. Supplement as necessary. Monitor ins and outs. Maintain euvolemia. Monitor hemoglobin Transfuse if less than 7.0 g/dL. Pt with FOBT positive GI prophylaxis. DVT prophylaxis. Prognosis: Poor given patient's multiple co-morbidities. Rest of plan per hospitalist and other consultants. Thank you, Dr. Soares, for allowing me to participate in this patient's care. Further recommendations will depend on the patient's clinical course. Please do not hesitate to contact me if you have any questions or concerns. This medical document was created using an electronic medical record system with [employer] dictation system. Although these documentations are being carefully reviewed, there may still be some phonetic and typographical changes. The errors are purely typographical, due to imperfection on the software program, and do not reflect any compromise in the patient's medical care. Plan discussed with: Patient, Other (RN Freddy) Date of Service: Apr 18, 2025 Billing Provider: NATY GARVIN MD Common Visit Codes: [id number] INP/OBS CARE(HIGH) NATY GARVIN MD Apr 18, 2025 23:10
--- NOTE | 2025-04-18 23:52 | DVHPN2 ---
Progress Note - Dictate Date Seen: Apr 18, 2025 Has the PT tested + for MRSA If YES, has PT been informed?: No Medical Necessity Reason Pt with a Central, PICC or Fol: Yes The following are medically ne: Central Line, Araiza Catheter Subjective Patient was seen and evaluated in follow up in the ICU. Per bedside RN, the patient was having hallucinations. HGB 8.4, HCT 24.9, [employer] 6.63, CA 8.3. BLE Venous duplex is negative for DVT. vital signs Vital Sign Date Time Temp Pulse Resp B/P (MAP) Pulse Ox O2 Delivery O2 Flow Rate FiO2 04/18/25 12:00 99.2 82 13 104/61 (75) 96 99.2 04/18/25 12:00 Nasal Cannula* 1 24 Total Intake and Output 04/17/25 04/17/25 04/18/25 15:00 23:00 07:00 Intake Total 640 ml 440 ml 915 ml Balance 640 ml 440 ml 915 ml medications Current Medications Medications Dose Ordered Sig/Duane Route Start Time Stop Time Status Last Admin Dose Admin Patient Own Medication 1 tab HS PO 04/10/25 22:00 Insulin Glargine 17 units DAILY SC 04/10/25 10:00 04/18/25 10:13 17 UNITS Lamotrigine 100 mg DAILY GT 04/12/25 12:00 Hold 04/12/25 18:26 100 MG Acetaminophen 650 mg Q6HP PRN DC 04/12/25 16:00 04/12/25 16:51 650 MG Enteral Nutritional Formula 1,000 ml 30ML/HR GT 04/12/25 18:45 04/14/25 18:25 1,000 ML Saccharomyces Boulardii 250 mg DAILY GT 04/13/25 12:15 04/18/25 10:01 250 MG Cefepime HCl 50 ml @ 12.5 mls/hr POSTDI IV 04/15/25 22:00 Dextrose 50 ml ONCE PRN IV 04/15/25 06:45 Diagnostic Test (Pha) 1 strip Q6HR 04/15/25 12:00 04/18/25 11:55 1 STRIP Insulin Human Regular Q6HR SC 04/15/25 12:00 04/18/25 11:55 3 UNITS Zirconium Oxide 10 gm EOD PRN GT 04/16/25 10:00 Isosorbide Dinitrate 10 mg TID@06,12,18 PO 04/16/25 12:00 04/17/25 18:14 10 MG Nicardipine/ Sodium Chloride 200 ml @ 50 mls/hr Q4H IV 04/16/25 14:00 04/18/25 06:19 75 MLS/HR Pantoprazole Sodium 40 mg DAILY IV 04/17/25 13:00 04/18/25 10:01 40 MG Hydralazine HCl 50 mg Q8HR NG 04/17/25 17:00 04/17/25 23:50 50 MG Nifedipine 60 mg QPM PO 04/17/25 18:00 04/17/25 18:14 60 MG Clonidine HCl 0.1 mg Q7D TD 04/17/25 17:00 04/17/25 18:13 0.1 MG Patient Own Medication 2 mg DAILY PO 04/18/25 10:00 Heparin Sodium (Porcine) 5,000 units Q12HR SC 04/18/25 10:00 04/18/25 10:13 5,000 UNITS objective GENERAL: Alert and oriented x 3. No acute distress. Obese. EYES: PERRL, EOMI. Anicteric. HENT: Moist mucous membranes. LUNGS: Clear to auscultation bilaterally. CARDIOVASCULAR: Regular rate and rhythm. ABDOMEN: Soft, nontender and nondistended. EXTREMITIES: No edema. SKIN: Hyperpigmentation to bilateral lower extremities. laboratory and microbiology Laboratory Tests 04/18/25 04:24 Test 04/18/25 04:24 Range/Units Serum Glucose 137 H 74-106 mg/dL Problem List Cardiopulmonary arrest status post CPR with return of spontaneous circulation. High-degree atrioventricular block, complete heart block. Ventricular tachycardia. NSTEMI, rule out coronary artery disease. Rule out structural heart disease. Acute hypoxic respiratory failure. Hypertension. Hyperkalemia, resolved. ESRD on hemodialysis. Type 2 diabetes mellitus, uncontrolled (Hbg A1c 11.5%). Medical noncompliance. Assessment/Plan Continued all current supportive medical care. Heparin drip per pharmacy. IV antibiotics as ordered. Additional plan as per the hospital course. Critical care time of 45 minutes provided to include time spent evaluation of patient at bedside, when appropriate patient/family education for diagnosis, treatment plan, review of pertinent medical information and discussion of care with specialty providers and PCP. Dietary Evaluation Review Comments: 1) Change TF formulary from Glucerna 1.2 to Nepro @ 30 goal rate as tolerated d/t ESRD. Flush with 150 mL free H2O Q6H. TF regimen will provide 1296 kcals, 58g Pro, and 1123 mL free H2O (including flushes) per 24 hrs. TF regimen will meet ~86% estimated energy needs and ~61% estimated protein needs. 2) Advance to 60g CCHO renal diet when medically feasible, pending ST approval 3) Refer to outpatient RD/CDCES for diabetes education/weight management 4) Follow-up with cardiology, pulmonology, and nephrology 5) Continue to monitor I&O, labs, and skin integrity Expected Outcomes/Goals: 1) TF regimen to meet at least 75% estimated daily needs 2) labs to improve 3) diet to advance 4) f/u in 2-3 days Plan discussed with: Patient INA ARRIOLA MD Apr 18, 2025 12:51
[2025-04-19] VITALS (8 sets, daily range): BP systolic 129–158; BP diastolic 71–81; PULSE 81–86; RESP 17–20; TEMP 97.8–98.1; O2SAT 94–99
[2025-04-19] MEDS: PANTOPRAZOLE 40 MG TAB PO SCH (05:18)
--- NOTE | 2025-04-19 05:50 | DVH ---
CHEST RADIOGRAPH Indication: ET intubation Technique: Single frontal view of the chest was obtained COMPARISON: XY CHEST XRAY 1 VIEW on DOS: 04/18/25, XY CHEST XRAY 1 VIEW on DOS: 04/17/25, XY CHEST XRAY 1 VIEW on DOS: 04/16/25, XY CHEST XRAY 1 VIEW on DOS: 04/15/25, XY CHEST PORTABLE on DOS: 04/14/25 FINDINGS: Lines and Tubes: Unchanged. Lungs: Clear Pleura: No effusion. No pneumothorax. Cardiomediastinal contours: Cardiomegaly. Bones: Unremarkable IMPRESSION: 1. Cardiomegaly. 2. Lines and tubes unchanged.
[2025-04-19] MEDS: SODIUM CHL 0.9% 1000 ML BAG XX ONE (07:00)
[2025-04-19 07:29] LABS: Nucleated Red Blood Cells % 0.1 %
[2025-04-19 07:32] LABS: Hematocrit 25.0 % (41.0-53.0); Hemoglobin 8.3 g/dL (13.5-17.5); Mean Corpuscular Hemoglobin 28.9 pg (28.0-32.0); Mean Corpuscular Volume 87.2 fL (80.0-100.0); Potassium 3.9 mmol/L (3.5-5.1)
[2025-04-19 07:33] LABS: Anion Gap 13 (5-15); Carbon Dioxide 25 mmol/L (20-31)
[2025-04-19 07:38] LABS: BUN/Creatinine Ratio 3.5 (10.0-20.0)
[2025-04-19 07:41] LABS: Blood Urea Nitrogen 28 mg/dL (9-23); Chloride 98 mmol/L (98-107); Glucose 121 mg/dL (74-106); Sodium 136 mmol/L (136-145)
[2025-04-19 07:42] LABS: Calcium 8.5 mg/dL (8.7-10.4)
--- NOTE | 2025-04-19 11:54 | DVHPNRES ---
Progress Note Date Seen: Apr 19, 2025 Resident Creating Document: KAREEN HARVEY RESIDENT Has the PT tested + for MRSA If YES, has PT been informed?: No Medical Necessity Reason Pt with a Central, PICC or Fol: No The following are medically ne: Central Line, Araiza Catheter Subjective Review of Systems 04/19/2025 Stable post-extubation on NC O2. Downgraded from ICU to telemetry. Psychosis improved after haloperidol; paranoia persists. Aripiprazole resumed. Oral feeds restarted. Hemodialysis today Vitals stable, labs consistent with ESRD and CKD anemia. FOBT postive Tele-psych consult suggested:Psychiatric admission is not indicated. Continue medical admission for stabilization and management of underlying conditions. 3. Medications: No antipsychotic medications indicated at this time. Do not initiate antipsychotics unless hallucinations persist or cause severe distress; continue to monitor. Continue home Lamictal if patient has NOT been off med for > 4 days. If he has been off Lamictal 5 or more days, restart at 25 mg po daily and defer titration to outpatient team. 4. Medical Considerations: Optimize medical management. Hallucinations should continue to improve with time. Acetaminophen 650 mg p.o. given PRN for chest pain Objective vital signs Vital Sign Date Time Temp Pulse Resp B/P (MAP) Pulse Ox O2 Delivery O2 Flow Rate FiO2 04/19/25 09:00 98.1 82 17 143/75 (97) 97 98.1 04/18/25 20:00 Nasal Cannula* 3 32 Total Intake and Output 04/18/25 04/18/25 04/19/25 15:00 23:00 07:00 Intake Total 85 ml 500 ml 0 ml Balance 85 ml 500 ml 0 ml medications Current Medications Medications Dose Ordered Sig/Duane Route Start Time Stop Time Status Last Admin Dose Admin Patient Own Medication 1 tab HS PO 04/10/25 22:00 Insulin Glargine 17 units DAILY SC 04/10/25 10:00 04/19/25 10:56 17 UNITS Lamotrigine 100 mg DAILY GT 04/12/25 12:00 Hold 04/12/25 18:26 100 MG Acetaminophen 650 mg Q6HP PRN MI 04/12/25 16:00 04/12/25 16:51 650 MG Enteral Nutritional Formula 1,000 ml 30ML/HR GT 04/12/25 18:45 04/14/25 18:25 1,000 ML Saccharomyces Boulardii 250 mg DAILY GT 04/13/25 12:15 04/19/25 10:00 250 MG Cefepime HCl 50 ml @ 12.5 mls/hr POSTDI IV 04/15/25 22:00 Dextrose 50 ml ONCE PRN IV 04/15/25 06:45 Diagnostic Test (Pha) 1 strip Q6HR 04/15/25 12:00 04/19/25 05:16 1 STRIP Insulin Human Regular Q6HR SC 04/15/25 12:00 04/18/25 18:15 2 UNITS Zirconium Oxide 10 gm EOD PRN GT 04/16/25 10:00 Isosorbide Dinitrate 10 mg TID@06,12,18 PO 04/16/25 12:00 04/19/25 05:18 10 MG Nifedipine 60 mg QPM PO 04/17/25 18:00 04/17/25 18:14 60 MG Clonidine HCl 0.1 mg Q7D TD 04/17/25 17:00 04/17/25 18:13 0.1 MG Patient Own Medication 2 mg DAILY PO 04/18/25 10:00 04/19/25 10:00 2 MG Heparin Sodium (Porcine) 5,000 units Q12HR SC 04/18/25 10:00 04/18/25 21:44 5,000 UNITS Hydralazine HCl 50 mg Q8HR PO 04/18/25 22:00 Pantoprazole Sodium 40 mg DAILY@0600 PO 04/19/25 06:00 04/19/25 05:18 40 MG Acetaminophen 650 mg Q4HP PRN PO 04/19/25 11:45 UNV Examination Pt is lying on bed General Appearance: Alert, Oriented X3, Cooperative, Not in acute distress, mild paranoia present HEENT: Atraumatic, Mucous membranes moist/pink Respiratory: decreased breath sounds, on 4 L of oxygen Cardiovascular: Regular rate, Normal S1, Normal S2, No murmurs Abdominal: Active bowel sounds, Soft, no distention, no tenderness Extremities: No edema, Normal pulses, No tenderness/swelling Skin: No Significant rash, except past surgical scars Neuro: Normal speech, sensorimotor deficits none Psych/Mental Status: some paranoia and hallucinations Nurse was there as deputy head during examination laboratory and microbiology Laboratory Tests 04/19/25 06:25 Test 04/19/25 06:25 Range/Units Serum Glucose 121 H 74-106 mg/dL Microbiology Date/Time Source Procedure Growth Status 04/12/25 08:46 Blood Blood Culture - Final NO GROWTH AFTER 5 DAYS OF INCUBATION. Complete 04/12/25 04:00 Nose MRSA Screen - Final Complete Labs and/or images reviewed: Labs reviewed by me, Image(s) reviewed by me Problem List/Assessment/Plan Problem List/Assessment/Plan Acute hypoxic respiratory failure, post-extubation, stable * Rule in: required intubation, now extubated, stable O2 sats. Psychosis with hallucinations, insomnia, underlying schizophrenia and bipolar disorder (CC) * Tele-psych consult suggests:Psychiatric admission is not indicated. Continue medical admission for stabilization and management of underlying conditions. 3. Medications: No antipsychotic medications indicated at this time. Do not initiate antipsychotics unless hallucinations persist or cause severe distress; continue to monitor. Continue home Lamictal if patient has NOT been off med for > 4 days. If he has been off Lamictal 5 or more days, restart at 25 mg po daily and defer titration to outpatient team. 4. Medical Considerations: Optimize medical management. Hallucinations should continue to improve with time. Hypertension, currently controlled (160/63) post-extubation * On multidrug regimen with Hydralazine, Isosorbide, Nicardipine. ESRD on chronic hemodialysis (MWF) * BUN 287, Cr 8 HFpEF * CXR + echo: mild diastolic dysfunction, moderate atrial/ventricular dilation. Type 2 diabetes mellitus, uncontrolled (HbA1c 11.5%) * Glucose controlled with insulin regimen. Positive occult GI bleed (previously) ? risk for ongoing anemia. Obesity (BMI 35.6) Status post cardiopulmonary arrest with ROSC due to AV block/ventricular tachycardia Sepsis due to Enterobacter cloacae pneumonia with septic encephalopathy, improving ([facility] [place]) * Sensitive to cefepime, continued. Moderate pulmonary hypertension (RVSP 55 mmHg) per echo. Neuro/Psych * Continue haloperidol PRN for breakthrough agitation. * Resume home aripiprazole. * Tele-psych consult done * Sleep hygiene and reassurance. Cardiovascular * Continue antihypertensive regimen: nifedipine ER 60 mg daily, hydralazine 50 mg q8h, isosorbide dinitrate TID, clonidine 0.1 mg Q7D. * Maintain BP <140/90. Respiratory * Wean NC O? as tolerated. * Incentive spirometry and pulmonary hygiene. Renal * Continue HD on MWF schedule. * Strict I/O and daily weights. * Avoid nephrotoxic agents. Hematology * Continue epoetin with HD. * Transfuse if Hgb <7. * Monitor CBC daily. Infectious Disease * Continue cefepime for Enterobacter pneumonia. * Monitor for recurrence of fever or WBC changes. Endocrine * Continue insulin regimen with SSI. * Monitor glucose q6h. GI/Nutrition * Protonix 40 mg po * Oral feeds as tolerated, speech/swallow eval to guide diet. * Continue probiotics. Prophylaxis * DVT: Heparin SQ q12h. * GI: PPI BID. * Pulmonary: IS, HOB elevation. Goals of care discussed with the patient for more than 27 minutes: Full code status Case discussed with Dr. Fraire, patient and nurse. Plan discussed with: Patient My Orders My Orders Orders - KAREEN HARVEY RESIDENT Procedure Category Date Status Time Acetaminophen Tablet PHA 04/19/25 Logged (Tylenol Tablet) 11:45 Dietary Evaluation Review Comments: 1) Change TF formulary from Glucerna 1.2 to Nepro @ 30 goal rate as tolerated d/t ESRD. Flush with 150 mL free H2O Q6H. TF regimen will provide 1296 kcals, 58g Pro, and 1123 mL free H2O (including flushes) per 24 hrs. TF regimen will meet ~86% estimated energy needs and ~61% estimated protein needs. 2) Advance to 60g CCHO renal diet when medically feasible, pending ST approval 3) Refer to outpatient RD/CDCES for diabetes education/weight management 4) Follow-up with cardiology, pulmonology, and nephrology 5) Continue to monitor I&O, labs, and skin integrity Expected Outcomes/Goals: 1) TF regimen to meet at least 75% estimated daily needs 2) labs to improve 3) diet to advance 4) f/u in 2-3 days Date of Service: Apr 19, 2025 Billing Provider: RON FRAIRE MD Common Visit Codes: [id number] INP/OBS CARE(HIGH) KAREEN HARVEY Apr 19, 2025 11:54 RON FRAIRE MD Apr 24, 2025 23:11
--- NOTE | 2025-04-19 15:10 | DVHPN2 ---
Progress Note - Dictate Date Seen: Apr 19, 2025 Has the PT tested + for MRSA If YES, has PT been informed?: No Medical Necessity Reason Pt with a Central, PICC or Fol: No The following are medically ne: Central Line, Araiza Catheter Subjective Patient has had some visual hallucinations vital signs Vital Sign Date Time Temp Pulse Resp B/P (MAP) Pulse Ox O2 Delivery O2 Flow Rate FiO2 04/19/25 14:00 143/75 04/19/25 10:00 97 Nasal Cannula 2.0 04/19/25 10:00 28 04/19/25 09:00 98.1 82 17 98.1 Total Intake and Output 04/18/25 04/18/25 04/19/25 15:00 23:00 07:00 Intake Total 85 ml 500 ml 0 ml Balance 85 ml 500 ml 0 ml medications Current Medications Medications Dose Ordered Sig/Duane Route Start Time Stop Time Status Last Admin Dose Admin Patient Own Medication 1 tab HS PO 04/10/25 22:00 Insulin Glargine 17 units DAILY SC 04/10/25 10:00 04/19/25 10:56 17 UNITS Lamotrigine 100 mg DAILY GT 04/12/25 12:00 Hold 04/12/25 18:26 100 MG Acetaminophen 650 mg Q6HP PRN ID 04/12/25 16:00 04/12/25 16:51 650 MG Enteral Nutritional Formula 1,000 ml 30ML/HR GT 04/12/25 18:45 04/14/25 18:25 1,000 ML Saccharomyces Boulardii 250 mg DAILY GT 04/13/25 12:15 04/19/25 10:00 250 MG Cefepime HCl 50 ml @ 12.5 mls/hr POSTDI IV 04/15/25 22:00 Dextrose 50 ml ONCE PRN IV 04/15/25 06:45 Diagnostic Test (Pha) 1 strip Q6HR 04/15/25 12:00 04/19/25 12:13 1 STRIP Insulin Human Regular Q6HR SC 04/15/25 12:00 04/18/25 18:15 2 UNITS Zirconium Oxide 10 gm EOD PRN GT 04/16/25 10:00 Isosorbide Dinitrate 10 mg TID@06,12,18 PO 04/16/25 12:00 04/19/25 12:14 10 MG Nifedipine 60 mg QPM PO 04/17/25 18:00 04/17/25 18:14 60 MG Clonidine HCl 0.1 mg Q7D TD 04/17/25 17:00 04/17/25 18:13 0.1 MG Patient Own Medication 2 mg DAILY PO 04/18/25 10:00 04/19/25 10:00 2 MG Heparin Sodium (Porcine) 5,000 units Q12HR SC 04/18/25 10:00 04/18/25 21:44 5,000 UNITS Hydralazine HCl 50 mg Q8HR PO 04/18/25 22:00 Pantoprazole Sodium 40 mg DAILY@0600 PO 04/19/25 06:00 04/19/25 05:18 40 MG Acetaminophen 650 mg Q4HP PRN PO 04/19/25 11:45 objective HEENT: No oral lesions noticed Pulmonary: Lungs are clear on auscultation bilaterally Cardiovascular S1-S2, no S3 or S4 Abdomen: Bowel sounds positive, soft no rebound tenderness Skin: No rash Neurological: Alert and oriented no focal weakness Psych: Anxious appearing patient laboratory and microbiology Laboratory Tests 04/19/25 06:25 Test 04/19/25 06:25 Range/Units Serum Glucose 121 H 74-106 mg/dL Assessment/Plan Assessment End-stage renal disease on hemodialysis Tuesday Hyperkalemia managed with dialysis and Lokelma Uremia managed with dialysis Accelerated hypertension Paranoia with hallucinations Anemia of renal disease. Diabetes mellitus. Respiratory failure s/p cardiac arrest Plan HD to continue on MWF Consult psychiatry is still pending I discussed with the nurse to contact tele psychiatry again Continue clonidine patch Continue current antihypertensive meds Nifedipine 60 mg q.h.s. Resume antipsychotic meds Lokelma on non dialysis days Empiric IV antibiotics Cardiology consult appreciated Stephan with dialysis Plan of care discussed with the RN at bedside Thank you very much for allowing us to participate in the care of this patient please contact if you have any questions. Dietary Evaluation Review Comments: 1) Change TF formulary from Glucerna 1.2 to Nepro @ 30 goal rate as tolerated d/t ESRD. Flush with 150 mL free H2O Q6H. TF regimen will provide 1296 kcals, 58g Pro, and 1123 mL free H2O (including flushes) per 24 hrs. TF regimen will meet ~86% estimated energy needs and ~61% estimated protein needs. 2) Advance to 60g CCHO renal diet when medically feasible, pending ST approval 3) Refer to outpatient RD/CDCES for diabetes education/weight management 4) Follow-up with cardiology, pulmonology, and nephrology 5) Continue to monitor I&O, labs, and skin integrity Expected Outcomes/Goals: 1) TF regimen to meet at least 75% estimated daily needs 2) labs to improve 3) diet to advance 4) f/u in 2-3 days Plan discussed with: Patient, Other (Brother) REINIER JACQUES MD Apr 19, 2025 15:10
--- NOTE | 2025-04-19 18:21 | DVHINCON2 ---
Date of Service if different f: Apr 19, 2025 Time of Service: 18:20 Consultation (ADAK) Labs Laboratory Tests Test 04/09/25 13:42 04/09/25 17:41 04/10/25 05:55 04/12/25 03:30 Erythrocyte Sedimentation Rate 48 mm/hr (0-20) Hemoglobin A1c 11.5 % A1C (<5.7) B-Type Natriuretic Peptide 625.00 pg/mL (0-100) Triglycerides Level 104 mg/dL (< 150) Cholesterol Level 112 mg/dL (< 200) LDL Cholesterol 70 mg/dL (< 100) HDL Cholesterol 29 mg/dL (40-59) Folic Acid (LAB) 17.58 ng/mL (>5.38) Thyroid Stimulating Hormone (TSH) 2.59 uIU/mL (0.55-4.78) Vitamin B12 Level 547 pg/mL (211-911) Vitamin D 25-Hydroxy 37.2 ng/mL (30.0-100) Hepatitis B Surface Antigen Negative (Negative) Prothrombin Time 12.2 sec (9.3-11.8) Prothromb Time International Ratio 1.17 (0.9-1.15) Activated Partial Thromboplast Time 25.4 SEC (24.5-34.5) Test 04/12/25 11:30 04/12/25 19:01 04/13/25 04:33 04/14/25 11:00 Troponin I High Sensitivity 165 ng/L (</=54) Blood Gas Spontaneous Rate 18 Lactic Acid Level 0.9 mmol/L (0.4-2.0) Phosphorus Level 8.6 mg/dL (2.4-5.1) Magnesium Level 2.1 mg/dL (1.6-2.6) Stool Occult Blood Positive (Negative) Stool Occult Blood Sample #3 (Negative) Test 04/15/25 05:16 04/16/25 06:10 04/16/25 13:27 04/18/25 04:24 Iron Level 21 ug/dL (65-175) Total Iron Binding Capacity 184 ug/dL (250-425) Percent Iron Saturation 11.4 % (20-55) Ferritin 639.4 ng/mL (22-322) Blood Gas Set Respiration Rate 18.0 Blood Gas Tidal Volume 500.0 Blood Gas PEEP or CPAP 5.0 Blood Gas Specimen Type Arterial Blood Gas Sample Site Right radial Blood Gas Patient Temperature 37.0 Arterial Blood Date Drawn [id number] Arterial Blood pH 7.387 (7.350-7.450) Arterial Blood Partial Pressure CO2 40.7 mmHg (35.0-48.0) Arterial Blood Partial Pressure O2 101.1 mmHg (83.0-108.0) Arterial Blood HCO3 23.9 mmol/L (21.0-28.0) Arterial Blood Oxygen Saturation 97.3 % (94.0-98.0) Arterial Blood Base Excess -1.0 mmol/L (-2.0-3.0) Arterial Blood Oxyhemoglobin 95.5 % (94.0-98.0) Arterial Blood Carboxyhemoglobin 1.4 % (0.5-1.5) Arterial Blood Methemoglobin 0.4 % (0.0-1.5) Husam Test Modified Blood Gas Total Hemoglobin 9.40 g/dL (13.5-17.5) Blood Gas Modality Vent - cpap FiO2 % 30.0 Blood Gas Comments Cpap peep 5/ps 8 Total Bilirubin 0.4 mg/dL (0.2-1.0) Aspartate Amino Transf (AST/SGOT) 19 U/L (13-40) Alanine Aminotransferase (ALT/SGPT) 15 U/L (7-40) Alkaline Phosphatase 62 U/L (46-116) Total Protein 6.8 g/dL (5.7-8.2) Albumin 3.4 g/dL (3.2-4.8) Test 04/19/25 06:25 04/19/25 10:46 White Blood Count 7.5 10^3/uL (4.4-10.8) Red Blood Count 2.86 10^6/uL (4.5-5.90) Hemoglobin 8.3 g/dL (13.5-17.5) Hematocrit 25.0 % (41.0-53.0) Mean Corpuscular Volume 87.2 fL (80.0-100.0) Mean Corpuscular Hemoglobin 28.9 pg (28.0-32.0) Mean Corpuscular Hemoglobin Concent 33.1 g/dL (32.0-36.0) Red Cell Distribution Width 15.3 % (11.8-14.3) Platelet Count 230 10^3/uL (140-450) Mean Platelet Volume 6.6 fL (6.9-10.8) Neutrophils (%) (Auto) 73.8 % (37.0-80.0) Lymphocytes (%) (Auto) 8.9 % (10.0-50.0) Monocytes (%) (Auto) 11.0 % (0.0-12.0) Eosinophils (%) (Auto) 5.9 % (0.0-7.0) Basophils (%) (Auto) 0.4 % (0.0-2.0) Neutrophils # (Auto) 5.5 10 ^3/uL (1.6-8.6) Lymphocytes # (Auto) 0.7 10 ^3/uL (0.4-5.4) Monocytes # (Auto) 0.8 10 ^3/uL (0-1.3) Eosinophils # (Auto) 0.4 10 ^3/uL (0-0.8) Basophils # (Auto) 0 10 ^3/uL (0-0.2) Nucleated Red Blood Cells 0.1 % Sodium Level 136 mmol/L (136-145) Potassium Level 3.9 mmol/L (3.5-5.1) Chloride Level 98 mmol/L (98-107) Carbon Dioxide Level 25 mmol/L (20-31) Anion Gap 13 (5-15) Blood Urea Nitrogen 28 mg/dL (9-23) Creatinine 8.00 mg/dL (0.700-1.30) Glomerular Filtration Rate Calc 7 mL/min (>90) BUN/Creatinine Ratio 3.5 (10.0-20.0) Serum Glucose 121 mg/dL (74-106) Calcium Level 8.5 mg/dL (8.7-10.4) Bedside Glucose 121 mg/dl (70-106) Microbiology Date/Time Source Procedure Growth Status 04/12/25 08:46 Blood Blood Culture - Final NO GROWTH AFTER 5 DAYS OF INCUBATION. Complete 04/12/25 04:00 Nose MRSA Screen - Final Complete Vitals Vital Signs Date Time Temp Pulse Resp B/P (MAP) Pulse Ox O2 Delivery O2 Flow Rate FiO2 04/19/25 18:17 158/81 04/19/25 17:00 97.8 81 18 99 97.8 04/19/25 10:00 Nasal Cannula 2.0 04/19/25 10:00 28 Current medications Current Medications Medications Dose Ordered Sig/Duane Route Start Time Stop Time Status Last Admin Dose Admin Patient Own Medication 1 tab HS PO 04/10/25 22:00 Insulin Glargine 17 units DAILY SC 04/10/25 10:00 04/19/25 10:56 17 UNITS Lamotrigine 100 mg DAILY GT 04/12/25 12:00 Hold 04/12/25 18:26 100 MG Acetaminophen 650 mg Q6HP PRN RI 04/12/25 16:00 04/12/25 16:51 650 MG Enteral Nutritional Formula 1,000 ml 30ML/HR GT 04/12/25 18:45 04/14/25 18:25 1,000 ML Saccharomyces Boulardii 250 mg DAILY GT 04/13/25 12:15 04/19/25 10:00 250 MG Cefepime HCl 50 ml @ 12.5 mls/hr POSTDI IV 04/15/25 22:00 Dextrose 50 ml ONCE PRN IV 04/15/25 06:45 Diagnostic Test (Pha) 1 strip Q6HR 04/15/25 12:00 04/19/25 18:16 1 STRIP Insulin Human Regular Q6HR SC 04/15/25 12:00 04/18/25 18:15 2 UNITS Zirconium Oxide 10 gm EOD PRN GT 04/16/25 10:00 Isosorbide Dinitrate 10 mg TID@06,12,18 PO 04/16/25 12:00 04/19/25 18:17 10 MG Nifedipine 60 mg QPM PO 04/17/25 18:00 04/19/25 18:17 60 MG Clonidine HCl 0.1 mg Q7D TD 04/17/25 17:00 04/17/25 18:13 0.1 MG Patient Own Medication 2 mg DAILY PO 04/18/25 10:00 04/19/25 10:00 2 MG Heparin Sodium (Porcine) 5,000 units Q12HR SC 04/18/25 10:00 04/18/25 21:44 5,000 UNITS Hydralazine HCl 50 mg Q8HR PO 04/18/25 22:00 Pantoprazole Sodium 40 mg DAILY@0600 PO 04/19/25 06:00 04/19/25 05:18 40 MG Acetaminophen 650 mg Q4HP PRN PO 04/19/25 11:45 PSYCHIATRY CONSULTATION INITIAL EVALUATION REASON FOR CONSULT: Visual Hallucinations HPI: 55yo M, says he is very tired. Says he has been in bed almost 2 weeks. Pt provides his full name, locations, locations, month, and year. Pt says he missed 2 of his dialysis appointments. He as feeling weird, called 911, he was taken to the ED where he coded, required chest compressions and tracheotomy. Pt hallucinated following. Pt saw that he was in hell, and everyone was pulling his trach tube. Pt takes several minutes to discuss the various hallucinations he experienced the past few days. Pt reports this is improving. No current AVH. Pt denies SI, HI. PSYCHIATRIC HISTORY: DIAGNOSIS: Anger ADMISSIONS: None prior MEDICATION TRIALS: Lamictal for anger OUTPATIENT CARE: Was in care remotely THERAPY: Was in care SI/SELF-INJURY/SUICIDE ATTEMPT: Pt reports SI about 2 weeks ago when his best friend . He denies self-harm or suicide attempt. He denies access to firearms. SUBSTANCE USE: Denies use of drugs or alcohol. SOCIAL HISTORY: Lives with his mother. Not employed. Has a son in [place] in his 30s. Gets SSDI. ALLERGIES: Denied MENTAL STATUS EXAMINATION: The patient is a 55-year-old man, appearing stated age, in no acute distress. He is alert and oriented to person, place, month, and year. He is talkative throughout the interview, with speech that is circumstantial but otherwise normal in rate, rhythm, and volume. Mood is described as tired, and affect is not congruent, patient is euthymic with full range. Thought processes are circumstantial but goal-directed overall. Thought content notable for recounting recent vivid visual hallucinations related to his hospitalization; he denies current hallucinations, suicidal ideation, or homicidal ideation. No delusions are elicited. Cognition is grossly intact with some mild distractibility, likely in the context of medical illness. Insight and judgment are fair. DIFFERENTIAL DIAGNOSIS: F05 Delirium due to known physiological condition (most likely, given recent medical instability, missed dialysis, cardiac arrest, and subsequent vivid visual hallucinations now resolving) R44.1 Visual hallucinations (related to delirium) ASSESSMENT: This is a 55-year-old man with a history of mood dysregulation (anger), previously on Lamictal, presenting after a medical admission complicated by missed dialysis, cardiac arrest, and subsequent tracheotomy. He reports vivid visual hallucinations during his hospitalization (seeing himself in hell, others pulling his trach tube), consistent with delirium in the setting of severe medical illness and metabolic instability. These hallucinations are now improving. He denies SI, HI, or ongoing psychotic symptoms. There is no evidence of primary psychiatric illness driving his current presentation. RECOMMENDATIONS: 1. Legal: Patient does not meet 5150 criteria; no DTS, DTO, or GD at this time. 2. Disposition: Psychiatric admission is not indicated. Continue medical admissi on for stabilization and management of underlying conditions. 3. Medications: No antipsychotic medications indicated at this time. Do not initiate antipsychotics unless hallucinations persist or cause severe distress; continue to monitor. Continue home Lamictal if patient has NOT been off med for > 4 days. If he has been off Lamictal 5 or more days, restart at 25 mg po daily and defer titration to outpatient team. 4. Medical Considerations: Optimize medical management. Hallucinations should continue to improve with time. 5. Other - Provide reassurance and psychoeducation regarding delirium-related hallucinations. - Encourage follow-up with outpatient psychiatry only if mood or psychotic symptoms recur after medical stabilization. TINO DOAN MD Apr 19, 2025 18:21
[2025-04-19] MEDS: EPOETIN ALFA-EPBX 10,000 UNIT/1ML VIAL SC ONE (21:39)
--- NOTE | 2025-04-19 22:50 | DVHPN2 ---
Progress Note - Dictate Date Seen: Apr 19, 2025 Has the PT tested + for MRSA If YES, has PT been informed?: No Medical Necessity Reason Pt with a Central, PICC or Fol: No The following are medically ne: Central Line, Araiza Catheter Subjective Patient was seen and evaluated in follow up. Patient was downgraded to telemetry. Tele psych eval is pending. HGB 8.3, HCT 25, BUN 28, ANTI[employer] 8, CA 8.5. Chest x-ray shows cardiomegaly. Telemetry reviewed. vital signs Vital Sign Date Time Temp Pulse Resp B/P (MAP) Pulse Ox O2 Delivery O2 Flow Rate FiO2 04/19/25 12:14 143/75 04/19/25 09:00 98.1 82 17 97 98.1 04/18/25 20:00 Nasal Cannula* 3 32 Total Intake and Output 04/18/25 04/18/25 04/19/25 15:00 23:00 07:00 Intake Total 85 ml 500 ml 0 ml Balance 85 ml 500 ml 0 ml medications Current Medications Medications Dose Ordered Sig/Duane Route Start Time Stop Time Status Last Admin Dose Admin Patient Own Medication 1 tab HS PO 04/10/25 22:00 Insulin Glargine 17 units DAILY SC 04/10/25 10:00 04/19/25 10:56 17 UNITS Lamotrigine 100 mg DAILY GT 04/12/25 12:00 Hold 04/12/25 18:26 100 MG Acetaminophen 650 mg Q6HP PRN MI 04/12/25 16:00 04/12/25 16:51 650 MG Enteral Nutritional Formula 1,000 ml 30ML/HR GT 04/12/25 18:45 04/14/25 18:25 1,000 ML Saccharomyces Boulardii 250 mg DAILY GT 04/13/25 12:15 04/19/25 10:00 250 MG Cefepime HCl 50 ml @ 12.5 mls/hr POSTDI IV 04/15/25 22:00 Dextrose 50 ml ONCE PRN IV 04/15/25 06:45 Diagnostic Test (Pha) 1 strip Q6HR 04/15/25 12:00 04/19/25 12:13 1 STRIP Insulin Human Regular Q6HR SC 04/15/25 12:00 04/18/25 18:15 2 UNITS Zirconium Oxide 10 gm EOD PRN GT 04/16/25 10:00 Isosorbide Dinitrate 10 mg TID@06,12,18 PO 04/16/25 12:00 04/19/25 12:14 10 MG Nifedipine 60 mg QPM PO 04/17/25 18:00 04/17/25 18:14 60 MG Clonidine HCl 0.1 mg Q7D TD 04/17/25 17:00 04/17/25 18:13 0.1 MG Patient Own Medication 2 mg DAILY PO 04/18/25 10:00 04/19/25 10:00 2 MG Heparin Sodium (Porcine) 5,000 units Q12HR SC 04/18/25 10:00 04/18/25 21:44 5,000 UNITS Hydralazine HCl 50 mg Q8HR PO 04/18/25 22:00 Pantoprazole Sodium 40 mg DAILY@0600 PO 04/19/25 06:00 04/19/25 05:18 40 MG Acetaminophen 650 mg Q4HP PRN PO 04/19/25 11:45 objective GENERAL: Alert and oriented x 3. No acute distress. Obese. EYES: PERRL, EOMI. Anicteric. HENT: Moist mucous membranes. LUNGS: Clear to auscultation bilaterally. CARDIOVASCULAR: Regular rate and rhythm. ABDOMEN: Soft, nontender and nondistended. EXTREMITIES: No edema. SKIN: Hyperpigmentation to bilateral lower extremities. laboratory and microbiology Laboratory Tests 04/19/25 06:25 Test 04/19/25 06:25 Range/Units Serum Glucose 121 H 74-106 mg/dL Problem List Cardiopulmonary arrest status post CPR with return of spontaneous circulation. High-degree atrioventricular block, complete heart block. Ventricular tachycardia. NSTEMI, rule out coronary artery disease. Rule out structural heart disease. Acute hypoxic respiratory failure. Hypertension. Hyperkalemia, resolved. ESRD on hemodialysis. Type 2 diabetes mellitus, uncontrolled (Hbg A1c 11.5%). Medical noncompliance. Assessment/Plan Continued all current supportive medical care. IV antibiotics as ordered. Clonidine, Hydralazine, Nifedipine. GI prophylactics. Additional plan as per the hospital course. Dietary Evaluation Review Comments: 1) Change TF formulary from Glucerna 1.2 to Nepro @ 30 goal rate as tolerated d/t ESRD. Flush with 150 mL free H2O Q6H. TF regimen will provide 1296 kcals, 58g Pro, and 1123 mL free H2O (including flushes) per 24 hrs. TF regimen will meet ~86% estimated energy needs and ~61% estimated protein needs. 2) Advance to 60g CCHO renal diet when medically feasible, pending ST approval 3) Refer to outpatient RD/CDCES for diabetes education/weight management 4) Follow-up with cardiology, pulmonology, and nephrology 5) Continue to monitor I&O, labs, and skin integrity Expected Outcomes/Goals: 1) TF regimen to meet at least 75% estimated daily needs 2) labs to improve 3) diet to advance 4) f/u in 2-3 days Plan discussed with: Patient INA ARRIOLA MD Apr 19, 2025 12:27
[2025-04-20] VITALS (9 sets, daily range): BP systolic 123–157; BP diastolic 52–73; PULSE 81–91; RESP 16–20; TEMP 97.3–98.5; O2SAT 92–100
--- NOTE | 2025-04-20 06:01 | DVH ---
CHEST RADIOGRAPH Indication: ET intubation Technique: Single frontal view of the chest was obtained COMPARISON: XY CHEST XRAY 1 VIEW on DOS: 04/19/25, XY CHEST XRAY 1 VIEW on DOS: 04/18/25, XY CHEST XRAY 1 VIEW on DOS: 04/17/25, XY CHEST XRAY 1 VIEW on DOS: 04/16/25, XY CHEST XRAY 1 VIEW on DOS: 04/15/25 FINDINGS: Lines and Tubes: Lines and tubes unchanged. Lungs: Clear. Pleura: No effusion. No pneumothorax. Cardiomediastinal contours: Cardiomegaly. Bones: Unremarkable IMPRESSION: 1. Cardiomegaly. 2. Lines and tubes unchanged.
[2025-04-20] MEDS: ACETAMINOPHEN 325 MG TAB PO PRN (06:31)
[2025-04-20 07:51] LABS: Hematocrit 25.9 % (41.0-53.0); Hemoglobin 8.7 g/dL (13.5-17.5); Mean Corpuscular Hemoglobin 28.6 pg (28.0-32.0); Mean Corpuscular Volume 85.4 fL (80.0-100.0); Nucleated Red Blood Cells % 0.1 %
[2025-04-20 08:06] LABS: Anion Gap 14 (5-15); Carbon Dioxide 29 mmol/L (20-31); Sodium 139 mmol/L (136-145)
[2025-04-20 08:11] LABS: Calcium 8.7 mg/dL (8.7-10.4); Chloride 96 mmol/L (98-107); Potassium 3.4 mmol/L (3.5-5.1)
[2025-04-20 08:12] LABS: BUN/Creatinine Ratio 4.0 (10.0-20.0); Glucose 104 mg/dL (74-106)
[2025-04-20 08:16] LABS: Blood Urea Nitrogen 23 mg/dL (9-23)
[2025-04-20] MEDS: lamoTRIgine 25 MG TAB PO SCH (09:54)
[2025-04-20] MEDS: POTASSIUM EFFERVESENT TAB 25 MEQ PO ONE (09:57)
--- NOTE | 2025-04-20 12:08 | DVHPNRES ---
Progress Note Date Seen: Apr 20, 2025 Resident Creating Document: KAREEN HARVEY RESIDENT Has the PT tested + for MRSA If YES, has PT been informed?: No Medical Necessity Reason Pt with a Central, PICC or Fol: No The following are medically ne: Central Line, Araiza Catheter Subjective Review of Systems 04/19/2025 We will continue Lamisil total 25 mg as per Psychiatry consultation. Today the patient reports pain in his left toe wishes sharp radiating down his leg like an electric current, occurring every 5 seconds. On inquiry he reports that he has had no visual hallucinations and that his chest pain is better with the Tylenol. He is still on 2 L of oxygen. Stable post-extubation on NC O2. Downgraded from ICU to telemetry. Psychosis improved after haloperidol; paranoia persists. Aripiprazole resumed. Oral feeds restarted. Hemodialysis today Vitals stable, labs consistent with ESRD and CKD anemia. FOBT postive Tele-psych consult suggested:Psychiatric admission is not indicated. Continue medical admission for stabilization and management of underlying conditions. 3. Medications: No antipsychotic medications indicated at this time. Do not initiate antipsychotics unless hallucinations persist or cause severe distress; continue to monitor. Continue home Lamictal if patient has NOT been off med for > 4 days. If he has been off Lamictal 5 or more days, restart at 25 mg po daily and defer titration to outpatient team. 4. Medical Considerations: Optimize medical management. Hallucinations should continue to improve with time. Acetaminophen 650 mg p.o. given PRN for chest pain 04/20/2025 We will continue Lamisil total 25 mg as per Psychiatry consultation. Today the patient reports pain in his left toe, sharp radiating down his leg like an electric current, occurring every 5 seconds. On inquiry he reports that he has had no visual hallucinations and that his chest pain is better with the Tylenol. He is still on 2 L of oxygen. Gabapentin to be given on days after dialysis 300 mg once only Objective vital signs Vital Sign Date Time Temp Pulse Resp B/P (MAP) Pulse Ox O2 Delivery O2 Flow Rate FiO2 04/20/25 11:46 128/57 04/20/25 10:00 99 Nasal Cannula* 2 28 04/20/25 09:00 98.5 86 20 98.5 Total Intake and Output 04/19/25 04/19/25 04/20/25 15:00 23:00 07:00 Intake Total 550 ml 480 ml Balance 550 ml 480 ml medications Current Medications Medications Dose Ordered Sig/Duane Route Start Time Stop Time Status Last Admin Dose Admin Patient Own Medication 1 tab HS PO 04/10/25 22:00 Insulin Glargine 17 units DAILY SC 04/10/25 10:00 04/20/25 11:48 17 UNITS Lamotrigine 100 mg DAILY GT 04/12/25 12:00 Hold 04/12/25 18:26 100 MG Acetaminophen 650 mg Q6HP PRN NM 04/12/25 16:00 04/12/25 16:51 650 MG Enteral Nutritional Formula 1,000 ml 30ML/HR GT 04/12/25 18:45 04/14/25 18:25 1,000 ML Saccharomyces Boulardii 250 mg DAILY GT 04/13/25 12:15 04/20/25 09:47 250 MG Cefepime HCl 50 ml @ 12.5 mls/hr POSTDI IV 04/15/25 22:00 Dextrose 50 ml ONCE PRN IV 04/15/25 06:45 Diagnostic Test (Pha) 1 strip Q6HR 04/15/25 12:00 04/20/25 11:31 1 STRIP Insulin Human Regular Q6HR SC 04/15/25 12:00 04/18/25 18:15 2 UNITS Zirconium Oxide 10 gm EOD PRN GT 04/16/25 10:00 Isosorbide Dinitrate 10 mg TID@06,12,18 PO 04/16/25 12:00 04/20/25 11:46 10 MG Nifedipine 60 mg QPM PO 04/17/25 18:00 04/19/25 18:17 60 MG Clonidine HCl 0.1 mg Q7D TD 04/17/25 17:00 04/17/25 18:13 0.1 MG Patient Own Medication 2 mg DAILY PO 04/18/25 10:00 04/20/25 10:12 2 MG Heparin Sodium (Porcine) 5,000 units Q12HR SC 04/18/25 10:00 04/20/25 09:46 5,000 UNITS Hydralazine HCl 50 mg Q8HR PO 04/18/25 22:00 04/20/25 05:32 50 MG Pantoprazole Sodium 40 mg DAILY@0600 PO 04/19/25 06:00 04/20/25 05:31 40 MG Acetaminophen 650 mg Q4HP PRN PO 04/19/25 11:45 04/20/25 06:31 650 MG Lamotrigine 25 mg DAILY PO 04/20/25 10:00 04/20/25 09:54 25 MG Examination General Appearance: Alert, Oriented X3, Cooperative, Not in acute distress HEENT: Atraumatic, Mucous membranes moist/pink Respiratory: decreased breath sounds, on 4 L of oxygen Cardiovascular: Regular rate, Normal S1, Normal S2, No murmurs Abdominal: Active bowel sounds, Soft, no distention, no tenderness Extremities: No edema, Normal pulses, No tenderness/swelling Skin: No Significant rash, except past surgical scars Neuro: Normal speech, sensorimotor deficits none Psych/Mental Status: Normal mental status Nurse was there as dot compliance manager during examination laboratory and microbiology Laboratory Tests 04/20/25 05:54 Test 04/20/25 05:54 Range/Units Serum Glucose 104 74-106 mg/dL Microbiology Date/Time Source Procedure Growth Status 04/12/25 08:46 Blood Blood Culture - Final NO GROWTH AFTER 5 DAYS OF INCUBATION. Complete 04/12/25 04:00 Nose MRSA Screen - Final Complete Labs and/or images reviewed: Labs reviewed by me, Image(s) reviewed by me Problem List/Assessment/Plan Problem List/Assessment/Plan Acute hypoxic respiratory failure, post-extubation, stable * Rule in: required intubation, now extubated, stable O2 sats. Psychosis with hallucinations, insomnia, underlying schizophrenia and bipolar disorder (CC) * Tele-psych consult suggests:Psychiatric admission is not indicated. Continue medical admission for stabilization and management of underlying conditions. 3. Medications: No antipsychotic medications indicated at this time. Do not initiate antipsychotics unless hallucinations persist or cause severe distress; continue to monitor. Continue home Lamictal if patient has NOT been off med for > 4 days. If he has been off Lamictal 5 or more days, restart at 25 mg po daily and defer titration to outpatient team. 4. Medical Considerations: Optimize medical management. Hallucinations should continue to improve with time. Hypertension, currently controlled (160/63) post-extubation * On multidrug regimen with Hydralazine, Isosorbide, Nicardipine. ESRD on chronic hemodialysis (MWF) * BUN 287, Cr 8 HFpEF * CXR + echo: mild diastolic dysfunction, moderate atrial/ventricular dilation. Type 2 diabetes mellitus, uncontrolled (HbA1c 11.5%) * Glucose controlled with insulin regimen. Positive occult GI bleed (previously) ? risk for ongoing anemia. Obesity (BMI 35.6) Status post cardiopulmonary arrest with ROSC due to AV block/ventricular tachycardia Sepsis due to Enterobacter cloacae pneumonia with septic encephalopathy, improving ([facility]) * Sensitive to cefepime, continued. Moderate pulmonary hypertension (RVSP 55 mmHg) per echo. Neuro/Psych * Continue haloperidol PRN for breakthrough agitation. * Resume home aripiprazole. * Tele-psych consult done, Lamictal 25 mg po daily restarted * Sleep hygiene and reassurance. Cardiovascular * Continue antihypertensive regimen: nifedipine ER 60 mg daily, hydralazine 50 mg q8h, isosorbide dinitrate TID, clonidine 0.1 mg Q7D. * Maintain BP <140/90. Respiratory * Wean NC O? as tolerated. * Incentive spirometry and pulmonary hygiene. Renal * Continue HD on MWF schedule. * Strict I/O and daily weights. * Avoid nephrotoxic agents. Hematology * Continue epoetin with HD. * Transfuse if Hgb <7. * Monitor CBC daily. Infectious Disease * Continue cefepime for Enterobacter pneumonia. * Monitor for recurrence of fever or WBC changes. Endocrine * Continue insulin regimen with SSI. * Monitor glucose q6h. GI/Nutrition * Protonix 40 mg po * Oral feeds as tolerated, speech/swallow eval to guide diet. * Continue probiotics. Musculoskeletal # Neuropathic pain left foot -gabapentin 400mg TID Prophylaxis * DVT: Heparin SQ q12h. * GI: PPI BID. * Pulmonary: IS, HOB elevation. Goals of care discussed with the patient for more than 27 minutes: Full code status Case discussed with Dr. Fraire, patient and nurse. Plan discussed with: Patient, Other (rn) Dietary Evaluation Review Comments: 1) Change TF formulary from Glucerna 1.2 to Nepro @ 30 goal rate as tolerated d/t ESRD. Flush with 150 mL free H2O Q6H. TF regimen will provide 1296 kcals, 58g Pro, and 1123 mL free H2O (including flushes) per 24 hrs. TF regimen will meet ~86% estimated energy needs and ~61% estimated protein needs. 2) [facility], pending ST approval 3) Refer to outpatient RD/[facility] for diabetes education/weight management 4) Follow-up with cardiology, pulmonology, and nephrology 5) Continue to monitor I&O, labs, and skin integrity Expected Outcomes/Goals: 1) TF regimen to meet at least 75% estimated daily needs 2) labs to improve 3) diet to advance 4) f/u in 2-3 days Date of Service: Apr 20, 2025 Billing Provider: RNO FRAIRE MD Common Visit Codes: [id number] INP/OBS CARE(HIGH) KAREEN HARVEY RESIDENT Apr 20, 2025 12:08 RON FRAIRE MD Apr 24, 2025 23:32
--- NOTE | 2025-04-20 12:34 | DVHPN2 ---
Progress Note - Dictate Date Seen: Apr 20, 2025 Has the PT tested + for MRSA If YES, has PT been informed?: No Medical Necessity Reason Pt with a Central, PICC or Fol: No The following are medically ne: Central Line, Araiza Catheter Subjective Patient overall feeling better except for some neuropathic pain. vital signs Vital Sign Date Time Temp Pulse Resp B/P (MAP) Pulse Ox O2 Delivery O2 Flow Rate FiO2 04/20/25 11:46 128/57 04/20/25 10:00 99 Nasal Cannula* 2 28 04/20/25 09:00 98.5 86 20 98.5 Total Intake and Output 04/19/25 04/19/25 04/20/25 15:00 23:00 07:00 Intake Total 550 ml 480 ml Balance 550 ml 480 ml medications Current Medications Medications Dose Ordered Sig/Duane Route Start Time Stop Time Status Last Admin Dose Admin Patient Own Medication 1 tab HS PO 04/10/25 22:00 Insulin Glargine 17 units DAILY SC 04/10/25 10:00 04/20/25 11:48 17 UNITS Lamotrigine 100 mg DAILY GT 04/12/25 12:00 Hold 04/12/25 18:26 100 MG Acetaminophen 650 mg Q6HP PRN IN 04/12/25 16:00 04/12/25 16:51 650 MG Enteral Nutritional Formula 1,000 ml 30ML/HR GT 04/12/25 18:45 04/14/25 18:25 1,000 ML Saccharomyces Boulardii 250 mg DAILY GT 04/13/25 12:15 04/20/25 09:47 250 MG Cefepime HCl 50 ml @ 12.5 mls/hr POSTDI IV 04/15/25 22:00 Dextrose 50 ml ONCE PRN IV 04/15/25 06:45 Diagnostic Test (Pha) 1 strip Q6HR 04/15/25 12:00 04/20/25 11:31 1 STRIP Insulin Human Regular Q6HR SC 04/15/25 12:00 04/18/25 18:15 2 UNITS Zirconium Oxide 10 gm EOD PRN GT 04/16/25 10:00 Isosorbide Dinitrate 10 mg TID@06,12,18 PO 04/16/25 12:00 04/20/25 11:46 10 MG Nifedipine 60 mg QPM PO 04/17/25 18:00 04/19/25 18:17 60 MG Clonidine HCl 0.1 mg Q7D TD 04/17/25 17:00 04/17/25 18:13 0.1 MG Patient Own Medication 2 mg DAILY PO 04/18/25 10:00 04/20/25 10:12 2 MG Heparin Sodium (Porcine) 5,000 units Q12HR SC 04/18/25 10:00 04/20/25 09:46 5,000 UNITS Hydralazine HCl 50 mg Q8HR PO 04/18/25 22:00 04/20/25 05:32 50 MG Pantoprazole Sodium 40 mg DAILY@0600 PO 04/19/25 06:00 04/20/25 05:31 40 MG Acetaminophen 650 mg Q4HP PRN PO 04/19/25 11:45 04/20/25 06:31 650 MG Lamotrigine 25 mg DAILY PO 04/20/25 10:00 04/20/25 09:54 25 MG objective HEENT: No oral lesions noticed Pulmonary: Lungs are clear on auscultation bilaterally Cardiovascular S1-S2, no S3 or S4 Abdomen: Bowel sounds positive, soft no rebound tenderness Skin: No rash Neurological: Alert and oriented no focal weakness Psych: Anxious appearing patient laboratory and microbiology Laboratory Tests 04/20/25 05:54 Test 04/20/25 05:54 Range/Units Serum Glucose 104 74-106 mg/dL Assessment/Plan Assessment End-stage renal disease on hemodialysis Tuesday Hyperkalemia managed with dialysis and Lokelma Uremia managed with dialysis Accelerated hypertension Paranoia with hallucinations Anemia of renal disease. Diabetes mellitus. Respiratory failure s/p cardiac arrest Plan HD to continue on MWF Gabapentin not more than 300 mg in 24 hours Consult psychiatry is still pending I discussed with the nurse to contact tele psychiatry again Continue clonidine patch placed during this hospitalization. Patient has it at home but does not place it because he forgets Continue current antihypertensive meds On nifedipine Lokelma on non dialysis days Empiric IV antibiotics Cardiology consult appreciated Stephan with dialysis Plan of care discussed with the RN at bedside Thank you very much for allowing us to participate in the care of this patient please contact if you have any questions. Dietary Evaluation Review Comments: 1) Change TF formulary from Glucerna 1.2 to Nepro @ 30 goal rate as tolerated d/t ESRD. Flush with 150 mL free H2O Q6H. TF regimen will provide 1296 kcals, 58g Pro, and 1123 mL free H2O (including flushes) per 24 hrs. TF regimen will meet ~86% estimated energy needs and ~61% estimated protein needs. 2) Advance to 60g CCHO renal diet when medically feasible, pending ST approval 3) Refer to outpatient RD/[facility] for diabetes education/weight management 4) Follow-up with cardiology, pulmonology, and nephrology 5) Continue to monitor I&O, labs, and skin integrity Expected Outcomes/Goals: 1) TF regimen to meet at least 75% estimated daily needs 2) labs to improve 3) diet to advance 4) f/u in 2-3 days Plan discussed with: Patient REINIER JACQUES MD Apr 20, 2025 12:34
[2025-04-20] MEDS: GABAPENTIN 400 MG CAP PO ONE (18:43)
--- NOTE | 2025-04-20 19:21 | DVHPN2 ---
Progress Note - Dictate Date Seen: Apr 20, 2025 Has the PT tested + for MRSA If YES, has PT been informed?: No Medical Necessity Reason Pt with a Central, PICC or Fol: No The following are medically ne: Central Line, Araiza Catheter Subjective Patient was seen and evaluated in follow up. Patient is on 2 LPM NC. The patient is complaining of sharp left toe pain. HGB 8.7, HCT 25.9, K 3.4, CL 96, MANUSCRIPT EDITOR 5.76. Chest x-ray shows cardiomegaly. Telemetry reviewed. vital signs Vital Sign Date Time Temp Pulse Resp B/P (MAP) Pulse Ox O2 Delivery O2 Flow Rate FiO2 04/20/25 16:53 97.8 81 18 133/61 (85) 99 97.8 04/20/25 10:00 Nasal Cannula* 2 28 Total Intake and Output 04/19/25 04/19/25 04/20/25 15:00 23:00 07:00 Intake Total 550 ml 480 ml Balance 550 ml 480 ml medications Current Medications Medications Dose Ordered Sig/Duane Route Start Time Stop Time Status Last Admin Dose Admin Patient Own Medication 1 tab HS PO 04/10/25 22:00 Insulin Glargine 17 units DAILY SC 04/10/25 10:00 04/20/25 11:48 17 UNITS Lamotrigine 100 mg DAILY GT 04/12/25 12:00 Hold 04/12/25 18:26 100 MG Acetaminophen 650 mg Q6HP PRN HI 04/12/25 16:00 04/12/25 16:51 650 MG Enteral Nutritional Formula 1,000 ml 30ML/HR GT 04/12/25 18:45 04/14/25 18:25 1,000 ML Saccharomyces Boulardii 250 mg DAILY GT 04/13/25 12:15 04/20/25 09:47 250 MG Cefepime HCl 50 ml @ 12.5 mls/hr POSTDI IV 04/15/25 22:00 Dextrose 50 ml ONCE PRN IV 04/15/25 06:45 Diagnostic Test (Pha) 1 strip Q6HR 04/15/25 12:00 04/20/25 11:31 1 STRIP Insulin Human Regular Q6HR SC 04/15/25 12:00 04/18/25 18:15 2 UNITS Zirconium Oxide 10 gm EOD PRN GT 04/16/25 10:00 Isosorbide Dinitrate 10 mg TID@06,12,18 PO 04/16/25 12:00 04/20/25 11:46 10 MG Nifedipine 60 mg QPM PO 04/17/25 18:00 04/19/25 18:17 60 MG Clonidine HCl 0.1 mg Q7D TD 04/17/25 17:00 04/17/25 18:13 0.1 MG Patient Own Medication 2 mg DAILY PO 04/18/25 10:00 04/20/25 10:12 2 MG Heparin Sodium (Porcine) 5,000 units Q12HR SC 04/18/25 10:00 04/20/25 09:46 5,000 UNITS Hydralazine HCl 50 mg Q8HR PO 04/18/25 22:00 04/20/25 13:59 50 MG Pantoprazole Sodium 40 mg DAILY@0600 PO 04/19/25 06:00 04/20/25 05:31 40 MG Acetaminophen 650 mg Q4HP PRN PO 04/19/25 11:45 04/20/25 06:31 650 MG Lamotrigine 25 mg DAILY PO 04/20/25 10:00 04/20/25 09:54 25 MG Gabapentin 300 mg EOD PO 04/20/25 22:00 objective GENERAL: Alert and oriented x 3. No acute distress. Obese. EYES: PERRL, EOMI. Anicteric. HENT: Moist mucous membranes. LUNGS: Clear to auscultation bilaterally. CARDIOVASCULAR: Regular rate and rhythm. ABDOMEN: Soft, nontender and nondistended. EXTREMITIES: No edema. SKIN: Hyperpigmentation to bilateral lower extremities. laboratory and microbiology Laboratory Tests 04/20/25 05:54 Test 04/20/25 05:54 Range/Units Serum Glucose 104 74-106 mg/dL Problem List Cardiopulmonary arrest status post CPR with return of spontaneous circulation. High-degree atrioventricular block, complete heart block. Ventricular tachycardia. NSTEMI, rule out coronary artery disease. Rule out structural heart disease. Acute hypoxic respiratory failure. Hypertension. Hyperkalemia, resolved. ESRD on hemodialysis. Type 2 diabetes mellitus, uncontrolled (Hbg A1c 11.5%). Medical noncompliance. Assessment/Plan Continued all current supportive medical care. IV antibiotics as ordered. Clonidine, Hydralazine, Nifedipine. GI prophylactics. Tylenol for pain management. Additional plan as per the hospital course. Dietary Evaluation Review Comments: 1) Change TF formulary from Glucerna 1.2 to Nepro @ 30 goal rate as tolerated d/t ESRD. Flush with 150 mL free H2O Q6H. TF regimen will provide 1296 kcals, 58g Pro, and 1123 mL free H2O (including flushes) per 24 hrs. TF regimen will meet ~86% estimated energy needs and ~61% estimated protein needs. 2) Advance to 60g CCHO renal diet when medically feasible, pending ST approval 3) Refer to outpatient RD/[facility] for diabetes education/weight management 4) Follow-up with cardiology, pulmonology, and nephrology 5) Continue to monitor I&O, labs, and skin integrity Expected Outcomes/Goals: 1) TF regimen to meet at least 75% estimated daily needs 2) labs to improve 3) diet to advance 4) f/u in 2-3 days Plan discussed with: Patient INA ARRIOLA MD Apr 20, 2025 18:27
[2025-04-20] MEDS: GABAPENTIN 300 MG CAP PO SCH (21:56)
[2025-04-20] MEDS ORDERED: GABAPENTIN 400 MG CAP PO SCH (22:00)
[2025-04-21] VITALS (9 sets, daily range): BP systolic 100–157; BP diastolic 61–79; PULSE 83–92; RESP 17–19; TEMP 97.6–98.8; O2SAT 94–98
--- NOTE | 2025-04-21 05:44 | DVH ---
CHEST RADIOGRAPH Indication: ET intubation Technique: Single frontal view of the chest was obtained COMPARISON: XY CHEST XRAY 1 VIEW on DOS: 04/20/25, XY CHEST XRAY 1 VIEW on DOS: 04/19/25, XY CHEST XRAY 1 VIEW on DOS: 04/18/25, XY CHEST XRAY 1 VIEW on DOS: 04/17/25, XY CHEST XRAY 1 VIEW on DOS: 04/16/25 FINDINGS: Lines and Tubes: Unchanged. Lungs: Clear Pleura: No effusion. No pneumothorax. Cardiomediastinal contours: Cardiomegaly. Bones: Unremarkable IMPRESSION: 1. Cardiomegaly. 2. Lines and tubes unchanged.
[2025-04-21 07:48] LABS: Anion Gap 12 (5-15); Carbon Dioxide 29 mmol/L (20-31); Potassium 3.8 mmol/L (3.5-5.1); Sodium 138 mmol/L (136-145)
[2025-04-21 07:52] LABS: Hemoglobin 8.3 g/dL (13.5-17.5); Nucleated Red Blood Cells % 0.1 %
[2025-04-21 07:55] LABS: BUN/Creatinine Ratio 4.0 (10.0-20.0); Glucose 76 mg/dL (74-106)
[2025-04-21 07:56] LABS: Blood Urea Nitrogen 31 mg/dL (9-23); Calcium 8.4 mg/dL (8.7-10.4); Chloride 97 mmol/L (98-107); Hematocrit 24.7 % (41.0-53.0); Mean Corpuscular Hemoglobin 29.2 pg (28.0-32.0); Mean Corpuscular Volume 87.2 fL (80.0-100.0)
--- NOTE | 2025-04-21 10:38 | DVHPNRES ---
Progress Note Date Seen: Apr 21, 2025 Resident Creating Document: ELIEL ZULUAGA RESIDENT Has the PT tested + for MRSA If YES, has PT been informed?: No Medical Necessity Reason Pt with a Central, PICC or Fol: No The following are medically ne: Central Line, Araiza Catheter Subjective Review of Systems 04/19/2025 We will continue Lamisil total 25 mg as per Psychiatry consultation. Today the patient reports pain in his left toe wishes sharp radiating down his leg like an electric current, occurring every 5 seconds. On inquiry he reports that he has had no visual hallucinations and that his chest pain is better with the Tylenol. He is still on 2 L of oxygen. Stable post-extubation on NC O2. Downgraded from ICU to telemetry. Psychosis improved after haloperidol; paranoia persists. Aripiprazole resumed. Oral feeds restarted. Hemodialysis today Vitals stable, labs consistent with ESRD and CKD anemia. FOBT postive Tele-psych consult suggested:Psychiatric admission is not indicated. Continue medical admission for stabilization and management of underlying conditions. 3. Medications: No antipsychotic medications indicated at this time. Do not initiate antipsychotics unless hallucinations persist or cause severe distress; continue to monitor. Continue home Lamictal if patient has NOT been off med for > 4 days. If he has been off Lamictal 5 or more days, restart at 25 mg po daily and defer titration to outpatient team. 4. Medical Considerations: Optimize medical management. Hallucinations should continue to improve with time. Acetaminophen 650 mg p.o. given PRN for chest pain 04/20/2025 We will continue Lamisil total 25 mg as per Psychiatry consultation. Today the patient reports pain in his left toe, sharp radiating down his leg like an electric current, occurring every 5 seconds. On inquiry he reports that he has had no visual hallucinations and that his chest pain is better with the Tylenol. He is still on 2 L of oxygen. Gabapentin to be given on days after dialysis 300 mg once only On 04/13/2025-patient reported doing well, no acute complaint, we will continue current management, no change in medication, plan is to discharge tomorrow if possible. Objective vital signs Vital Sign Date Time Temp Pulse Resp B/P (MAP) Pulse Ox O2 Delivery O2 Flow Rate FiO2 04/21/25 09:00 98.8 89 19 140/72 (94) 97 98.8 04/20/25 20:00 Nasal Cannula* 2 28 Total Intake and Output 04/20/25 04/20/25 04/21/25 15:00 23:00 07:00 Intake Total 600 ml 300 ml Balance 600 ml 300 ml medications Current Medications Medications Dose Ordered Sig/Duane Route Start Time Stop Time Status Last Admin Dose Admin Patient Own Medication 1 tab HS PO 04/10/25 22:00 Insulin Glargine 17 units DAILY SC 04/10/25 10:00 04/20/25 11:48 17 UNITS Lamotrigine 100 mg DAILY GT 04/12/25 12:00 Hold 04/12/25 18:26 100 MG Acetaminophen 650 mg Q6HP PRN MA 04/12/25 16:00 04/12/25 16:51 650 MG Enteral Nutritional Formula 1,000 ml 30ML/HR GT 04/12/25 18:45 04/14/25 18:25 1,000 ML Saccharomyces Boulardii 250 mg DAILY GT 04/13/25 12:15 04/21/25 10:16 250 MG Cefepime HCl 50 ml @ 12.5 mls/hr POSTDI IV 04/15/25 22:00 Dextrose 50 ml ONCE PRN IV 04/15/25 06:45 Diagnostic Test (Pha) 1 strip Q6HR 04/15/25 12:00 04/21/25 05:25 1 STRIP Insulin Human Regular Q6HR SC 04/15/25 12:00 04/18/25 18:15 2 UNITS Zirconium Oxide 10 gm EOD PRN GT 04/16/25 10:00 Isosorbide Dinitrate 10 mg TID@06,12,18 PO 04/16/25 12:00 04/21/25 05:28 10 MG Nifedipine 60 mg QPM PO 04/17/25 18:00 04/20/25 18:44 60 MG Clonidine HCl 0.1 mg Q7D TD 04/17/25 17:00 04/17/25 18:13 0.1 MG Patient Own Medication 2 mg DAILY PO 04/18/25 10:00 04/21/25 10:17 2 MG Heparin Sodium (Porcine) 5,000 units Q12HR SC 04/18/25 10:00 04/21/25 10:25 5,000 UNITS Hydralazine HCl 50 mg Q8HR PO 04/18/25 22:00 04/21/25 05:27 50 MG Pantoprazole Sodium 40 mg DAILY@0600 PO 04/19/25 06:00 04/21/25 05:28 40 MG Acetaminophen 650 mg Q4HP PRN PO 04/19/25 11:45 04/20/25 06:31 650 MG Lamotrigine 25 mg DAILY PO 04/20/25 10:00 04/21/25 10:16 25 MG Gabapentin 300 mg EOD PO 04/20/25 22:00 Examination General Appearance: Alert, Oriented X3, Cooperative, Not in acute distress HEENT: Atraumatic, Mucous membranes moist/pink Respiratory: decreased breath sounds, on 4 L of oxygen Cardiovascular: Regular rate, Normal S1, Normal S2, No murmurs Abdominal: Active bowel sounds, Soft, no distention, no tenderness Extremities: No edema, Normal pulses, No tenderness/swelling Skin: No Significant rash, except past surgical scars Neuro: Normal speech, sensorimotor deficits none Psych/Mental Status: Normal mental status Nurse was there as physician compensation analyst during examination laboratory and microbiology Laboratory Tests 04/21/25 07:00 Test 04/21/25 07:00 Range/Units Serum Glucose 76 74-106 mg/dL Microbiology Date/Time Source Procedure Growth Status 04/12/25 08:46 Blood Blood Culture - Final NO GROWTH AFTER 5 DAYS OF INCUBATION. Complete 04/12/25 04:00 Nose MRSA Screen - Final Complete Problem List/Assessment/Plan Problem List/Assessment/Plan Acute hypoxic respiratory failure, post-extubation, stable * Rule in: required intubation, now extubated, stable O2 sats. Psychosis with hallucinations, insomnia, underlying schizophrenia and bipolar disorder (CC) * Tele-psych consult suggests:Psychiatric admission is not indicated. Continue medical admission for stabilization and management of underlying conditions. 3. Medications: No antipsychotic medications indicated at this time. Do not initiate antipsychotics unless hallucinations persist or cause severe distress; continue to monitor. Continue home Lamictal if patient has NOT been off med for > 4 days. If he has been off Lamictal 5 or more days, restart at 25 mg po daily and defer titration to outpatient team. 4. Medical Considerations: Optimize medical management. Hallucinations should continue to improve with time. Hypertension, currently controlled (160/63) post-extubation * On multidrug regimen with Hydralazine, Isosorbide, Nicardipine. ESRD on chronic hemodialysis (MWF) * BUN 287, Cr 8 HFpEF * CXR + echo: mild diastolic dysfunction, moderate atrial/ventricular dilation. Type 2 diabetes mellitus, uncontrolled (HbA1c 11.5%) * Glucose controlled with insulin regimen. Positive occult GI bleed (previously) ? risk for ongoing anemia. Obesity (BMI 35.6) Status post cardiopulmonary arrest with ROSC due to AV block/ventricular tachycardia Sepsis due to Enterobacter cloacae pneumonia with septic [place]opathy, [place] [place] * Sensitive to cefepime, continued. Moderate pulmonary hypertension (RVSP 55 mmHg) per echo. Neuro/Psych * Continue haloperidol PRN for breakthrough agitation. * Resume home aripiprazole. * Tele-psych consult done, Lamictal 25 mg po daily restarted * Sleep hygiene and reassurance. Cardiovascular * Continue antihypertensive regimen: nifedipine ER 60 mg daily, hydralazine 50 mg q8h, isosorbide dinitrate TID, clonidine 0.1 mg Q7D. * Maintain BP <140/90. Respiratory * Wean NC O? as tolerated. * Incentive spirometry and pulmonary hygiene. Renal * Continue HD on MWF schedule. * Strict I/O and daily weights. * Avoid nephrotoxic agents. Hematology * Continue epoetin with HD. * Transfuse if Hgb <7. * Monitor CBC daily. Infectious Disease * Continue cefepime for Enterobacter pneumonia. * Monitor for recurrence of fever or WBC changes. Endocrine * Continue insulin regimen with SSI. * Monitor glucose q6h. GI/Nutrition * Protonix 40 mg po * Oral feeds as tolerated, speech/swallow eval to guide diet. * Continue probiotics. Musculoskeletal # Neuropathic pain left foot -gabapentin 400mg TID Prophylaxis * DVT: Heparin SQ q12h. * GI: PPI BID. * Pulmonary: IS, HOB elevation. Goals of care discussed with the patient for more than 27 minutes: Full code status Case discussed with Dr. Fraire, patient and nurse. Plan discussed with: Patient, Other (RN) Dietary Evaluation Review Comments: 1) Change TF formulary from Glucerna 1.2 to Nepro @ 30 goal rate as tolerated d/t ESRD. Flush with 150 mL free H2O Q6H. TF regimen will provide 1296 kcals, 58g Pro, and 1123 mL free H2O (including flushes) per 24 hrs. TF regimen will meet ~86% estimated energy needs and ~61% estimated protein needs. 2) Advance to 60g CCHO renal diet when medically feasible, pending ST approval 3) Refer to outpatient RD/[facility] for diabetes education/weight management 4) Follow-up with cardiology, pulmonology, and nephrology 5) Continue to monitor I&O, labs, and skin integrity Expected Outcomes/Goals: 1) TF regimen to meet at least 75% estimated daily needs 2) labs to improve 3) diet to advance 4) f/u in 2-3 days Date of Service: Apr 21, 2025 Billing Provider: RON FRAIRE MD Common Visit Codes: [id number] INP/OBS CARE(HIGH) ELIEL ZULUAGA RESIDENT Apr 21, 2025 10:38 RON FRAIRE MD Apr 24, 2025 23:42
--- NOTE | 2025-04-21 11:36 | DVHPN2 ---
Progress Note - Dictate Date Seen: Apr 21, 2025 Has the PT tested + for MRSA If YES, has PT been informed?: No Medical Necessity Reason Pt with a Central, PICC or Fol: No The following are medically ne: Central Line, Araiza Catheter Subjective No new complaints Neuropathy in feet vital signs Vital Sign Date Time Temp Pulse Resp B/P (MAP) Pulse Ox O2 Delivery O2 Flow Rate FiO2 04/21/25 11:14 140/72 04/21/25 09:00 98.8 89 19 97 98.8 04/20/25 20:00 Nasal Cannula* 2 28 Total Intake and Output 04/20/25 04/20/25 04/21/25 15:00 23:00 07:00 Intake Total 600 ml 300 ml Balance 600 ml 300 ml medications Current Medications Medications Dose Ordered Sig/Duane Route Start Time Stop Time Status Last Admin Dose Admin Patient Own Medication 1 tab HS PO 04/10/25 22:00 Insulin Glargine 17 units DAILY SC 04/10/25 10:00 04/21/25 11:19 17 UNITS Lamotrigine 100 mg DAILY GT 04/12/25 12:00 Hold 04/12/25 18:26 100 MG Acetaminophen 650 mg Q6HP PRN HI 04/12/25 16:00 04/12/25 16:51 650 MG Enteral Nutritional Formula 1,000 ml 30ML/HR GT 04/12/25 18:45 04/14/25 18:25 1,000 ML Saccharomyces Boulardii 250 mg DAILY GT 04/13/25 12:15 04/21/25 10:16 250 MG Cefepime HCl 50 ml @ 12.5 mls/hr POSTDI IV 04/15/25 22:00 Dextrose 50 ml ONCE PRN IV 04/15/25 06:45 Diagnostic Test (Pha) 1 strip Q6HR 04/15/25 12:00 04/21/25 05:25 1 STRIP Insulin Human Regular Q6HR SC 04/15/25 12:00 04/18/25 18:15 2 UNITS Zirconium Oxide 10 gm EOD PRN GT 04/16/25 10:00 Isosorbide Dinitrate 10 mg TID@06,12,18 PO 04/16/25 12:00 04/21/25 05:28 10 MG Nifedipine 60 mg QPM PO 04/17/25 18:00 04/20/25 18:44 60 MG Clonidine HCl 0.1 mg Q7D TD 04/17/25 17:00 04/17/25 18:13 0.1 MG Patient Own Medication 2 mg DAILY PO 04/18/25 10:00 04/21/25 10:17 2 MG Heparin Sodium (Porcine) 5,000 units Q12HR SC 04/18/25 10:00 04/21/25 10:25 5,000 UNITS Hydralazine HCl 50 mg Q8HR PO 04/18/25 22:00 04/21/25 11:14 50 MG Pantoprazole Sodium 40 mg DAILY@0600 PO 04/19/25 06:00 04/21/25 05:28 40 MG Acetaminophen 650 mg Q4HP PRN PO 04/19/25 11:45 04/20/25 06:31 650 MG Lamotrigine 25 mg DAILY PO 04/20/25 10:00 04/21/25 10:16 25 MG Gabapentin 300 mg EOD PO 04/20/25 22:00 objective GENERAL: The patient is an adult gentleman who appears to be chronically ill, HEENT: Unremarkable. NECK: No jugular venous distention. No palpable thyroid or lymphadenopathy. LUNGS: Show diminished air entry at the bases. CARDIOVASCULAR: Shows 1/6 systolic murmur, S4 gallop. ABDOMEN: Soft, nontender, no organomegaly. EXTREMITIES: Show no clubbing, cyanosis or edema. NEUROLOGIC: Nonfocal. laboratory and microbiology Laboratory Tests 04/21/25 07:00 Test 04/21/25 07:00 Range/Units Serum Glucose 76 74-106 mg/dL Assessment/Plan ASSESSMENT AND PLAN: End-stage renal disease on hemodialysis Tuesday Hyperkalemia managed with dialysis and Lokelma Uremia managed with dialysis Accelerated hypertension Paranoia with hallucinations Anemia of renal disease. Diabetes mellitus. Respiratory failure s/p cardiac arrest Plan HD to continue on MWF Gabapentin not more than 300 mg in 24 hours Consult psychiatry Continue clonidine patch placed during this hospitalization. Patient has it at home but does not place it because he forgets Continue current antihypertensive meds Lokelma on non dialysis days Empiric IV antibiotics Stephan with dialysis Dietary Evaluation Review Comments: 1) Change TF formulary from Glucerna 1.2 to Nepro @ 30 goal rate as tolerated d/t ESRD. Flush with 150 mL free H2O Q6H. TF regimen will provide 1296 kcals, 58g Pro, and 1123 mL free H2O (including flushes) per 24 hrs. TF regimen will meet ~86% estimated energy needs and ~61% estimated protein needs. 2) Advance to 60g CCHO renal diet when medically feasible, pending ST approval 3) Refer to outpatient RD/[facility] for diabetes education/weight management 4) Follow-up with cardiology, pulmonology, and nephrology 5) Continue to monitor I&O, labs, and skin integrity Expected Outcomes/Goals: 1) TF regimen to meet at least 75% estimated daily needs 2) labs to improve 3) diet to advance 4) f/u in 2-3 days Plan discussed with: Patient KAMARI CHAPPELL MD Apr 21, 2025 11:36
--- NOTE | 2025-04-21 21:40 | DVHPN2 ---
Progress Note - Dictate Date Seen: Apr 21, 2025 Has the PT tested + for MRSA If YES, has PT been informed?: No Medical Necessity Reason Pt with a Central, PICC or Fol: No The following are medically ne: Central Line, Araiza Catheter Subjective Patient was seen and evaluated in follow up. Patient is on 2 LPM NC. Patient complains of bilateral foot pain. HGB 8.3, HCT 24.7, CL 97, BUN 31, CHANNELER INSOLE 7.73, CA 8.4. Chest x-ray showed cardiomegaly. Telemetry reviewed. vital signs Vital Sign Date Time Temp Pulse Resp B/P (MAP) Pulse Ox O2 Delivery O2 Flow Rate FiO2 04/21/25 13:00 98.4 87 19 157/76 (103) 98 98.4 04/21/25 10:00 Nasal Cannula* 2 28 Total Intake and Output 04/20/25 04/20/25 04/21/25 15:00 23:00 07:00 Intake Total 600 ml 300 ml Balance 600 ml 300 ml medications Current Medications Medications Dose Ordered Sig/Duane Route Start Time Stop Time Status Last Admin Dose Admin Patient Own Medication 1 tab HS PO 04/10/25 22:00 Insulin Glargine 17 units DAILY SC 04/10/25 10:00 04/21/25 11:19 17 UNITS Lamotrigine 100 mg DAILY GT 04/12/25 12:00 Hold 04/12/25 18:26 100 MG Acetaminophen 650 mg Q6HP PRN [place] 04/12/25 16:00 04/12/25 16:51 650 MG Enteral Nutritional Formula 1,000 ml 30ML/HR GT 04/12/25 18:45 04/14/25 18:25 1,000 ML Saccharomyces Boulardii 250 mg DAILY GT 04/13/25 12:15 04/21/25 10:16 250 MG Cefepime HCl 50 ml @ 12.5 mls/hr POSTDI IV 04/15/25 22:00 Dextrose 50 ml ONCE PRN IV 04/15/25 06:45 Diagnostic Test (Pha) 1 strip Q6HR 04/15/25 12:00 04/21/25 12:00 1 STRIP Insulin Human Regular Q6HR SC 04/15/25 12:00 04/18/25 18:15 2 UNITS Zirconium Oxide 10 gm EOD PRN GT 04/16/25 10:00 Isosorbide Dinitrate 10 mg TID@06,12,18 PO 04/16/25 12:00 04/21/25 12:27 10 MG Nifedipine 60 mg QPM PO 04/17/25 18:00 04/20/25 18:44 60 MG Clonidine HCl 0.1 mg Q7D TD 04/17/25 17:00 04/17/25 18:13 0.1 MG Patient Own Medication 2 mg DAILY PO 04/18/25 10:00 04/21/25 10:17 2 MG Heparin Sodium (Porcine) 5,000 units Q12HR SC 04/18/25 10:00 04/21/25 10:25 5,000 UNITS Hydralazine HCl 50 mg Q8HR PO 04/18/25 22:00 04/21/25 11:14 50 MG Pantoprazole Sodium 40 mg DAILY@0600 PO 04/19/25 06:00 04/21/25 05:28 40 MG Acetaminophen 650 mg Q4HP PRN PO 04/19/25 11:45 04/21/25 12:27 650 MG Lamotrigine 25 mg DAILY PO 04/20/25 10:00 04/21/25 10:16 25 MG Gabapentin 300 mg EOD PO 04/20/25 22:00 objective GENERAL: Alert and oriented x 3. No acute distress. Obese. EYES: PERRL, EOMI. Anicteric. HENT: Moist mucous membranes. LUNGS: Clear to auscultation bilaterally. CARDIOVASCULAR: Regular rate and rhythm. ABDOMEN: Soft, nontender and nondistended. EXTREMITIES: No edema. SKIN: Hyperpigmentation to bilateral lower extremities. laboratory and microbiology Laboratory Tests 04/21/25 07:00 Test 04/21/25 07:00 Range/Units Serum Glucose 76 74-106 mg/dL Problem List Cardiopulmonary arrest status post CPR with return of spontaneous circulation. High-degree atrioventricular block, complete heart block. Ventricular tachycardia. NSTEMI, rule out coronary artery disease. Rule out structural heart disease. Acute hypoxic respiratory failure. Hypertension. Hyperkalemia, resolved. ESRD on hemodialysis. Type 2 diabetes mellitus, uncontrolled (Hbg A1c 11.5%). Medical noncompliance. Assessment/Plan Continued all current supportive medical care. Hydralazine. GI prophylactics. IV antibiotics as ordered. Tylenol for pain management. Additional plan as per the hospital course. Dietary Evaluation Review Comments: 1) Change TF formulary from Glucerna 1.2 to Nepro @ 30 goal rate as tolerated d/t ESRD. Flush with 150 mL free H2O Q6H. TF regimen will provide 1296 kcals, 58g Pro, and 1123 mL free H2O (including flushes) per 24 hrs. TF regimen will meet ~86% estimated energy needs and ~61% estimated protein needs. 2) Advance to 60g CCHO renal diet when medically feasible, pending ST approval 3) Refer to outpatient RD/CD[facility] for diabetes education/weight management 4) Follow-up with cardiology, pulmonology, and nephrology 5) Continue to monitor I&O, labs, and skin integrity Expected Outcomes/Goals: 1) TF regimen to meet at least 75% estimated daily needs 2) labs to improve 3) diet to advance 4) f/u in 2-3 days Plan discussed with: Patient INA ARRIOLA MD Apr 21, 2025 13:31
[2025-04-22] VITALS (10 sets, daily range): BP systolic 144–169; BP diastolic 60–74; PULSE 76–88; RESP 17–19; TEMP 97.7–98.6; O2SAT 96–100
--- NOTE | 2025-04-22 05:44 | DVH ---
CHEST RADIOGRAPH Indication: ET intubation Technique: Single frontal view of the chest was obtained COMPARISON: XY CHEST XRAY 1 VIEW on DOS: 04/21/25, XY CHEST XRAY 1 VIEW on DOS: 04/20/25, XY CHEST XRAY 1 VIEW on DOS: 04/19/25, XY CHEST XRAY 1 VIEW on DOS: 04/18/25, XY CHEST XRAY 1 VIEW on DOS: 04/17/25 FINDINGS: Lines and Tubes: Right PermCath unchanged. Lungs: Clear Pleura: No effusion. No pneumothorax. Cardiomediastinal contours: Unremarkable Bones: Unremarkable IMPRESSION: 1. Cardiomegaly. 2. Right PermCath.
[2025-04-22 11:20] LABS: Hemoglobin 8.4 g/dL (13.5-17.5); Nucleated Red Blood Cells % 0.0 %
[2025-04-22] MEDS: SODIUM CHL 0.9% 1000 ML BAG XX ONE (11:21)
[2025-04-22 11:22] LABS: Hematocrit 25.3 % (41.0-53.0); Mean Corpuscular Hemoglobin 28.5 pg (28.0-32.0); Mean Corpuscular Volume 85.9 fL (80.0-100.0)
[2025-04-22] MEDS ORDERED: CEFEPIME 1GM/50ML 50 ML IV ONE (11:30)
[2025-04-22] MEDS ORDERED: ceFAZolin 1GM/50ML 50 ML IV ONE (11:30)
[2025-04-22 11:33] LABS: Chloride 99 mmol/L (98-107); Potassium 3.7 mmol/L (3.5-5.1); Sodium 141 mmol/L (136-145)
[2025-04-22 11:34] LABS: Anion Gap 12 (5-15); Carbon Dioxide 30 mmol/L (20-31)
[2025-04-22 11:39] LABS: BUN/Creatinine Ratio 4.6 (10.0-20.0); Glucose 100 mg/dL (74-106)
[2025-04-22 11:42] LABS: Blood Urea Nitrogen 31 mg/dL (9-23); Calcium 8.4 mg/dL (8.7-10.4)
--- NOTE | 2025-04-22 12:43 | DVHPNRES ---
Progress Note Date Seen: Apr 22, 2025 Resident Creating Document: KAREEN HARVEY RESIDENT Has the PT tested + for MRSA If YES, has PT been informed?: No Medical Necessity Reason Pt with a Central, PICC or Fol: No The following are medically ne: Central Line, Araiza Catheter Subjective Review of Systems 04/19/2025 We will continue Lamisil total 25 mg as per Psychiatry consultation. Today the patient reports pain in his left toe wishes sharp radiating down his leg like an electric current, occurring every 5 seconds. On inquiry he reports that he has had no visual hallucinations and that his chest pain is better with the Tylenol. He is still on 2 L of oxygen. Stable post-extubation on NC O2. Downgraded from ICU to telemetry. Psychosis improved after haloperidol; paranoia persists. Aripiprazole resumed. Oral feeds restarted. Hemodialysis today Vitals stable, labs consistent with ESRD and CKD anemia. FOBT postive Tele-psych consult suggested:Psychiatric admission is not indicated. Continue medical admission for stabilization and management of underlying conditions. 3. Medications: No antipsychotic medications indicated at this time. Do not initiate antipsychotics unless hallucinations persist or cause severe distress; continue to monitor. Continue home Lamictal if patient has NOT been off med for > 4 days. If he has been off Lamictal 5 or more days, restart at 25 mg po daily and defer titration to outpatient team. 4. Medical Considerations: Optimize medical management. Hallucinations should continue to improve with time. Acetaminophen 650 mg p.o. given PRN for chest pain 04/20/2025 We will continue Lamisil total 25 mg as per Psychiatry consultation. Today the patient reports pain in his left toe, sharp radiating down his leg like an electric current, occurring every 5 seconds. On inquiry he reports that he has had no visual hallucinations and that his chest pain is better with the Tylenol. He is still on 2 L of oxygen. Gabapentin to be given on days after dialysis 300 mg once only On 04/13/2025-patient reported doing well, no acute complaint, we will continue current management, no change in medication, plan is to discharge tomorrow if possible. 04/22/2025 today the patient reports doing well with no new active complaints. He underwent hemodialysis today and was given gabapentin 300 mg after hemodialysis. Objective vital signs Vital Sign Date Time Temp Pulse Resp B/P (MAP) Pulse Ox O2 Delivery O2 Flow Rate FiO2 04/22/25 10:00 100 Nasal Cannula* 2 28 04/22/25 09:00 98.2 87 18 169/72 (104) 98.2 Total Intake and Output 04/21/25 04/21/25 04/22/25 15:00 23:00 07:00 Intake Total 400 ml 200 ml Balance 400 ml 200 ml medications Current Medications Medications Dose Ordered Sig/Duane Route Start Time Stop Time Status Last Admin Dose Admin Patient Own Medication 1 tab HS PO 04/10/25 22:00 Insulin Glargine 17 units DAILY SC 04/10/25 10:00 04/22/25 11:16 17 UNITS Lamotrigine 100 mg DAILY GT 04/12/25 12:00 Hold 04/12/25 18:26 100 MG Acetaminophen 650 mg Q6HP PRN [place] 04/12/25 16:00 04/12/25 16:51 650 MG Enteral Nutritional Formula 1,000 ml 30ML/HR GT 04/12/25 18:45 04/14/25 18:25 1,000 ML Saccharomyces Boulardii 250 mg DAILY GT 04/13/25 12:15 04/22/25 11:14 250 MG Dextrose 50 ml ONCE PRN IV 04/15/25 06:45 Diagnostic Test (Pha) 1 strip Q6HR 04/15/25 12:00 04/22/25 11:17 1 STRIP Insulin Human Regular Q6HR SC 04/15/25 12:00 04/18/25 18:15 2 UNITS Zirconium Oxide 10 gm EOD PRN GT 04/16/25 10:00 Isosorbide Dinitrate 10 mg TID@06,12,18 PO 04/16/25 12:00 04/21/25 18:41 10 MG Nifedipine 60 mg QPM PO 04/17/25 18:00 04/21/25 18:40 60 MG Clonidine HCl 0.1 mg Q7D TD 04/17/25 17:00 04/17/25 18:13 0.1 MG Patient Own Medication 2 mg DAILY PO 04/18/25 10:00 04/21/25 10:17 2 MG Heparin Sodium (Porcine) 5,000 units Q12HR SC 04/18/25 10:00 04/22/25 11:15 5,000 UNITS Hydralazine HCl 50 mg Q8HR PO 04/18/25 22:00 04/21/25 21:31 50 MG Pantoprazole Sodium 40 mg DAILY@0600 PO 04/19/25 06:00 04/22/25 05:30 40 MG Acetaminophen 650 mg Q4HP PRN PO 04/19/25 11:45 04/21/25 12:27 650 MG Lamotrigine 25 mg DAILY PO 04/20/25 10:00 04/22/25 11:13 25 MG Gabapentin 300 mg EOD PO 04/20/25 22:00 Cefepime HCl 0.5 gm/Dextrose 50 ml @ 12.5 mls/hr HS IV 04/23/25 22:00 Examination General Appearance: Alert, Oriented X3, Cooperative, Not in acute distress HEENT: Atraumatic, Mucous membranes moist/pink Respiratory: decreased breath sounds, on 4 L of oxygen Cardiovascular: Regular rate, Normal S1, Normal S2, No murmurs Abdominal: Active bowel sounds, Soft, no distention, no tenderness Extremities: No edema, Normal pulses, No tenderness/swelling Skin: No Significant rash, except past surgical scars Neuro: Normal speech, sensorimotor deficits none Psych/Mental Status: Normal mental status Nurse was there as dismantler during examination laboratory and microbiology Laboratory Tests 04/22/25 10:52 Test 04/22/25 10:52 Range/Units Serum Glucose 100 74-106 mg/dL Microbiology Date/Time Source Procedure Growth Status 04/12/25 08:46 Blood Blood Culture - Final NO GROWTH AFTER 5 DAYS OF INCUBATION. Complete 04/12/25 04:00 Nose MRSA Screen - Final Complete Labs and/or images reviewed: Labs reviewed by me, Image(s) reviewed by me Problem List/Assessment/Plan Problem List/Assessment/Plan Acute hypoxic respiratory failure, post-extubation, stable * Rule in: required intubation, now extubated, stable O2 sats. Psychosis with hallucinations, insomnia, underlying schizophrenia and bipolar disorder (CC) * Tele-psych consult suggests:Psychiatric admission is not indicated. Continue medical admission for stabilization and management of underlying conditions. 3. Medications: No antipsychotic medications indicated at this time. Do not initiate antipsychotics unless hallucinations persist or cause severe distress; continue to monitor. Continue home Lamictal if patient has NOT been off med for > 4 days. If he has been off Lamictal 5 or more days, restart at 25 mg po daily and defer titration to outpatient team. 4. Medical Considerations: Optimize medical management. Hallucinations should continue to improve with time. Hypertension, currently controlled (160/63) post-extubation * On multidrug regimen with Hydralazine, Isosorbide, Nicardipine. ESRD on chronic hemodialysis (MWF) * BUN 287, Cr 8 HFpEF * CXR + echo: mild diastolic dysfunction, moderate atrial/ventricular dilation. Type 2 diabetes mellitus, uncontrolled (HbA1c 11.5%) * Glucose controlled with insulin regimen. Positive occult GI bleed (previously) ? risk for ongoing anemia. Obesity (BMI 35.6) Status post cardiopulmonary arrest with ROSC due to AV block/ventricular tachycardia Sepsis due to Enterobacter cloacae pneumonia with septic encephalopathy, improving ([facility] [place] * Sensitive to cefepime, continued. Moderate pulmonary hypertension (RVSP 55 mmHg) per echo. Neuro/Psych * Continue haloperidol PRN for breakthrough agitation. * Resume home aripiprazole. * Tele-psych consult done, Lamictal 25 mg po daily restarted * Sleep hygiene and reassurance. Cardiovascular * Continue antihypertensive regimen: nifedipine ER 60 mg daily, hydralazine 50 mg q8h, isosorbide dinitrate TID, clonidine 0.1 mg Q7D. * Maintain BP <140/90. Respiratory * Wean NC O? as tolerated. * Incentive spirometry and pulmonary hygiene. Renal * Continue HD on MWF schedule. * Strict I/O and daily weights. * Avoid nephrotoxic agents. Hematology * Continue epoetin with HD. * Transfuse if Hgb <7. * Monitor CBC daily. Infectious Disease * Continue cefepime for Enterobacter pneumonia. * Monitor for recurrence of fever or WBC changes. Endocrine * Continue insulin regimen with SSI. * Monitor glucose q6h. GI/Nutrition * Protonix 40 mg po * Oral feeds as tolerated, speech/swallow eval to guide diet. * Continue probiotics. Musculoskeletal # Neuropathic pain left foot -gabapentin 400mg TID Prophylaxis * DVT: Heparin SQ q12h. * GI: PPI BID. * Pulmonary: IS, HOB elevation. Goals of care discussed with the patient for more than 27 minutes: Full code status Case discussed with Dr. Fraire, patient and nurse. Plan discussed with: Patient, Other (rn) My Orders My Orders Orders - KAREEN HARVEY RESIDENT Procedure Category Date Status Time * Transfer Worker CONS 04/21/25 Transmitted Consult Dietary Evaluation Review Comments: 1) Change TF formulary from Glucerna 1.2 to Nepro @ 30 goal rate as tolerated d/t ESRD. Flush with 150 mL free H2O Q6H. TF regimen will provide 1296 kcals, 58g Pro, and 1123 mL free H2O (including flushes) per 24 hrs. TF regimen will meet ~86% estimated energy needs and ~61% estimated protein needs. 2) Advance to 60g CCHO renal diet when medically feasible, pending ST approval 3) Refer to outpatient RD/CDCES for diabetes education/weight management 4) Follow-up with cardiology, pulmonology, and nephrology 5) Continue to monitor I&O, labs, and skin integrity Expected Outcomes/Goals: 1) TF regimen to meet at least 75% estimated daily needs 2) labs to improve 3) diet to advance 4) f/u in 2-3 days Date of Service: Apr 22, 2025 Billing Provider: RON FRAIRE MD Common Visit Codes: [id number] INP/OBS CARE(HIGH) KAREEN HARVEY RESIDENT Apr 22, 2025 12:43 RON FRAIRE MD Apr 24, 2025 23:58
[2025-04-22] MEDS: CEFEPIME 1GM/50ML 50 ML IV ONE (15:52)
--- NOTE | 2025-04-22 17:41 | DVHPN2 ---
Progress Note - Dictate Date Seen: Apr 22, 2025 Has the PT tested + for MRSA If YES, has PT been informed?: No Medical Necessity Reason Pt with a Central, PICC or Fol: No The following are medically ne: Central Line, Araiza Catheter Subjective No new complaints Had uneventful HD today vital signs Vital Sign Date Time Temp Pulse Resp B/P (MAP) Pulse Ox O2 Delivery O2 Flow Rate FiO2 04/22/25 16:48 98.5 82 18 148/66 (93) 97 98.5 04/22/25 10:00 Nasal Cannula* 2 28 Total Intake and Output 04/21/25 04/21/25 04/22/25 15:00 23:00 07:00 Intake Total 400 ml 200 ml Balance 400 ml 200 ml medications Current Medications Medications Dose Ordered Sig/Duane Route Start Time Stop Time Status Last Admin Dose Admin Patient Own Medication 1 tab HS PO 04/10/25 22:00 Insulin Glargine 17 units DAILY SC 04/10/25 10:00 04/22/25 11:16 17 UNITS Lamotrigine 100 mg DAILY GT 04/12/25 12:00 Hold 04/12/25 18:26 100 MG Acetaminophen 650 mg Q6HP PRN ND 04/12/25 16:00 04/12/25 16:51 650 MG Enteral Nutritional Formula 1,000 ml 30ML/HR GT 04/12/25 18:45 04/14/25 18:25 1,000 ML Saccharomyces Boulardii 250 mg DAILY GT 04/13/25 12:15 04/22/25 11:14 250 MG Dextrose 50 ml ONCE PRN IV 04/15/25 06:45 Diagnostic Test (Pha) 1 strip Q6HR 04/15/25 12:00 04/22/25 11:17 1 STRIP Insulin Human Regular Q6HR SC 04/15/25 12:00 04/18/25 18:15 2 UNITS Zirconium Oxide 10 gm EOD PRN GT 04/16/25 10:00 Isosorbide Dinitrate 10 mg TID@06,12,18 PO 04/16/25 12:00 04/22/25 13:27 10 MG Nifedipine 60 mg QPM PO 04/17/25 18:00 04/21/25 18:40 60 MG Clonidine HCl 0.1 mg Q7D TD 04/17/25 17:00 04/17/25 18:13 0.1 MG Patient Own Medication 2 mg DAILY PO 04/18/25 10:00 04/21/25 10:17 2 MG Heparin Sodium (Porcine) 5,000 units Q12HR SC 04/18/25 10:00 04/22/25 11:15 5,000 UNITS Hydralazine HCl 50 mg Q8HR PO 04/18/25 22:00 04/22/25 15:52 50 MG Pantoprazole Sodium 40 mg DAILY@0600 PO 04/19/25 06:00 04/22/25 05:30 40 MG Acetaminophen 650 mg Q4HP PRN PO 04/19/25 11:45 04/21/25 12:27 650 MG Lamotrigine 25 mg DAILY PO 04/20/25 10:00 04/22/25 11:13 25 MG Gabapentin 300 mg EOD PO 04/20/25 22:00 04/22/25 13:27 300 MG Cefepime HCl 0.5 gm/Dextrose 50 ml @ 12.5 mls/hr HS IV 04/23/25 22:00 Sevelamer HCl 800 mg TIDWM PO 04/22/25 18:00 objective GENERAL: The patient is an adult gentleman who appears to be chronically ill, HEENT: Unremarkable. NECK: No jugular venous distention. No palpable thyroid or lymphadenopathy. LUNGS: Show diminished air entry at the bases. CARDIOVASCULAR: Shows 1/6 systolic murmur, S4 gallop. ABDOMEN: Soft, nontender, no organomegaly. EXTREMITIES: Show no clubbing, cyanosis or edema. NEUROLOGIC: Nonfocal. laboratory and microbiology Laboratory Tests 04/22/25 10:52 Test 04/22/25 10:52 Range/Units Serum Glucose 100 74-106 mg/dL Assessment/Plan ASSESSMENT AND PLAN: End-stage renal disease on hemodialysis Tuesday Controlled hypertension Paranoia with hallucinations Anemia of renal disease. Diabetes mellitus. Respiratory failure s/p cardiac arrest Plan HD to continue on MWF Gabapentin not more than 300 mg in 24 hours Continue clonidine patch placed during this hospitalization. Patient has it at home but does not place it because he forgets Continue current antihypertensive meds Lokelma on non dialysis days Empiric IV antibiotics Stephan with dialysis Dietary Evaluation Review Comments: 1) Change TF formulary from Glucerna 1.2 to Nepro @ 30 goal rate as tolerated d/t ESRD. Flush with 150 mL free H2O Q6H. TF regimen will provide 1296 kcals, 58g Pro, and 1123 mL free H2O (including flushes) per 24 hrs. TF regimen will meet ~86% estimated energy needs and ~61% estimated protein needs. 2) Advance to 60g CCHO renal diet when medically feasible, pending ST approval 3) Refer to outpatient RD/CDCES for diabetes education/weight management 4) Follow-up with cardiology, pulmonology, and nephrology 5) Continue to monitor I&O, labs, and skin integrity Expected Outcomes/Goals: 1) TF regimen to meet at least 75% estimated daily needs 2) labs to improve 3) diet to advance 4) f/u in 2-3 days Plan discussed with: KAMARI Walter MD Apr 22, 2025 17:41
[2025-04-22] MEDS: SEVELAMER 800 MG TAB PO SCH (17:59)
--- NOTE | 2025-04-22 20:03 | DVHPN2 ---
Progress Note - Dictate Date Seen: Apr 22, 2025 Has the PT tested + for MRSA If YES, has PT been informed?: No Medical Necessity Reason Pt with a Central, PICC or Fol: No The following are medically ne: Central Line, Araiza Catheter Subjective Patient was seen and evaluated in follow up. Patient is on 2 LPM NC. Patient is resting in bed. Patient received HD today. Chest x-ray shows cardiomegaly.HGB 8.4, HCT 25.3, BUN 31, Rug Inspector 6.73. Telemetry reviewed. vital signs Vital Sign Date Time Temp Pulse Resp B/P (MAP) Pulse Ox O2 Delivery O2 Flow Rate FiO2 04/22/25 18:00 148/66 04/22/25 16:48 98.5 82 18 97 98.5 04/22/25 10:00 Nasal Cannula* 2 28 Total Intake and Output 04/21/25 04/21/25 04/22/25 15:00 23:00 07:00 Intake Total 400 ml 200 ml Balance 400 ml 200 ml medications Current Medications Medications Dose Ordered Sig/Duane Route Start Time Stop Time Status Last Admin Dose Admin Patient Own Medication 1 tab HS PO 04/10/25 22:00 Insulin Glargine 17 units DAILY SC 04/10/25 10:00 04/22/25 11:16 17 UNITS Lamotrigine 100 mg DAILY GT 04/12/25 12:00 Hold 04/12/25 18:26 100 MG Acetaminophen 650 mg Q6HP PRN [place] 04/12/25 16:00 04/12/25 16:51 650 MG Enteral Nutritional Formula 1,000 ml 30ML/HR GT 04/12/25 18:45 04/14/25 18:25 1,000 ML Saccharomyces Boulardii 250 mg DAILY GT 04/13/25 12:15 04/22/25 11:14 250 MG Dextrose 50 ml ONCE PRN IV 04/15/25 06:45 Diagnostic Test (Pha) 1 strip Q6HR 04/15/25 12:00 04/22/25 18:01 1 STRIP Insulin Human Regular Q6HR SC 04/15/25 12:00 04/18/25 18:15 2 UNITS Zirconium Oxide 10 gm EOD PRN GT 04/16/25 10:00 Isosorbide Dinitrate 10 mg TID@06,12,18 PO 04/16/25 12:00 04/22/25 18:00 10 MG Nifedipine 60 mg QPM PO 04/17/25 18:00 04/22/25 18:00 60 MG Clonidine HCl 0.1 mg Q7D TD 04/17/25 17:00 04/17/25 18:13 0.1 MG Patient Own Medication 2 mg DAILY PO 04/18/25 10:00 04/21/25 10:17 2 MG Heparin Sodium (Porcine) 5,000 units Q12HR SC 04/18/25 10:00 04/22/25 11:15 5,000 UNITS Hydralazine HCl 50 mg Q8HR PO 04/18/25 22:00 04/22/25 15:52 50 MG Pantoprazole Sodium 40 mg DAILY@0600 PO 04/19/25 06:00 04/22/25 05:30 40 MG Acetaminophen 650 mg Q4HP PRN PO 04/19/25 11:45 04/21/25 12:27 650 MG Lamotrigine 25 mg DAILY PO 04/20/25 10:00 04/22/25 11:13 25 MG Gabapentin 300 mg EOD PO 04/20/25 22:00 04/22/25 13:27 300 MG Cefepime HCl 0.5 gm/Dextrose 50 ml @ 12.5 mls/hr HS IV 04/23/25 22:00 Sevelamer HCl 800 mg TIDWM PO 04/22/25 18:00 04/22/25 17:59 800 MG objective GENERAL: Alert and oriented x 3. No acute distress. Obese. EYES: PERRL, EOMI. Anicteric. HENT: Moist mucous membranes. LUNGS: Clear to auscultation bilaterally. CARDIOVASCULAR: Regular rate and rhythm. ABDOMEN: Soft, nontender and nondistended. EXTREMITIES: No edema. SKIN: Hyperpigmentation to bilateral lower extremities. laboratory and microbiology Laboratory Tests 04/22/25 10:52 Test 04/22/25 10:52 Range/Units Serum Glucose 100 74-106 mg/dL Problem List Cardiopulmonary arrest status post CPR with return of spontaneous circulation. High-degree atrioventricular block, complete heart block. Ventricular tachycardia. NSTEMI, rule out coronary artery disease. Rule out structural heart disease. Acute hypoxic respiratory failure. Hypertension. Hyperkalemia, resolved. ESRD on hemodialysis. Type 2 diabetes mellitus, uncontrolled (Hbg A1c 11.5%). Medical noncompliance. Assessment/Plan Continued all current supportive medical care. Hydralazine. GI prophylactics. IV antibiotics as ordered. Tylenol for pain management. Additional plan as per the hospital course. Dietary Evaluation Review Comments: 1) Change TF formulary from Glucerna 1.2 to Nepro @ 30 goal rate as tolerated d/t ESRD. Flush with 150 mL free H2O Q6H. TF regimen will provide 1296 kcals, 58g Pro, and 1123 mL free H2O (including flushes) per 24 hrs. TF regimen will meet ~86% estimated energy needs and ~61% estimated protein needs. 2) Advance to 60g CCHO renal diet when medically feasible, pending ST approval 3) Refer to outpatient RD/CDCES for diabetes education/weight management 4) Follow-up with cardiology, pulmonology, and nephrology 5) Continue to monitor I&O, labs, and skin integrity Expected Outcomes/Goals: 1) TF regimen to meet at least 75% estimated daily needs 2) labs to improve 3) diet to advance 4) f/u in 2-3 days Plan discussed with: Patient INA ARRIOLA MD Apr 22, 2025 20:03
[2025-04-22] MEDS: EPOETIN ALFA-EPBX 10,000 UNIT/1ML VIAL SC ONE (22:40)
[2025-04-23] VITALS (8 sets, daily range): BP systolic 146–166; BP diastolic 69–81; PULSE 77–90; RESP 17–20; TEMP 98.2–98.8; O2SAT 94–100
--- NOTE | 2025-04-23 08:04 | DVH ---
ABDOMINAL RADIOGRAPH Indication: Rule out toxic megacolon Technique: Single frontal view of the abdomen was obtained Comparison: None FINDINGS: Lines and tubes: None There is paucity of bowel gas in the abdomen. This limits evaluation. IMPRESSION: 1. No dilated bowel loops noted.
[2025-04-23 09:29] LABS: Hematocrit 25.3 % (41.0-53.0); Hemoglobin 8.5 g/dL (13.5-17.5); Mean Corpuscular Hemoglobin 29.0 pg (28.0-32.0); Mean Corpuscular Volume 86.5 fL (80.0-100.0); Nucleated Red Blood Cells % 0.1 %
[2025-04-23 09:36] LABS: Anion Gap 12 (5-15); Carbon Dioxide 29 mmol/L (20-31); Chloride 99 mmol/L (98-107); Potassium 3.9 mmol/L (3.5-5.1); Sodium 140 mmol/L (136-145)
[2025-04-23 09:41] LABS: Calcium 8.6 mg/dL (8.7-10.4)
[2025-04-23 09:42] LABS: BUN/Creatinine Ratio 3.5 (10.0-20.0)
[2025-04-23 09:43] LABS: Blood Urea Nitrogen 24 mg/dL (9-23); Glucose 115 mg/dL (74-106)
--- NOTE | 2025-04-23 13:26 | DVHPNRES ---
Progress Note Date Seen: Apr 23, 2025 Resident Creating Document: KAREEN HARVEY RESIDENT Has the PT tested + for MRSA If YES, has PT been informed?: No Medical Necessity Reason Pt with a Central, PICC or Fol: No The following are medically ne: Central Line, Araiza Catheter Subjective Review of Systems 04/19/2025 We will continue Lamisil total 25 mg as per Psychiatry consultation. Today the patient reports pain in his left toe wishes sharp radiating down his leg like an electric current, occurring every 5 seconds. On inquiry he reports that he has had no visual hallucinations and that his chest pain is better with the Tylenol. He is still on 2 L of oxygen. Stable post-extubation on NC O2. Downgraded from ICU to telemetry. Psychosis improved after haloperidol; paranoia persists. Aripiprazole resumed. Oral feeds restarted. Hemodialysis today Vitals stable, labs consistent with ESRD and CKD anemia. FOBT postive Tele-psych consult suggested:Psychiatric admission is not indicated. Continue medical admission for stabilization and management of underlying conditions. 3. Medications: No antipsychotic medications indicated at this time. Do not initiate antipsychotics unless hallucinations persist or cause severe distress; continue to monitor. Continue home Lamictal if patient has NOT been off med for > 4 days. If he has been off Lamictal 5 or more days, restart at 25 mg po daily and defer titration to outpatient team. 4. Medical Considerations: Optimize medical management. Hallucinations should continue to improve with time. Acetaminophen 650 mg p.o. given PRN for chest pain 04/20/2025 We will continue Lamisil total 25 mg as per Psychiatry consultation. Today the patient reports pain in his left toe, sharp radiating down his leg like an electric current, occurring every 5 seconds. On inquiry he reports that he has had no visual hallucinations and that his chest pain is better with the Tylenol. He is still on 2 L of oxygen. Gabapentin to be given on days after dialysis 300 mg once only 04/21/2025-patient reported doing well, no acute complaint, we will continue current management, no change in medication, plan is to discharge tomorrow if possible. 04/22/2025 today the patient reports doing well with no new active complaints. He underwent hemodialysis today and was given gabapentin 300 mg after hemodialysis. 04/23/25: Patient reports his legs feel better after gabapentin yesterday. He complained of 6 episodes of watery diarrhea yesterday. stool culture was neg for c diff and shiga toxin. cefepime and protonix stopped. nifedipine from 60mg to 90mg from today due to persistently high BP. Cardio on board, placement of pacemaker tomorrow. Preop labs ordered. Heparin stopped and patient will be NPO from midnight. Objective vital signs Vital Sign Date Time Temp Pulse Resp B/P (MAP) Pulse Ox O2 Delivery O2 Flow Rate FiO2 04/23/25 12:04 157/70 04/23/25 10:00 94 Nasal Cannula* 2 28 04/23/25 09:00 98.6 87 20 98.6 Total Intake and Output 04/22/25 04/22/25 04/23/25 15:00 23:00 07:00 Intake Total 600 ml 310 ml Balance 600 ml 310 ml medications Current Medications Medications Dose Ordered Sig/Duane Route Start Time Stop Time Status Last Admin Dose Admin Patient Own Medication 1 tab HS PO 04/10/25 22:00 Insulin Glargine 17 units DAILY SC 04/10/25 10:00 04/23/25 08:44 17 UNITS Saccharomyces Boulardii 250 mg DAILY GT 04/13/25 12:15 04/23/25 08:34 250 MG Dextrose 50 ml ONCE PRN IV 04/15/25 06:45 Diagnostic Test (Pha) 1 strip Q6HR 04/15/25 12:00 04/23/25 12:10 1 STRIP Insulin Human Regular Q6HR SC 04/15/25 12:00 04/18/25 18:15 2 UNITS Zirconium Oxide 10 gm EOD PRN GT 04/16/25 10:00 Isosorbide Dinitrate 10 mg TID@06,12,18 PO 04/16/25 12:00 04/23/25 12:04 10 MG Clonidine HCl 0.1 mg Q7D TD 04/17/25 17:00 04/17/25 18:13 0.1 MG Patient Own Medication 2 mg DAILY PO 04/18/25 10:00 04/23/25 12:05 2 MG Heparin Sodium (Porcine) 5,000 units Q12HR SC 04/18/25 10:00 04/23/25 08:44 5,000 UNITS Hydralazine HCl 50 mg Q8HR PO 04/18/25 22:00 04/23/25 05:38 50 MG Acetaminophen 650 mg Q4HP PRN PO 04/19/25 11:45 04/21/25 12:27 650 MG Lamotrigine 25 mg DAILY PO 04/20/25 10:00 04/23/25 12:04 25 MG Gabapentin 300 mg EOD PO 04/20/25 22:00 04/22/25 13:27 300 MG Sevelamer HCl 800 mg TIDWM PO 04/22/25 18:00 04/23/25 12:08 800 MG Nifedipine 90 mg DAILY PO 04/23/25 18:00 Examination General Appearance: Alert, Oriented X3, Cooperative, Not in acute distress HEENT: Atraumatic, Mucous membranes moist/pink Respiratory: decreased breath sounds, on 4 L of oxygen Cardiovascular: Regular rate, Normal S1, Normal S2, No murmurs Abdominal: Active bowel sounds, Soft, no distention, no tenderness Extremities: No edema, Normal pulses, No tenderness/swelling Skin: No Significant rash, except past surgical scars Neuro: Normal speech, sensorimotor deficits none Psych/Mental Status: Normal mental status Nurse was there as derrick worker well service during examination laboratory and microbiology Laboratory Tests 04/23/25 08:17 Test 04/23/25 08:17 Range/Units Serum Glucose 115 H 74-106 mg/dL Microbiology Date/Time Source Procedure Growth Status 04/23/25 06:49 Stool Stool Culture - Preliminary Resulted 04/23/25 06:49 Stool Shiga Toxin I & II - Final Resulted 04/12/25 08:46 Blood Blood Culture - Final NO GROWTH AFTER 5 DAYS OF INCUBATION. Complete 04/12/25 04:00 Nose MRSA Screen - Final Complete Labs and/or images reviewed: Labs reviewed by me, Image(s) reviewed by me Problem List/Assessment/Plan Problem List/Assessment/Plan Acute hypoxic respiratory failure, post-extubation, stable * Rule in: required intubation, now extubated, stable O2 sats. Psychosis with hallucinations, insomnia, underlying schizophrenia and bipolar disorder (CC) * Tele-psych consult suggests:Psychiatric admission is not indicated. Continue medical admission for stabilization and management of underlying conditions. 3. Medications: No antipsychotic medications indicated at this time. Do not initiate antipsychotics unless hallucinations persist or cause severe distress; continue to monitor. Continue home Lamictal if patient has NOT been off med for > 4 days. If he has been off Lamictal 5 or more days, restart at 25 mg po daily and defer titration to outpatient team. 4. Medical Considerations: Optimize medical management. Hallucinations should continue to improve with time. Hypertension, currently controlled (160/63) post-extubation * On multidrug regimen with Hydralazine, Isosorbide, Nicardipine. ESRD on chronic hemodialysis (MWF) * BUN 287, Cr 8 HFpEF * CXR + echo: mild diastolic dysfunction, moderate atrial/ventricular dilation. Type 2 diabetes mellitus, uncontrolled (HbA1c 11.5%) * Glucose controlled with insulin regimen. Positive occult GI bleed (previously) ? risk for ongoing anemia. Obesity (BMI 35.6) Status post cardiopulmonary arrest with ROSC due to AV block/ventricular tachycardia Sepsis due to Enterobacter cloacae pneumonia with septic [place]opathy, [place] [place] * Sensitive to cefepime, continued. Moderate pulmonary hypertension (RVSP 55 mmHg) per echo. Neuro/Psych * Continue haloperidol PRN for breakthrough agitation. * Resume home aripiprazole. * Tele-psych consult done, Lamictal 25 mg po daily restarted * Sleep hygiene and reassurance. Cardiovascular * Continue antihypertensive regimen: nifedipine ER 60 mg daily changed to 90 mg daily on 04/23 due to persistently high BP, hydralazine 50 mg q8h, isosorbide dinitrate TID, clonidine 0.1 mg Q7D. * Maintain BP <140/90. Respiratory * Wean NC O? as tolerated. * Incentive spirometry and pulmonary hygiene. Renal * Continue HD on MWF schedule. * Strict I/O and daily weights. * Avoid nephrotoxic agents. Hematology * Continue epoetin with HD. * Transfuse if Hgb <7. * Monitor CBC daily. Infectious Disease * Cefepime discontinued on 04/23/2025 * stool culture negative for Shiga and C difficile * Monitor for recurrence of fever or WBC changes. Endocrine * Continue insulin regimen with SSI. * Monitor glucose q6h. GI/Nutrition * Protonix 40 mg po, stopped on 04/23/2020 * Oral feeds as tolerated, speech/swallow eval to guide diet. * Continue probiotics. Musculoskeletal # Neuropathic pain left foot -gabapentin 400mg TID Prophylaxis * DVT: Heparin SQ q12h. * GI: PPI BID. * Pulmonary: IS, HOB elevation. Goals of care discussed with the patient for more than 27 minutes: Full code status Case discussed with Dr. Fraire, patient and nurse. Plan discussed with: Patient My Orders My Orders Orders - KAREEN HARVEY Procedure Category Date Status Time Sevdayday (Renagel) PHA 04/22/25 In Process 18:00 Pt Request For Service PT 04/22/25 Logged 15:13 Dietary Evaluation Review Comments: 1) Change TF formulary from Glucerna 1.2 to Nepro @ 30 goal rate as tolerated d/t ESRD. Flush with 150 mL free H2O Q6H. TF regimen will provide 1296 kcals, 58g Pro, and 1123 mL free H2O (including flushes) per 24 hrs. TF regimen will meet ~86% estimated energy needs and ~61% estimated protein needs. 2) Advance to 60g CCHO renal diet when medically feasible, pending ST approval 3) Refer to outpatient RD/CDCES for diabetes education/weight management 4) Follow-up with cardiology, pulmonology, and nephrology 5) Continue to monitor I&O, labs, and skin integrity Expected Outcomes/Goals: 1) TF regimen to meet at least 75% estimated daily needs 2) labs to improve 3) diet to advance 4) f/u in 2-3 days Date of Service: Apr 23, 2025 Billing Provider: RON FRAIRE MD Common Visit Codes: [id number] INP/OBS CARE(HIGH) KAREEN HARVEY Apr 23, 2025 13:26 RON FRAIRE MD Apr 25, 2025 00:10
--- NOTE | 2025-04-23 13:47 | DVHPN2 ---
Progress Note - Dictate Date Seen: Apr 23, 2025 Has the PT tested + for MRSA If YES, has PT been informed?: No Medical Necessity Reason Pt with a Central, PICC or Fol: No The following are medically ne: Central Line, Araiza Catheter Subjective No new complaints vital signs Vital Sign Date Time Temp Pulse Resp B/P (MAP) Pulse Ox O2 Delivery O2 Flow Rate FiO2 04/23/25 12:04 157/70 04/23/25 10:00 94 Nasal Cannula* 2 28 04/23/25 09:00 98.6 87 20 98.6 Total Intake and Output 04/22/25 04/22/25 04/23/25 15:00 23:00 07:00 Intake Total 600 ml 310 ml Balance 600 ml 310 ml medications Current Medications Medications Dose Ordered Sig/Duane Route Start Time Stop Time Status Last Admin Dose Admin Patient Own Medication 1 tab HS PO 04/10/25 22:00 Insulin Glargine 17 units DAILY SC 04/10/25 10:00 04/23/25 08:44 17 UNITS Saccharomyces Boulardii 250 mg DAILY GT 04/13/25 12:15 04/23/25 08:34 250 MG Dextrose 50 ml ONCE PRN IV 04/15/25 06:45 Diagnostic Test (Pha) 1 strip Q6HR 04/15/25 12:00 04/23/25 12:10 1 STRIP Insulin Human Regular Q6HR SC 04/15/25 12:00 04/18/25 18:15 2 UNITS Zirconium Oxide 10 gm EOD PRN GT 04/16/25 10:00 Isosorbide Dinitrate 10 mg TID@06,12,18 PO 04/16/25 12:00 04/23/25 12:04 10 MG Clonidine HCl 0.1 mg Q7D TD 04/17/25 17:00 04/17/25 18:13 0.1 MG Patient Own Medication 2 mg DAILY PO 04/18/25 10:00 04/23/25 12:05 2 MG Heparin Sodium (Porcine) 5,000 units Q12HR SC 04/18/25 10:00 04/23/25 08:44 5,000 UNITS Hydralazine HCl 50 mg Q8HR PO 04/18/25 22:00 04/23/25 05:38 50 MG Acetaminophen 650 mg Q4HP PRN PO 04/19/25 11:45 04/21/25 12:27 650 MG Lamotrigine 25 mg DAILY PO 04/20/25 10:00 04/23/25 12:04 25 MG Gabapentin 300 mg EOD PO 04/20/25 22:00 04/22/25 13:27 300 MG Sevelamer HCl 800 mg TIDWM PO 04/22/25 18:00 04/23/25 12:08 800 MG Nifedipine 90 mg DAILY PO 04/23/25 18:00 objective GENERAL: The patient is an adult gentleman who appears to be chronically ill, HEENT: Unremarkable. NECK: No jugular venous distention. No palpable thyroid or lymphadenopathy. LUNGS: Show diminished air entry at the bases. CARDIOVASCULAR: Shows 1/6 systolic murmur, S4 gallop. ABDOMEN: Soft, nontender, no organomegaly. EXTREMITIES: Show no clubbing, cyanosis or edema. NEUROLOGIC: Nonfocal. laboratory and microbiology Laboratory Tests 04/23/25 08:17 Test 04/23/25 08:17 Range/Units Serum Glucose 115 H 74-106 mg/dL Assessment/Plan ASSESSMENT AND PLAN: End-stage renal disease on hemodialysis Tuesday Hypertension, not well controlled Paranoia with hallucinations Anemia of renal disease. Diabetes mellitus. Respiratory failure s/p cardiac arrest Plan Increase Hydralazine to 100 mg Q8H HD to continue on MWF UF goal for HD tomorrow 3 L Gabapentin not more than 300 mg in 24 hours Continue clonidine patch placed during this hospitalization. Patient has it at home but does not place it because he forgets Lokelma on non dialysis days IV antibiotics Stephan with dialysis Dietary Evaluation Review Comments: 1) Change TF formulary from Glucerna 1.2 to Nepro @ 30 goal rate as tolerated d/t ESRD. Flush with 150 mL free H2O Q6H. TF regimen will provide 1296 kcals, 58g Pro, and 1123 mL free H2O (including flushes) per 24 hrs. TF regimen will meet ~86% estimated energy needs and ~61% estimated protein needs. 2) Advance to 60g CCHO renal diet when medically feasible, pending ST approval 3) Refer to outpatient RD/[facility] for diabetes education/weight management 4) Follow-up with cardiology, pulmonology, and nephrology 5) Continue to monitor I&O, labs, and skin integrity Expected Outcomes/Goals: 1) TF regimen to meet at least 75% estimated daily needs 2) labs to improve 3) diet to advance 4) f/u in 2-3 days Plan discussed with: Patient KAMARI CHAPPELL MD Apr 23, 2025 13:47
[2025-04-23] MEDS ORDERED: CEFEPIME 0.5 GM in D5W 5% 50 ML IV SCH (22:00)
[2025-04-24] VITALS (10 sets, daily range): BP systolic 144–169; BP diastolic 70–79; PULSE 74–89; RESP 17–20; TEMP 98–99; O2SAT 98–100
--- NOTE | 2025-04-24 00:07 | DVHPN2 ---
Progress Note - Dictate Date Seen: Apr 23, 2025 Has the PT tested + for MRSA If YES, has PT been informed?: No Medical Necessity Reason Pt with a Central, PICC or Fol: No The following are medically ne: Central Line, Araiza Catheter Subjective Patient was seen and evaluated in follow up. Patient is on 2 LPM NC. Patient reports his legs feel better after gabapentin yesterday. The patient reports 6 episodes of watery diarrhea yesterday. Stool culture is neg for C diff and shiga toxin. Planned for pacemaker placement tomorrow. Patient will be NPO from midnight. Telemetry reviewed. vital signs Vital Sign Date Time Temp Pulse Resp B/P (MAP) Pulse Ox O2 Delivery O2 Flow Rate FiO2 04/23/25 22:12 148/69 04/23/25 21:00 98.2 78 18 99 98.2 04/23/25 20:00 Nasal Cannula* 2 28 Total Intake and Output 04/23/25 04/23/25 04/24/25 15:00 23:00 07:00 Intake Total 860 ml Balance 860 ml medications Current Medications Medications Dose Ordered Sig/Duane Route Start Time Stop Time Status Last Admin Dose Admin Patient Own Medication 1 tab HS PO 04/10/25 22:00 Insulin Glargine 17 units DAILY SC 04/10/25 10:00 04/23/25 08:44 17 UNITS Saccharomyces Boulardii 250 mg DAILY GT 04/13/25 12:15 04/23/25 08:34 250 MG Dextrose 50 ml ONCE PRN IV 04/15/25 06:45 Diagnostic Test (Pha) 1 strip Q6HR 04/15/25 12:00 04/23/25 17:45 1 STRIP Insulin Human Regular Q6HR SC 04/15/25 12:00 04/18/25 18:15 2 UNITS Zirconium Oxide 10 gm EOD PRN GT 04/16/25 10:00 Isosorbide Dinitrate 10 mg TID@06,12,18 PO 04/16/25 12:00 04/23/25 17:45 10 MG Clonidine HCl 0.1 mg Q7D TD 04/17/25 17:00 04/17/25 18:13 0.1 MG Patient Own Medication 2 mg DAILY PO 04/18/25 10:00 04/23/25 12:05 2 MG Acetaminophen 650 mg Q4HP PRN PO 04/19/25 11:45 04/21/25 12:27 650 MG Lamotrigine 25 mg DAILY PO 04/20/25 10:00 04/23/25 12:04 25 MG Gabapentin 300 mg EOD PO 04/20/25 22:00 04/22/25 13:27 300 MG Sevelamer HCl 800 mg TIDWM PO 04/22/25 18:00 04/23/25 17:44 800 MG Nifedipine 90 mg DAILY PO 04/23/25 18:00 04/23/25 17:45 90 MG Hydralazine HCl 100 mg Q8HR PO 04/23/25 14:00 04/23/25 22:12 100 MG objective GENERAL: Alert and oriented x 3. No acute distress. Obese. EYES: PERRL, EOMI. Anicteric. HENT: Moist mucous membranes. LUNGS: Clear to auscultation bilaterally. CARDIOVASCULAR: Regular rate and rhythm. ABDOMEN: Soft, nontender and nondistended. EXTREMITIES: No edema. SKIN: Hyperpigmentation to bilateral lower extremities. laboratory and microbiology Laboratory Tests 04/23/25 08:17 Test 04/23/25 08:17 Range/Units Serum Glucose 115 H 74-106 mg/dL Problem List Cardiopulmonary arrest status post CPR with return of spontaneous circulation. High-degree atrioventricular block, complete heart block. Ventricular tachycardia. NSTEMI, rule out coronary artery disease. Rule out structural heart disease. Acute hypoxic respiratory failure. Hypertension. Hyperkalemia, resolved. ESRD on hemodialysis. Type 2 diabetes mellitus, uncontrolled (Hbg A1c 11.5%). Medical noncompliance. Assessment/Plan Continued all current supportive medical care. Hydralazine. GI prophylactics. IV antibiotics as ordered. Tylenol for pain management. Additional plan as per the hospital course. Dietary Evaluation Review Comments: 1) Change TF formulary from Glucerna 1.2 to Nepro @ 30 goal rate as tolerated d/t ESRD. Flush with 150 mL free H2O Q6H. TF regimen will provide 1296 kcals, 58g Pro, and 1123 mL free H2O (including flushes) per 24 hrs. TF regimen will meet ~86% estimated energy needs and ~61% estimated protein needs. 2) Advance to 60g CCHO renal diet when medically feasible, pending ST approval 3) Refer to outpatient RD/[facility] for diabetes education/weight management 4) Follow-up with cardiology, pulmonology, and nephrology 5) Continue to monitor I&O, labs, and skin integrity Expected Outcomes/Goals: 1) TF regimen to meet at least 75% estimated daily needs 2) labs to improve 3) diet to advance 4) f/u in 2-3 days Plan discussed with: Patient INA ARRIOLA MD Apr 24, 2025 00:07
[2025-04-24 06:46] LABS: Hematocrit 26.4 % (41.0-53.0); Hemoglobin 8.5 g/dL (13.5-17.5); Mean Corpuscular Hemoglobin 28.1 pg (28.0-32.0); Mean Corpuscular Volume 87.0 fL (80.0-100.0); Nucleated Red Blood Cells % 0.0 %
[2025-04-24 07:12] LABS: Chloride 98 mmol/L (98-107); Potassium 4.3 mmol/L (3.5-5.1); Sodium 140 mmol/L (136-145)
[2025-04-24 07:13] LABS: Anion Gap 16 (5-15); Carbon Dioxide 26 mmol/L (20-31)
[2025-04-24 07:14] LABS: Calcium 8.7 mg/dL (8.7-10.4)
[2025-04-24 07:18] LABS: BUN/Creatinine Ratio 3.3 (10.0-20.0); Glucose 85 mg/dL (74-106)
[2025-04-24 07:19] LABS: Prothrombin Time 11.2 sec (9.3-11.8)
[2025-04-24 07:20] LABS: Blood Urea Nitrogen 27 mg/dL (9-23); INR 1.06 (0.9-1.15); Partial Thromboplastin Time 30.7 SEC (24.5-34.5)
--- NOTE | 2025-04-24 09:05 | ECG ---
[facility] Test Date: 2025-04-24 Test Time: 04:00:07 Pat Name: NAYAN ARMSTRONG Department: Respiratoy Room: 0221T B Gender: M [employer] Operator: : [id number] Requested By: SAM DILLON Order Number: [id number] Reading MD: Rafal Dickinson Measurements Intervals [place] Rate: 82 P: 39 RI: 131 QRS: 20 QRSD: 83 T: 113 QT: 392 QTc: 458 Interpretive Statements Sinus rhythm Nonspecific T abnormalities, lateral leads Electronically Signed On 04-25-2025 21:09:43 PDT by Rafal Dickinson Please click the below link to view image of tracing.
--- NOTE | 2025-04-24 14:15 | DVHPNRES ---
Progress Note Date Seen: Apr 24, 2025 Resident Creating Document: KAREEN HARVEY RESIDENT Has the PT tested + for MRSA If YES, has PT been informed?: No Medical Necessity Reason Pt with a Central, PICC or Fol: No The following are medically ne: Central Line, Araiza Catheter Subjective Review of Systems 04/19/2025 We will continue Lamisil total 25 mg as per Psychiatry consultation. Today the patient reports pain in his left toe wishes sharp radiating down his leg like an electric current, occurring every 5 seconds. On inquiry he reports that he has had no visual hallucinations and that his chest pain is better with the Tylenol. He is still on 2 L of oxygen. Stable post-extubation on NC O2. Downgraded from ICU to telemetry. Psychosis improved after haloperidol; paranoia persists. Aripiprazole resumed. Oral feeds restarted. Hemodialysis today Vitals stable, labs consistent with ESRD and CKD anemia. FOBT postive Tele-psych consult suggested:Psychiatric admission is not indicated. Continue medical admission for stabilization and management of underlying conditions. 3. Medications: No antipsychotic medications indicated at this time. Do not initiate antipsychotics unless hallucinations persist or cause severe distress; continue to monitor. Continue home Lamictal if patient has NOT been off med for > 4 days. If he has been off Lamictal 5 or more days, restart at 25 mg po daily and defer titration to outpatient team. 4. Medical Considerations: Optimize medical management. Hallucinations should continue to improve with time. Acetaminophen 650 mg p.o. given PRN for chest pain 04/20/2025 We will continue Lamisil total 25 mg as per Psychiatry consultation. Today the patient reports pain in his left toe, sharp radiating down his leg like an electric current, occurring every 5 seconds. On inquiry he reports that he has had no visual hallucinations and that his chest pain is better with the Tylenol. He is still on 2 L of oxygen. Gabapentin to be given on days after dialysis 300 mg once only 04/21/2025-patient reported doing well, no acute complaint, we will continue current management, no change in medication, plan is to discharge tomorrow if possible. 04/22/2025 today the patient reports doing well with no new active complaints. He underwent hemodialysis today and was given gabapentin 300 mg after hemodialysis. 04/23/25: Patient reports his legs feel better after gabapentin yesterday. He complained of 6 episodes of watery diarrhea yesterday. stool culture was neg for c diff and shiga toxin. cefepime and protonix stopped. nifedipine from 60mg to 90mg from today due to persistently high BP. Cardio on board, placement of pacemaker tomorrow. Preop labs ordered. Heparin stopped and patient will be NPO from midnight. 04/24/2025: Patient underwent hemodialysis today. Cardiology on board, pacemaker will be placed tomorrow. Preop labs ordered. Heparin on hold and NPO from midnight. Cardiac diet was resumed for today. Objective vital signs Vital Sign Date Time Temp Pulse Resp B/P (MAP) Pulse Ox O2 Delivery O2 Flow Rate FiO2 04/24/25 13:33 169/75 04/24/25 12:23 98.6 87 18 98 98.6 04/24/25 10:00 Nasal Cannula* 2 28 Total Intake and Output 04/23/25 04/23/25 04/24/25 15:00 23:00 07:00 Intake Total 860 ml 475 ml Balance 860 ml 475 ml medications Current Medications Medications Dose Ordered Sig/Duane Route Start Time Stop Time Status Last Admin Dose Admin Patient Own Medication 1 tab HS PO 04/10/25 22:00 Insulin Glargine 17 units DAILY SC 04/10/25 10:00 04/24/25 13:38 17 UNITS Saccharomyces Boulardii 250 mg DAILY GT 04/13/25 12:15 04/24/25 10:00 250 MG Dextrose 50 ml ONCE PRN IV 04/15/25 06:45 Diagnostic Test (Pha) 1 strip Q6HR 04/15/25 12:00 04/24/25 11:45 1 STRIP Insulin Human Regular Q6HR SC 04/15/25 12:00 04/18/25 18:15 2 UNITS Zirconium Oxide 10 gm EOD PRN GT 04/16/25 10:00 Isosorbide Dinitrate 10 mg TID@06,12,18 PO 04/16/25 12:00 04/24/25 13:33 10 MG Clonidine HCl 0.1 mg Q7D TD 04/17/25 17:00 04/17/25 18:13 0.1 MG Patient Own Medication 2 mg DAILY PO 04/18/25 10:00 04/24/25 10:00 2 MG Acetaminophen 650 mg Q4HP PRN PO 04/19/25 11:45 04/21/25 12:27 650 MG Lamotrigine 25 mg DAILY PO 04/20/25 10:00 04/24/25 13:42 25 MG Gabapentin 300 mg EOD PO 04/20/25 22:00 04/24/25 13:34 300 MG Sevelamer HCl 800 mg TIDWM PO 04/22/25 18:00 04/24/25 12:00 800 MG Nifedipine 90 mg DAILY PO 04/23/25 18:00 04/24/25 13:33 90 MG Hydralazine HCl 100 mg Q8HR PO 04/23/25 14:00 04/24/25 06:11 100 MG Examination General Appearance: Alert, Oriented X3, Cooperative, Not in acute distress HEENT: Atraumatic, Mucous membranes moist/pink Respiratory: decreased breath sounds, on 4 L of oxygen Cardiovascular: Regular rate, Normal S1, Normal S2, No murmurs Abdominal: Active bowel sounds, Soft, no distention, no tenderness Extremities: No edema, Normal pulses, No tenderness/swelling Skin: No Significant rash, except past surgical scars Neuro: Normal speech, sensorimotor deficits none Psych/Mental Status: Normal mental status Nurse was there as music writer during examination laboratory and microbiology Laboratory Tests 04/24/25 05:40 Test 04/24/25 05:40 Range/Units Serum Glucose 85 74-106 mg/dL Microbiology Date/Time Source Procedure Growth Status 04/23/25 06:49 Stool Stool Culture - Preliminary Resulted 04/23/25 06:49 Stool Shiga Toxin I & II - Final Resulted 04/12/25 08:46 Blood Blood Culture - Final NO GROWTH AFTER 5 DAYS OF INCUBATION. Complete 04/12/25 04:00 Nose MRSA Screen - Final Complete Labs and/or images reviewed: Labs reviewed by me, Image(s) reviewed by me Problem List/Assessment/Plan Problem List/Assessment/Plan Acute hypoxic respiratory failure, post-extubation, stable * Rule in: required intubation, now extubated, stable O2 sats. Psychosis with hallucinations, insomnia, underlying schizophrenia and bipolar disorder (CC) * Tele-psych consult suggests:Psychiatric admission is not indicated. Continue medical admission for stabilization and management of underlying conditions. 3. Medications: No antipsychotic medications indicated at this time. Do not initiate antipsychotics unless hallucinations persist or cause severe distress; continue to monitor. Continue home Lamictal if patient has NOT been off med for > 4 days. If he has been off Lamictal 5 or more days, restart at 25 mg po daily and defer titration to outpatient team. 4. Medical Considerations: Optimize medical management. Hallucinations should continue to improve with time. Hypertension, currently controlled (160/63) post-extubation * On multidrug regimen with Hydralazine, Isosorbide, Nicardipine. ESRD on chronic hemodialysis (MWF) * BUN 287, Cr 8 HFpEF * CXR + echo: mild diastolic dysfunction, moderate atrial/ventricular dilation. Type 2 diabetes mellitus, uncontrolled (HbA1c 11.5%) * Glucose controlled with insulin regimen. Positive occult GI bleed (previously) ? risk for ongoing anemia. Obesity (BMI 35.6) Status post cardiopulmonary arrest with ROSC due to AV block/ventricular tachycardia Sepsis due to Enterobacter cloacae pneumonia with septic encephalopathy, improving ([facility] [place]) * Sensitive to cefepime, continued. Moderate pulmonary hypertension (RVSP 55 mmHg) per echo. Cardio on board, pacemaker to be placed tomorrow Neuro/Psych * Continue haloperidol PRN for breakthrough agitation. * Resume home aripiprazole. * Tele-psych consult done, Lamictal 25 mg po daily restarted * Sleep hygiene and reassurance. Cardiovascular * Continue antihypertensive regimen: nifedipine ER 60 mg daily changed to 90 mg daily on 04/23 due to persistently high BP, hydralazine 50 mg q8h, isosorbide dinitrate TID, clonidine 0.1 mg Q7D. * Maintain BP <140/90. Respiratory * Wean NC O2 as tolerated. * Incentive spirometry and pulmonary hygiene. Renal * Continue HD on MWF schedule. * Strict I/O and daily weights. * Avoid nephrotoxic agents. Hematology * Continue epoetin with HD. * Transfuse if Hgb <7. * Monitor CBC daily. Infectious Disease * Cefepime discontinued on 04/23/2025 * stool culture negative for Shiga and C difficile * Monitor for recurrence of fever or WBC changes. Endocrine * Continue insulin regimen with SSI. * Monitor glucose q6h. GI/Nutrition * Protonix 40 mg po, stopped on 04/23/2020 * Oral feeds as tolerated, speech/swallow eval to guide diet. * Continue probiotics. Musculoskeletal # Neuropathic pain left foot -gabapentin 400mg TID Prophylaxis * DVT: Heparin SQ q12h. * GI: PPI BID. * Pulmonary: IS, HOB elevation. Goals of care discussed with the patient for more than 27 minutes: Full code status Case discussed with Dr. Fraire, patient and nurse. Plan discussed with: Patient My Orders My Orders Orders - KAREEN HARVEY Procedure Category Date Status Time Communication Order ORDERS 04/23/25 Transmitted 18:39 Electrocardigram EKG 04/24/25 Logged 04:00 * Cardiology Consult CONS 04/24/25 Transmitted 06:33 Cardiac DIET 04/24/25 Transmitted Diet-2gna,Lofat,Lochol Lunch Npo (Nothing By DIET 04/25/25 Transmitted Mouth) Diet Breakfast Troponin-I Hs LAB 04/24/25 In Process 11:40 Troponin-I Hs LAB 04/24/25 Logged 13:40 Complete Blood Count LAB 04/25/25 Verified 04:00 Basic Metabolic Panel LAB 04/25/25 Verified 04:00 PTPTT LAB 04/25/25 Verified 04:00 Electrocardigram EKG 04/25/25 Logged 04:00 Dietary Evaluation Review Comments: 1) Change TF formulary from Glucerna 1.2 to Nepro @ 30 goal rate as tolerated d/t ESRD. Flush with 150 mL free H2O Q6H. TF regimen will provide 1296 kcals, 58g Pro, and 1123 mL free H2O (including flushes) per 24 hrs. TF regimen will meet ~86% estimated energy needs and ~61% estimated protein needs. 2) Advance to 60g CCHO renal diet when medically feasible, pending ST approval 3) Refer to outpatient RD/CDCES for diabetes education/weight management 4) Follow-up with cardiology, pulmonology, and nephrology 5) Continue to monitor I&O, labs, and skin integrity Expected Outcomes/Goals: 1) TF regimen to meet at least 75% estimated daily needs 2) labs to improve 3) diet to advance 4) f/u in 2-3 days Date of Service: Apr 24, 2025 Billing Provider: RON FRAIRE MD Common Visit Codes: [id number] INP/OBS CARE(HIGH) KAREEN HARVEY Apr 24, 2025 14:15 RON FRAIRE MD Apr 24, 2025 22:13
--- NOTE | 2025-04-24 14:32 | DVHPN2 ---
Progress Note - Dictate Date Seen: Apr 24, 2025 Has the PT tested + for MRSA If YES, has PT been informed?: No Medical Necessity Reason Pt with a Central, PICC or Fol: No The following are medically ne: Central Line, Araiza Catheter Subjective No new complaints vital signs Vital Sign Date Time Temp Pulse Resp B/P (MAP) Pulse Ox O2 Delivery O2 Flow Rate FiO2 04/24/25 14:25 169/75 04/24/25 12:23 98.6 87 18 98 98.6 04/24/25 10:00 Nasal Cannula* 2 28 Total Intake and Output 04/23/25 04/23/25 04/24/25 15:00 23:00 07:00 Intake Total 860 ml 475 ml Balance 860 ml 475 ml medications Current Medications Medications Dose Ordered Sig/Duane Route Start Time Stop Time Status Last Admin Dose Admin Patient Own Medication 1 tab HS PO 04/10/25 22:00 Insulin Glargine 17 units DAILY SC 04/10/25 10:00 04/24/25 13:38 17 UNITS Saccharomyces Boulardii 250 mg DAILY GT 04/13/25 12:15 04/24/25 10:00 250 MG Dextrose 50 ml ONCE PRN IV 04/15/25 06:45 Diagnostic Test (Pha) 1 strip Q6HR 04/15/25 12:00 04/24/25 11:45 1 STRIP Insulin Human Regular Q6HR SC 04/15/25 12:00 04/18/25 18:15 2 UNITS Zirconium Oxide 10 gm EOD PRN GT 04/16/25 10:00 Isosorbide Dinitrate 10 mg TID@06,12,18 PO 04/16/25 12:00 04/24/25 13:33 10 MG Clonidine HCl 0.1 mg Q7D TD 04/17/25 17:00 04/17/25 18:13 0.1 MG Patient Own Medication 2 mg DAILY PO 04/18/25 10:00 04/24/25 10:00 2 MG Acetaminophen 650 mg Q4HP PRN PO 04/19/25 11:45 04/21/25 12:27 650 MG Lamotrigine 25 mg DAILY PO 04/20/25 10:00 04/24/25 13:42 25 MG Gabapentin 300 mg EOD PO 04/20/25 22:00 04/24/25 13:34 300 MG Sevelamer HCl 800 mg TIDWM PO 04/22/25 18:00 04/24/25 12:00 800 MG Nifedipine 90 mg DAILY PO 04/23/25 18:00 04/24/25 13:33 90 MG Hydralazine HCl 100 mg Q8HR PO 04/23/25 14:00 04/24/25 14:25 100 MG objective GENERAL: The patient is an adult gentleman who appears to be chronically ill, HEENT: Unremarkable. NECK: No jugular venous distention. No palpable thyroid or lymphadenopathy. LUNGS: Show diminished air entry at the bases. CARDIOVASCULAR: Shows 1/6 systolic murmur, S4 gallop. ABDOMEN: Soft, nontender, no organomegaly. EXTREMITIES: Show no clubbing, cyanosis or edema. NEUROLOGIC: Nonfocal. laboratory and microbiology Laboratory Tests 04/24/25 05:40 Test 04/24/25 05:40 Range/Units Serum Glucose 85 74-106 mg/dL Assessment/Plan ASSESSMENT AND PLAN: End-stage renal disease on hemodialysis Tuesday Hypertension,better controlled Paranoia with hallucinations Anemia of renal disease. Diabetes mellitus. Respiratory failure s/p cardiac arrest Plan Continue Hydralazine to 100 mg Q8H and clonidine patch HD has been scheduled for today Keep Gabapentin at not more than 300 mg in 24 hours Lokelma on non dialysis days IV antibiotics Stephan with dialysis Dietary Evaluation Review Comments: 1) Change TF formulary from Glucerna 1.2 to Nepro @ 30 goal rate as tolerated d/t ESRD. Flush with 150 mL free H2O Q6H. TF regimen will provide 1296 kcals, 58g Pro, and 1123 mL free H2O (including flushes) per 24 hrs. TF regimen will meet ~86% estimated energy needs and ~61% estimated protein needs. 2) Advance to 60g CCHO renal diet when medically feasible, pending ST approval 3) Refer to outpatient RD/[facility] for diabetes education/weight management 4) Follow-up with cardiology, pulmonology, and nephrology 5) Continue to monitor I&O, labs, and skin integrity Expected Outcomes/Goals: 1) TF regimen to meet at least 75% estimated daily needs 2) labs to improve 3) diet to advance 4) f/u in 2-3 days Plan discussed with: KAMARI Walter MD Apr 24, 2025 14:32
[2025-04-24] MEDS: EPOETIN ALFA-EPBX 10,000 UNIT/1ML VIAL SC ONE (22:27)
[2025-04-25] VITALS (8 sets, daily range): BP systolic 110–143; BP diastolic 66–101; PULSE 82–96; RESP 16–19; TEMP 97.5–98.4; O2SAT 94–99
--- NOTE | 2025-04-25 | DVHPN2 ---
Progress Note - Dictate Date Seen: Apr 24, 2025 Has the PT tested + for MRSA If YES, has PT been informed?: No Medical Necessity Reason Pt with a Central, PICC or Fol: No The following are medically ne: Central Line, Araiza Catheter Subjective Patient was seen and evaluated in follow up. Patient is on 2 LPM NC. Patient received HD today. PPM insertion has been rescheduled to tomorrow 04/25. HGB 8.5, HCT 26.4. Troponin is negative. Telemetry reviewed. vital signs Vital Sign Date Time Temp Pulse Resp B/P (MAP) Pulse Ox O2 Delivery O2 Flow Rate FiO2 04/24/25 17:00 98.3 87 20 146/71 (96) 100 98.3 04/24/25 10:00 Nasal Cannula* 2 28 Total Intake and Output 04/23/25 04/23/25 04/24/25 15:00 23:00 07:00 Intake Total 860 ml 475 ml Balance 860 ml 475 ml medications Current Medications Medications Dose Ordered Sig/Duane Route Start Time Stop Time Status Last Admin Dose Admin Patient Own Medication 1 tab HS PO 04/10/25 22:00 Insulin Glargine 17 units DAILY SC 04/10/25 10:00 04/24/25 13:38 17 UNITS Saccharomyces Boulardii 250 mg DAILY GT 04/13/25 12:15 04/24/25 10:00 250 MG Dextrose 50 ml ONCE PRN IV 04/15/25 06:45 Diagnostic Test (Pha) 1 strip Q6HR 04/15/25 12:00 04/24/25 17:34 1 STRIP Insulin Human Regular Q6HR SC 04/15/25 12:00 04/18/25 18:15 2 UNITS Zirconium Oxide 10 gm EOD PRN GT 04/16/25 10:00 Isosorbide Dinitrate 10 mg TID@06,12,18 PO 04/16/25 12:00 04/24/25 13:33 10 MG Clonidine HCl 0.1 mg Q7D TD 04/17/25 17:00 04/17/25 18:13 0.1 MG Patient Own Medication 2 mg DAILY PO 04/18/25 10:00 04/24/25 10:00 2 MG Acetaminophen 650 mg Q4HP PRN PO 04/19/25 11:45 04/21/25 12:27 650 MG Lamotrigine 25 mg DAILY PO 04/20/25 10:00 04/24/25 13:42 25 MG Gabapentin 300 mg EOD PO 04/20/25 22:00 04/24/25 13:34 300 MG Sevelamer HCl 800 mg TIDWM PO 04/22/25 18:00 04/24/25 12:00 800 MG Nifedipine 90 mg DAILY PO 04/23/25 18:00 04/24/25 13:33 90 MG Hydralazine HCl 100 mg Q8HR PO 04/23/25 14:00 04/24/25 14:25 100 MG objective GENERAL: Alert and oriented x 3. No acute distress. Obese. EYES: PERRL, EOMI. Anicteric. HENT: Moist mucous membranes. LUNGS: Clear to auscultation bilaterally. CARDIOVASCULAR: Regular rate and rhythm. ABDOMEN: Soft, nontender and nondistended. EXTREMITIES: No edema. SKIN: Hyperpigmentation to bilateral lower extremities. laboratory and microbiology Laboratory Tests 04/24/25 05:40 Test 04/24/25 05:40 Range/Units Serum Glucose 85 74-106 mg/dL Problem List Cardiopulmonary arrest status post CPR with return of spontaneous circulation. High-degree atrioventricular block, complete heart block. Ventricular tachycardia. NSTEMI, rule out coronary artery disease. Rule out structural heart disease. Acute hypoxic respiratory failure. Hypertension. Hyperkalemia, resolved. ESRD on hemodialysis. Type 2 diabetes mellitus, uncontrolled (Hbg A1c 11.5%). Medical noncompliance. Assessment/Plan Continued all current supportive medical care. PPM insertion,risks and benefits were discussed with the patient. Hydralazine,Nifedipine. GI prophylactics. Additional plan as per the hospital course. Dietary Evaluation Review Comments: 1) Change TF formulary from Glucerna 1.2 to Nepro @ 30 goal rate as tolerated d/t ESRD. Flush with 150 mL free H2O Q6H. TF regimen will provide 1296 kcals, 58g Pro, and 1123 mL free H2O (including flushes) per 24 hrs. TF regimen will meet ~86% estimated energy needs and ~61% estimated protein needs. 2) Advance to 60g CCHO renal diet when medically feasible, pending ST approval 3) Refer to outpatient RD/[facility] for diabetes education/weight management 4) Follow-up with cardiology, pulmonology, and nephrology 5) Continue to monitor I&O, labs, and skin integrity Expected Outcomes/Goals: 1) TF regimen to meet at least 75% estimated daily needs 2) labs to improve 3) diet to advance 4) f/u in 2-3 days Plan discussed with: Patient INA ARRIOLA MD Apr 24, 2025 17:42
[2025-04-25 06:54] LABS: Hematocrit 26.1 % (41.0-53.0); Hemoglobin 8.8 g/dL (13.5-17.5); Mean Corpuscular Hemoglobin 28.7 pg (28.0-32.0); Mean Corpuscular Volume 85.4 fL (80.0-100.0); Nucleated Red Blood Cells % 0.1 %
[2025-04-25 07:02] LABS: Chloride 99 mmol/L (98-107); Potassium 3.9 mmol/L (3.5-5.1); Sodium 140 mmol/L (136-145)
[2025-04-25 07:03] LABS: Anion Gap 10 (5-15)
[2025-04-25 07:08] LABS: INR 1.08 (0.9-1.15); Partial Thromboplastin Time 30.4 SEC (24.5-34.5); Prothrombin Time 11.4 sec (9.3-11.8)
[2025-04-25 07:09] LABS: BUN/Creatinine Ratio 3.0 (10.0-20.0); Blood Urea Nitrogen 20 mg/dL (9-23); Calcium 8.6 mg/dL (8.7-10.4); Carbon Dioxide 31 mmol/L (20-31); Glucose 80 mg/dL (74-106)
[2025-04-25] MEDS ORDERED: LAMO25CH21 PO (12:38)
[2025-04-25] MEDS ORDERED: ISOS10TA2 PO (12:38)
[2025-04-25] MEDS ORDERED: NIFE1TAB31 PO (12:38)
[2025-04-25] MEDS ORDERED: HYDR25TA87 PO (12:38)
[2025-04-25] MEDS ORDERED: SACC250C PO (12:38)
[2025-04-25] MEDS ORDERED: SEVE800T7 PO (12:38)
--- NOTE | 2025-04-25 17:48 | DVHPNRES ---
Progress Note Date Seen: Apr 25, 2025 Resident Creating Document: KAREEN HARVEY RESIDENT Has the PT tested + for MRSA If YES, has PT been informed?: No Medical Necessity Reason Pt with a Central, PICC or Fol: No The following are medically ne: Central Line, Araiza Catheter Subjective Review of Systems 04/19/2025 We will continue Lamisil total 25 mg as per Psychiatry consultation. Today the patient reports pain in his left toe wishes sharp radiating down his leg like an electric current, occurring every 5 seconds. On inquiry he reports that he has had no visual hallucinations and that his chest pain is better with the Tylenol. He is still on 2 L of oxygen. Stable post-extubation on NC O2. Downgraded from ICU to telemetry. Psychosis improved after haloperidol; paranoia persists. Aripiprazole resumed. Oral feeds restarted. Hemodialysis today Vitals stable, labs consistent with ESRD and CKD anemia. FOBT postive Tele-psych consult suggested:Psychiatric admission is not indicated. Continue medical admission for stabilization and management of underlying conditions. 3. Medications: No antipsychotic medications indicated at this time. Do not initiate antipsychotics unless hallucinations persist or cause severe distress; continue to monitor. Continue home Lamictal if patient has NOT been off med for > 4 days. If he has been off Lamictal 5 or more days, restart at 25 mg po daily and defer titration to outpatient team. 4. Medical Considerations: Optimize medical management. Hallucinations should continue to improve with time. Acetaminophen 650 mg p.o. given PRN for chest pain 04/20/2025 We will continue Lamisil total 25 mg as per Psychiatry consultation. Today the patient reports pain in his left toe, sharp radiating down his leg like an electric current, occurring every 5 seconds. On inquiry he reports that he has had no visual hallucinations and that his chest pain is better with the Tylenol. He is still on 2 L of oxygen. Gabapentin to be given on days after dialysis 300 mg once only On 04/13/2025-patient reported doing well, no acute complaint, we will continue current management, no change in medication, plan is to discharge tomorrow if possible. 04/22/2025 today the patient reports doing well with no new active complaints. He underwent hemodialysis today and was given gabapentin 300 mg after hemodialysis. 04/23/25: Patient reports his legs feel better after gabapentin yesterday. He complained of 6 episodes of watery diarrhea yesterday. stool sulture was neg for c diff and shiga toxin. cefepime and protonix stopped. nifedipine from 60mg to 90mg from todaydue to persistently high BP. Awaiting cardio consult. 04/24/2025: Patient underwent hemodialysis today. Cardiology on board, pacemaker will be placed tomorrow. Preop labs ordered. Heparin on hold and NPO from midnight. Cardiac diet was resumed for today. 04/25/25: Patient declined noting the pacemaker alone today. PT evaluation to be done and home health for PT required. Possible discharge tomorrow Objective vital signs Vital Sign Date Time Temp Pulse Resp B/P (MAP) Pulse Ox O2 Delivery O2 Flow Rate FiO2 04/25/25 16:45 97.5 96 18 143/101 (115) 94 97.5 04/25/25 10:00 Nasal Cannula 2.0 04/25/25 10:00 28 Total Intake and Output 04/24/25 04/24/25 04/25/25 15:00 23:00 07:00 Intake Total 360 ml Balance 360 ml medications Current Medications Medications Dose Ordered Sig/Duane Route Start Time Stop Time Status Last Admin Dose Admin Patient Own Medication 1 tab HS PO 04/10/25 22:00 Insulin Glargine 17 units DAILY SC 04/10/25 10:00 04/25/25 09:47 17 UNITS Saccharomyces Boulardii 250 mg DAILY GT 04/13/25 12:15 04/25/25 08:55 250 MG Dextrose 50 ml ONCE PRN IV 04/15/25 06:45 Diagnostic Test (Pha) 1 strip Q6HR 04/15/25 12:00 04/25/25 12:26 1 STRIP Insulin Human Regular Q6HR SC 04/15/25 12:00 04/18/25 18:15 2 UNITS Zirconium Oxide 10 gm EOD PRN GT 04/16/25 10:00 Isosorbide Dinitrate 10 mg TID@06,12,18 PO 04/16/25 12:00 04/25/25 12:26 10 MG Clonidine HCl 0.1 mg Q7D TD 04/17/25 17:00 04/24/25 17:43 0.1 MG Patient Own Medication 2 mg DAILY PO 04/18/25 10:00 04/25/25 09:37 2 MG Acetaminophen 650 mg Q4HP PRN PO 04/19/25 11:45 04/21/25 12:27 650 MG Lamotrigine 25 mg DAILY PO 04/20/25 10:00 04/25/25 09:38 25 MG Gabapentin 300 mg EOD PO 04/20/25 22:00 04/24/25 13:34 300 MG Sevelamer HCl 800 mg TIDWM PO 04/22/25 18:00 04/25/25 12:26 800 MG Nifedipine 90 mg DAILY PO 04/23/25 18:00 04/25/25 09:40 90 MG Hydralazine HCl 100 mg Q8HR PO 04/23/25 14:00 04/25/25 06:41 100 MG Examination Pt is lying on bed General Appearance: Alert, Oriented X3, Cooperative, Not in acute distress HEENT: Atraumatic, Mucous membranes moist/pink Respiratory: Clear to auscultation, Normal air movement, No added sounds Cardiovascular: Regular rate, Normal S1, Normal S2, No murmurs Abdominal: Active bowel sounds, Soft, no distention, no tenderness Extremities: No edema, Normal pulses, No tenderness/swelling Skin: No Significant rash, except past surgical scars, tenderness on palpation the left upper back Neuro: Normal speech, sensorimotor deficits none Psych/Mental Status: Mental status NL, Mood NL Nurse was there as process improvement manager during examination laboratory and microbiology Laboratory Tests 04/25/25 06:39 Test 04/25/25 06:39 Range/Units Serum Glucose 80 74-106 mg/dL Microbiology Date/Time Source Procedure Growth Status 04/23/25 06:49 Stool Stool Culture - Preliminary Resulted 04/23/25 06:49 Stool Shiga Toxin I & II - Final Resulted 04/12/25 08:46 Blood Blood Culture - Final NO GROWTH AFTER 5 DAYS OF INCUBATION. Complete 04/12/25 04:00 Nose MRSA Screen - Final Complete Labs and/or images reviewed: Labs reviewed by me, Image(s) reviewed by me (rn) Problem List/Assessment/Plan Problem List/Assessment/Plan Acute hypoxic respiratory failure, post-extubation, stable * Rule in: required intubation, now extubated, stable O2 sats. Psychosis with hallucinations, insomnia, underlying schizophrenia and bipolar disorder (CC) * Tele-psych consult suggests:Psychiatric admission is not indicated. Continue medical admission for stabilization and management of underlying conditions. 3. Medications: No antipsychotic medications indicated at this time. Do not initiate antipsychotics unless hallucinations persist or cause severe distress; continue to monitor. Continue home Lamictal if patient has NOT been off med for > 4 days. If he has been off Lamictal 5 or more days, restart at 25 mg po daily and defer titration to outpatient team. 4. Medical Considerations: Optimize medical management. Hallucinations should continue to improve with time. Hypertension, currently controlled (160/63) post-extubation * On multidrug regimen with Hydralazine, Isosorbide, Nicardipine. ESRD on chronic hemodialysis (MWF) * BUN 287, Cr 8 HFpEF * CXR + echo: mild diastolic dysfunction, moderate atrial/ventricular dilation. Type 2 diabetes mellitus, uncontrolled (HbA1c 11.5%) * Glucose controlled with insulin regimen. Positive occult GI bleed (previously) ? risk for ongoing anemia. Obesity (BMI 35.6) Status post cardiopulmonary arrest with ROSC due to AV block/ventricular tachycardia Sepsis due to Enterobacter cloacae pneumonia with septic encephalopathy, improving [place] [place] * Sensitive to cefepime, continued. Moderate pulmonary hypertension (RVSP 55 mmHg) per echo. Neuro/Psych * Continue haloperidol PRN for breakthrough agitation. * Resume home aripiprazole. * Tele-psych consult done, Lamictal 25 mg po daily restarted * Sleep hygiene and reassurance. Cardiovascular * Continue antihypertensive regimen: nifedipine ER 60 mg daily, hydralazine 50 mg q8h, isosorbide dinitrate TID, clonidine 0.1 mg Q7D. * Maintain BP <140/90. Respiratory * Wean NC O? as tolerated. * Incentive spirometry and pulmonary hygiene. Renal * Continue HD on MWF schedule. * Strict I/O and daily weights. * Avoid nephrotoxic agents. Hematology * Continue epoetin with HD. * Transfuse if Hgb <7. * Monitor CBC daily. Infectious Disease * Cefepime discontinued on 04/23/2025 * stool culture negative for Shiga and C difficile * Monitor for recurrence of fever or WBC changes. Endocrine * Continue insulin regimen with SSI. * Monitor glucose q6h. GI/Nutrition * Protonix 40 mg po, stopped on 04/23/2020 * Oral feeds as tolerated, speech/swallow eval to guide diet. * Continue probiotics. Musculoskeletal # Neuropathic pain left foot -gabapentin 400mg TID Prophylaxis * DVT: Heparin SQ q12h. * GI: PPI BID. * Pulmonary: IS, HOB elevation. Goals of care discussed with the patient for more than 27 minutes: Full code status Case discussed with Dr. Fraire, patient and nurse. Plan discussed with: Patient My Orders My Orders Orders - KAREEN HARVEY Procedure Category Date Status Time Communication Order ORDERS 04/25/25 Transmitted 12:01 Dietary Evaluation Review Comments: 1) Change TF formulary from Glucerna 1.2 to Nepro @ 30 goal rate as tolerated d/t ESRD. Flush with 150 mL free H2O Q6H. TF regimen will provide 1296 kcals, 58g Pro, and 1123 mL free H2O (including flushes) per 24 hrs. TF regimen will meet ~86% estimated energy needs and ~61% estimated protein needs. 2) Advance to 60g CCHO renal diet when medically feasible, pending ST approval 3) Refer to outpatient RD/CDCES for diabetes education/weight management 4) Follow-up with cardiology, pulmonology, and nephrology 5) Continue to monitor I&O, labs, and skin integrity Expected Outcomes/Goals: 1) TF regimen to meet at least 75% estimated daily needs 2) labs to improve 3) diet to advance 4) f/u in 2-3 days Date of Service: Apr 25, 2025 Billing Provider: RON FRAIRE MD Common Visit Codes: [id number] INP/OBS CARE(HIGH) KAREEN HARVEY Apr 25, 2025 17:48 RON FRAIRE MD Apr 26, 2025 19:53
--- NOTE | 2025-04-25 17:50 | DVHPN2 ---
Progress Note - Dictate Date Seen: Apr 25, 2025 Has the PT tested + for MRSA If YES, has PT been informed?: No Medical Necessity Reason Pt with a Central, PICC or Fol: No The following are medically ne: Central Line, Araiza Catheter Subjective No new complaints vital signs Vital Sign Date Time Temp Pulse Resp B/P (MAP) Pulse Ox O2 Delivery O2 Flow Rate FiO2 04/25/25 16:45 97.5 96 18 143/101 (115) 94 97.5 04/25/25 10:00 Nasal Cannula 2.0 04/25/25 10:00 28 Total Intake and Output 04/24/25 04/24/25 04/25/25 15:00 23:00 07:00 Intake Total 360 ml Balance 360 ml medications Current Medications Medications Dose Ordered Sig/Duane Route Start Time Stop Time Status Last Admin Dose Admin Patient Own Medication 1 tab HS PO 04/10/25 22:00 Insulin Glargine 17 units DAILY SC 04/10/25 10:00 04/25/25 09:47 17 UNITS Saccharomyces Boulardii 250 mg DAILY GT 04/13/25 12:15 04/25/25 08:55 250 MG Dextrose 50 ml ONCE PRN IV 04/15/25 06:45 Diagnostic Test (Pha) 1 strip Q6HR 04/15/25 12:00 04/25/25 12:26 1 STRIP Insulin Human Regular Q6HR SC 04/15/25 12:00 04/18/25 18:15 2 UNITS Zirconium Oxide 10 gm EOD PRN GT 04/16/25 10:00 Isosorbide Dinitrate 10 mg TID@06,12,18 PO 04/16/25 12:00 04/25/25 12:26 10 MG Clonidine HCl 0.1 mg Q7D TD 04/17/25 17:00 04/24/25 17:43 0.1 MG Patient Own Medication 2 mg DAILY PO 04/18/25 10:00 04/25/25 09:37 2 MG Acetaminophen 650 mg Q4HP PRN PO 04/19/25 11:45 04/21/25 12:27 650 MG Lamotrigine 25 mg DAILY PO 04/20/25 10:00 04/25/25 09:38 25 MG Gabapentin 300 mg EOD PO 04/20/25 22:00 04/24/25 13:34 300 MG Sevelamer HCl 800 mg TIDWM PO 04/22/25 18:00 04/25/25 12:26 800 MG Nifedipine 90 mg DAILY PO 04/23/25 18:00 04/25/25 09:40 90 MG Hydralazine HCl 100 mg Q8HR PO 04/23/25 14:00 04/25/25 06:41 100 MG objective GENERAL: The patient is an adult gentleman who appears to be chronically ill, HEENT: Unremarkable. NECK: No jugular venous distention. No palpable thyroid or lymphadenopathy. LUNGS: Show diminished air entry at the bases. CARDIOVASCULAR: Shows 1/6 systolic murmur, S4 gallop. ABDOMEN: Soft, nontender, no organomegaly. EXTREMITIES: Show no clubbing, cyanosis or edema. NEUROLOGIC: Nonfocal. laboratory and microbiology Laboratory Tests 04/25/25 06:39 Test 04/25/25 06:39 Range/Units Serum Glucose 80 74-106 mg/dL Assessment/Plan ASSESSMENT AND PLAN: End-stage renal disease on hemodialysis Tuesday Hypertension,better controlled Paranoia with hallucinations Anemia of renal disease. Diabetes mellitus. Respiratory failure s/p cardiac arrest Plan HD scheduled for tomorrow Continue Hydralazine to 100 mg Q8H and clonidine patch Keep Gabapentin at not more than 300 mg in 24 hours Lokelma on non dialysis days IV antibiotics Stephan with dialysis Dietary Evaluation Review Comments: 1) Change TF formulary from Glucerna 1.2 to Nepro @ 30 goal rate as tolerated d/t ESRD. Flush with 150 mL free H2O Q6H. TF regimen will provide 1296 kcals, 58g Pro, and 1123 mL free H2O (including flushes) per 24 hrs. TF regimen will meet ~86% estimated energy needs and ~61% estimated protein needs. 2) Advance to 60g CCHO renal diet when medically feasible, pending ST approval 3) Refer to outpatient RD/CDCES for diabetes education/weight management 4) Follow-up with cardiology, pulmonology, and nephrology 5) Continue to monitor I&O, labs, and skin integrity Expected Outcomes/Goals: 1) TF regimen to meet at least 75% estimated daily needs 2) labs to improve 3) diet to advance 4) f/u in 2-3 days Plan discussed with: Patient KAMARI CHAPPELL MD Apr 25, 2025 17:50
--- NOTE | 2025-04-25 22:07 | DVHPN2 ---
Progress Note - Dictate Date Seen: Apr 25, 2025 Has the PT tested + for MRSA If YES, has PT been informed?: No Medical Necessity Reason Pt with a Central, PICC or Fol: No The following are medically ne: Central Line, Araiza Catheter Subjective Patient was seen and evaluated in follow up. Patient is on 2 LPM NC. Patietn and family re now declining pacemaker placement. Pending PT eval. HGB 8.8, HCT 26.1, JET ENGINE MECH[employer]IC 6.62, CA 8.6. Telemetry reviewed. vital signs Vital Sign Date Time Temp Pulse Resp B/P (MAP) Pulse Ox O2 Delivery O2 Flow Rate FiO2 04/25/25 10:00 99 Nasal Cannula 2.0 04/25/25 10:00 28 04/25/25 09:40 141/70 04/25/25 09:00 98.4 85 16 98.4 Total Intake and Output 04/24/25 04/24/25 04/25/25 15:00 23:00 07:00 Intake Total 360 ml Balance 360 ml medications Current Medications Medications Dose Ordered Sig/Duane Route Start Time Stop Time Status Last Admin Dose Admin Patient Own Medication 1 tab HS PO 04/10/25 22:00 Insulin Glargine 17 units DAILY SC 04/10/25 10:00 04/25/25 09:47 17 UNITS Saccharomyces Boulardii 250 mg DAILY GT 04/13/25 12:15 04/25/25 08:55 250 MG Dextrose 50 ml ONCE PRN IV 04/15/25 06:45 Diagnostic Test (Pha) 1 strip Q6HR 04/15/25 12:00 04/25/25 06:04 1 STRIP Insulin Human Regular Q6HR SC 04/15/25 12:00 04/18/25 18:15 2 UNITS Zirconium Oxide 10 gm EOD PRN GT 04/16/25 10:00 Isosorbide Dinitrate 10 mg TID@06,12,18 PO 04/16/25 12:00 04/25/25 06:40 10 MG Clonidine HCl 0.1 mg Q7D TD 04/17/25 17:00 04/24/25 17:43 0.1 MG Patient Own Medication 2 mg DAILY PO 04/18/25 10:00 04/25/25 09:37 2 MG Acetaminophen 650 mg Q4HP PRN PO 04/19/25 11:45 04/21/25 12:27 650 MG Lamotrigine 25 mg DAILY PO 04/20/25 10:00 04/25/25 09:38 25 MG Gabapentin 300 mg EOD PO 04/20/25 22:00 04/24/25 13:34 300 MG Sevelamer HCl 800 mg TIDWM PO 04/22/25 18:00 04/25/25 08:55 800 MG Nifedipine 90 mg DAILY PO 04/23/25 18:00 04/25/25 09:40 90 MG Hydralazine HCl 100 mg Q8HR PO 04/23/25 14:00 04/25/25 06:41 100 MG objective GENERAL: Alert and oriented x 3. No acute distress. Obese. EYES: PERRL, EOMI. Anicteric. HENT: Moist mucous membranes. LUNGS: Clear to auscultation bilaterally. CARDIOVASCULAR: Regular rate and rhythm. ABDOMEN: Soft, nontender and nondistended. EXTREMITIES: No edema. SKIN: Hyperpigmentation to bilateral lower extremities. laboratory and microbiology Laboratory Tests 04/25/25 06:39 Test 04/25/25 06:39 Range/Units Serum Glucose 80 74-106 mg/dL Problem List Cardiopulmonary arrest status post CPR with return of spontaneous circulation. High-degree atrioventricular block, complete heart block. Ventricular tachycardia. NSTEMI, rule out coronary artery disease. Rule out structural heart disease. Acute hypoxic respiratory failure. Hypertension. Hyperkalemia, resolved. ESRD on hemodialysis. Type 2 diabetes mellitus, uncontrolled (Hbg A1c 11.5%). Medical noncompliance. Assessment/Plan Continued all current supportive medical care. Clonidine, Hydralazine, Nifedipine. Additional plan as per the hospital course. Dietary Evaluation Review Comments: 1) Change TF formulary from Glucerna 1.2 to Nepro @ 30 goal rate as tolerated d/t ESRD. Flush with 150 mL free H2O Q6H. TF regimen will provide 1296 kcals, 58g Pro, and 1123 mL free H2O (including flushes) per 24 hrs. TF regimen will meet ~86% estimated energy needs and ~61% estimated protein needs. 2) Advance to 60g CCHO renal diet when medically feasible, pending ST approval 3) Refer to outpatient RD/CD[facility] for diabetes education/weight management 4) Follow-up with cardiology, pulmonology, and nephrology 5) Continue to monitor I&O, labs, and skin integrity Expected Outcomes/Goals: 1) TF regimen to meet at least 75% estimated daily needs 2) labs to improve 3) diet to advance 4) f/u in 2-3 days Plan discussed with: Patient INA ARRIOLA MD Apr 25, 2025 12:21
[2025-04-26] VITALS (9 sets, daily range): BP systolic 119–157; BP diastolic 65–71; PULSE 60–84; RESP 16–18; TEMP 97.8–98.8; O2SAT 96–100
[2025-04-26 06:54] LABS: Hematocrit 27.0 % (41.0-53.0); Hemoglobin 8.9 g/dL (13.5-17.5); Mean Corpuscular Hemoglobin 28.7 pg (28.0-32.0); Mean Corpuscular Volume 86.6 fL (80.0-100.0); Nucleated Red Blood Cells % 0.1 %
[2025-04-26 07:02] LABS: Potassium 4.3 mmol/L (3.5-5.1); Sodium 136 mmol/L (136-145)
[2025-04-26 07:04] LABS: Anion Gap 12 (5-15); Calcium 8.7 mg/dL (8.7-10.4); Carbon Dioxide 29 mmol/L (20-31); Chloride 95 mmol/L (98-107)
[2025-04-26 07:09] LABS: BUN/Creatinine Ratio 3.0 (10.0-20.0)
[2025-04-26 07:15] LABS: Blood Urea Nitrogen 25 mg/dL (9-23); Glucose 115 mg/dL (74-106)
--- NOTE | 2025-04-26 10:54 | DVHPN2 ---
Progress Note - Dictate Date Seen: Apr 26, 2025 Has the PT tested + for MRSA If YES, has PT been informed?: No Medical Necessity Reason Pt with a Central, PICC or Fol: No The following are medically ne: Central Line, Araiza Catheter Subjective No new complaints vital signs Vital Sign Date Time Temp Pulse Resp B/P (MAP) Pulse Ox O2 Delivery O2 Flow Rate FiO2 04/26/25 10:30 99 Nasal Cannula* 2 28 04/26/25 09:17 142/85 04/26/25 05:00 98.6 84 18 98.6 Total Intake and Output 04/25/25 04/25/25 04/26/25 15:00 23:00 07:00 Intake Total 500 ml 1200 ml Output Total 300 ml 0 ml Balance 200 ml 1200 ml medications Current Medications Medications Dose Ordered Sig/Duane Route Start Time Stop Time Status Last Admin Dose Admin Patient Own Medication 1 tab HS PO 04/10/25 22:00 Insulin Glargine 17 units DAILY SC 04/10/25 10:00 04/26/25 09:17 17 UNITS Saccharomyces Boulardii 250 mg DAILY GT 04/13/25 12:15 04/26/25 09:17 250 MG Dextrose 50 ml ONCE PRN IV 04/15/25 06:45 Diagnostic Test (Pha) 1 strip Q6HR 04/15/25 12:00 04/26/25 06:22 1 STRIP Insulin Human Regular Q6HR SC 04/15/25 12:00 04/18/25 18:15 2 UNITS Zirconium Oxide 10 gm EOD PRN GT 04/16/25 10:00 Isosorbide Dinitrate 10 mg TID@06,12,18 PO 04/16/25 12:00 04/26/25 05:43 10 MG Clonidine HCl 0.1 mg Q7D TD 04/17/25 17:00 04/24/25 17:43 0.1 MG Patient Own Medication 2 mg DAILY PO 04/18/25 10:00 04/26/25 09:14 2 MG Acetaminophen 650 mg Q4HP PRN PO 04/19/25 11:45 04/21/25 12:27 650 MG Lamotrigine 25 mg DAILY PO 04/20/25 10:00 04/26/25 09:17 25 MG Gabapentin 300 mg EOD PO 04/20/25 22:00 04/26/25 09:16 300 MG Sevelamer HCl 800 mg TIDWM PO 04/22/25 18:00 04/25/25 18:11 800 MG Nifedipine 90 mg DAILY PO 04/23/25 18:00 04/26/25 09:17 90 MG Hydralazine HCl 100 mg Q8HR PO 04/23/25 14:00 04/26/25 05:44 100 MG objective GENERAL: The patient is an adult gentleman who appears to be chronically ill, HEENT: Unremarkable. NECK: No jugular venous distention. No palpable thyroid or lymphadenopathy. LUNGS: Show diminished air entry at the bases. CARDIOVASCULAR: Shows 1/6 systolic murmur, S4 gallop. ABDOMEN: Soft, nontender, no organomegaly. EXTREMITIES: Show no clubbing, cyanosis or edema. NEUROLOGIC: Nonfocal. laboratory and microbiology Laboratory Tests 04/26/25 06:07 Test 04/26/25 06:07 Range/Units Serum Glucose 115 H 74-106 mg/dL Assessment/Plan ASSESSMENT AND PLAN: End-stage renal disease on hemodialysis Tuesday Hypertension,better controlled Paranoia with hallucinations Anemia of renal disease. Diabetes mellitus. Respiratory failure s/p cardiac arrest Plan HD today UF goal 2.5 L Continue Hydralazine to 100 mg Q8H and clonidine patch Keep Gabapentin at not more than 300 mg in 24 hours Lokelma on non dialysis days IV antibiotics Stephan with dialysis DC home Dietary Evaluation Review Comments: 1) Change TF formulary from Glucerna 1.2 to Nepro @ 30 goal rate as tolerated d/t ESRD. Flush with 150 mL free H2O Q6H. TF regimen will provide 1296 kcals, 58g Pro, and 1123 mL free H2O (including flushes) per 24 hrs. TF regimen will meet ~86% estimated energy needs and ~61% estimated protein needs. 2) Advance to 60g CCHO renal diet when medically feasible, pending ST approval 3) Refer to outpatient RD/CDCES for diabetes education/weight management 4) Follow-up with cardiology, pulmonology, and nephrology 5) Continue to monitor I&O, labs, and skin integrity Expected Outcomes/Goals: 1) TF regimen to meet at least 75% estimated daily needs 2) labs to improve 3) diet to advance 4) f/u in 2-3 days Plan discussed with: Patient KAMARI CHAPPELL MD Apr 26, 2025 10:54
--- NOTE | 2025-04-26 14:53 | DVHPNRES ---
Progress Note Date Seen: Apr 26, 2025 Resident Creating Document: KAREEN HARVEY RESIDENT Has the PT tested + for MRSA If YES, has PT been informed?: No Medical Necessity Reason Pt with a Central, PICC or Fol: No The following are medically ne: Central Line, Araiza Catheter Subjective Review of Systems 04/19/2025 We will continue Lamisil total 25 mg as per Psychiatry consultation. Today the patient reports pain in his left toe wishes sharp radiating down his leg like an electric current, occurring every 5 seconds. On inquiry he reports that he has had no visual hallucinations and that his chest pain is better with the Tylenol. He is still on 2 L of oxygen. Stable post-extubation on NC O2. Downgraded from ICU to telemetry. Psychosis improved after haloperidol; paranoia persists. Aripiprazole resumed. Oral feeds restarted. Hemodialysis today Vitals stable, labs consistent with ESRD and CKD anemia. FOBT postive Tele-psych consult suggested:Psychiatric admission is not indicated. Continue medical admission for stabilization and management of underlying conditions. 3. Medications: No antipsychotic medications indicated at this time. Do not initiate antipsychotics unless hallucinations persist or cause severe distress; continue to monitor. Continue home Lamictal if patient has NOT been off med for > 4 days. If he has been off Lamictal 5 or more days, restart at 25 mg po daily and defer titration to outpatient team. 4. Medical Considerations: Optimize medical management. Hallucinations should continue to improve with time. Acetaminophen 650 mg p.o. given PRN for chest pain 04/20/2025 We will continue Lamisil total 25 mg as per Psychiatry consultation. Today the patient reports pain in his left toe, sharp radiating down his leg like an electric current, occurring every 5 seconds. On inquiry he reports that he has had no visual hallucinations and that his chest pain is better with the Tylenol. He is still on 2 L of oxygen. Gabapentin to be given on days after dialysis 300 mg once only On 04/13/2025-patient reported doing well, no acute complaint, we will continue current management, no change in medication, plan is to discharge tomorrow if possible. 04/22/2025 today the patient reports doing well with no new active complaints. He underwent hemodialysis today and was given gabapentin 300 mg after hemodialysis. 04/23/25: Patient reports his legs feel better after gabapentin yesterday. He complained of 6 episodes of watery diarrhea yesterday. stool sulture was neg for c diff and shiga toxin. cefepime and protonix stopped. nifedipine from 60mg to 90mg from todaydue to persistently high BP. Awaiting cardio consult. 04/24/2025: Patient underwent hemodialysis today. Cardiology on board, pacemaker will be placed tomorrow. Preop labs ordered. Heparin on hold and NPO from midnight. Cardiac diet was resumed for today. 04/25/25: Patient declined noting the pacemaker alone today. PT evaluation to be done and home health for PT required. Possible discharge tomorrow 04/26/2025: Patient underwent hemodialysis. He has no new active complaints. Patient stated that he wanted me to speak to his cousin's regarding his discharge plan. I spoke to his cousin Kimmy who stated that she wants patient to go to a SNF placement as his mother he lives with is 85 and unable to take care of him. Spoke to social worker masters and they will be arranging SNF placement for him. Objective vital signs Vital Sign Date Time Temp Pulse Resp B/P (MAP) Pulse Ox O2 Delivery O2 Flow Rate FiO2 04/26/25 13:00 97.8 77 16 142/71 (94) 99 97.8 04/26/25 10:30 Nasal Cannula* 2 28 Total Intake and Output 04/25/25 04/25/25 04/26/25 15:00 23:00 07:00 Intake Total 500 ml 1200 ml Output Total 300 ml 0 ml Balance 200 ml 1200 ml medications Current Medications Medications Dose Ordered Sig/Duane Route Start Time Stop Time Status Last Admin Dose Admin Patient Own Medication 1 tab HS PO 04/10/25 22:00 Insulin Glargine 17 units DAILY SC 04/10/25 10:00 04/26/25 09:17 17 UNITS Saccharomyces Boulardii 250 mg DAILY GT 04/13/25 12:15 04/26/25 09:17 250 MG Dextrose 50 ml ONCE PRN IV 04/15/25 06:45 Diagnostic Test (Pha) 1 strip Q6HR 04/15/25 12:00 04/26/25 11:06 1 STRIP Insulin Human Regular Q6HR SC 04/15/25 12:00 04/18/25 18:15 2 UNITS Zirconium Oxide 10 gm EOD PRN GT 04/16/25 10:00 Isosorbide Dinitrate 10 mg TID@06,12,18 PO 04/16/25 12:00 04/26/25 05:43 10 MG Clonidine HCl 0.1 mg Q7D TD 04/17/25 17:00 04/24/25 17:43 0.1 MG Patient Own Medication 2 mg DAILY PO 04/18/25 10:00 04/26/25 09:14 2 MG Acetaminophen 650 mg Q4HP PRN PO 04/19/25 11:45 04/21/25 12:27 650 MG Lamotrigine 25 mg DAILY PO 04/20/25 10:00 04/26/25 09:17 25 MG Gabapentin 300 mg EOD PO 04/20/25 22:00 04/26/25 09:16 300 MG Sevelamer HCl 800 mg TIDWM PO 04/22/25 18:00 04/25/25 18:11 800 MG Nifedipine 90 mg DAILY PO 04/23/25 18:00 04/26/25 09:17 90 MG Hydralazine HCl 100 mg Q8HR PO 04/23/25 14:00 04/26/25 05:44 100 MG Examination Pt is lying on bed General Appearance: Alert, Oriented X3, Cooperative, Not in acute distress HEENT: Atraumatic, Mucous membranes moist/pink Respiratory: Clear to auscultation, Normal air movement, No added sounds Cardiovascular: Regular rate, Normal S1, Normal S2, No murmurs Abdominal: Active bowel sounds, Soft, no distention, no tenderness Extremities: No edema, Normal pulses, No tenderness/swelling Skin: No Significant rash, except past surgical scars, tenderness on palpation the left upper back Neuro: Normal speech, sensorimotor deficits none Psych/Mental Status: Mental status NL, Mood NL Nurse was there as premium note interest calculator clerk during examination laboratory and microbiology Laboratory Tests 04/26/25 06:07 Test 04/26/25 06:07 Range/Units Serum Glucose 115 H 74-106 mg/dL Microbiology Date/Time Source Procedure Growth Status 04/23/25 06:49 Stool Stool Culture - Final Complete 04/23/25 06:49 Stool Shiga Toxin I & II - Final Complete 04/12/25 08:46 Blood Blood Culture - Final NO GROWTH AFTER 5 DAYS OF INCUBATION. Complete 04/12/25 04:00 Nose MRSA Screen - Final Complete Labs and/or images reviewed: Labs reviewed by me, Image(s) reviewed by me Problem List/Assessment/Plan Problem List/Assessment/Plan Acute hypoxic respiratory failure, post-extubation, stable * Rule in: required intubation, now extubated, stable O2 sats. Psychosis with hallucinations, insomnia, underlying schizophrenia and bipolar disorder (CC) * Tele-psych consult suggests:Psychiatric admission is not indicated. Continue medical admission for stabilization and management of underlying conditions. 3. Medications: No antipsychotic medications indicated at this time. Do not initiate antipsychotics unless hallucinations persist or cause severe distress; continue to monitor. Continue home Lamictal if patient has NOT been off med for > 4 days. If he has been off Lamictal 5 or more days, restart at 25 mg po daily and defer titration to outpatient team. 4. Medical Considerations: Optimize medical management. Hallucinations should continue to improve with time. Hypertension, currently controlled (160/63) post-extubation * On multidrug regimen with Hydralazine, Isosorbide, Nicardipine. ESRD on chronic hemodialysis (MWF) * BUN 287, Cr 8 HFpEF * CXR + echo: mild diastolic dysfunction, moderate atrial/ventricular dilation. Type 2 diabetes mellitus, uncontrolled (HbA1c 11.5%) * Glucose controlled with insulin regimen. Positive occult GI bleed (previously) ? risk for ongoing anemia. Obesity (BMI 35.6) Status post cardiopulmonary arrest with ROSC due to AV block/ventricular tachycardia Sepsis due to Enterobacter cloacae pneumonia with septic encephalopathy, improving ([facility] [place]) * Sensitive to cefepime, continued. Moderate pulmonary hypertension (RVSP 55 mmHg) per echo. Neuro/Psych * Continue haloperidol PRN for breakthrough agitation. * Resume home aripiprazole. * Tele-psych consult done, Lamictal 25 mg po daily restarted * Sleep hygiene and reassurance. Cardiovascular * Continue antihypertensive regimen: nifedipine ER 60 mg daily, hydralazine 50 mg q8h, isosorbide dinitrate TID, clonidine 0.1 mg Q7D. * Maintain BP <140/90. Respiratory * Wean NC O? as tolerated. * Incentive spirometry and pulmonary hygiene. Renal * Continue HD on MWF schedule. * Strict I/O and daily weights. * Avoid nephrotoxic agents. Hematology * Continue epoetin with HD. * Transfuse if Hgb <7. * Monitor CBC daily. Infectious Disease * Cefepime discontinued on 04/23/2025 * stool culture negative for Shiga and C difficile * Monitor for recurrence of fever or WBC changes. Endocrine * Continue insulin regimen with SSI. * Monitor glucose q6h. GI/Nutrition * Protonix 40 mg po, stopped on 04/23/2020 * Oral feeds as tolerated, speech/swallow eval to guide diet. * Continue probiotics. Musculoskeletal # Neuropathic pain left foot -gabapentin 400mg TID Prophylaxis * DVT: Heparin SQ q12h. * GI: PPI BID. * Pulmonary: IS, HOB elevation. Goals of care discussed with the patient for more than 27 minutes: Full code status Case discussed with Dr. Fraire, patient and nurse. Plan discussed with: Patient, Other (rn) My Orders My Orders Orders - KAREEN HARVEY RESIDENT Procedure Category Date Status Time Pt Request For Service PT 04/25/25 Logged 18:06 * Biodiesel Production Technician CONS 04/26/25 Transmitted Consult Dietary Evaluation Review Comments: 1) Change TF formulary from Glucerna 1.2 to Nepro @ 30 goal rate as tolerated d/t ESRD. Flush with 150 mL free H2O Q6H. TF regimen will provide 1296 kcals, 58g Pro, and 1123 mL free H2O (including flushes) per 24 hrs. TF regimen will meet ~86% estimated energy needs and ~61% estimated protein needs. 2) Advance to 60g CCHO renal diet when medically feasible, pending ST approval 3) Refer to outpatient RD/CDCES for diabetes education/weight management 4) Follow-up with cardiology, pulmonology, and nephrology 5) Continue to monitor I&O, labs, and skin integrity Expected Outcomes/Goals: 1) TF regimen to meet at least 75% estimated daily needs 2) labs to improve 3) diet to advance 4) f/u in 2-3 days Date of Service: Apr 26, 2025 Billing Provider: RON FRAIRE MD Common Visit Codes: 42841-[id number] INP/OBS CARE(HIGH) KAREEN HARVEY RESIDENT Apr 26, 2025 14:53 RON FRAIRE MD Apr 26, 2025 19:57
--- NOTE | 2025-04-26 15:02 | DVHDSRES ---
Discharge Summary Date of Admission Resident Creating Document: KAREEN HARVEY RESIDENT Apr 09, 2025 at 15:47 Date of Discharge: Apr 26, 2025 Admitting Diagnosis Acute pulmonary edema causing acute hypoxia Labs/Diagnostic Data: Laboratory Results Test 04/26/25 11:05 04/26/25 06:07 04/25/25 06:39 04/24/25 16:15 POC Glucose 139 mg/dl (70-106) White Blood Count 5.1 10^3/uL (4.4-10.8) Red Blood Count 3.12 10^6/uL (4.5-5.90) Hemoglobin 8.9 g/dL (13.5-17.5) Hematocrit 27.0 % (41.0-53.0) Mean Corpuscular Volume 86.6 fL (80.0-100.0) Mean Corpuscular Hemoglobin 28.7 pg (28.0-32.0) Mean Corpuscular Hemoglobin Concent 33.1 g/dL (32.0-36.0) Red Cell Distribution Width 15.2 % (11.8-14.3) Platelet Count 299 10^3/uL (140-450) Mean Platelet Volume 6.5 fL (6.9-10.8) Neutrophils (%) (Auto) 69.5 % (37.0-80.0) Lymphocytes (%) (Auto) 13.0 % (10.0-50.0) Monocytes (%) (Auto) 10.2 % (0.0-12.0) Eosinophils (%) (Auto) 6.3 % (0.0-7.0) Basophils (%) (Auto) 1.0 % (0.0-2.0) Neutrophils # (Auto) 3.6 10 ^3/uL (1.6-8.6) Lymphocytes # (Auto) 0.7 10 ^3/uL (0.4-5.4) Monocytes # (Auto) 0.5 10 ^3/uL (0-1.3) Eosinophils # (Auto) 0.3 10 ^3/uL (0-0.8) Basophils # (Auto) 0 10 ^3/uL (0-0.2) Nucleated Red Blood Cells 0.1 % Sodium Level 136 mmol/L (136-145) Potassium Level 4.3 mmol/L (3.5-5.1) Chloride Level 95 mmol/L (98-107) Carbon Dioxide Level 29 mmol/L (20-31) Anion Gap 12 (5-15) Blood Urea Nitrogen 25 mg/dL (9-23) Creatinine 8.30 mg/dL (0.700-1.30) Glomerular Filtration Rate Calc 7 mL/min (>90) BUN/Creatinine Ratio 3.0 (10.0-20.0) Serum Glucose 115 mg/dL (74-106) Calcium Level 8.7 mg/dL (8.7-10.4) Prothrombin Time 11.4 sec (9.3-11.8) Prothrombin Time INR 1.08 (0.9-1.15) Activated Partial Thromboplast Time 30.4 SEC (24.5-34.5) Troponin I High Sensitivity 14 ng/L (</=54) Test 04/23/25 06:49 04/18/25 04:24 04/16/25 13:27 04/16/25 06:10 Stool for White Cells None seen Total Bilirubin 0.4 mg/dL (0.2-1.0) Aspartate Amino Transferase (AST) 19 U/L (13-40) Alanine Aminotransferase (ALT) 15 U/L (7-40) Alkaline Phosphatase 62 U/L (46-116) Total Protein 6.8 g/dL (5.7-8.2) Albumin 3.4 g/dL (3.2-4.8) Blood Gas Specimen Type Arterial Blood Gas Sample Site Right radial Blood Gas Patient Temperature 37.0 Arterial Blood Date Drawn [id number] Arterial Blood pH 7.387 (7.350-7.450) Arterial Blood Partial Pressure CO2 40.7 mmHg (35.0-48.0) Arterial Blood Partial Pressure O2 101.1 mmHg (83.0-108.0) Arterial Blood HCO3 23.9 mmol/L (21.0-28.0) Arterial Blood Oxygen Saturation 97.3 % (94.0-98.0) Arterial Blood Base Excess -1.0 mmol/L (-2.0-3.0) Arterial Blood Oxyhemoglobin 95.5 % (94.0-98.0) Arterial Blood Carboxyhemoglobin 1.4 % (0.5-1.5) Arterial Blood Methemoglobin 0.4 % (0.0-1.5) Husam Test Modified Blood Gas Total Hemoglobin 9.40 g/dL (13.5-17.5) Blood Gas Modality Vent - cpap FiO2 % 30.0 Blood Gas Comments Cpap peep 5/ps 8 Blood Gas Set Respiration Rate 18.0 Blood Gas Tidal Volume 500.0 Blood Gas PEEP or CPAP 5.0 Test 04/15/25 05:16 04/14/25 11:00 04/13/25 04:33 04/12/25 19:01 Iron Level 21 ug/dL (65-175) Total Iron Binding Capacity 184 ug/dL (250-425) Percent Iron Saturation 11.4 % (20-55) Ferritin 639.4 ng/mL (22-322) Stool Occult Blood Positive (Negative) Stool Occult Blood Sample #3 (Negative) Lactic Acid Level 0.9 mmol/L (0.4-2.0) Phosphorus Level 8.6 mg/dL (2.4-5.1) Magnesium Level 2.1 mg/dL (1.6-2.6) Blood Gas Spontaneous Rate 18 Test 04/10/25 05:55 04/09/25 17:41 04/09/25 13:42 Hepatitis B Surface Antigen Negative (Negative) Vitamin B12 Level 547 pg/mL (211-911) Vitamin D 25-Hydroxy 37.2 ng/mL (30.0-100) Erythrocyte Sedimentation Rate 48 mm/hr (0-20) Hemoglobin A1c 11.5 % A1C (<5.7) B-Type Natriuretic Peptide 625.00 pg/mL (0-100) Triglycerides Level 104 mg/dL (< 150) Cholesterol Level 112 mg/dL (< 200) LDL Cholesterol 70 mg/dL (< 100) HDL Cholesterol 29 mg/dL (40-59) Folic Acid 17.58 ng/mL (>5.38) Thyroid Stimulating Hormone (TSH) 2.59 uIU/mL (0.55-4.78) Other Laboratory Tests 04/26/25 06:07 Brief Hx & Hospital Course: Brief history of hospitalization: Ahsan Melchor is a 55-year-old male patient who presents to ED with chief complaint of generalized weakness especially bilateral lower limbs, which were triggered after missing two last two dialysis session ( and 09 of April). Patient also was not taking his home medication. In ER he was found to be hypertensive and hyperkalemic, prompting IV treatment in ordering urgent hemodialysis session. the next day Patient had cardiac arrest due to asystole with previous rhythm on telemetry which showed to high-degree AV block (second-degree AV block Mobitz two and posterior third-degree block), required emergent total of 8 minutes of CPR (two epinephrine, two bicarbonate, one atropine in one calcium gluconate), endotracheal intubation, and an IO access and right IJ central line. Patient was kept in the ICU on sedation due to mechanical ventilation. We found him to have severe sepsis due to Gram-negative pneumonia- Enterobacter cloacae with septic encephalopathy and he had positive cultures so cefepime was started. Cardiology was on board. Patients electrolyte imbalances and high blood pressure were addressed. Throughout his hospitalization alternate day hemodialysis was done and Lokelma was given on alternate days as per Nephrology consult who on board for his ESRD. For high blood pressure hydralazine, labetalol were kept PRN and we continued monitoring him on telemetry. After extubation patient was shifted to the [facility] unit. He had postextubation psychosis with hallucinations which improved after haloperidol. his paranoia persisted and aripiprazole medication which he takes at home was resumed. We slowly we started oral feeds as well and patient has been able to tolerate it. Tele psych consult suggested the continuation of Lamisil 25 mg which was given daily. Patient also complained of pain in his left toe and gabapentin 300 mg was given after dialysis which is the maximum dose that can be given in ESRD patients. Patient was scheduled for a pacemaker surgery and preoperative labs were done which initially the patient had agreed to but on the day pacemaker surgery was to be done, patient refused to sign consents and stated that he did not want to do the surgery anymore. Patient was counseled multiple times, extensively on the need for pacemaker but he communicated that he understood the risks of not getting the pacemaker placed But still chose to decline the surgery. Patient is mentally stable to make his own decisions. physical therapy was done daily and eval was placed to assess if patient required oxygen at home as he has been requiring oxygen via nasal cannula to maintain saturation since post extubation- 2L of oxygen. Pt is lying on bed General Appearance: Alert, Oriented X3, Cooperative, Not in acute distress HEENT: Atraumatic, Mucous membranes moist/pink Respiratory: Clear to auscultation, Normal air movement, No added sounds Cardiovascular: Regular rate, Normal S1, Normal S2, No murmurs Abdominal: Active bowel sounds, Soft, no distention, no tenderness Extremities: No edema, Normal pulses, No tenderness/swelling Skin: No Significant rash, except past surgical scars, tenderness on palpation the left upper back Neuro: Normal speech, sensorimotor deficits none Psych/Mental Status: Mental status NL, Mood NL Nurse was there as sales agent casualty insurance during examination Operations or Procedures CHEST RADIOGRAPH Indication: weakness IMPRESSION: 1. Findings consistent with congestive failure. ORDERING PHYSICIAN: LEA MARRERO PROCEDURE(s): HWOCT - HEAD WITHOUT CONTRAST REASON: BL leg weakness IMPRESSION: NO ACUTE INTRACRANIAL ABNORMALITY SEEN. CHEST RADIOGRAPH Indication: S/P CODE BLUE INTUBATION IMPRESSION: 1. Adequately positioned endotracheal tube. 2. No significant change in cardiopulmonary findings from 3 days prior, compatible with heart failure. CHEST RADIOGRAPH Indication: VERIFY CENTRAL LINE PLACEMENT AND OGT PLACEMENT. IMPRESSION: 1. Right-sided central line in the superior vena cava. 2. Endotracheal tube 4.9 cm above the hayde. 3. NG tube in the stomach. 4. Interstitial infiltrates in both lung de jesus, right greater than left. CHEST RADIOGRAPH Indication: ET intubation IMPRESSION: 1. Cardiomegaly, diffuse increased prominence of the pulmonary vasculature and small bilateral pleural effusions. 2. Lines and tubes unchanged. PROCEDURE(s): HWOCT - HEAD WITHOUT CONTRAST REASON: S/P CPR IMPRESSION: NO ACUTE INTRACRANIAL ABNORMALITY SEEN. CHEST RADIOGRAPH Indication: pna IMPRESSION: Heart is enlarged. Support lines and tubes appear unchanged in satisfactory position. The lungs appear relatively clear with mild pulmonary vascular congestion. No focal airspace opacity, effusion, or pneumothorax. Exam: CT CT AB PEL WO CON-NO ORAL OR IV History: abdominal distension IMPRESSION: 1. Mild bibasilar infiltrates /atelectasis. 2. Colonic diverticulosis. 3. Radiation optimization: All CT scans at this facility use at least one of these dose optimization techniques: automated exposure control mA and/or kV adjustment per patient size (includes targeted exams where dose is matched to clinical indication) or iterative reconstruction. PROCEDURE(s): BLDVT - BiLat Lower DVT REASON: Leg pain IMPRESSION: NO SONOGRAPHIC EVIDENCE FOR DEEP VENOUS THROMBOSIS IN THE BILATERAL LOWER EXTREMITY VEINS. MOST RECENT XRAY CHEST RADIOGRAPH Indication: ET intubation IMPRESSION: 1. Cardiomegaly. 2. Right PermCath. ABDOMINAL RADIOGRAPH Indication: Rule out toxic megacolon IMPRESSION: 1. No dilated bowel loops noted. Condition at Discharge: Stable Final Diagnosis/Problems List Cardic arrest status post CPR with return of spontaneous circulation Acute hypoxic respiratory failure, post-extubation, stable High-degree atrioventricular block, complete heart block. Ventricular tachycardia Sepsis due to Enterobacter cloacae pneumonia with septic encephalopathy, improving ([facility]) Moderate pulmonary hypertension (RVSP 55 mmHg) per echo. NSTEMI, ruled out coronary artery disease. Ruled out structural heart disease. Acute hypoxic respiratory failure. Hypertension. Hyperkalemia, resolved. ESRD on hemodialysis. Type 2 diabetes mellitus, uncontrolled (Hbg A1c 11.5%) Psychosis with hallucinations, insomnia, underlying schizophrenia and bipolar disorder Medical noncompliance Obesity (BMI 35.6) HFpEF 65% Discharge Disposition: [facility] Facility Discharge Instruct/Medications Diet: Consistent carbohydrate, Cardiac 2g Na,low cholest Activity: No Restrictions, As Tolerated Follow Up/Referral: Follow up with PCP within 1 week Follow up with Cardiology as soon as possible Follow up at [place] [facility] within the next 2 weeks Medications: hydralazine 100 mg per orally twice a day Isosorbide dinitrate 10 mg per orally twice a day Lamotrigine 25 mg per orally daily nifedipine 90 mg per orally daily Sevelamer 800 mg per orally twice a day Yeast ( S done boulardii) ( S dot Cerevi florastor) to 50 mg capsule per orally daily Scheduled Aripiprazole (Aripiprazole), 2 MG PO DAILY, (Reported) Calcium Acetate (Phosphate Bin (Calcium Acetate), 667 MG PO TIDWM, (Reported) Carvedilol (Carvedilol), 1 TAB PO BID Clonidine Hcl (Yyutghrp-Pvb-6 Patch), 0.1 MG TD QWEEKLY, (Reported) Fenofibrate (Fenofibrate), 1 TAB PO DAILY, (Reported) Furosemide (Furosemide), 1 TAB PO QID, (Reported) Gabapentin (Gabapentin), 300 MG PO 5XD, (Reported) Hydralazine HCl (Hydralazine HCl), 25 MG PO TID Hydralazine HCl (Hydralazine HCl), 100 MG PO Q8HR Insulin Glargine (Basaglar Kwikpen), 17 UNIT SC DAILY, (Reported) Isosorbide Dinitrate (Isosorbide Dinitrate), 10 MG PO TID@06,12,18 Lamotrigine (Lamotrigine), 100 MG PO DAILY, (Reported) Lamotrigine (Lamictal), 25 MG PO DAILY Loperamide Hcl (Imodium), 2 MG PO PRN, (Reported) Metoprolol Tartrate (Metoprolol Tartrate), 50 MG PO BID, (Reported) Nifedipine (Nifedipine Er), 1 TAB PO DAILY Nifedipine (Nifedipine Er), 90 MG PO DAILY Sertraline HCl (Sertraline Hydrochloride), 150 MG PO DAILY, (Reported) Sevelamer Hydrochloride (Renagel), 800 MG PO TIDWM Tenapanor HCl (Xphozah), 20 MG PO DAILY, (Reported) Yeast (S. Boulardii)(S. Cerevi (Florastor), 250 MG PO DAILY Scheduled PRN Famotidine (Famotidine), 40 MG PO DAILYPRN PRN, (Reported) Hydroxyzine HCl (Hydroxyzine Hydrochloride), 25 MG PO BIDP PRN, (Reported) Miscellaneous Medications Ergocalciferol (Vitamin D2), 400 UNIT PO, (Reported) Discharge Statement: "Patient was advised to return to the ER or call 911 if any headaches, dizziness, shortness of breath, chest pain, abdominal pain, bleeding, fevers, or worsening of medical condition. Patient was counseled about treatment plan, medications, possible side effects, patientverbalized understanding. All questions were answered to the best of my ability. This discharge took greater then 30 minutes in planning, reviewing documentation, counseling the patient, and discussing with other team members." ASSESSMENT ASSESSMENT Assessment Cardiac arrest arrest due to asystole status post ROS Date of Service: Apr 26, 2025 Billing Provider: RON FRAIRE MD Common Visit Codes: 78901-IZH/OBS DISCH DAY >30min KAREEN HARVEY Apr 26, 2025 15:02 RON FRAIRE MD Apr 26, 2025 19:58
[2025-04-26] MEDS: EPOETIN ALFA-EPBX 10,000 UNIT/1ML VIAL SC ONE (22:20)
--- NOTE | 2025-04-26 23:13 | DVHPN2 ---
Progress Note - Dictate Date Seen: Apr 26, 2025 Has the PT tested + for MRSA If YES, has PT been informed?: No Medical Necessity Reason Pt with a Central, PICC or Fol: No The following are medically ne: Central Line, Araiza Catheter Subjective Patient was seen and evaluated in follow up. Patient is stable on 2 LPM NC. HGB 8.9, HCT 27, CL95, BUN 25, INSPECTOR RAG SORTING 8.30. Telemetry reviewed. vital signs Vital Sign Date Time Temp Pulse Resp B/P (MAP) Pulse Ox O2 Delivery O2 Flow Rate FiO2 04/26/25 10:30 99 Nasal Cannula* 2 28 04/26/25 09:17 142/85 04/26/25 08:00 79 04/26/25 05:00 98.6 18 98.6 Total Intake and Output 04/25/25 04/25/25 04/26/25 15:00 23:00 07:00 Intake Total 500 ml 1200 ml Output Total 300 ml 0 ml Balance 200 ml 1200 ml medications Current Medications Medications Dose Ordered Sig/Duane Route Start Time Stop Time Status Last Admin Dose Admin Patient Own Medication 1 tab HS PO 04/10/25 22:00 Insulin Glargine 17 units DAILY SC 04/10/25 10:00 04/26/25 09:17 17 UNITS Saccharomyces Boulardii 250 mg DAILY GT 04/13/25 12:15 04/26/25 09:17 250 MG Dextrose 50 ml ONCE PRN IV 04/15/25 06:45 Diagnostic Test (Pha) 1 strip Q6HR 04/15/25 12:00 04/26/25 11:06 1 STRIP Insulin Human Regular Q6HR SC 04/15/25 12:00 04/18/25 18:15 2 UNITS Zirconium Oxide 10 gm EOD PRN GT 04/16/25 10:00 Isosorbide Dinitrate 10 mg TID@06,12,18 PO 04/16/25 12:00 04/26/25 05:43 10 MG Clonidine HCl 0.1 mg Q7D TD 04/17/25 17:00 04/24/25 17:43 0.1 MG Patient Own Medication 2 mg DAILY PO 04/18/25 10:00 04/26/25 09:14 2 MG Acetaminophen 650 mg Q4HP PRN PO 04/19/25 11:45 04/21/25 12:27 650 MG Lamotrigine 25 mg DAILY PO 04/20/25 10:00 04/26/25 09:17 25 MG Gabapentin 300 mg EOD PO 04/20/25 22:00 04/26/25 09:16 300 MG Sevelamer HCl 800 mg TIDWM PO 04/22/25 18:00 04/25/25 18:11 800 MG Nifedipine 90 mg DAILY PO 04/23/25 18:00 04/26/25 09:17 90 MG Hydralazine HCl 100 mg Q8HR PO 04/23/25 14:00 04/26/25 05:44 100 MG objective GENERAL: Alert and oriented x 3. No acute distress. Obese. EYES: PERRL, EOMI. Anicteric. HENT: Moist mucous membranes. LUNGS: Clear to auscultation bilaterally. CARDIOVASCULAR: Regular rate and rhythm. ABDOMEN: Soft, nontender and nondistended. EXTREMITIES: No edema. SKIN: Hyperpigmentation to bilateral lower extremities. laboratory and microbiology Laboratory Tests 04/26/25 06:07 Test 04/26/25 06:07 Range/Units Serum Glucose 115 H 74-106 mg/dL Problem List Cardiopulmonary arrest status post CPR with return of spontaneous circulation. High-degree atrioventricular block, complete heart block. Ventricular tachycardia. NSTEMI, rule out coronary artery disease. Rule out structural heart disease. Acute hypoxic respiratory failure. Hypertension. Hyperkalemia, resolved. ESRD on hemodialysis. Type 2 diabetes mellitus, uncontrolled (Hbg A1c 11.5%). Medical noncompliance. Assessment/Plan Continued all current supportive medical care. Hydralazine, Nifedipine. Additional plan as per the hospital course. Dietary Evaluation Review Comments: 1) Change TF formulary from Glucerna 1.2 to Nepro @ 30 goal rate as tolerated d/t ESRD. Flush with 150 mL free H2O Q6H. TF regimen will provide 1296 kcals, 58g Pro, and 1123 mL free H2O (including flushes) per 24 hrs. TF regimen will meet ~86% estimated energy needs and ~61% estimated protein needs. 2) Advance to 60g CCHO renal diet when medically feasible, pending ST approval 3) Refer to outpatient RD/CD[facility] for diabetes education/weight management 4) Follow-up with cardiology, pulmonology, and nephrology 5) Continue to monitor I&O, labs, and skin integrity Expected Outcomes/Goals: 1) TF regimen to meet at least 75% estimated daily needs 2) labs to improve 3) diet to advance 4) f/u in 2-3 days Plan discussed with: Patient INA ARRIOLA MD Apr 26, 2025 12:07
[2025-04-27] VITALS (8 sets, daily range): BP systolic 126–155; BP diastolic 54–64; PULSE 62–83; RESP 16–19; TEMP 98.2–98.8; O2SAT 97–99
[2025-04-27] MEDS: SODIUM CHL 0.9% 1000 ML BAG XX ONE ×2 (07:46→07:47)
--- NOTE | 2025-04-27 12:20 | DVHPN2 ---
Progress Note - Dictate Date Seen: Apr 27, 2025 Has the PT tested + for MRSA If YES, has PT been informed?: No Medical Necessity Reason Pt with a Central, PICC or Fol: No The following are medically ne: Central Line, Araiza Catheter Subjective Patient is sleeping vital signs Vital Sign Date Time Temp Pulse Resp B/P (MAP) Pulse Ox O2 Delivery O2 Flow Rate FiO2 04/27/25 11:32 126/57 04/27/25 10:00 98 Nasal Cannula 2.0 04/27/25 10:00 28 04/27/25 08:34 98.8 80 18 98.8 Total Intake and Output 04/26/25 04/26/25 04/27/25 15:00 23:00 07:00 Intake Total 720 ml 340 ml Output Total 75 ml Balance 645 ml 340 ml medications Current Medications Medications Dose Ordered Sig/Duane Route Start Time Stop Time Status Last Admin Dose Admin Patient Own Medication 1 tab HS PO 04/10/25 22:00 Insulin Glargine 17 units DAILY SC 04/10/25 10:00 04/27/25 11:32 17 UNITS Saccharomyces Boulardii 250 mg DAILY GT 04/13/25 12:15 04/27/25 09:42 250 MG Dextrose 50 ml ONCE PRN IV 04/15/25 06:45 Diagnostic Test (Pha) 1 strip Q6HR 04/15/25 12:00 04/27/25 11:35 1 STRIP Insulin Human Regular Q6HR SC 04/15/25 12:00 04/27/25 11:31 2 UNITS Zirconium Oxide 10 gm EOD PRN GT 04/16/25 10:00 Isosorbide Dinitrate 10 mg TID@06,12,18 PO 04/16/25 12:00 04/27/25 11:32 10 MG Clonidine HCl 0.1 mg Q7D TD 04/17/25 17:00 04/24/25 17:43 0.1 MG Patient Own Medication 2 mg DAILY PO 04/18/25 10:00 04/27/25 09:42 2 MG Acetaminophen 650 mg Q4HP PRN PO 04/19/25 11:45 04/21/25 12:27 650 MG Lamotrigine 25 mg DAILY PO 04/20/25 10:00 04/27/25 09:43 25 MG Gabapentin 300 mg EOD PO 04/20/25 22:00 04/26/25 09:16 300 MG Sevelamer HCl 800 mg TIDWM PO 04/22/25 18:00 04/27/25 11:32 800 MG Nifedipine 90 mg DAILY PO 04/23/25 18:00 04/27/25 09:43 90 MG Hydralazine HCl 100 mg Q8HR PO 04/23/25 14:00 04/27/25 06:23 100 MG objective GENERAL: The patient is an adult gentleman who appears to be chronically ill, HEENT: Unremarkable. NECK: No jugular venous distention. No palpable thyroid or lymphadenopathy. LUNGS: Show diminished air entry at the bases. CARDIOVASCULAR: Shows 1/6 systolic murmur, S4 gallop. ABDOMEN: Soft, nontender, no organomegaly. EXTREMITIES: Show no clubbing, cyanosis or edema. NEUROLOGIC: Nonfocal. laboratory and microbiology Laboratory Tests 04/26/25 06:07 Test 04/26/25 06:07 Range/Units Serum Glucose 115 H 74-106 mg/dL Assessment/Plan ASSESSMENT AND PLAN: End-stage renal disease on hemodialysis MWF Hypertension,better controlled Paranoia with hallucinations Anemia of renal disease. Diabetes mellitus. Respiratory failure s/p cardiac arrest Plan Next HD on Tuesday Continue Hydralazine to 100 mg Q8H and clonidine patch Keep Gabapentin at not more than 300 mg in 24 hours Lokelma on non dialysis days IV antibiotics Stephan with dialysis DC home Dietary Evaluation Review Comments: 1) Change TF formulary from Glucerna 1.2 to Nepro @ 30 goal rate as tolerated d/t ESRD. Flush with 150 mL free H2O Q6H. TF regimen will provide 1296 kcals, 58g Pro, and 1123 mL free H2O (including flushes) per 24 hrs. TF regimen will meet ~86% estimated energy needs and ~61% estimated protein needs. 2) Advance to 60g CCHO renal diet when medically feasible, pending ST approval 3) Refer to outpatient RD/[facility] for diabetes education/weight management 4) Follow-up with cardiology, pulmonology, and nephrology 5) Continue to monitor I&O, labs, and skin integrity Expected Outcomes/Goals: 1) TF regimen to meet at least 75% estimated daily needs 2) labs to improve 3) diet to advance 4) f/u in 2-3 days Plan discussed with: Other KAMARI CHAPPELL MD Apr 27, 2025 12:20
--- NOTE | 2025-04-27 18:08 | DVHPN2 ---
Progress Note - Dictate Date Seen: Apr 27, 2025 Has the PT tested + for MRSA If YES, has PT been informed?: No Medical Necessity Reason Pt with a Central, PICC or Fol: No The following are medically ne: Central Line, Araiza Catheter Subjective Patient was seen and evaluated in follow up. No overnight events. Patient is remains stable on 2 LPM NC. CM is working on SNF placement. Telemetry reviewed. vital signs Vital Sign Date Time Temp Pulse Resp B/P (MAP) Pulse Ox O2 Delivery O2 Flow Rate FiO2 04/27/25 11:32 126/57 04/27/25 10:00 98 Nasal Cannula 2.0 04/27/25 10:00 28 04/27/25 08:34 98.8 80 18 98.8 Total Intake and Output 04/26/25 04/26/25 04/27/25 15:00 23:00 07:00 Intake Total 720 ml 340 ml Output Total 75 ml Balance 645 ml 340 ml medications Current Medications Medications Dose Ordered Sig/Duane Route Start Time Stop Time Status Last Admin Dose Admin Patient Own Medication 1 tab HS PO 04/10/25 22:00 Insulin Glargine 17 units DAILY SC 04/10/25 10:00 04/27/25 11:32 17 UNITS Saccharomyces Boulardii 250 mg DAILY GT 04/13/25 12:15 04/27/25 09:42 250 MG Dextrose 50 ml ONCE PRN IV 04/15/25 06:45 Diagnostic Test (Pha) 1 strip Q6HR 04/15/25 12:00 04/27/25 11:35 1 STRIP Insulin Human Regular Q6HR SC 04/15/25 12:00 04/27/25 11:31 2 UNITS Zirconium Oxide 10 gm EOD PRN GT 04/16/25 10:00 Isosorbide Dinitrate 10 mg TID@06,12,18 PO 04/16/25 12:00 04/27/25 11:32 10 MG Clonidine HCl 0.1 mg Q7D TD 04/17/25 17:00 04/24/25 17:43 0.1 MG Patient Own Medication 2 mg DAILY PO 04/18/25 10:00 04/27/25 09:42 2 MG Acetaminophen 650 mg Q4HP PRN PO 04/19/25 11:45 04/21/25 12:27 650 MG Lamotrigine 25 mg DAILY PO 04/20/25 10:00 04/27/25 09:43 25 MG Gabapentin 300 mg EOD PO 04/20/25 22:00 04/26/25 09:16 300 MG Sevelamer HCl 800 mg TIDWM PO 04/22/25 18:00 04/27/25 11:32 800 MG Nifedipine 90 mg DAILY PO 04/23/25 18:00 04/27/25 09:43 90 MG Hydralazine HCl 100 mg Q8HR PO 04/23/25 14:00 04/27/25 06:23 100 MG objective GENERAL: Alert and oriented x 3. No acute distress. Obese. EYES: PERRL, EOMI. Anicteric. HENT: Moist mucous membranes. LUNGS: Clear to auscultation bilaterally. CARDIOVASCULAR: Regular rate and rhythm. ABDOMEN: Soft, nontender and nondistended. EXTREMITIES: No edema. SKIN: Hyperpigmentation to bilateral lower extremities. laboratory and microbiology Laboratory Tests 04/26/25 06:07 Test 04/26/25 06:07 Range/Units Serum Glucose 115 H 74-106 mg/dL Problem List Cardiopulmonary arrest status post CPR with return of spontaneous circulation. High-degree atrioventricular block, complete heart block. Ventricular tachycardia. NSTEMI, rule out coronary artery disease. Rule out structural heart disease. Acute hypoxic respiratory failure. Hypertension. Hyperkalemia, resolved. ESRD on hemodialysis. Type 2 diabetes mellitus, uncontrolled (Hbg A1c 11.5%). Medical noncompliance. Assessment/Plan Continued all current supportive medical care. Hydralazine, Nifedipine. Additional plan as per the hospital course. Dietary Evaluation Review Comments: 1) Change TF formulary from Glucerna 1.2 to Nepro @ 30 goal rate as tolerated d/t ESRD. Flush with 150 mL free H2O Q6H. TF regimen will provide 1296 kcals, 58g Pro, and 1123 mL free H2O (including flushes) per 24 hrs. TF regimen will meet ~86% estimated energy needs and ~61% estimated protein needs. 2) Advance to 60g CCHO renal diet when medically feasible, pending ST approval 3) Refer to outpatient RD/[facility] for diabetes education/weight management 4) Follow-up with cardiology, pulmonology, and nephrology 5) Continue to monitor I&O, labs, and skin integrity Expected Outcomes/Goals: 1) TF regimen to meet at least 75% estimated daily needs 2) labs to improve 3) diet to advance 4) f/u in 2-3 days Plan discussed with: Patient INA ARRIOLA MD Apr 27, 2025 12:01
--- NOTE | 2025-04-27 18:58 | DVHPNRES ---
Progress Note Date Seen: Apr 27, 2025 Resident Creating Document: WHITNEY LAYTON RESIDENT Has the PT tested + for MRSA If YES, has PT been informed?: No Medical Necessity Reason Pt with a Central, PICC or Fol: No The following are medically ne: Central Line, Araiza Catheter Subjective Review of Systems 04/19/2025 We will continue Lamisil total 25 mg as per Psychiatry consultation. Today the patient reports pain in his left toe wishes sharp radiating down his leg like an electric current, occurring every 5 seconds. On inquiry he reports that he has had no visual hallucinations and that his chest pain is better with the Tylenol. He is still on 2 L of oxygen. Stable post-extubation on NC O2. Downgraded from ICU to telemetry. Psychosis improved after haloperidol; paranoia persists. Aripiprazole resumed. Oral feeds restarted. Hemodialysis today Vitals stable, labs consistent with ESRD and CKD anemia. FOBT postive Tele-psych consult suggested:Psychiatric admission is not indicated. Continue medical admission for stabilization and management of underlying conditions. 3. Medications: No antipsychotic medications indicated at this time. Do not initiate antipsychotics unless hallucinations persist or cause severe distress; continue to monitor. Continue home Lamictal if patient has NOT been off med for > 4 days. If he has been off Lamictal 5 or more days, restart at 25 mg po daily and defer titration to outpatient team. 4. Medical Considerations: Optimize medical management. Hallucinations should continue to improve with time. Acetaminophen 650 mg p.o. given PRN for chest pain 04/20/2025 We will continue Lamisil total 25 mg as per Psychiatry consultation. Today the patient reports pain in his left toe, sharp radiating down his leg like an electric current, occurring every 5 seconds. On inquiry he reports that he has had no visual hallucinations and that his chest pain is better with the Tylenol. He is still on 2 L of oxygen. Gabapentin to be given on days after dialysis 300 mg once only On 04/13/2025-patient reported doing well, no acute complaint, we will continue current management, no change in medication, plan is to discharge tomorrow if possible. 04/22/2025 today the patient reports doing well with no new active complaints. He underwent hemodialysis today and was given gabapentin 300 mg after hemodialysis. 04/23/25: Patient reports his legs feel better after gabapentin yesterday. He complained of 6 episodes of watery diarrhea yesterday. stool sulture was neg for c diff and shiga toxin. cefepime and protonix stopped. nifedipine from 60mg to 90mg from todaydue to persistently high BP. Awaiting cardio consult. 04/24/2025: Patient underwent hemodialysis today. Cardiology on board, pacemaker will be placed tomorrow. Preop labs ordered. Heparin on hold and NPO from midnight. Cardiac diet was resumed for today. 04/25/25: Patient declined noting the pacemaker alone today. PT evaluation to be done and home health for PT required. Possible discharge tomorrow 04/26/2025: Patient underwent hemodialysis. He has no new active complaints. Patient stated that he wanted me to speak to his cousin's regarding his discharge plan. I spoke to his cousin Kimmy who stated that she wants patient to go to a SNF placement as his mother he lives with is 85 and unable to take care of him. Spoke to forensic social worker and they will be arranging SNF placement for him. 04/27/25: The patient underwent hemodialysis yesterday without complication. Today, the patient reports no active complaints denies chest pain shortness of breath, dizziness nausea vomiting abdominal pain on bleeding. Appetite is fair, and he is tolerating diet well. The patient is still awaiting SNF placement for long-term care management and has spoken with social service assistant, who is currently arranging transfer. The patient is hemodynamically stable and comfortable on 2 L/min nasal cannula oxygen. No new symptoms reports since yesterday Objective vital signs Vital Sign Date Time Temp Pulse Resp B/P (MAP) Pulse Ox O2 Delivery O2 Flow Rate FiO2 04/27/25 17:37 137/62 04/27/25 17:01 98.4 83 18 97 98.4 04/27/25 10:00 Nasal Cannula 2.0 04/27/25 10:00 28 Total Intake and Output 04/26/25 04/26/25 04/27/25 15:00 23:00 07:00 Intake Total 720 ml 340 ml Output Total 75 ml Balance 645 ml 340 ml medications Current Medications Medications Dose Ordered Sig/Duane Route Start Time Stop Time Status Last Admin Dose Admin Patient Own Medication 1 tab HS PO 04/10/25 22:00 Insulin Glargine 17 units DAILY SC 04/10/25 10:00 04/27/25 11:32 17 UNITS Saccharomyces Boulardii 250 mg DAILY GT 04/13/25 12:15 04/27/25 09:42 250 MG Dextrose 50 ml ONCE PRN IV 04/15/25 06:45 Diagnostic Test (Pha) 1 strip Q6HR 04/15/25 12:00 04/27/25 17:31 1 STRIP Insulin Human Regular Q6HR SC 04/15/25 12:00 04/27/25 11:31 2 UNITS Zirconium Oxide 10 gm EOD PRN GT 04/16/25 10:00 Isosorbide Dinitrate 10 mg TID@06,12,18 PO 04/16/25 12:00 04/27/25 17:37 10 MG Clonidine HCl 0.1 mg Q7D TD 04/17/25 17:00 04/24/25 17:43 0.1 MG Patient Own Medication 2 mg DAILY PO 04/18/25 10:00 04/27/25 09:42 2 MG Acetaminophen 650 mg Q4HP PRN PO 04/19/25 11:45 04/21/25 12:27 650 MG Lamotrigine 25 mg DAILY PO 04/20/25 10:00 04/27/25 09:43 25 MG Gabapentin 300 mg EOD PO 04/20/25 22:00 04/26/25 09:16 300 MG Sevelamer HCl 800 mg TIDWM PO 04/22/25 18:00 04/27/25 17:37 800 MG Nifedipine 90 mg DAILY PO 04/23/25 18:00 04/27/25 09:43 90 MG Hydralazine HCl 100 mg Q8HR PO 04/23/25 14:00 04/27/25 13:39 100 MG Examination General Appearance: Alert, Oriented X3, Cooperative, Not in acute distress HEENT: Atraumatic, Mucous membranes moist/pink Respiratory: Clear to auscultation, Normal air movement, No added sounds Cardiovascular: Regular rate, Normal S1, Normal S2, No murmurs Abdominal: Active bowel sounds, Soft, no distention, no tenderness Extremities: No edema, Normal pulses, No tenderness/swelling Skin: No Significant rash, except past surgical scars, tenderness on palpation the left upper back Neuro: Normal speech, sensorimotor deficits none Psych/Mental Status: Mental status NL, Mood NL Nurse was there as sign painter helper during examination laboratory and microbiology Laboratory Tests 04/26/25 06:07 Test 04/26/25 06:07 Range/Units Serum Glucose 115 H 74-106 mg/dL Microbiology Date/Time Source Procedure Growth Status 04/23/25 06:49 Stool Stool Culture - Final Complete 04/23/25 06:49 Stool Shiga Toxin I & II - Final Complete 04/12/25 08:46 Blood Blood Culture - Final NO GROWTH AFTER 5 DAYS OF INCUBATION. Complete 04/12/25 04:00 Nose MRSA Screen - Final Complete Problem List/Assessment/Plan Problem List/Assessment/Plan . Assessment & Diagnoses Cardic arrest status post CPR with return of spontaneous circulation Acute hypoxic respiratory failure, post-extubation, stable High-degree atrioventricular block, complete heart block. Ventricular tachycardia Sepsis due to Enterobacter cloacae pneumonia with septic encephalopathy, improving ([facility]) Moderate pulmonary hypertension (RVSP 55 mmHg) per echo. NSTEMI, ruled out coronary artery disease. Ruled out structural heart disease. Acute hypoxic respiratory failure. Hypertension. Hyperkalemia, resolved. ESRD on hemodialysis. Type 2 diabetes mellitus, uncontrolled (Hbg A1c 11.5%) Psychosis with hallucinations, insomnia, underlying schizophrenia and bipolar disorder Medical noncompliance Obesity (BMI 35.6) HFpEF 65% [facility] Plan Pending transfer to the SNF facility once accepted. Neuro/Psych * Continue haloperidol PRN for breakthrough agitation. * Resume home aripiprazole. * Tele-psych consult done, Lamictal 25 mg po daily restarted * Sleep hygiene and reassurance. Cardiovascular * Continue antihypertensive regimen: nifedipine ER 60 mg daily, hydralazine 50 mg q8h, isosorbide dinitrate TID, clonidine 0.1 mg Q7D. * Maintain BP <140/90. Respiratory * Wean NC O? as tolerated. * Incentive spirometry and pulmonary hygiene. Renal * Continue HD on MWF schedule. * Strict I/O and daily weights. * Avoid nephrotoxic agents. Hematology * Continue epoetin with HD. * Transfuse if Hgb <7. * Monitor CBC daily. Infectious Disease * Cefepime discontinued on 04/23/2025 * stool culture negative for Shiga and C difficile * Monitor for recurrence of fever or WBC changes. Endocrine * Continue insulin regimen with SSI. * Monitor glucose q6h. GI/Nutrition * Protonix 40 mg po, stopped on 04/23/2020 * Oral feeds as tolerated, speech/swallow eval to guide diet. * Continue probiotics. Musculoskeletal # Neuropathic pain left foot -gabapentin 400mg TID Prophylaxis * DVT: Heparin SQ q12h. * GI: PPI BID. * Pulmonary: IS, HOB elevation. Case discussed in detail with the attending physician, including the clinical presentation, diagnostic workup, and comprehensive management plan. The patient was present for the discussion and demonstrated understanding of his condition and the proposed plan Plan discussed with: Patient My Orders My Orders Orders - WHITNEY LAYTON RESIDENT Procedure Category Date Status Time Pt Request For Service PT 04/27/25 Logged 10:19 Dietary Evaluation Review Comments: 1) Change TF formulary from Glucerna 1.2 to Nepro @ 30 goal rate as tolerated d/t ESRD. Flush with 150 mL free H2O Q6H. TF regimen will provide 1296 kcals, 58g Pro, and 1123 mL free H2O (including flushes) per 24 hrs. TF regimen will meet ~86% estimated energy needs and ~61% estimated protein needs. 2) Advance to 60g CCHO renal diet when medically feasible, pending ST approval 3) Refer to outpatient RD/CDCES for diabetes education/weight management 4) Follow-up with cardiology, pulmonology, and nephrology 5) Continue to monitor I&O, labs, and skin integrity Expected Outcomes/Goals: 1) TF regimen to meet at least 75% estimated daily needs 2) labs to improve 3) diet to advance 4) f/u in 2-3 days Date of Service: Apr 27, 2025 Billing Provider: LAURA OCAMPO DO Common Visit Codes: 16433-[id number] INP/OBS CARE(HIGH) WHITNEY LAYTON RESIDENT Apr 27, 2025 18:58 LAURA OCAMPO DO Apr 29, 2025 23:46
[2025-04-28] VITALS (9 sets, daily range): BP systolic 124–148; BP diastolic 54–79; PULSE 76–99; RESP 18–20; TEMP 97.7–98.3; O2SAT 95–100
[2025-04-28 07:06] LABS: Hematocrit 27.7 % (41.0-53.0); Hemoglobin 9.1 g/dL (13.5-17.5); Mean Corpuscular Hemoglobin 28.8 pg (28.0-32.0); Mean Corpuscular Volume 87.9 fL (80.0-100.0); Nucleated Red Blood Cells % 0.1 %
[2025-04-28 07:17] LABS: Potassium 4.2 mmol/L (3.5-5.1); Sodium 136 mmol/L (136-145)
[2025-04-28 07:18] LABS: Anion Gap 10 (5-15); Calcium 8.8 mg/dL (8.7-10.4); Carbon Dioxide 30 mmol/L (20-31)
[2025-04-28 07:23] LABS: BUN/Creatinine Ratio 2.6 (10.0-20.0); Blood Urea Nitrogen 20 mg/dL (9-23); Chloride 96 mmol/L (98-107); Glucose 112 mg/dL (74-106)
--- NOTE | 2025-04-28 11:08 | DVHPN2 ---
Progress Note - Dictate Date Seen: Apr 28, 2025 Has the PT tested + for MRSA If YES, has PT been informed?: No Medical Necessity Reason Pt with a Central, PICC or Fol: No The following are medically ne: Central Line, Araiza Catheter Subjective Patient is sleeping vital signs Vital Sign Date Time Temp Pulse Resp B/P (MAP) Pulse Ox O2 Delivery O2 Flow Rate FiO2 04/28/25 10:18 96 Nasal Cannula 2.0 04/28/25 10:18 28 04/28/25 09:54 148/66 04/28/25 09:00 98.3 85 18 98.3 Total Intake and Output 04/27/25 04/27/25 04/28/25 15:00 23:00 07:00 Intake Total 300 ml 850 ml Output Total 300 ml Balance 300 ml 550 ml medications Current Medications Medications Dose Ordered Sig/Duane Route Start Time Stop Time Status Last Admin Dose Admin Patient Own Medication 1 tab HS PO 04/10/25 22:00 Insulin Glargine 17 units DAILY SC 04/10/25 10:00 04/27/25 11:32 17 UNITS Saccharomyces Boulardii 250 mg DAILY GT 04/13/25 12:15 04/28/25 09:53 250 MG Dextrose 50 ml ONCE PRN IV 04/15/25 06:45 Diagnostic Test (Pha) 1 strip Q6HR 04/15/25 12:00 04/28/25 05:54 1 STRIP Insulin Human Regular Q6HR SC 04/15/25 12:00 04/27/25 11:31 2 UNITS Zirconium Oxide 10 gm EOD PRN GT 04/16/25 10:00 Isosorbide Dinitrate 10 mg TID@06,12,18 PO 04/16/25 12:00 04/28/25 06:02 10 MG Clonidine HCl 0.1 mg Q7D TD 04/17/25 17:00 04/24/25 17:43 0.1 MG Patient Own Medication 2 mg DAILY PO 04/18/25 10:00 04/28/25 09:53 2 MG Acetaminophen 650 mg Q4HP PRN PO 04/19/25 11:45 04/21/25 12:27 650 MG Lamotrigine 25 mg DAILY PO 04/20/25 10:00 04/28/25 09:53 25 MG Gabapentin 300 mg EOD PO 04/20/25 22:00 10/5/25 09:54 300 MG Sevelamer HCl 800 mg TIDWM PO 04/22/25 18:00 04/28/25 08:07 800 MG Nifedipine 90 mg DAILY PO 04/23/25 18:00 04/28/25 09:54 90 MG Hydralazine HCl 100 mg Q8HR PO 04/23/25 14:00 04/28/25 06:03 100 MG objective GENERAL: The patient is an adult gentleman who appears to be chronically ill, HEENT: Unremarkable. NECK: No jugular venous distention. No palpable thyroid or lymphadenopathy. LUNGS: Show diminished air entry at the bases. CARDIOVASCULAR: Shows 1/6 systolic murmur, S4 gallop. ABDOMEN: Soft, nontender, no organomegaly. EXTREMITIES: Show no clubbing, cyanosis or edema. NEUROLOGIC: Nonfocal. laboratory and microbiology Laboratory Tests 04/28/25 06:36 Test 04/28/25 06:36 Range/Units Serum Glucose 112 H 74-106 mg/dL Assessment/Plan ASSESSMENT AND PLAN: End-stage renal disease on hemodialysis TTS Hypertension,better controlled Paranoia with hallucinations Anemia of renal disease. Diabetes mellitus. Respiratory failure s/p cardiac arrest Plan Next HD on Tuesday Continue Hydralazine to 100 mg Q8H and clonidine patch Keep Gabapentin at not more than 300 mg in 24 hours Lokelma on non dialysis days IV antibiotics Stephan with dialysis DC home Dietary Evaluation Review Comments: 1) Change TF formulary from Glucerna 1.2 to Nepro @ 30 goal rate as tolerated d/t ESRD. Flush with 150 mL free H2O Q6H. TF regimen will provide 1296 kcals, 58g Pro, and 1123 mL free H2O (including flushes) per 24 hrs. TF regimen will meet ~86% estimated energy needs and ~61% estimated protein needs. 2) Advance to 60g CCHO renal diet when medically feasible, pending ST approval 3) Refer to outpatient RD/CDCES for diabetes education/weight management 4) Follow-up with cardiology, pulmonology, and nephrology 5) Continue to monitor I&O, labs, and skin integrity Expected Outcomes/Goals: 1) TF regimen to meet at least 75% estimated daily needs 2) labs to improve 3) diet to advance 4) f/u in 2-3 days Plan discussed with: Other KAMARI CHAPPELL MD Apr 28, 2025 11:08
--- NOTE | 2025-04-28 11:34 | DVHPNRES ---
Progress Note Date Seen: Apr 28, 2025 Resident Creating Document: KAREEN HARVEY RESIDENT Has the PT tested + for MRSA If YES, has PT been informed?: No Medical Necessity Reason Pt with a Central, PICC or Fol: No The following are medically ne: Central Line, Araiza Catheter Subjective Review of Systems We will continue Lamisil total 25 mg as per Psychiatry consultation. Today the patient reports pain in his left toe wishes sharp radiating down his leg like an electric current, occurring every 5 seconds. On inquiry he reports that he has had no visual hallucinations and that his chest pain is better with the Tylenol. He is still on 2 L of oxygen. Stable post-extubation on NC O2. Downgraded from ICU to telemetry. Psychosis improved after haloperidol; paranoia persists. Aripiprazole resumed. Oral feeds restarted. Hemodialysis today Vitals stable, labs consistent with ESRD and CKD anemia. FOBT postive Tele-psych consult suggested:Psychiatric admission is not indicated. Continue medical admission for stabilization and management of underlying conditions. 3. Medications: No antipsychotic medications indicated at this time. Do not initiate antipsychotics unless hallucinations persist or cause severe distress; continue to monitor. Continue home Lamictal if patient has NOT been off med for > 4 days. If he has been off Lamictal 5 or more days, restart at 25 mg po daily and defer titration to outpatient team. 4. Medical Considerations: Optimize medical management. Hallucinations should continue to improve with time. Acetaminophen 650 mg p.o. given PRN for chest pain 04/20/2025 We will continue Lamisil total 25 mg as per Psychiatry consultation. Today the patient reports pain in his left toe, sharp radiating down his leg like an electric current, occurring every 5 seconds. On inquiry he reports that he has had no visual hallucinations and that his chest pain is better with the Tylenol. He is still on 2 L of oxygen. Gabapentin to be given on days after dialysis 300 mg once only On 04/13/2025-patient reported doing well, no acute complaint, we will continue current management, no change in medication, plan is to discharge tomorrow if possible. 04/22/2025 today the patient reports doing well with no new active complaints. He underwent hemodialysis today and was given gabapentin 300 mg after hemodialysis. 04/23/25: Patient reports his legs feel better after gabapentin yesterday. He complained of 6 episodes of watery diarrhea yesterday. stool sulture was neg for c diff and shiga toxin. cefepime and protonix stopped. nifedipine from 60mg to 90mg from todaydue to persistently high BP. Awaiting cardio consult. 04/24/2025: Patient underwent hemodialysis today. Cardiology on board, pacemaker will be placed tomorrow. Preop labs ordered. Heparin on hold and NPO from midnight. Cardiac diet was resumed for today. 04/25/25: Patient declined noting the pacemaker alone today. PT evaluation to be done and home health for PT required. Possible discharge tomorrow 04/26/2025: Patient underwent hemodialysis. He has no new active complaints. Patient stated that he wanted me to speak to his cousin's regarding his discharge plan. I spoke to his cousin Kimmy who stated that she wants patient to go to a SNF placement as his mother he lives with is 85 and unable to take care of him. Spoke to social studies teacher and they will be arranging SNF placement for him. 04/27/25: The patient underwent hemodialysis yesterday without complication. Today, the patient reports no active complaints denies chest pain shortness of breath, dizziness nausea vomiting abdominal pain on bleeding. Appetite is fair, and he is tolerating diet well. The patient is still awaiting SNF placement for long-term care management and has spoken with social research assistant, who is currently arranging transfer. The patient is hemodynamically stable and comfortable on 2 L/min nasal cannula oxygen. No new symptoms reports since yesterday 04/28/2025: Patient was seen and examined by the bedside today. He has no new active complaints. Hemodialysis to be done today. Continued physical therapy and Awaiting on SNF placement. Objective vital signs Vital Sign Date Time Temp Pulse Resp B/P (MAP) Pulse Ox O2 Delivery O2 Flow Rate FiO2 04/28/25 10:18 96 Nasal Cannula 2.0 04/28/25 10:18 28 04/28/25 09:54 148/66 04/28/25 09:00 98.3 85 18 98.3 Total Intake and Output 04/27/25 04/27/25 04/28/25 15:00 23:00 07:00 Intake Total 300 ml 850 ml Output Total 300 ml Balance 300 ml 550 ml medications Current Medications Medications Dose Ordered Sig/Duane Route Start Time Stop Time Status Last Admin Dose Admin Patient Own Medication 1 tab HS PO 04/10/25 22:00 Insulin Glargine 17 units DAILY SC 04/10/25 10:00 04/27/25 11:32 17 UNITS Saccharomyces Boulardii 250 mg DAILY GT 04/13/25 12:15 04/28/25 09:53 250 MG Dextrose 50 ml ONCE PRN IV 04/15/25 06:45 Diagnostic Test (Pha) 1 strip Q6HR 04/15/25 12:00 04/28/25 05:54 1 STRIP Insulin Human Regular Q6HR SC 04/15/25 12:00 04/27/25 11:31 2 UNITS Zirconium Oxide 10 gm EOD PRN GT 04/16/25 10:00 Isosorbide Dinitrate 10 mg TID@06,12,18 PO 04/16/25 12:00 04/28/25 06:02 10 MG Clonidine HCl 0.1 mg Q7D TD 04/17/25 17:00 04/24/25 17:43 0.1 MG Patient Own Medication 2 mg DAILY PO 04/18/25 10:00 04/28/25 09:53 2 MG Acetaminophen 650 mg Q4HP PRN PO 04/19/25 11:45 04/21/25 12:27 650 MG Lamotrigine 25 mg DAILY PO 04/20/25 10:00 04/28/25 09:53 25 MG Gabapentin 300 mg EOD PO 04/20/25 22:00 04/28/25 09:54 300 MG Sevelamer HCl 800 mg TIDWM PO 04/22/25 18:00 04/28/25 08:07 800 MG Nifedipine 90 mg DAILY PO 04/23/25 18:00 04/28/25 09:54 90 MG Hydralazine HCl 100 mg Q8HR PO 04/23/25 14:00 04/28/25 06:03 100 MG Examination The patient is lying on the bed General Appearance: Alert, Oriented X3, Cooperative, Not in acute distress HEENT: Atraumatic, Mucous membranes moist/pink Respiratory: Clear to auscultation, Normal air movement, No added sounds Cardiovascular: Regular rate, Normal S1, Normal S2, No murmurs Abdominal: Active bowel sounds, Soft, no distention, no tenderness Extremities: No edema, Normal pulses, No tenderness/swelling Skin: No Significant rash, except past surgical scars, slight tenderness on palpation of the chest Neuro: Normal speech, sensorimotor deficits none Psych/Mental Status: Mental status NL, Mood NL Nurse was there as stud 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 Complete 04/12/25 04:00 Nose MRSA Screen - Final Complete Labs and/or images reviewed: Labs reviewed by me Problem List/Assessment/Plan Problem List/Assessment/Plan Assessment & Diagnoses Cardic arrest status post CPR with return of spontaneous circulation Acute hypoxic respiratory failure, post-extubation, stable High-degree atrioventricular block, complete heart block. Ventricular tachycardia Sepsis due to Enterobacter cloacae pneumonia with septic [place]opathy, [place] [place] Moderate pulmonary hypertension (RVSP 55 mmHg) per echo. NSTEMI, ruled out coronary artery disease. Ruled out structural heart disease. Acute hypoxic respiratory failure. Hypertension. Hyperkalemia, resolved. ESRD on hemodialysis. Type 2 diabetes mellitus, uncontrolled (Hbg A1c 11.5%) Psychosis with hallucinations, insomnia, underlying schizophrenia and bipolar disorder Medical noncompliance Obesity (BMI 35.6) HFpEF 65% [facility] Plan Pending transfer to the SNF facility once accepted. Neuro/Psych * Continue haloperidol PRN for breakthrough agitation. * Resume home aripiprazole. * Tele-psych consult done, Lamictal 25 mg po daily restarted * Sleep hygiene and reassurance. Cardiovascular * Continue antihypertensive regimen: nifedipine ER 60 mg daily, hydralazine 50 mg q8h, isosorbide dinitrate TID, clonidine 0.1 mg Q7D. * Maintain BP <140/90. Respiratory * Wean NC O? as tolerated. * Incentive spirometry and pulmonary hygiene. Renal * Continue HD on MWF schedule. * Strict I/O and daily weights. * Avoid nephrotoxic agents. Hematology * Continue epoetin with HD. * Transfuse if Hgb <7. * Monitor CBC daily. Infectious Disease * Cefepime discontinued on 04/23/2025 * stool culture negative for Shiga and C difficile * Monitor for recurrence of fever or WBC changes. Endocrine * Continue insulin regimen with SSI. * Monitor glucose q6h. GI/Nutrition * Protonix 40 mg po, stopped on 04/23/2020 * Oral feeds as tolerated, speech/swallow eval to guide diet. * Continue probiotics. Musculoskeletal # Neuropathic pain left foot -gabapentin 400mg TID Prophylaxis * DVT: Heparin SQ q12h. * GI: PPI BID. * Pulmonary: IS, HOB elevation. Case discussed in detail with the attending physician, including the clinical presentation, diagnostic workup, and comprehensive management plan. The patient was present for the discussion and demonstrated understanding of his condition and the proposed plan Plan discussed with: Patient Dietary Evaluation Review Comments: 1) Change TF formulary from Glucerna 1.2 to Nepro @ 30 goal rate as tolerated d/t ESRD. Flush with 150 mL free H2O Q6H. TF regimen will provide 1296 kcals, 58g Pro, and 1123 mL free H2O (including flushes) per 24 hrs. TF regimen will meet ~86% estimated energy needs and ~61% estimated protein needs. 2) Advance to 60g CCHO renal diet when medically feasible, pending ST approval 3) Refer to outpatient RD/CD[facility] for diabetes education/weight management 4) Follow-up with cardiology, pulmonology, and nephrology 5) Continue to monitor I&O, labs, and skin integrity Expected Outcomes/Goals: 1) TF regimen to meet at least 75% estimated daily needs 2) labs to improve 3) diet to advance 4) f/u in 2-3 days Date of Service: Apr 28, 2025 Billing Provider: KAREEN HARVEY Common Visit Codes: [id number] INP/OBS CARE(HIGH) KAREEN HARVEY Apr 28, 2025 11:34 LOYDA THOMPSON MD May 02, 2025 19:03
--- NOTE | 2025-04-28 23:55 | DVHPN2 ---
Progress Note - Dictate Date Seen: Apr 28, 2025 Has the PT tested + for MRSA If YES, has PT been informed?: No Medical Necessity Reason Pt with a Central, PICC or Fol: No The following are medically ne: Central Line, Araiza Catheter Subjective Patient was seen and evaluated in follow up. Patient remains stable on 2 LPM NC. HGB 9.1, HCT 27.7, CL 96, PIT FURNACE MELTER 7.73. Telemetry reviewed. vital signs Vital Sign Date Time Temp Pulse Resp B/P (MAP) Pulse Ox O2 Delivery O2 Flow Rate FiO2 04/28/25 12:59 98.2 78 18 129/62 (84) 97 98.2 04/28/25 10:18 Nasal Cannula 2.0 04/28/25 10:18 28 Total Intake and Output 04/27/25 04/27/25 04/28/25 15:00 23:00 07:00 Intake Total 300 ml 850 ml Output Total 300 ml Balance 300 ml 550 ml medications Current Medications Medications Dose Ordered Sig/Duane Route Start Time Stop Time Status Last Admin Dose Admin Patient Own Medication 1 tab HS PO 04/10/25 22:00 Insulin Glargine 17 units DAILY SC 04/10/25 10:00 04/28/25 11:40 17 UNITS Saccharomyces Boulardii 250 mg DAILY GT 04/13/25 12:15 04/28/25 09:53 250 MG Dextrose 50 ml ONCE PRN IV 04/15/25 06:45 Diagnostic Test (Pha) 1 strip Q6HR 04/15/25 12:00 04/28/25 11:41 1 STRIP Insulin Human Regular Q6HR SC 04/15/25 12:00 04/28/25 11:41 2 UNITS Zirconium Oxide 10 gm EOD PRN GT 04/16/25 10:00 Isosorbide Dinitrate 10 mg TID@06,12,18 PO 04/16/25 12:00 04/28/25 11:40 10 MG Clonidine HCl 0.1 mg Q7D TD 04/17/25 17:00 04/24/25 17:43 0.1 MG Patient Own Medication 2 mg DAILY PO 04/18/25 10:00 04/28/25 09:53 2 MG Acetaminophen 650 mg Q4HP PRN PO 04/19/25 11:45 04/21/25 12:27 650 MG Lamotrigine 25 mg DAILY PO 04/20/25 10:00 04/28/25 09:53 25 MG Gabapentin 300 mg EOD PO 04/20/25 22:00 04/28/25 09:54 300 MG Sevelamer HCl 800 mg TIDWM PO 04/22/25 18:00 04/28/25 11:40 800 MG Nifedipine 90 mg DAILY PO 04/23/25 18:00 04/28/25 09:54 90 MG Hydralazine HCl 100 mg Q8HR PO 04/23/25 14:00 04/28/25 06:03 100 MG objective GENERAL: Alert and oriented x 3. No acute distress. Obese. EYES: PERRL, EOMI. Anicteric. HENT: Moist mucous membranes. LUNGS: Clear to auscultation bilaterally. CARDIOVASCULAR: Regular rate and rhythm. ABDOMEN: Soft, nontender and nondistended. EXTREMITIES: No edema. SKIN: Hyperpigmentation to bilateral lower extremities. laboratory and microbiology Laboratory Tests 04/28/25 06:36 Test 04/28/25 06:36 Range/Units Serum Glucose 112 H 74-106 mg/dL Problem List Cardiopulmonary arrest status post CPR with return of spontaneous circulation. High-degree atrioventricular block, complete heart block. Ventricular tachycardia. NSTEMI, rule out coronary artery disease. Rule out structural heart disease. Acute hypoxic respiratory failure. Hypertension. Hyperkalemia, resolved. ESRD on hemodialysis. Type 2 diabetes mellitus, uncontrolled (Hbg A1c 11.5%). Medical noncompliance. Assessment/Plan Continued all current supportive medical care. Clonidine, Hydralazine, Nifedipine. Additional plan as per the hospital course. Dietary Evaluation Review Comments: 1) Change TF formulary from Glucerna 1.2 to Nepro @ 30 goal rate as tolerated d/t ESRD. Flush with 150 mL free H2O Q6H. TF regimen will provide 1296 kcals, 58g Pro, and 1123 mL free H2O (including flushes) per 24 hrs. TF regimen will meet ~86% estimated energy needs and ~61% estimated protein needs. 2) Advance to 60g CCHO renal diet when medically feasible, pending ST approval 3) Refer to outpatient RD/CDCES for diabetes education/weight management 4) Follow-up with cardiology, pulmonology, and nephrology 5) Continue to monitor I&O, labs, and skin integrity Expected Outcomes/Goals: 1) TF regimen to meet at least 75% estimated daily needs 2) labs to improve 3) diet to advance 4) f/u in 2-3 days Plan discussed with: Patient INA ARRIOLA MD Apr 28, 2025 13:45
[2025-04-29] VITALS (10 sets, daily range): BP systolic 114–153; BP diastolic 52–72; PULSE 73–82; RESP 16–18; TEMP 97.5–98.7; O2SAT 97–100
[2025-04-29 07:00] LABS: Hematocrit 27.3 % (41.0-53.0); Hemoglobin 9.1 g/dL (13.5-17.5); Mean Corpuscular Hemoglobin 29.1 pg (28.0-32.0); Mean Corpuscular Volume 87.3 fL (80.0-100.0); Nucleated Red Blood Cells % 0.1 %
[2025-04-29 07:11] LABS: Potassium 4.4 mmol/L (3.5-5.1); Sodium 137 mmol/L (136-145)
[2025-04-29 07:12] LABS: Calcium 8.8 mg/dL (8.7-10.4)
[2025-04-29 07:13] LABS: Anion Gap 12 (5-15)
[2025-04-29 07:17] LABS: Carbon Dioxide 31 mmol/L (20-31); Chloride 94 mmol/L (98-107)
[2025-04-29 07:18] LABS: BUN/Creatinine Ratio 2.9 (10.0-20.0); Blood Urea Nitrogen 28 mg/dL (9-23); Glucose 104 mg/dL (74-106)
--- NOTE | 2025-04-29 14:13 | DVHPNRES ---
Progress Note Date Seen: Apr 29, 2025 Resident Creating Document: KAREEN HARVEY RESIDENT Has the PT tested + for MRSA If YES, has PT been informed?: No Medical Necessity Reason Pt with a Central, PICC or Fol: No The following are medically ne: Central Line, Araiza Catheter Subjective Review of Systems 04/20/2025 We will continue Lamisil total 25 mg as per Psychiatry consultation. Today the patient reports pain in his left toe, sharp radiating down his leg like an electric current, occurring every 5 seconds. On inquiry he reports that he has had no visual hallucinations and that his chest pain is better with the Tylenol. He is still on 2 L of oxygen. Gabapentin to be given on days after dialysis 300 mg once only On 04/13/2025-patient reported doing well, no acute complaint, we will continue current management, no change in medication, plan is to discharge tomorrow if possible. 04/22/2025 today the patient reports doing well with no new active complaints. He underwent hemodialysis today and was given gabapentin 300 mg after hemodialysis. 04/23/25: Patient reports his legs feel better after gabapentin yesterday. He complained of 6 episodes of watery diarrhea yesterday. stool sulture was neg for c diff and shiga toxin. cefepime and protonix stopped. nifedipine from 60mg to 90mg from todaydue to persistently high BP. Awaiting cardio consult. 04/24/2025: Patient underwent hemodialysis today. Cardiology on board, pacemaker will be placed tomorrow. Preop labs ordered. Heparin on hold and NPO from midnight. Cardiac diet was resumed for today. 04/25/25: Patient declined noting the pacemaker alone today. PT evaluation to be done and home health for PT required. Possible discharge tomorrow 04/26/2025: Patient underwent hemodialysis. He has no new active complaints. Patient stated that he wanted me to speak to his cousin's regarding his discharge plan. I spoke to his cousin Kimmy who stated that she wants patient to go to a SNF placement as his mother he lives with is 85 and unable to take care of him. Spoke to social professionals and they will be arranging SNF placement for him. 04/27/25: The patient underwent hemodialysis yesterday without complication. Today, the patient reports no active complaints denies chest pain shortness of breath, dizziness nausea vomiting abdominal pain on bleeding. Appetite is fair, and he is tolerating diet well. The patient is still awaiting SNF placement for long-term care management and has spoken with hospital social worker, who is currently arranging transfer. The patient is hemodynamically stable and comfortable on 2 L/min nasal cannula oxygen. No new symptoms reports since yesterday 04/28/2025: Patient was seen and examined by the bedside today. He has no new active complaints. Hemodialysis to be done today. Continued physical therapy and Awaiting on SNF placement. 04/29/2025: Patient is getting discharged today after receiving a bed in SNF. Objective vital signs Vital Sign Date Time Temp Pulse Resp B/P (MAP) Pulse Ox O2 Delivery O2 Flow Rate FiO2 04/29/25 11:56 140/71 04/29/25 10:22 100 Nasal Cannula 2.0 04/29/25 10:22 28 04/29/25 09:00 98.7 82 18 98.7 Total Intake and Output 04/28/25 04/28/25 04/29/25 15:00 23:00 07:00 Intake Total 305 ml 260 ml Balance 305 ml 260 ml medications Current Medications Medications Dose Ordered Sig/Duane Route Start Time Stop Time Status Last Admin Dose Admin Patient Own Medication 1 tab HS PO 04/10/25 22:00 Insulin Glargine 17 units DAILY SC 04/10/25 10:00 04/29/25 08:35 17 UNITS Saccharomyces Boulardii 250 mg DAILY GT 04/13/25 12:15 04/29/25 08:28 250 MG Dextrose 50 ml ONCE PRN IV 04/15/25 06:45 Diagnostic Test (Pha) 1 strip Q6HR 04/15/25 12:00 04/29/25 11:55 1 STRIP Insulin Human Regular Q6HR SC 04/15/25 12:00 04/29/25 11:54 3 UNITS Zirconium Oxide 10 gm EOD PRN GT 04/16/25 10:00 Isosorbide Dinitrate 10 mg TID@06,12,18 PO 04/16/25 12:00 04/29/25 11:56 10 MG Clonidine HCl 0.1 mg Q7D TD 04/17/25 17:00 04/24/25 17:43 0.1 MG Patient Own Medication 2 mg DAILY PO 04/18/25 10:00 04/29/25 08:29 2 MG Acetaminophen 650 mg Q4HP PRN PO 04/19/25 11:45 04/21/25 12:27 650 MG Lamotrigine 25 mg DAILY PO 04/20/25 10:00 04/29/25 08:28 25 MG Gabapentin 300 mg EOD PO 04/20/25 22:00 04/28/25 09:54 300 MG Sevelamer HCl 800 mg TIDWM PO 04/22/25 18:00 04/29/25 11:54 800 MG Nifedipine 90 mg DAILY PO 04/23/25 18:00 04/29/25 08:31 90 MG Hydralazine HCl 100 mg Q8HR PO 04/23/25 14:00 04/29/25 05:25 100 MG Examination General Appearance: Alert, Oriented X3, Cooperative, Not in acute distress HEENT: Atraumatic, Mucous membranes moist/pink Respiratory: Clear to auscultation, Normal air movement, No added sounds Cardiovascular: Regular rate, Normal S1, Normal S2, No murmurs Abdominal: Active bowel sounds, Soft, no distention, no tenderness Extremities: No edema, Normal pulses, No tenderness/swelling Skin: No Significant rash, except past surgical scars Neuro: Normal speech, sensorimotor deficits none Psych/Mental Status: Mental status NL, Mood NL laboratory and microbiology Laboratory Tests 04/29/25 06:03 Test 04/29/25 06:03 Range/Units Serum Glucose 104 74-106 mg/dL Microbiology Date/Time Source Procedure Growth Status 04/23/25 06:49 Stool Stool Culture - Final Complete 04/23/25 06:49 Stool Shiga Toxin I & II - Final Complete 04/12/25 08:46 Blood Blood Culture - Final NO GROWTH AFTER 5 DAYS OF INCUBATION. Complete 04/12/25 04:00 Nose MRSA Screen - Final Complete Labs and/or images reviewed: Labs reviewed by me, Image(s) reviewed by me Problem List/Assessment/Plan Problem List/Assessment/Plan Assessment & Diagnoses Cardic arrest status post CPR with return of spontaneous circulation Acute hypoxic respiratory failure, post-extubation, stable High-degree atrioventricular block, complete heart block. Ventricular tachycardia Sepsis due to Enterobacter cloacae pneumonia with septic encephalopathy, improving (DETENTION) Moderate pulmonary hypertension (RVSP 55 mmHg) per echo. NSTEMI, ruled out coronary artery disease. Ruled out structural heart disease. Acute hypoxic respiratory failure. Hypertension. Hyperkalemia, resolved. ESRD on hemodialysis. Type 2 diabetes mellitus, uncontrolled (Hbg A1c 11.5%) Psychosis with hallucinations, insomnia, underlying schizophrenia and bipolar disorder Medical noncompliance Obesity (BMI 35.6) HFpEF 65% System-[facility]le Plan transfer to the SNF today Neuro/Psych * Continue haloperidol PRN for breakthrough agitation. * Resume home aripiprazole. * Tele-psych consult done, Lamictal 25 mg po daily restarted * Sleep hygiene and reassurance. Cardiovascular * Continue antihypertensive regimen: nifedipine ER 60 mg daily, hydralazine 50 mg q8h, isosorbide dinitrate TID, clonidine 0.1 mg Q7D. * Maintain BP <140/90. Respiratory * Wean NC O? as tolerated. * Incentive spirometry and pulmonary hygiene. Renal * Continue HD on MWF schedule. * Strict I/O and daily weights. * Avoid nephrotoxic agents. Hematology * Continue epoetin with HD. * Transfuse if Hgb <7. * Monitor CBC daily. Infectious Disease * Cefepime discontinued on 04/23/2025 * stool culture negative for Shiga and C difficile * Monitor for recurrence of fever or WBC changes. Endocrine * Continue insulin regimen with SSI. * Monitor glucose q6h. GI/Nutrition * Protonix 40 mg po, stopped on 04/23/2020 * Oral feeds as tolerated, speech/swallow eval to guide diet. * Continue probiotics. Musculoskeletal # Neuropathic pain left foot -gabapentin 400mg TID Prophylaxis * DVT: Heparin SQ q12h. * GI: PPI BID. * Pulmonary: IS, HOB elevation. Case discussed in detail with the Dr Valera, including the clinical presentation, diagnostic workup, and comprehensive management plan. The patient was present for the discussion and demonstrated understanding of his condition and the proposed plan Plan discussed with: Patient Dietary Evaluation Review Comments: 1) Change TF formulary from Glucerna 1.2 to Nepro @ 30 goal rate as tolerated d/t ESRD. Flush with 150 mL free H2O Q6H. TF regimen will provide 1296 kcals, 58g Pro, and 1123 mL free H2O (including flushes) per 24 hrs. TF regimen will meet ~86% estimated energy needs and ~61% estimated protein needs. 2) Advance to 60g CCHO renal diet when medically feasible, pending ST approval 3) Refer to outpatient RD/CDCES for diabetes education/weight management 4) Follow-up with cardiology, pulmonology, and nephrology 5) Continue to monitor I&O, labs, and skin integrity Expected Outcomes/Goals: 1) TF regimen to meet at least 75% estimated daily needs 2) labs to improve 3) diet to advance 4) f/u in 2-3 days Date of Service: Apr 29, 2025 Billing Provider: RON VALERA MD Common Visit Codes: [id number] INP/OBS CARE(HIGH) KAREEN HARVEY RESIDENT Apr 29, 2025 14:13 RON VALERA MD Apr 29, 2025 18:23
--- NOTE | 2025-04-29 17:51 | DVHPN2 ---
Progress Note - Dictate Date Seen: Apr 29, 2025 Has the PT tested + for MRSA If YES, has PT been informed?: No Medical Necessity Reason Pt with a Central, PICC or Fol: No The following are medically ne: Central Line, Araiza Catheter Subjective GENERAL: The patient is an adult gentleman who appears to be chronically ill, HEENT: Unremarkable. NECK: No jugular venous distention. No palpable thyroid or lymphadenopathy. LUNGS: Show diminished air entry at the bases. CARDIOVASCULAR: Shows 1/6 systolic murmur, S4 gallop. ABDOMEN: Soft, nontender, no organomegaly. EXTREMITIES: Show no clubbing, cyanosis or edema. NEUROLOGIC: Nonfocal. + Lt arm AVF vital signs Vital Sign Date Time Temp Pulse Resp B/P (MAP) Pulse Ox O2 Delivery O2 Flow Rate FiO2 04/29/25 17:00 97.7 75 16 135/72 (93) 98 97.7 04/29/25 10:22 Nasal Cannula 2.0 04/29/25 10:22 28 Total Intake and Output 04/28/25 04/28/25 04/29/25 15:00 23:00 07:00 Intake Total 305 ml 260 ml Balance 305 ml 260 ml medications Current Medications Medications Dose Ordered Sig/Duane Route Start Time Stop Time Status Last Admin Dose Admin Patient Own Medication 1 tab HS PO 04/10/25 22:00 Insulin Glargine 17 units DAILY SC 04/10/25 10:00 04/29/25 08:35 17 UNITS Saccharomyces Boulardii 250 mg DAILY GT 04/13/25 12:15 04/29/25 08:28 250 MG Dextrose 50 ml ONCE PRN IV 04/15/25 06:45 Diagnostic Test (Pha) 1 strip Q6HR 04/15/25 12:00 04/29/25 11:55 1 STRIP Insulin Human Regular Q6HR SC 04/15/25 12:00 04/29/25 11:54 3 UNITS Zirconium Oxide 10 gm EOD PRN GT 04/16/25 10:00 Isosorbide Dinitrate 10 mg TID@06,12,18 PO 04/16/25 12:00 04/29/25 11:56 10 MG Clonidine HCl 0.1 mg Q7D TD 04/17/25 17:00 04/24/25 17:43 0.1 MG Patient Own Medication 2 mg DAILY PO 04/18/25 10:00 04/29/25 08:29 2 MG Acetaminophen 650 mg Q4HP PRN PO 04/19/25 11:45 04/21/25 12:27 650 MG Lamotrigine 25 mg DAILY PO 04/20/25 10:00 04/29/25 08:28 25 MG Gabapentin 300 mg EOD PO 04/20/25 22:00 04/28/25 09:54 300 MG Sevelamer HCl 800 mg TIDWM PO 04/22/25 18:00 04/29/25 11:54 800 MG Nifedipine 90 mg DAILY PO 04/23/25 18:00 04/29/25 08:31 90 MG Hydralazine HCl 100 mg Q8HR PO 04/23/25 14:00 04/29/25 14:17 100 MG laboratory and microbiology Laboratory Tests 04/29/25 06:03 Test 04/29/25 06:03 Range/Units Serum Glucose 104 74-106 mg/dL Assessment/Plan ASSESSMENT AND PLAN: End-stage renal disease on hemodialysis TTS Hypertension,better controlled Paranoia with hallucinations Anemia of renal disease. Diabetes mellitus. Respiratory failure s/p cardiac arrest Plan Next HD on Tuesday Continue HD on TTS schedule Continue Hydralazine to 100 mg Q8H and clonidine patch Keep Gabapentin at not more than 300 mg in 24 hours Lokelma on non dialysis days IV antibiotics Stephan with dialysis Dietary Evaluation Review Comments: 1) Change TF formulary from Glucerna 1.2 to Nepro @ 30 goal rate as tolerated d/t ESRD. Flush with 150 mL free H2O Q6H. TF regimen will provide 1296 kcals, 58g Pro, and 1123 mL free H2O (including flushes) per 24 hrs. TF regimen will meet ~86% estimated energy needs and ~61% estimated protein needs. 2) Advance to 60g CCHO renal diet when medically feasible, pending ST approval 3) Refer to outpatient RD/[facility] for diabetes education/weight management 4) Follow-up with cardiology, pulmonology, and nephrology 5) Continue to monitor I&O, labs, and skin integrity Expected Outcomes/Goals: 1) TF regimen to meet at least 75% estimated daily needs 2) labs to improve 3) diet to advance 4) f/u in 2-3 days Plan discussed with: Patient, Other HELIO ADAMS MD Apr 29, 2025 17:51
--- NOTE | 2025-04-30 00:21 | DVHPN2 ---
Progress Note - Dictate Date Seen: Apr 29, 2025 Has the PT tested + for MRSA If YES, has PT been informed?: No Medical Necessity Reason Pt with a Central, PICC or Fol: No The following are medically ne: Central Line, Araiza Catheter Subjective Patient was seen and evaluated in follow up. Patient is on 2 LPM NC. Awaiting bed avaiablity at [facility]. H&H stable. BUN 28, Funeral Planning Counselor 9.73. Telemetry reviewed. vital signs Vital Sign Date Time Temp Pulse Resp B/P (MAP) Pulse Ox O2 Delivery O2 Flow Rate FiO2 04/29/25 21:57 132/71 04/29/25 21:00 98.0 77 17 97 98.0 04/29/25 10:22 Nasal Cannula 2.0 04/29/25 10:22 28 Total Intake and Output 04/29/25 04/29/25 04/30/25 15:00 23:00 07:00 Intake Total 300 ml Output Total 200 ml Balance 100 ml medications Current Medications Medications Dose Ordered Sig/Duane Route Start Time Stop Time Status Last Admin Dose Admin Patient Own Medication 1 tab HS PO 04/10/25 22:00 Insulin Glargine 17 units DAILY SC 04/10/25 10:00 04/29/25 08:35 17 UNITS Saccharomyces Boulardii 250 mg DAILY GT 04/13/25 12:15 04/29/25 08:28 250 MG Dextrose 50 ml ONCE PRN IV 04/15/25 06:45 Diagnostic Test (Pha) 1 strip Q6HR 04/15/25 12:00 04/29/25 23:17 1 STRIP Insulin Human Regular Q6HR SC 04/15/25 12:00 04/29/25 11:54 3 UNITS Zirconium Oxide 10 gm EOD PRN GT 04/16/25 10:00 Isosorbide Dinitrate 10 mg TID@06,12,18 PO 04/16/25 12:00 04/29/25 18:05 10 MG Clonidine HCl 0.1 mg Q7D TD 04/17/25 17:00 04/24/25 17:43 0.1 MG Patient Own Medication 2 mg DAILY PO 04/18/25 10:00 04/29/25 08:29 2 MG Acetaminophen 650 mg Q4HP PRN PO 04/19/25 11:45 04/21/25 12:27 650 MG Lamotrigine 25 mg DAILY PO 04/20/25 10:00 04/29/25 08:28 25 MG Gabapentin 300 mg EOD PO 04/20/25 22:00 04/28/25 09:54 300 MG Sevelamer HCl 800 mg TIDWM PO 04/22/25 18:00 04/29/25 18:05 800 MG Nifedipine 90 mg DAILY PO 04/23/25 18:00 04/29/25 08:31 90 MG Hydralazine HCl 100 mg Q8HR PO 04/23/25 14:00 04/29/25 21:57 100 MG objective GENERAL: Alert and oriented x 3. No acute distress. Obese. EYES: PERRL, EOMI. Anicteric. HENT: Moist mucous membranes. LUNGS: Clear to auscultation bilaterally. CARDIOVASCULAR: Regular rate and rhythm. ABDOMEN: Soft, nontender and nondistended. EXTREMITIES: No edema. SKIN: Hyperpigmentation to bilateral lower extremities. laboratory and microbiology Laboratory Tests 04/29/25 06:03 Test 04/29/25 06:03 Range/Units Serum Glucose 104 74-106 mg/dL Problem List Cardiopulmonary arrest status post CPR with return of spontaneous circulation. High-degree atrioventricular block, complete heart block. Ventricular tachycardia. NSTEMI, rule out coronary artery disease. Rule out structural heart disease. Acute hypoxic respiratory failure. Hypertension. Hyperkalemia, resolved. ESRD on hemodialysis. Type 2 diabetes mellitus, uncontrolled (Hbg A1c 11.5%). Medical noncompliance. Assessment/Plan Continued all current supportive medical care. Clonidine, Hydralazine, Nifedipine. Additional plan as per the hospital course. Dietary Evaluation Review Comments: 1) Change TF formulary from Glucerna 1.2 to Nepro @ 30 goal rate as tolerated d/t ESRD. Flush with 150 mL free H2O Q6H. TF regimen will provide 1296 kcals, 58g Pro, and 1123 mL free H2O (including flushes) per 24 hrs. TF regimen will meet ~86% estimated energy needs and ~61% estimated protein needs. 2) Advance to 60g CCHO renal diet when medically feasible, pending ST approval 3) Refer to outpatient RD/CDCES for diabetes education/weight management 4) Follow-up with cardiology, pulmonology, and nephrology 5) Continue to monitor I&O, labs, and skin integrity Expected Outcomes/Goals: 1) TF regimen to meet at least 75% estimated daily needs 2) labs to improve 3) diet to advance 4) f/u in 2-3 days Plan discussed with: Patient INA ARRIOLA MD Apr 30, 2025 00:21
[2025-04-30 01:00] VITALS: BP 121/54; PULSE 75; RESP 19; TEMP 97.6; O2SAT 97
[2025-04-30 05:00] VITALS: BP 135/56; PULSE 82; RESP 17; TEMP 97.7; O2SAT 100
[2025-04-30] MEDS ORDERED: SODIUM CHL 0.9% 1000 ML BAG XX ONE (07:00)
[2025-04-30 08:00] VITALS: PULSE 60; RESP 18
--- NOTE | 2025-04-30 08:41 | DVHPNRES ---
Progress Note Date Seen: Apr 30, 2025 Resident Creating Document: KAREEN HARVEY RESIDENT Has the PT tested + for MRSA If YES, has PT been informed?: No Medical Necessity Reason Pt with a Central, PICC or Fol: No The following are medically ne: Central Line, Araiza Catheter Subjective Review of Systems 04/20/2025 We will continue Lamisil total 25 mg as per Psychiatry consultation. Today the patient reports pain in his left toe, sharp radiating down his leg like an electric current, occurring every 5 seconds. On inquiry he reports that he has had no visual hallucinations and that his chest pain is better with the Tylenol. He is still on 2 L of oxygen. Gabapentin to be given on days after dialysis 300 mg once only On 04/13/2025-patient reported doing well, no acute complaint, we will continue current management, no change in medication, plan is to discharge tomorrow if possible. 04/22/2025 today the patient reports doing well with no new active complaints. He underwent hemodialysis today and was given gabapentin 300 mg after hemodialysis. 04/23/25: Patient reports his legs feel better after gabapentin yesterday. He complained of 6 episodes of watery diarrhea yesterday. stool sulture was neg for c diff and shiga toxin. cefepime and protonix stopped. nifedipine from 60mg to 90mg from todaydue to persistently high BP. Awaiting cardio consult. 04/24/2025: Patient underwent hemodialysis today. Cardiology on board, pacemaker will be placed tomorrow. Preop labs ordered. Heparin on hold and NPO from midnight. Cardiac diet was resumed for today. 04/25/25: Patient declined noting the pacemaker alone today. PT evaluation to be done and home health for PT required. Possible discharge tomorrow 04/26/2025: Patient underwent hemodialysis. He has no new active complaints. Patient stated that he wanted me to speak to his cousin's regarding his discharge plan. I spoke to his cousin Kimmy who stated that she wants patient to go to a SNF placement as his mother he lives with is 85 and unable to take care of him. Spoke to mental health social worker and they will be arranging SNF placement for him. 04/27/25: The patient underwent hemodialysis yesterday without complication. Today, the patient reports no active complaints denies chest pain shortness of breath, dizziness nausea vomiting abdominal pain on bleeding. Appetite is fair, and he is tolerating diet well. The patient is still awaiting SNF placement for long-term care management and has spoken with mental health social worker, who is currently arranging transfer. The patient is hemodynamically stable and comfortable on 2 L/min nasal cannula oxygen. No new symptoms reports since yesterday 04/28/2025: Patient was seen and examined by the bedside today. He has no new active complaints. Hemodialysis to be done today. Continued physical therapy and Awaiting on SNF placement. 04/29/2025: Patient is getting discharged today after receiving a bed in SNF. 04/30/2025: Patient underwent hemodialysis today and was discharged to a SNF facility today. Objective vital signs Vital Sign Date Time Temp Pulse Resp B/P (MAP) Pulse Ox O2 Delivery O2 Flow Rate FiO2 04/30/25 06:00 135/56 04/30/25 05:00 97.7 82 17 100 97.7 04/29/25 20:00 Nasal Cannula* 2 28 Total Intake and Output 04/29/25 04/29/25 04/30/25 15:00 23:00 07:00 Intake Total 300 ml 100 ml Output Total 200 ml Balance 100 ml 100 ml medications Current Medications Medications Dose Ordered Sig/Duane Route Start Time Stop Time Status Last Admin Dose Admin Patient Own Medication 1 tab HS PO 04/10/25 22:00 Insulin Glargine 17 units DAILY SC 04/10/25 10:00 04/29/25 08:35 17 UNITS Saccharomyces Boulardii 250 mg DAILY GT 04/13/25 12:15 04/29/25 08:28 250 MG Dextrose 50 ml ONCE PRN IV 04/15/25 06:45 Diagnostic Test (Pha) 1 strip Q6HR 04/15/25 12:00 04/29/25 23:17 1 STRIP Insulin Human Regular Q6HR SC 04/15/25 12:00 04/29/25 11:54 3 UNITS Zirconium Oxide 10 gm EOD PRN GT 04/16/25 10:00 Isosorbide Dinitrate 10 mg TID@06,12,18 PO 04/16/25 12:00 04/29/25 18:05 10 MG Clonidine HCl 0.1 mg Q7D TD 04/17/25 17:00 04/24/25 17:43 0.1 MG Patient Own Medication 2 mg DAILY PO 04/18/25 10:00 04/29/25 08:29 2 MG Acetaminophen 650 mg Q4HP PRN PO 04/19/25 11:45 04/21/25 12:27 650 MG Lamotrigine 25 mg DAILY PO 04/20/25 10:00 04/29/25 08:28 25 MG Gabapentin 300 mg EOD PO 04/20/25 22:00 04/28/25 09:54 300 MG Sevelamer HCl 800 mg TIDWM PO 04/22/25 18:00 04/29/25 18:05 800 MG Nifedipine 90 mg DAILY PO 04/23/25 18:00 04/29/25 08:31 90 MG Hydralazine HCl 100 mg Q8HR PO 04/23/25 14:00 04/29/25 21:57 100 MG Examination General Appearance: Alert, Oriented X3, Cooperative, Not in acute distress HEENT: Atraumatic, Mucous membranes moist/pink Respiratory: Clear to auscultation, Normal air movement, No added sounds Cardiovascular: Regular rate, Normal S1, Normal S2, No murmurs Abdominal: Active bowel sounds, Soft, no distention, no tenderness Extremities: No edema, Normal pulses, No tenderness/swelling Skin: No Significant rash, except past surgical scars Neuro: Normal speech, sensorimotor deficits none Psych/Mental Status: Mental status NL, Mood NL laboratory and microbiology Laboratory Tests 04/29/25 06:03 Test 04/29/25 06:03 Range/Units Serum Glucose 104 74-106 mg/dL Microbiology Date/Time Source Procedure Growth Status 04/23/25 06:49 Stool Stool Culture - Final Complete 04/23/25 06:49 Stool Shiga Toxin I & II - Final Complete 04/12/25 08:46 Blood Blood Culture - Final NO GROWTH AFTER 5 DAYS OF INCUBATION. Complete 04/12/25 04:00 Nose MRSA Screen - Final Complete Labs and/or images reviewed: Labs reviewed by me, Image(s) reviewed by me Problem List/Assessment/Plan Problem List/Assessment/Plan Cardic arrest status post CPR with return of spontaneous circulation Acute hypoxic respiratory failure, post-extubation, stable High-degree atrioventricular block, complete heart block. Ventricular tachycardia Sepsis due to Enterobacter cloacae pneumonia with septic encephalopathy, improving (RETIREMENT) Moderate pulmonary hypertension (RVSP 55 mmHg) per echo. NSTEMI, ruled out coronary artery disease. Ruled out structural heart disease. Acute hypoxic respiratory failure. Hypertension. Hyperkalemia, resolved. ESRD on hemodialysis. Type 2 diabetes mellitus, uncontrolled (Hbg A1c 11.5%) Psychosis with hallucinations, insomnia, underlying schizophrenia and bipolar disorder Medical noncompliance Obesity (BMI 35.6) HFpEF 65% System-[facility] Plan transfer to the SNF today Neuro/Psych * Continue haloperidol PRN for breakthrough agitation. * Resume home aripiprazole. * Tele-psych consult done, Lamictal 25 mg po daily restarted * Sleep hygiene and reassurance. Cardiovascular * Continue antihypertensive regimen: nifedipine ER 60 mg daily, hydralazine 50 mg q8h, isosorbide dinitrate TID, clonidine 0.1 mg Q7D. * Maintain BP <140/90. Respiratory * Wean NC O? as tolerated. * Incentive spirometry and pulmonary hygiene. Renal * Continue HD on MWF schedule. * Strict I/O and daily weights. * Avoid nephrotoxic agents. Hematology * Continue epoetin with HD. * Transfuse if Hgb <7. * Monitor CBC daily. Infectious Disease * Cefepime discontinued on 04/23/2025 * stool culture negative for Shiga and C difficile * Monitor for recurrence of fever or WBC changes. Endocrine * Continue insulin regimen with SSI. * Monitor glucose q6h. GI/Nutrition * Protonix 40 mg po, stopped on 04/23/2020 * Oral feeds as tolerated, speech/swallow eval to guide diet. * Continue probiotics. Musculoskeletal # Neuropathic pain left foot -gabapentin 400mg TID Prophylaxis * DVT: Heparin SQ q12h. * GI: PPI BID. * Pulmonary: IS, HOB elevation. Case discussed in detail with the Dr Valera, including the clinical presentation, diagnostic workup, and comprehensive management plan. The patient was present for the discussion and demonstrated understanding of his condition and the proposed plan Plan discussed with: Patient Dietary Evaluation Review Comments: 1) Change TF formulary from Glucerna 1.2 to Nepro @ 30 goal rate as tolerated d/t ESRD. Flush with 150 mL free H2O Q6H. TF regimen will provide 1296 kcals, 58g Pro, and 1123 mL free H2O (including flushes) per 24 hrs. TF regimen will meet ~86% estimated energy needs and ~61% estimated protein needs. 2) Advance to 60g CCHO renal diet when medically feasible, pending ST approval 3) Refer to outpatient RD/[facility] for diabetes education/weight management 4) Follow-up with cardiology, pulmonology, and nephrology 5) Continue to monitor I&O, labs, and skin integrity Expected Outcomes/Goals: 1) TF regimen to meet at least 75% estimated daily needs 2) labs to improve 3) diet to advance 4) f/u in 2-3 days Date of Service: Apr 30, 2025 Billing Provider: RON VALERA MD Common Visit Codes: [id number] INP/OBS CARE(HIGH) KAREEN HARVEY RESIDENT Apr 30, 2025 08:41 RON VALERA MD May 01, 2025 17:36
[2025-04-30 09:00] VITALS: BP 130/87; PULSE 60; RESP 17; TEMP 98.2; O2SAT 99
[2025-04-30 12:12] VITALS: BP 136/87; PULSE 97
[2025-04-30] MEDS ORDERED: EPOETIN ALFA-EPBX 4,000 UNIT/ML VIAL SC ONE (21:00)
--- NOTE | 2025-05-01 00:04 | DVHPN2 ---
Progress Note - Dictate Date Seen: Apr 30, 2025 Has the PT tested + for MRSA If YES, has PT been informed?: No Medical Necessity Reason Pt with a Central, PICC or Fol: No The following are medically ne: Central Line, Araiza Catheter Subjective Patient was seen and evaluated in follow up. Patient has no new complaints at this time. Patient denies any cardiac symptoms. Patient is cardiac stable for discharge. Telemetry reviewed. vital signs Vital Sign Date Time Temp Pulse Resp B/P (MAP) Pulse Ox O2 Delivery O2 Flow Rate FiO2 04/30/25 12:12 97 04/30/25 11:35 136/87 04/30/25 09:00 98.2 17 99 98.2 04/30/25 08:00 Nasal Cannula* 2 28 objective GENERAL: Alert and oriented x 3. No acute distress. Obese. EYES: PERRL, EOMI. Anicteric. HENT: Moist mucous membranes. LUNGS: Clear to auscultation bilaterally. CARDIOVASCULAR: Regular rate and rhythm. ABDOMEN: Soft, nontender and nondistended. EXTREMITIES: No edema. SKIN: Hyperpigmentation to bilateral lower extremities. laboratory and microbiology Laboratory Tests 04/29/25 06:03 Test 04/29/25 06:03 Range/Units Serum Glucose 104 74-106 mg/dL Problem List Cardiopulmonary arrest status post CPR with return of spontaneous circulation. High-degree atrioventricular block, complete heart block. Ventricular tachycardia. NSTEMI, rule out coronary artery disease. Rule out structural heart disease. Acute hypoxic respiratory failure. Hypertension. Hyperkalemia, resolved. ESRD on hemodialysis. Type 2 diabetes mellitus, uncontrolled (Hbg A1c 11.5%). Medical noncompliance. Assessment/Plan Continued all current supportive medical care. Clonidine, Hydralazine, Nifedipine. Additional plan as per the hospital course. Dietary Evaluation Review Comments: 1) Change TF formulary from Glucerna 1.2 to Nepro @ 30 goal rate as tolerated d/t ESRD. Flush with 150 mL free H2O Q6H. TF regimen will provide 1296 kcals, 58g Pro, and 1123 mL free H2O (including flushes) per 24 hrs. TF regimen will meet ~86% estimated energy needs and ~61% estimated protein needs. 2) Advance to 60g CCHO renal diet when medically feasible, pending ST approval 3) Refer to outpatient RD/[facility] for diabetes education/weight management 4) Follow-up with cardiology, pulmonology, and nephrology 5) Continue to monitor I&O, labs, and skin integrity Expected Outcomes/Goals: 1) TF regimen to meet at least 75% estimated daily needs 2) labs to improve 3) diet to advance 4) f/u in 2-3 days Plan discussed with: Patient INA ARRIOLA MD May 01, 2025 00:04
== END 2025-04-30 14:40 | DRG 720 ==
LOC: ER 12:53 → EDBD 12:53 → OVERFLOW 15:47 → TELE-WESTW 04-10 21:15 → ICU CENTRL 04-12 03:30 → TELE-CENTR 04-18 14:51
PROVIDERS: ADMIT Student in an Organized Health Care Education/Training Program; ATTEND Student in an Organized Health Care Education/Training Program
PROC: 5A1D70Z Performance of Urinary Filtration, Intermittent, Less than 6 Hours Per Day (ICD-10-PCS; 2025-04-10)
PROC: 5A1955Z Respiratory Ventilation, Greater than 96 Consecutive Hours (ICD-10-PCS; principal; 2025-04-12)
PROC: 5A1D70Z Performance of Urinary Filtration, Intermittent, Less than 6 Hours Per Day (ICD-10-PCS; 2025-04-12)
PROC: 0BH17EZ Insertion of Endotracheal Airway into Trachea, Via Natural or Artificial Opening (ICD-10-PCS; 2025-04-12)
PROC: 5A12012 Performance of Cardiac Output, Single, Manual (ICD-10-PCS; 2025-04-12)
PROC: 02HV33Z Insertion of Infusion Device into Superior Vena Cava, Percutaneous Approach (ICD-10-PCS; 2025-04-12)
PROC: B548ZZA Ultrasonography of Superior Vena Cava, Guidance (ICD-10-PCS; 2025-04-12)
PROC: 5A1D70Z Performance of Urinary Filtration, Intermittent, Less than 6 Hours Per Day (ICD-10-PCS; 2025-04-15)
PROC: 5A1D70Z Performance of Urinary Filtration, Intermittent, Less than 6 Hours Per Day (ICD-10-PCS; 2025-04-17)
PROC: 5A1D70Z Performance of Urinary Filtration, Intermittent, Less than 6 Hours Per Day (ICD-10-PCS; 2025-04-19)
PROC: 5A1D70Z Performance of Urinary Filtration, Intermittent, Less than 6 Hours Per Day (ICD-10-PCS; 2025-04-22)
PROC: 5A1D70Z Performance of Urinary Filtration, Intermittent, Less than 6 Hours Per Day (ICD-10-PCS; 2025-04-24)
PROC: 5A1D70Z Performance of Urinary Filtration, Intermittent, Less than 6 Hours Per Day (ICD-10-PCS; 2025-04-26)
PROC: 5A1D70Z Performance of Urinary Filtration, Intermittent, Less than 6 Hours Per Day (ICD-10-PCS; 2025-04-30)
DX: A41.59 Other Gram-negative sepsis (principal); I46.9 Cardiac arrest, cause unspecified; I13.2 Hypertensive heart and chronic kidney disease with heart failure and with stage 5 chronic kidney disease, or end stage renal disease; I21.4 Non-ST elevation (NSTEMI) myocardial infarction; R57.9 Shock, unspecified; J15.69 Pneumonia due to other Gram-negative bacteria; G93.41 Metabolic encephalopathy; J81.0 Acute pulmonary edema; J96.01 Acute respiratory failure with hypoxia; R65.20 Severe sepsis without septic shock; I44.2 Atrioventricular block, complete; D63.1 Anemia in chronic kidney disease; I47.20 Ventricular tachycardia, unspecified; E87.5 Hyperkalemia; E11.65 Type 2 diabetes mellitus with hyperglycemia; E11.649 Type 2 diabetes mellitus with hypoglycemia without coma; F22 Delusional disorders; H91.91 Unspecified hearing loss, right ear; E11.40 Type 2 diabetes mellitus with diabetic neuropathy, unspecified; L03.116 Cellulitis of left lower limb; L03.115 Cellulitis of right lower limb; G47.00 Insomnia, unspecified; F31.9 Bipolar disorder, unspecified; I50.30 Unspecified diastolic (congestive) heart failure; I27.20 Pulmonary hypertension, unspecified; M79.672 Pain in left foot; H54.7 Unspecified visual loss; E66.2 Morbid (severe) obesity with alveolar hypoventilation; E11.319 Type 2 diabetes mellitus with unspecified diabetic retinopathy without macular edema; E21.3 Hyperparathyroidism, unspecified; I16.0 Hypertensive urgency; Z68.35 Body mass index [BMI] 35.0-35.9, adult; Z99.2 Dependence on renal dialysis; Z83.3 Family history of diabetes mellitus; Z82.49 Family history of ischemic heart disease and other diseases of the circulatory system; Z87.891 Personal history of nicotine dependence; Z90.49 Acquired absence of other specified parts of digestive tract; Z79.4 Long term (current) use of insulin; Z91.158 Patient's noncompliance with renal dialysis for other reason; Z91.148 Patient's other noncompliance with medication regimen for other reason
CPT/HCPCS: 31500; 36415; 36556; 36600; 70450; 71045; 74018; 74176; 80048; 80053; 80061; 82270; 82306; 82607; 82728; 82746; 82805; 82962; 83036; 83540; 83550; 83605; 83735; 83880; 84100; 84132; 84443; 84484; 85025; 85048; 85610; 85652; 85730; 87040; 87045; 87070; 87077; 87081; 87186; 87205; 87340; 87427; 90935; 92610; 92950; 93005; 93306; 93970; 94002; 94003; 94640; 96365; 97110; 97116; 97163; 97530; 99291; G0378; J1642; J1815; J2470; J2543; J3490; J7060